=== PATIENT | male | born 1970 | race Caucasian/White ===

== ENCOUNTER 2018-02-01 05:43 | Inpatient (IN) | payer OTHER ==
[~2018-02-01] VITALS: Ht 172.7 cm; Wt 71.4 kg
[~2018-02-01 05:43] MED LIST: CHOL1CAP2 PO; GABA800T PO; PROT40TA PO; RANI150T PO
[2018-02-01] MEDS ORDERED: LACTATED RINGER'S 1000 ML IV PRN (06:15)
[2018-02-01] MEDS ORDERED: METOPROLOL TARTRATE 25 MG TAB PO PRN (06:15)
[2018-02-01] MEDS ORDERED: SODIUM CHLORID 0.9% 500 ML IV PRN (06:15)
[2018-02-01] MEDS ORDERED: ceFAZolin 2 GM/NS PREMIX 100 ML IV SCH (06:15)
[2018-02-01] MEDS ORDERED: POVIDONE IODINE 5% (ANTISEPSIS KIT) 4 APPLICATIONS EACH NARE PRN (06:15)
[2018-02-01] MEDS ORDERED: CHLORHEXIDINE GLUCONATE 2 % 1 PACK (2 CLOTHS) TOPICAL PRN (06:15)
[2018-02-01 06:49] LABS: AUTOMATED NEUTROPHIL # 2.6 TH/MM3 (1.8-7.7); EOSINOPHIL # 0.2 TH/MM3 (0-0.4); EOSINOPHIL % 4.3 % (0.0-4.0); HEMATOCRIT 42.3 % (39.0-51.0); HEMOGLOBIN 14.3 GM/DL (13.0-17.0); LYMPHOCYTE # 1.2 TH/MM3 (1.0-4.8); MEAN CELL VOLUME 83.8 FL (80.0-100.0); MEAN CORPUSCULAR HEMOGLOBIN 28.3 PG (27.0-34.0); MEAN CORPUSCULAR HGB CONC 33.7 % (32.0-36.0); MEAN PLATELET VOLUME 8.4 FL (7.0-11.0); MONO % 13.2 % (0.0-8.0); MONOCYTE # 0.6 TH/MM3 (0-0.9); NEUT % 55.5 % (16.0-70.0); PLATELET COUNT 277 TH/MM3 (150-450); RED BLOOD COUNT 5.04 MIL/MM3 (4.50-5.90); RED CELL DISTRIBUTION WIDTH 13.5 % (11.6-17.2); WHITE BLOOD COUNT 4.7 TH/MM3 (4.0-11.0)
[2018-02-01 07:15] LABS: BICARBONATE 27.4 MEQ/L (21.0-32.0); CALCIUM 8.9 MG/DL (8.5-10.1); CREATININE 1.26 MG/DL (0.60-1.30)
[2018-02-01] MEDS ORDERED: ACETAMINOPHEN 1000 MG/100 ML 100 ML IV ONE (07:20)
[2018-02-01] MEDS ORDERED: SUGAMMADEX SODIUM 200 MG/2 ML VIAL IV PUSH ONE (07:21)
[2018-02-01] MEDS ORDERED: fentaNYL CITRATE 250 MCG/5 ML AMP ONE (07:21)
[2018-02-01] MEDS ORDERED: ceFAZolin 2 GM PREMIX 50 ML ONE (07:26)
[2018-02-01] MEDS ORDERED: ETOMIDATE 20 MG/10 ML VIAL ONE (07:36)
[2018-02-01] MEDS ORDERED: ONABOTULINUMTOXINA INJ 100 UNITS/VIAL SCH (08:15)
[2018-02-01] MEDS ORDERED: PROPOFOL 200 MG/20 ML AMP IV ONE (12:00)
[2018-02-01] MEDS ORDERED: ePHEDrine/NS 25 MG/5 ML SYRINGE IV ONE (12:00)
[2018-02-01] MEDS ORDERED: ceFAZolin INJ 1,000 MG VIAL IV ONE (12:00)
[2018-02-01] MEDS ORDERED: METOPROLOL TARTRATE 5 MG/5 ML VIAL IV ONE (12:00)
[2018-02-01] MEDS ORDERED: ROCURONIUM INJ 50 MG/5 ML SYRINGE IV PUSH ONE (12:00)
[2018-02-01] MEDS ORDERED: DEXAMETHASONE SOD PHOS 4 MG/ML VIAL IV ONE (12:00)
[2018-02-01] MEDS ORDERED: NORMOSOL R INJ 1,000 ML IV ONE (12:00)
[2018-02-01] MEDS ORDERED: GLYCOPYRROLATE 1 MG/5 ML SYRINGE IV PUSH ONE (12:00)
[2018-02-01] MEDS ORDERED: LIDOCAINE HCL 1% PF 5 ML SYRINGE OTHER ONE (12:00)
[2018-02-01] MEDS ORDERED: PHENYLEPH/NS 1000 MCG/10 ML SYR IV ONE (12:00)
[2018-02-01] MEDS ORDERED: ONDANSETRON HCL 4 MG/2 ML VIAL IV PUSH ONE (12:00)
[2018-02-01] MEDS ORDERED: VECURONIUM BROMIDE 20 MG VIAL IV ONE (12:00)
[2018-02-01] MEDS ORDERED: ESMOLOL HCL 100 MG/10 ML VIAL IV ONE (12:00)
[2018-02-01] MEDS ORDERED: SODIUM CHLORIDE 0.9% 20 ML VIAL IV ONE (12:00)
--- NOTE | 2018-02-01 12:28 | EKG ---
Date Performed: 02/01/2018 Time Performed: 06:19:14 PTAGE: 47 years EKG: Sinus rhythm Normal ECG NO PREVIOUS TRACING DOCTOR: Isidro Mckay Interpretating Date/Time 02/01/2018 12:23:31
[2018-02-01] MEDS ORDERED: ceFAZolin INJ 1,000 MG VIAL ONE ×2 (12:44→15:34)
[2018-02-01] MEDS ORDERED: VECURONIUM BROMIDE 20 MG VIAL ONE (12:48)
[2018-02-01] MEDS ORDERED: BUPIVACAINE LIPOSOME PF 1.3% 20 ML VIAL ONE (15:06)
[2018-02-01] MEDS ORDERED: BENZOCAINE 20% ORAL SPR 60 ML CAN MT PRN (15:15)
[2018-02-01] MEDS ORDERED: NALOXONE HCL 0.4 MG/ML AMP IV PUSH PRN ×2 (15:15)
[2018-02-01] MEDS: PCA - TOTAL MG MORPHINE DELIVERED PER SHIFT SCH ×2 (15:15→22:00)
[2018-02-01] MEDS ORDERED: Post-op Orders (for Pharmacy) XX ONE (15:15)
[2018-02-01] MEDS ORDERED: SODIUM CHLORIDE 0.9% FLUSH 10 ML FLUSH IV FLUSH PRN (15:15)
[2018-02-01] MEDS ORDERED: MIDAZOLAM HCL 2 MG/2 ML VIAL ONE (15:38)
[2018-02-01] MEDS: D5-NS + KCL 20 MEQ INJ 1,000 ML IV SCH (16:00)
[2018-02-01] MEDS: ACETAMINOPHEN 1000 MG/100 ML 100 ML IV SCH ×2 (16:00→22:31)
[2018-02-01] MEDS ORDERED: MORPHINE SULFATE 4 MG/ML INJ ONE (16:02)
--- NOTE | 2018-02-01 16:38 | RADRPT ---
EXAM DATE/TIME: 02/01/2018 16:11 [facility] COMPARISON: No previous studies available for comparison. INDICATIONS : Evaluate for left sided central line placement. MEDICAL HISTORY : Unobtainable. SURGICAL HISTORY : Unobtainable. ENCOUNTER: Initial ACUITY: 1 day PAIN SCORE: Non-responsive. LOCATION: chest FINDINGS: There is a left subclavian central line with tip in the proximal SVC. There is a right apical chest t ube in place. There is an NGT which courses towards the right and extends inferiorly in a right rebecca nikky course terminating in the region of the diaphragm. Patchy bilateral lower lobe airspace disease . Cardiac silhouette is within normal limits. Bony thorax is grossly intact. CONCLUSION: 1. The nasogastric catheter has an unusual course as described above. Cannot exclude right bronchial position. Clinical correlation is recommended. 2. Left subclavian central line tip in the proximal SVC. No significant pneumothorax. 3. Right apical chest tube in place without significant pneumothorax. 4. Patchy bilateral lower lobe airspace disease. Corby Schrader MD on February 01, 2018 at 16:32 Board Certified Radiologist. This report was verified electronically.
[2018-02-01] MEDS ORDERED: DO NOT ADM ANY ANTICOAGULANT DRUGS PRN (17:00)
--- NOTE | 2018-02-01 17:05 | MP ---
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 PROCEDURES PERFORMED: 1. Exploratory laparotomy and open proximal gastrectomy with conversion to robotic-assisted Romulo-Israel esophagectomy. 2. Omentectomy. 3. Jejunostomy tube placement 4. Chemical pyloroplasty with Botox injection of the pylorus. ATTENDING SURGEON: Pérez Eaton MD MANUFACTURING WEAVER: Staff. ANESTHESIA: General and regional tap block. BLOOD LOSS: 300 mL COMPLICATIONS: None. FINDINGS: 1. Intraoperative consultation with pathology on frozen section revealed Whalen's or dysplasia at the proximal margin proximal gastrectomy specimen as well as very close gross margin of adenocarcinoma prompting conversion to Romulo-Israel esophagectomy. 2. No evidence of metastatic disease. INDICATIONS FOR PROCEDURE: The patient is a 47-year-old male who was recently diagnosed with early stage esophageal adenocarcinoma of the distal esophagus or possibly cardia of the stomach with a history of reflux and hiatal hernia. The patient was undergoing routine surveillance for Whalen's esophagus as well as concern for dysplasia when he was noted to have an invasive adenocarcinoma on biopsy. The patient was referred for surgical evaluation. Staging scans were negative for metastatic disease. The patient was felt to have resectable early stage distal esophageal adenocarcinoma. This was additionally biopsied in the cardia of the stomach and a proximal gastrectomy was planned. Possible Romulo-Israel esophagectomy was also discussed with the patient prior to the procedure and he agreed to undergo the procedure. PROCEDURE IN DETAIL: The patient was placed in the supine position, placed under general endotracheal anesthesia. Double lumen tube was placed due to the concern for possible conversion as well. The patient's abdomen was shaved, prepped and draped in a sterile fashion. Timeout was performed. The abdomen was entered through an upper midline incision from below the xiphoid to above the umbilicus with a 10-blade scalpel. Bovie electrocautery was used to dissect in the subcutaneous tissue to open the midline fascia. Awais extra large wound protector as well as Bookwalter retractor was placed. We were able to mobilize the left lobe of the liver, retract it laterally to expose the GE junction. Everything seemed grossly normal at this time. We went ahead and started our dissection. We resected the majority of the omentum as when we mobilized the greater curve of the stomach and took down the short gastrics, this appeared to be mildly ischemic in areas. This was obviously expected due to dividing some of the blood supply as we took the right gastroepiploic on our specimen as a blood supply to our gastric remnant or conduit as needed. We at this point in time again used the EnSeal device to take down all the short gastrics. We opened up the Vlad on the right and left side and took down the small amount of hernia sac from the patient's small hiatal hernia. From left to right fashion, we were also able to identify the left gastric vessels. We divided this at their origin at the celiac with a white load on the laparoscopic GI stapler. We still had a good pulse in the hepatic artery after this division. This completely mobilized the proximal stomach. We placed a Trudy around the GE junction and used this to retract downward. We again used the EnSeal device to go up and mobilized esophagus approximately 5 cm into the chest quite extensively. At this point in time, we were able to palpate a mass that was clearly in the esophagus above the GE junction, but it was again accessible through the stomach because of our mobilization. We did divide both vagus nerves as well. We placed 2 stay sutures proximal to the mass about as high as we could access through the stomach and used a green load on the [place] stapler to divide the esophagus above the palpable mass. We then used multiple green loads on the [place] laparoscopic stapler to divide the stomach taking to the fundus, a large portion of the body as well as the lesser curve and all the left gastric nodes with our specimen. This was passed off for intraoperative consultation. This returned positive for either Whalen's or dysplasia as well as was very close within just 1 mm of our staple line was the adenocarcinoma. I was concerned that this was not adequate resection margin and we could not take more margin through the stomach. I felt at this point in time, it was in the patient's best interest to convert to an [place] esophagectomy. At this point in time, we used Vicryl sutures to suture our gastric remnant to the distal esophagus in order to pull this through as a pull through. We bluntly dissected into the right chest cavity and accessed the right pleural space. We then kocherized the duodenum and mobilized the stomach as much as possible. The stomach remnant was a very wide, viable floppy and very appropriate conduit for a small pull through in order to get a higher margin to the chest. We did also now place Botox into the pylorus as a chemical pyloromyotomy. We then placed a jejunostomy tube. This was done in a standard Fadia fashion approximately 40 cm past the ligament of Treitz. It was a size 14-Italian jejunostomy tube with 2.5 mL of sterile water into the balloon because this can stand up with a 3-0 silk sutures against the abdominal wall. We then turned attention towards closure. We irrigated out the abdomen until all succinate was clear. We closed the abdominal midline with a single #1 looped PDS suture. We closed the skin with skin jatinder and a sterile dressing was applied. At this point in time, we did turn our attention towards the chest portion of the Romulo-Israel. We placed the patient in the left decubitus position with all positioning precautions taken. Axillary roll was used. We shaved, prepped and draped the right chest. Right chest was accessed approximately the fifth interspace at the mid axillary line with a 10-12 laparoscopic port. We placed a 30-degree camera into the chest. We did a small amount of insufflation about 5 mL of CO2 and able to collapse the lung on single lung ventilation quite easily. We placed then 3 robot ports at that time, We then docked the da Tj SI robotic system. We did use the hook monopolar in arm 1, the suction cable installer in arm 3 and the fenestrated bipolar in arm 2. We were able to grasp our conduit and the remainder of our stomach through the chest after carefully retracting the lung medially with the robotic suction device. We took down the visceral pleura over the esophagus and used the Talmage drain, which was left around the stomach conduit to facilitate retraction as well. We dissected this up to about the level of the azygos vein. We had several centimeters of totally normal appearing esophagus grossly and was again several centimeters above our previous resection. We did not want to divide the azygos vein and go higher due to the patient clearly not benefitting from more extensive resection at this point, having her already removed the primary. We used a green load on the robotic stapler to divide the esophagus again approximately 4 cm below the azygos vein. We were then able to use the scissors to make a small esophagotomy at the distal center the tip of our esophageal stump. We passed the Orval anvil transorally through this defect, securing the anvil into the distal esophagus. This was a size 25 mm. We then placed a few Hemoclips on some vessels, again, to ensure hemostasis. These were minor perforating vessels. We then dedocked robot arm 2 and made a small VATS incision approximately 6 cm in between the ribs and placed a small VATS retractor. We were able to grasp the specimen as well as the conduit and extracorporealate it through this VATS incision. We sent the specimen for evaluation and marked it appropriately. We opened up a small gastrotomy in our conduit, placed a 25 mm EEA stapler through this. Using the robot as guidance, we were able to supercharger repair supervisor the EEA stapler spike to the anvil without difficulty and fire the stapler without complication. We passed the NG tube through the anastomosis down to the distal conduit. We closed the gastrotomy conduit with 2 green loads on the laparoscopic [place] stapler. We placed 2 stay stitches at approximately 3 and 9 o'clock using the robotic brittney suture courtesy van driver. These were 2-0 silk sutures with SH needles and were stay sutures to reinforce our anastomosis. We then irrigated out the chest until all succinate was clear. We had no evidence of leak or ischemia or bleeding or any complication. We turned our attention towards completion. We removed all the ports and dedocked the robot system. We placed a 28-Italian tube in a lateral superior position through the robot arm 3 port posterolaterally. We insufflated the lung and the lung came up well without any evidence of entrapment or complication or air leak. We then closed the VATS incision with a #1 PDS followed by a 2-0 Vicryl suture. All the skin was closed with 3-0 Monocryl and Dermabond. The chest tube was placed to suction. We then put bridled in the patient's nasogastric tube into position. The patient was changed to supine position and was transferred to the PACU in stable condition. The patient tolerated the procedure well. No apparent complications. All counts were correct. I was present and scrubbed for the entire procedure. MD DIXIE Ruffin/ , 03:38 PM , 05:04 PM [facility]
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
[2018-02-01] MEDS: MORPHINE SULFATE 30 MG/30 ML PCA IV SCH ×2 (17:23→21:13)
[2018-02-01 18:03] VITALS: PULSE 100
[2018-02-01] MEDS: metroNIDAZOLE 500 MG INJ 100 ML IV SCH (18:56)
[2018-02-01 20:00] VITALS: BP 139/88; PULSE 102; RESP 17; TEMP 98.9; O2SAT 97
[2018-02-01] MEDS: SODIUM CHLORIDE 0.9% FLUSH 10 ML FLUSH IV FLUSH SCH (20:43)
[2018-02-01 22:00] VITALS: PULSE 98
[2018-02-01] MEDS ORDERED: KETOROLAC TROMETHAMINE 30 MG/ML (IVP) VIAL IV PUSH ONE (22:30)
[2018-02-02] VITALS (14 sets, daily range): BP systolic 132–156; BP diastolic 74–88; PULSE 92–104; RESP 10–20; TEMP 98.4–99; O2SAT 96–100
[2018-02-02] MEDS: metroNIDAZOLE 500 MG INJ 100 ML IV SCH ×2 (00:22→09:03)
[2018-02-02] MEDS: D5-NS + KCL 20 MEQ INJ 1,000 ML IV SCH ×3 (00:22→19:00)
[2018-02-02] MEDS: ACETAMINOPHEN 1000 MG/100 ML 100 ML IV SCH ×4 (03:48→22:07)
[2018-02-02 04:19] LABS: AUTOMATED NEUTROPHIL # 11.2 TH/MM3 (1.8-7.7); BASOPHIL % 0.3 % (0.0-2.0); HEMATOCRIT 37.3 % (39.0-51.0); HEMOGLOBIN 12.4 GM/DL (13.0-17.0); LYMPH % 4.6 % (9.0-44.0); LYMPHOCYTE # 0.6 TH/MM3 (1.0-4.8); MEAN CELL VOLUME 82.9 FL (80.0-100.0); MEAN CORPUSCULAR HEMOGLOBIN 27.7 PG (27.0-34.0); MEAN CORPUSCULAR HGB CONC 33.4 % (32.0-36.0); MEAN PLATELET VOLUME 8.6 FL (7.0-11.0); MONO % 8.4 % (0.0-8.0); MONOCYTE # 1.1 TH/MM3 (0-0.9); NEUT % 86.7 % (16.0-70.0); PLATELET COUNT 246 TH/MM3 (150-450); RED CELL DISTRIBUTION WIDTH 13.7 % (11.6-17.2)
[2018-02-02 04:41] LABS: BICARBONATE 27.4 MEQ/L (21.0-32.0); CALCIUM 7.4 MG/DL (8.5-10.1); CREATININE 1.04 MG/DL (0.60-1.30)
[2018-02-02 04:55] LABS: CALCIUM-PROTEIN CORRECTED 8.2 MG/DL (8.5-10.1); TOTAL PROTEIN 5.7 GM/DL (6.4-8.2)
[2018-02-02] MEDS: PCA - TOTAL MG MORPHINE DELIVERED PER SHIFT SCH ×3 (06:09→22:00)
[2018-02-02] MEDS: MORPHINE SULFATE 30 MG/30 ML PCA IV SCH ×4 (06:13→22:42)
[2018-02-02] MEDS: SODIUM CHLORIDE 0.9% FLUSH 10 ML FLUSH IV FLUSH SCH ×2 (09:03→21:00)
--- NOTE | 2018-02-02 12:15 | HHI.PR ---
Subjective Subjective Notes pain ok, no new c/o Objective Vitals/I&O Vital Signs Date Time Temp Pulse Resp B/P (MAP) Pulse Ox O2 Delivery O2 Flow Rate FiO2 02/02/18 12:07 98.6 101 20 146/85 (105) 96 02/02/18 07:30 Nasal Cannula 3.00 Labs Laboratory Tests Test 02/01/18 17:30 02/02/18 04:00 Nasal Screen MRSA (PCR) MRSA NOT DETECTED White Blood Count 13.0 Red Blood Count 4.50 Hemoglobin 12.4 Hematocrit 37.3 Mean Corpuscular Volume 82.9 Mean Corpuscular Hemoglobin 27.7 Mean Corpuscular Hemoglobin Concent 33.4 Red Cell Distribution Width 13.7 Platelet Count 246 Mean Platelet Volume 8.6 Neutrophils (%) (Auto) 86.7 Lymphocytes (%) (Auto) 4.6 Monocytes (%) (Auto) 8.4 Eosinophils (%) (Auto) 0.0 Basophils (%) (Auto) 0.3 Neutrophils # (Auto) 11.2 Lymphocytes # (Auto) 0.6 Monocytes # (Auto) 1.1 Eosinophils # (Auto) 0.0 Basophils # (Auto) 0.0 CBC Comment DIFF FINAL Differential Comment Blood Urea Nitrogen 15 Creatinine 1.04 Random Glucose 141 Total Protein 5.7 Calcium Level 7.4 Sodium Level 142 Potassium Level 4.1 Chloride Level 108 Carbon Dioxide Level 27.4 Anion Gap 7 Estimat Glomerular Filtration Rate 76 Protein Corrected Calcium 8.2 Cardiovascular: Regular Lungs: Clear Abdomen: Post-op tenderness Extremities: No edema, Perfused A/P Assessment and Plan 47yo male s/p robotic assisted Buckner-madeleine esophagectomy, stable POD#1. pain ok will ask PT to see, ok for OOB good UP, reduce IVF pulmonary toilet continue NG continue J-tube to gravity Pérez Eaton MD February 02, 2018 12:15
--- NOTE | 2018-02-02 15:18 | HHI.CCPN ---
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 Patient tolerated procedure well was subsequently extubated and transferred to recovery room. Critical care consult requested by Dr. Eaton . When I evaluated patient in PACU he was still drowsy following anesthesia on nasal cannula. History was obtained by reviewing records and discussion with PACU nursing staff. SUBJECTIVE: 02/02: Resting in bed on nasal cannula in no acute distress. Pain controlled with morphine [employer]. Objective Vital Signs Date Time Temp Pulse Resp B/P (MAP) Pulse Ox O2 Delivery O2 Flow Rate FiO2 02/02/18 14:30 11 02/02/18 12:07 98.6 101 146/85 (105) 96 02/02/18 07:30 Nasal Cannula 3.00 Intake and Output 02/02/18 02/02/18 02/03/18 08:00 16:00 00:00 Intake Total 1300 ml 300 ml Output Total 1770 ml Balance -470 ml 300 ml Result Diagram: 02/02/18 0400 02/02/18 0400 Imaging Last Impressions Chest X-Ray 02/01/18 0000 Signed Impressions: Service Date/Time: Thursday, February 01, 2018 16:11 - CONCLUSION: 1. The nasogastric catheter has an unusual course as described above. Cannot exclude right bronchial position. Clinical correlation is recommended. 2. Left subclavian central line tip in the proximal SVC. No significant pneumothorax. 3. Right apical chest tube in place without significant pneumothorax. 4. Patchy bilateral lower lobe airspace disease. Corby Schrader MD Objective Remarks GENERAL: 46-year-old male currently resting in bed in no acute distress SKIN: Warm and dry. HEAD: Atraumatic. Normocephalic. EYES: Pupils equal and round. No scleral icterus. No injection or drainage. ENT: No nasal bleeding or discharge. Mucous membranes pink and moist. NECK: Trachea midline. No JVD. CARDIOVASCULAR: Regular rate and rhythm. S1, S2 predose 4. RESPIRATORY: No accessory muscle use. Clear to auscultation. Breath sounds equal bilaterally. Left-sided chest tube in place GASTROINTESTINAL: Abdomen soft, non-tender, nondistended. Hepatic and splenic margins not palpable. G-tube in place MUSCULOSKELETAL: Extremities without clubbing, cyanosis, or edema. No obvious deformities. NEUROLOGICAL: Awake and alert. No obvious cranial nerve deficits. Motor grossly within normal limits. Five out of 5 muscle strength in the arms and legs. Normal speech. PSYCHIATRIC: Appropriate mood and affect; insight and judgment normal. A/P Assessment and Plan Neuro/Psych: Currently on morphine sulfate [employer] Currently on schedule Ofirmev 1 g IV every 6 hours 8 dosages for fever prevention Holding gabapentin 800 mg daily/home medication CV: Hyperlipidemia D5 normal saline with 20 mEq KCl 90 cc an hour Not requiring vasopressors and/or antihypertensives the present time On fenofibrate 135 mg p.o. daily at home Resp: Nasal cannula to maintain saturations greater than equal to 92% Incentive spirometry while awake Chest tube currently -10 cm H2O per surgery. 360 cc serosanguineous past 24 hours GI: Postop day #1 Exploratory laparotomy and open proximal gastrectomy with conversion to robotic-assisted Romulo-Israel esophagectomy. Omentectomy. Jejunostomy tube placement Chemical pyloroplasty with Botox injection of the pylorus. 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 Hiatal hernia Start tube feedings and okay with Dr. Eaton On pantoprazole and ranitidine at home. These are currently being held Bowel regimen per general surgery 210 cc NG tube drainage : Cantu catheter if indicated for accurate I's and O's in a critically ill patient Endo: Maintain euglycemia Renal: Creatinine currently within normal limits. Creatinine was 1.26 yesterday. 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 Follow trend ID: Postoperative antibiotics per surgery completed with cefazolin and metronidazole FEN: Hypo-calcium 1 g calcium gluconate is a now. Recheck in a.m. Access Prophylaxis -GI -DVT -SCD/enoxaparin Level 1 follow-up Rome Villanueva MD February 02, 2018 15:18
[2018-02-02] MEDS ORDERED: CALCIUM GLUCONATE INJ 1 GM in SODIUM CHLORIDE 0.9% INJ 100 ML IV ONE (15:30)
[2018-02-02] MEDS: ENOXAPARIN SODIUM 40 MG/0.4 ML SYRINGE SQ SCH (15:51)
[2018-02-02] MEDS: PROMETHAZINE INJ 25 MG/ML VIAL OTHER PRN (19:54)
[2018-02-03] VITALS (13 sets, daily range): BP systolic 148–157; BP diastolic 62–99; PULSE 96–116; RESP 13–21; TEMP 98.4–99.4; O2SAT 94–97
[2018-02-03] MEDS: MORPHINE SULFATE 30 MG/30 ML PCA IV SCH ×3 (03:43→19:48)
--- NOTE | 2018-02-03 04:12 | RADRPT ---
EXAM DATE/TIME: 02/03/2018 03:29 [facility] COMPARISON: CHEST SINGLE AP, February 01, 2018, 16:11. INDICATIONS : Status post chest tube placement. MEDICAL HISTORY : None. SURGICAL HISTORY : None. ENCOUNTER: Subsequent ACUITY: 3 days PAIN SCORE: 4/10 LOCATION: Right chest FINDINGS: NG tip in distal esophagus. A central line in superior vena cava. Right chest tube without pneumothor ax. Bilateral mostly basilar airspace disease. CONCLUSION: 1. Support apparatus in good position. Bilateral mostly basilar airspace disease. No pneumothorax. Prosper Miller MD on February 03, 2018 at 4:10 Board Certified Radiologist. This report was verified electronically.
[2018-02-03] MEDS: ACETAMINOPHEN 1000 MG/100 ML 100 ML IV SCH ×2 (04:17→09:27)
[2018-02-03 05:37] LABS: BICARBONATE 30.5 MEQ/L (21.0-32.0); CALCIUM 7.8 MG/DL (8.5-10.1); CREATININE 0.96 MG/DL (0.60-1.30); MAGNESIUM 1.9 MG/DL (1.5-2.5)
[2018-02-03] MEDS: PCA - TOTAL MG MORPHINE DELIVERED PER SHIFT SCH ×2 (06:00→22:00)
[2018-02-03] MEDS: D5-NS + KCL 20 MEQ INJ 1,000 ML IV SCH ×2 (06:12→16:46)
[2018-02-03 06:38] LABS: HEMATOCRIT 37.8 % (39.0-51.0); HEMOGLOBIN 12.5 GM/DL (13.0-17.0); MEAN CELL VOLUME 84.7 FL (80.0-100.0); MEAN PLATELET VOLUME 8.7 FL (7.0-11.0); PLATELET COUNT 198 TH/MM3 (150-450); RED BLOOD COUNT 4.46 MIL/MM3 (4.50-5.90); RED CELL DISTRIBUTION WIDTH 13.9 % (11.6-17.2); WHITE BLOOD COUNT 11.4 TH/MM3 (4.0-11.0)
--- NOTE | 2018-02-03 08:49 | HHI.PR ---
Subjective Subjective Notes no issues, pain controlled with meat stocker, going to get up with pt this am Objective Vitals/I&O Vital Signs Date Time Temp Pulse Resp B/P (MAP) Pulse Ox O2 Delivery O2 Flow Rate FiO2 02/03/18 06:00 110 02/03/18 06:00 13 02/03/18 04:00 99.4 154/62 (92) 96 02/02/18 20:00 Nasal Cannula 3.00 Labs Laboratory Tests Test 02/03/18 04:35 White Blood Count 11.4 Red Blood Count 4.46 Hemoglobin 12.5 Hematocrit 37.8 Mean Corpuscular Volume 84.7 Mean Corpuscular Hemoglobin 28.0 Mean Corpuscular Hemoglobin Concent 33.0 Red Cell Distribution Width 13.9 Platelet Count 198 Mean Platelet Volume 8.7 Blood Urea Nitrogen 10 Creatinine 0.96 Random Glucose 94 Calcium Level 7.8 Phosphorus Level 2.0 Magnesium Level 1.9 Sodium Level 141 Potassium Level 4.0 Chloride Level 104 Carbon Dioxide Level 30.5 Anion Gap 7 Estimat Glomerular Filtration Rate 83 Abdomen: Other (incision c/d/i, with jatinder j tube c/d/i) A/P Assessment and Plan 47yo male s/p robotic assisted [place]-madeleine esophagectomy, stable POD#2 pain ok- continue meat stocker PT For oob good UP, reduce IVF pulmonary toilet continue NG sxn continue J-tube to gravity - d/c Guillermo Botello MD February 03, 2018 08:49
[2018-02-03] MEDS: PROMETHAZINE INJ 25 MG/ML VIAL OTHER PRN (09:27)
[2018-02-03] MEDS: ONDANSETRON ODT 4 MG TAB PO PRN (14:39)
[2018-02-03] MEDS: ENOXAPARIN SODIUM 40 MG/0.4 ML SYRINGE SQ SCH (14:46)
--- NOTE | 2018-02-03 16:17 | HHI.CCPN ---
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 Patient tolerated procedure well was subsequently extubated and transferred to recovery room. Critical care consult requested by Dr. Eaton . When I evaluated patient in PACU he was still drowsy following anesthesia on nasal cannula. History was obtained by reviewing records and discussion with PACU nursing staff. 02/02: Resting in bed on nasal cannula in no acute distress. Pain controlled with morphine CAN CRIMPER. SUBJECTIVE: 02/03: Out of bed to chair today. T-max 99.4. Pain controlled with morphine CAN CRIMPER. No bowel movement. No complaints Objective Vital Signs Date Time Temp Pulse Resp B/P (MAP) Pulse Ox O2 Delivery O2 Flow Rate FiO2 02/03/18 13:17 96 Nasal Cannula 3.00 02/03/18 09:32 22 02/03/18 06:00 110 02/03/18 04:00 99.4 154/62 (92) Intake and Output 02/03/18 02/03/18 02/03/18 07:59 15:59 23:59 Intake Total 1100 ml Output Total 2350 ml Balance -1250 ml Result Diagram: 02/03/18 0435 02/03/18 0435 Imaging Last Impressions Chest X-Ray 02/03/18 0600 Signed Impressions: Service Date/Time: Saturday, February 03, 2018 03:29 - CONCLUSION: 1. Support apparatus in good position. Bilateral mostly basilar airspace disease. No pneumothorax. Prosper Miller MD Objective Remarks GENERAL: 46-year-old male currently resting in bed in no acute distress SKIN: Warm and dry. HEAD: Atraumatic. Normocephalic. EYES: Pupils equal and round. No scleral icterus. No injection or drainage. ENT: No nasal bleeding or discharge. Mucous membranes pink and moist. NECK: Trachea midline. No JVD. CARDIOVASCULAR: Regular rate and rhythm. S1, S2 predose 4. RESPIRATORY: No accessory muscle use. Clear to auscultation. Breath sounds equal bilaterally. Left-sided chest tube in place GASTROINTESTINAL: Abdomen soft, non-tender, nondistended. Hepatic and splenic margins not palpable. G-tube in place MUSCULOSKELETAL: Extremities without clubbing, cyanosis, or edema. No obvious deformities. NEUROLOGICAL: Awake and alert. No obvious cranial nerve deficits. Motor grossly within normal limits. Five out of 5 muscle strength in the arms and legs. Normal speech. PSYCHIATRIC: Appropriate mood and affect; insight and judgment normal. Urinary Catheter: No Assessment to: Continue Vascular Central Line Catheter: Yes Assessment to: Continue Date of Insertion: February 01, 2018 Line: Central Venous Catheter Side: Left Location: Subclavian A/P Assessment and Plan Neuro/Psych: Currently on morphine sulfate CAN CRIMPER Currently on schedule Ofirmev 1 g IV every 6 hours 8 dosages for fever prevention which has been completed Holding gabapentin 800 mg daily/home medication CV: Hyperlipidemia D5 normal saline with 20 mEq KCl 90 cc an hour Not requiring vasopressors and/or antihypertensives the present time On fenofibrate 135 mg p.o. daily at home Resp: Nasal cannula to maintain saturations greater than equal to 92% Incentive spirometry while awake Chest tube currently -10 cm H2O per surgery. 545 cc serosanguineous past 24 hours GI: Postop day #2 Exploratory laparotomy and open proximal gastrectomy with conversion to robotic-assisted [place] esophagectomy. Omentectomy. Jejunostomy tube placement Chemical pyloroplasty with Botox injection of the pylorus. 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 Hiatal hernia Start tube feedings and okay with Dr. Eaton On pantoprazole and ranitidine at home. These are currently being held Bowel regimen per general surgery : Cantu catheter if indicated for accurate I's and O's in a critically ill patient Endo: Maintain euglycemia Renal: Creatinine currently within normal limits. Creatinine was 1.26 yesterday. 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 Follow trend ID: Postoperative antibiotics per surgery completed with cefazolin and metronidazole FEN: Hypophosphatemia Replace electrolytes as clinically indicated 30 mmol sodium phosphate IV 1 now. Recheck in a.m. Access Prophylaxis -GI -not indicated -DVT -SCD/enoxaparin Level 1 follow-up Rome Villanueva MD February 03, 2018 16:17
[2018-02-03] MEDS ORDERED: MAGNESIUM SULFATE 1 GM PREMIX 100 ML IV ONE (17:00)
[2018-02-03] MEDS ORDERED: SODIUM PHOSPHATE INJ 30 MMOL in SODIUM CHLOR 0.9% 250 ML INJ 250 ML IV ONE (18:00)
[2018-02-03] MEDS: SODIUM CHLORIDE 0.9% FLUSH 10 ML FLUSH IV FLUSH SCH (22:02)
[2018-02-04] VITALS (13 sets, daily range): BP systolic 141–152; BP diastolic 88–99; PULSE 87–98; RESP 10–12; TEMP 98–98.6; O2SAT 97–99
[2018-02-04] MEDS: D5-NS + KCL 20 MEQ INJ 1,000 ML IV SCH ×2 (04:31→15:58)
[2018-02-04] MEDS: PCA - TOTAL MG MORPHINE DELIVERED PER SHIFT SCH ×2 (06:00→21:47)
[2018-02-04] MEDS: MORPHINE SULFATE 30 MG/30 ML PCA IV SCH ×3 (07:08→19:41)
[2018-02-04 08:11] LABS: HEMATOCRIT 36.9 % (39.0-51.0); HEMOGLOBIN 12.4 GM/DL (13.0-17.0); MEAN CELL VOLUME 83.2 FL (80.0-100.0); MEAN CORPUSCULAR HGB CONC 33.7 % (32.0-36.0); MEAN PLATELET VOLUME 8.9 FL (7.0-11.0); PLATELET COUNT 212 TH/MM3 (150-450); RED BLOOD COUNT 4.43 MIL/MM3 (4.50-5.90); RED CELL DISTRIBUTION WIDTH 13.5 % (11.6-17.2); WHITE BLOOD COUNT 9.4 TH/MM3 (4.0-11.0)
[2018-02-04 08:40] LABS: BICARBONATE 31.6 MEQ/L (21.0-32.0); CALCIUM 8.4 MG/DL (8.5-10.1); CREATININE 0.84 MG/DL (0.60-1.30); MAGNESIUM 2.2 MG/DL (1.5-2.5); PHOSPHORUS 2.3 MG/DL (2.5-4.9)
[2018-02-04] MEDS: SODIUM CHLORIDE 0.9% FLUSH 10 ML FLUSH IV FLUSH SCH ×2 (09:56→21:45)
[2018-02-04] MEDS: PROMETHAZINE INJ 25 MG/ML VIAL OTHER PRN (11:07)
--- NOTE | 2018-02-04 11:17 | HHI.CCPN ---
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 Patient tolerated procedure well was subsequently extubated and transferred to recovery room. Critical care consult requested by Dr. Eaton . When I evaluated patient in PACU he was still drowsy following anesthesia on nasal cannula. History was obtained by reviewing records and discussion with PACU nursing staff. 02/02: Resting in bed on nasal cannula in no acute distress. 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 SUBJECTIVE: 02/03: Out of bed to chair today. T-max 99.4. 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 No bowel movement. No complaints. 02/04; out of bed again today in a chair for 3 hours. Strong cough effort and good work with incentive spirometry. Remains well-hydrated. Nasogastric tube output moderate as expected. Phosphorus replacement now. Objective Vital Signs Date Time Temp Pulse Resp B/P (MAP) Pulse Ox O2 Delivery O2 Flow Rate FiO2 02/04/18 07:08 12 02/04/18 06:00 98 02/04/18 04:00 98.1 142/94 (110) 98 02/03/18 19:00 Nasal Cannula 3.00 Intake and Output 02/04/18 02/04/18 02/05/18 08:00 16:00 00:00 Intake Total 250 ml Output Total 1505 ml Balance -1255 ml Result Diagram: 02/04/18 0602/04/18 06 Imaging Last Impressions Chest X-Ray 02/03/18599 Signed Impressions: Service Date/Time: Saturday, February 03, 2018 03:29 - CONCLUSION: 1. Support apparatus in good position. Bilateral mostly basilar airspace disease. No pneumothorax. Prosper Miller MD Objective Remarks GENERAL: 46-year-old male currently resting in bed. SKIN: Warm and dry. HEAD: Atraumatic. Normocephalic. EYES: Pupils equal and round. No scleral icterus. No injection or drainage. ENT: No nasal bleeding or discharge. Plentiful saliva. NECK: Trachea midline. Airway widely patent. CARDIOVASCULAR: Regular rate and rhythm. S1, S2 normal. No JVD. RESPIRATORY: No accessory muscle use. Clear to auscultation. No adventitious sounds. Breath sounds equal bilaterally. Left-sided chest tube in place GASTROINTESTINAL: Abdomen soft, non-tender, nondistended. No involuntary guarding. Jejunostomy-tube in place MUSCULOSKELETAL: Extremities without clubbing, cyanosis, or edema. No obvious deformities. Warm, well perfused. NEUROLOGICAL: Awake and alert. No obvious cranial nerve deficits. Motor grossly within normal limits. Five out of 5 muscle strength in the arms and legs. Normal speech. 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 daily at home Resp: Nasal cannula to maintain saturations greater than equal to 92% Incentive spirometry while awake Chest tube currently -10 cm H2O per surgery. Minimal drainage. GI: Postop day #3 Exploratory laparotomy and open proximal gastrectomy with conversion to robotic-assisted [place] esophagectomy. Omentectomy. Jejunostomy tube placement Chemical pyloroplasty with Botox injection of the pylorus. 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 Hiatal hernia Start tube feedings and okay with Dr. Eaton On pantoprazole and ranitidine at home. These are currently being held Bowel regimen per general surgery : Cantu catheter if indicated for accurate I's and O's in a critically ill patient Endo: Maintain euglycemia Renal: Creatinine currently within normal limits. 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 Follow trend ID: Postoperative antibiotics per surgery completed with cefazolin and metronidazole FEN: Hypophosphatemia Replace electrolytes as clinically indicated 30 mmol sodium phosphate IV 1 again today. Recheck in a.m. Access Prophylaxis -GI -not indicated -DVT -SCD/enoxaparin Overall impression: Warm and well perfused following distal esophagectomy. Lungs remain clear. Electrolyte replacement expected due to nasogastric tube losses. Start nutrition through jejunostomy tube per surgery. Bob Loo MD February 04, 2018 11:17
[2018-02-04] MEDS ORDERED: POTASSIUM PHOSPHATE INJ 30 MMOL in SODIUM CHLOR 0.9% 250 ML INJ 250 ML IV ONE (12:00)
[2018-02-04] MEDS: ENOXAPARIN SODIUM 40 MG/0.4 ML SYRINGE SQ SCH (14:44)
[2018-02-04] MEDS: LABETALOL HCL 100 MG/20 ML VIAL IV PUSH PRN (14:44)
--- NOTE | 2018-02-04 14:50 | HHI.PR ---
Subjective Subjective Notes Doing well Irritated with NGT Objective Vitals/I&O Vital Signs Date Time Temp Pulse Resp B/P (MAP) Pulse Ox O2 Delivery O2 Flow Rate FiO2 02/04/18 14:00 87 02/04/18 13:32 18 02/04/18 12:00 98.0 152/99 (116) 99 02/04/18 08:00 Nasal Cannula 3.00 Labs Laboratory Tests Test 02/04/18 06:00 White Blood Count 9.4 Red Blood Count 4.43 Hemoglobin 12.4 Hematocrit 36.9 Mean Corpuscular Volume 83.2 Mean Corpuscular Hemoglobin 28.0 Mean Corpuscular Hemoglobin Concent 33.7 Red Cell Distribution Width 13.5 Platelet Count 212 Mean Platelet Volume 8.9 Blood Urea Nitrogen 11 Creatinine 0.84 Random Glucose 95 Calcium Level 8.4 Phosphorus Level 2.3 Magnesium Level 2.2 Sodium Level 141 Potassium Level 3.9 Chloride Level 103 Carbon Dioxide Level 31.6 Anion Gap 6 Estimat Glomerular Filtration Rate 97 Cardiovascular: Regular Lungs: Clear Abdomen: Other (incisions c/d/i; Abd soft minimally tender ) Extremities: No edema Narrative Exam RIGHT chest tube in place to wall suction ' A/P Assessment and Plan 47 year old male POD3 robotic assisted [place] esophagectomy -Start TF via J tube -Will plan for UGI tomorrow -DC Cantu -NGT to LIWS -OOB -PARALEGAL SECRETARY for pain control Attending Statement The exam, history, and the medical decision-making described in the above note were completed with the assistance of the mid-level provider. I reviewed and agree with the findings presented. I attest that I had a [id number] encounter with the patient on the same day, and personally performed and documented my assessment and findings in the medical record. stable postop, no signs of complications await bowel function increase tube feeds via j-tube slowly OOB with PT Kimberly Louis SHIP SCRAPER/Certified Pharmacist Assistant SHIP SCRAPER February 04, 2018 14:50 Pérez Eaton MD February 06, 2018 12:17
[2018-02-05] VITALS (13 sets, daily range): BP systolic 127–165; BP diastolic 63–105; PULSE 24–100; RESP 12–29; TEMP 97.5–98.6; O2SAT 92–99
[2018-02-05] MEDS: MORPHINE SULFATE 30 MG/30 ML PCA IV SCH (01:28)
[2018-02-05] MEDS: D5-NS + KCL 20 MEQ INJ 1,000 ML IV SCH ×3 (01:35→23:17)
[2018-02-05] MEDS: PCA - TOTAL MG MORPHINE DELIVERED PER SHIFT SCH ×3 (06:00→22:00)
[2018-02-05 08:12] LABS: BICARBONATE 29.3 MEQ/L (21.0-32.0); CALCIUM 8.7 MG/DL (8.5-10.1); CREATININE 0.76 MG/DL (0.60-1.30); PHOSPHORUS 3.1 MG/DL (2.5-4.9)
--- NOTE | 2018-02-05 08:57 | HHI.CCPN ---
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 Patient tolerated procedure well was subsequently extubated and transferred to recovery room. Critical care consult requested by Dr. Eaton . When I evaluated patient in PACU he was still drowsy following anesthesia on nasal cannula. History was obtained by reviewing records and discussion with PACU nursing staff. 02/02: Resting in bed on nasal cannula in no acute distress. 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 SUBJECTIVE: 02/03: Out of bed to chair today. T-max 99.4. 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 No bowel movement. No complaints. 02/04; out of bed again today in a chair for 3 hours. Strong cough effort and good work with incentive spirometry. Remains well-hydrated. Nasogastric tube output moderate as expected. Phosphorus replacement now. 02/05: Electrolytes repleted. Minimal bowel activity however he remains on narcotic ARTILLERY METEOROLOGICAL MAN. Breathing comfortably. Nasogastric output not excessive. No evidence of downstream obstruction. Diffuse light sweating which is probably related to his morphine. Objective Vital Signs Date Time Temp Pulse Resp B/P (MAP) Pulse Ox O2 Delivery O2 Flow Rate FiO2 02/05/18 08:00 98.0 62 20 127/63 (84) 92 02/05/18 07:00 Nasal Cannula 3.00 02/04/18 20:52 21 Intake and Output 02/05/18 02/05/18 02/06/18 08:00 16:00 00:00 Intake Total 140 ml Output Total 1035 ml Balance -895 ml Result Diagram: 02/04/1859902/05/18 0645 Imaging Last Impressions Chest X-Ray 02/03/18 06 Signed Impressions: Service Date/Time: Saturday, February 03, 2018 03:29 - CONCLUSION: 1. Support apparatus in good position. Bilateral mostly basilar airspace disease. No pneumothorax. Prosper Miller MD Objective Remarks GENERAL: 46-year-old male currently resting in bed. SKIN: Warm and dry. HEAD: Atraumatic. Normocephalic. EYES: Pupils equal and round. No scleral icterus. No injection or drainage. ENT: No nasal bleeding or discharge. Plentiful saliva. NG in place. NECK: Trachea midline. Airway widely patent. CARDIOVASCULAR: Regular rate and rhythm. S1, S2 normal. No JVD. RESPIRATORY: No accessory muscle use. Clear to auscultation. No adventitious sounds. Left-sided chest tube in place to water seal. GASTROINTESTINAL: Abdomen soft, non-tender, nondistended. No involuntary guarding. Jejunostomy-tube in place MUSCULOSKELETAL: Extremities without clubbing, cyanosis, or edema. No obvious deformities. Warm, well perfused. NEUROLOGICAL: Awake and alert. No obvious cranial nerve deficits. Motor grossly within normal limits. Normal speech. Date of Insertion: February 01, 2018 Line: Central Venous Catheter Side: Left Location: Subclavian A/P Assessment and Plan Neuro/Psych: Remains on morphine sulfate ARTILLERY METEOROLOGICAL MAN Currently on schedule Ofirmev 1 g IV every 6 hours 8 dosages for fever prevention which has been completed Holding gabapentin 800 mg daily/home medication CV: Hyperlipidemia D5 normal saline with 20 mEq KCl 90 cc an hour Not requiring vasopressors and/or antihypertensives the present time On fenofibrate 135 mg p.o. daily at home Resp: Nasal cannula to maintain saturations greater than equal to 92% Incentive spirometry while awake Chest tube currently 2 cm H2O per surgery. Minimal drainage. GI: Postop day #4 Exploratory laparotomy and open proximal gastrectomy with conversion to robotic-assisted [place] esophagectomy. Omentectomy. Jejunostomy tube placement Chemical pyloroplasty with Botox injection of the pylorus. 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 Hiatal hernia Start tube feedings and okay with Dr. Eaton On pantoprazole and ranitidine at home. These are currently being held Bowel regimen per general surgery : Cantu catheter if indicated for accurate I's and O's in a critically ill patient Endo: Maintain euglycemia Renal: Creatinine currently within normal limits. 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 Follow trend ID: Postoperative antibiotics per surgery completed with cefazolin and metronidazole FEN: Hypophosphatemia Replace electrolytes as clinically indicated 30 mmol sodium phosphate IV 1 again today. Recheck in a.m. Access Prophylaxis -GI -not indicated -DVT -SCD/enoxaparin Overall impression: Warm and well perfused following distal esophagectomy. Lungs remain clear. Electrolyte replacement completed. Started nutrition through jejunostomy tube per surgery, well tolerated. Bob Loo MD February 05, 2018 08:57
[2018-02-05] MEDS: SODIUM CHLORIDE 0.9% FLUSH 10 ML FLUSH IV FLUSH SCH ×2 (09:00→21:00)
--- NOTE | 2018-02-05 09:26 | HHI.PR ---
Subjective Subjective Notes "I'm feeling a little nauseous right now." Objective Vitals/I&O Vital Signs Date Time Temp Pulse Resp B/P (MAP) Pulse Ox O2 Delivery O2 Flow Rate FiO2 02/05/18 08:00 98.0 62 20 127/63 (84) 92 02/05/18 07:00 Nasal Cannula 3.00 02/04/18 20:52 21 Labs Laboratory Tests Test 02/05/18 06:45 Blood Urea Nitrogen 10 Creatinine 0.76 Random Glucose 107 Calcium Level 8.7 Phosphorus Level 3.1 Sodium Level 140 Potassium Level 3.8 Chloride Level 101 Carbon Dioxide Level 29.3 Anion Gap 10 Estimat Glomerular Filtration Rate 109 Cardiovascular: Regular Lungs: Clear Abdomen: Other (midline incision with jatinder; J tube in place ) Extremities: Other (faint mild peripherally edema ) Narrative Exam RIGHT chest tube in place to water seal A/P Assessment and Plan 47 year old male POD4 robotic assisted [place] esophagectomy -Continue TF via J tube -Will hold off on upper GI today since NGT output was 610 cc -NGT to LIWS -OOB -MILITARY PERSONNEL SPECIALIST for pain control -Phenergan for nausea -Lovenox Attending Statement The exam, history, and the medical decision-making described in the above note were completed with the assistance of the mid-level provider. I reviewed and agree with the findings presented. I attest that I had a [id number] encounter with the patient on the same day, and personally performed and documented my assessment and findings in the medical record. stable postop, no signs of complications await bowel function will get an upper GI once NG output is decreased increase tube feeds via j-tube slowly OOB with PT Kimberly Louis/Hydraulic Oil Tool Operator TAI February 05, 2018 09:26 Pérez Eaton MD February 06, 2018 12:18
[2018-02-05] MEDS: PROMETHAZINE INJ 25 MG/ML VIAL OTHER PRN (09:28)
[2018-02-05] MEDS: HYDROmorphone HCL PF 0.5 MG/0.5 ML SYRINGE IV PUSH PRN ×3 (11:55→21:59)
[2018-02-05] MEDS: ENOXAPARIN SODIUM 40 MG/0.4 ML SYRINGE SQ SCH (15:40)
[2018-02-05] MEDS: ACETAMINOPHEN 325MG/HYDROcodone 7.5MG/15ML UDC PO PRN (15:41)
[2018-02-06] VITALS (15 sets, daily range): BP systolic 157–180; BP diastolic 95–103; PULSE 82–112; RESP 12–22; TEMP 97.3–98.5; O2SAT 92–98
[2018-02-06] MEDS: PROMETHAZINE INJ 25 MG/ML VIAL OTHER PRN ×3 (00:11→18:56)
[2018-02-06] MEDS: ACETAMINOPHEN 325MG/HYDROcodone 7.5MG/15ML UDC PO PRN ×2 (00:11→09:58)
[2018-02-06] MEDS: ONDANSETRON ODT 4 MG TAB PO PRN ×3 (04:31→21:35)
[2018-02-06] MEDS: PCA - TOTAL MG MORPHINE DELIVERED PER SHIFT SCH ×3 (06:00→21:36)
[2018-02-06] MEDS: HYDROmorphone HCL PF 0.5 MG/0.5 ML SYRINGE IV PUSH PRN ×4 (06:56→19:50)
[2018-02-06] MEDS: SODIUM CHLORIDE 0.9% FLUSH 10 ML FLUSH IV FLUSH SCH ×2 (08:45→21:00)
--- NOTE | 2018-02-06 09:40 | HHI.CCPN ---
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 Patient tolerated procedure well was subsequently extubated and transferred to recovery room. Critical care consult requested by Dr. Eaton . When I evaluated patient in PACU he was still drowsy following anesthesia on nasal cannula. History was obtained by reviewing records and discussion with PACU nursing staff. 02/02: Resting in bed on nasal cannula in no acute distress. 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 SUBJECTIVE: 02/03: Out of bed to chair today. T-max 99.4. 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 No bowel movement. No complaints. 02/04; out of bed again today in a chair for 3 hours. Strong cough effort and good work with incentive spirometry. Remains well-hydrated. Nasogastric tube output moderate as expected. Phosphorus replacement now. 02/05: Electrolytes repleted. Minimal bowel activity however he remains on narcotic ARMAMENT REPAIRER. Breathing comfortably. Nasogastric output not excessive. No evidence of downstream obstruction. Diffuse light sweating which is probably related to his morphine. 02/06: Remains warm and well-perfused. Lower bowel activity remains minimal. Continue enteral feeds in the jejunum at trickle rate. Discussed with Dr. Goldberg at the bedside. Plan for contrast swallow tomorrow. Objective Vital Signs Date Time Temp Pulse Resp B/P (MAP) Pulse Ox O2 Delivery O2 Flow Rate FiO2 02/06/18 07:00 95 Room Air 02/06/18 06:00 98 02/06/18 04:00 97.7 15 158/98 (118) 02/05/18 20:03 4.00 02/04/18 20:52 21 Intake and Output 02/06/18 02/06/18 02/07/18 08:00 16:00 00:00 Intake Total 129 ml Output Total 1700 ml Balance -1571 ml Result Diagram: 02/04/18 0600 02/05/18 0645 Imaging Last Impressions Chest X-Ray 02/03/18 06 Signed Impressions: Service Date/Time: Saturday, February 03, 2018 03:29 - CONCLUSION: 1. Support apparatus in good position. Bilateral mostly basilar airspace disease. No pneumothorax. Prosper Miller MD Objective Remarks GENERAL: 46-year-old male currently resting in bed. SKIN: Warm and dry. HEAD: Atraumatic. Normocephalic. EYES: Pupils equal and round. No scleral icterus. No injection or drainage. ENT: No nasal bleeding or discharge. Plentiful saliva. NG in place. NECK: Trachea midline. Airway widely patent. CARDIOVASCULAR: Regular rate and rhythm. S1, S2 normal. No JVD. RESPIRATORY: No accessory muscle use. Clear to auscultation. No adventitious sounds. Chest tube in place to water seal. GASTROINTESTINAL: Abdomen soft, non-tender, nondistended. No involuntary guarding. Jejunostomy-tube in place MUSCULOSKELETAL: Extremities without clubbing, cyanosis, or edema. No obvious deformities. Warm, well perfused. NEUROLOGICAL: Awake and alert. No obvious cranial nerve deficits. Motor grossly within normal limits. Normal speech. Date of Insertion: February 01, 2018 Line: Central Venous Catheter Side: Left Location: Subclavian A/P Assessment and Plan Neuro/Psych: Remains on morphine sulfate ARMAMENT REPAIRER Currently on schedule Ofirmev 1 g IV every 6 hours 8 dosages for fever prevention which has been completed Holding gabapentin 800 mg daily/home medication CV: Hyperlipidemia D5 normal saline with 20 mEq KCl 90 cc an hour Not requiring vasopressors and/or antihypertensives the present time On fenofibrate 135 mg p.o. daily at home Resp: Nasal cannula to maintain saturations greater than equal to 92% Incentive spirometry while awake Chest tube currently 2 cm H2O per surgery. Minimal drainage. GI: Postop day #4 Exploratory laparotomy and open proximal gastrectomy with conversion to robotic-assisted [place] esophagectomy. Omentectomy. Jejunostomy tube placement Chemical pyloroplasty with Botox injection of the pylorus. Secondary to stage T2N1 invasive adenocarcinoma in the setting of Whlaen's esophagus distal esophagus and GE junction. Hiatal hernia Start tube feedings through jejunostomy tube at trickle rate. On pantoprazole and ranitidine at home. These are currently being held Bowel regimen per general surgery : Cantu catheter if indicated for accurate I's and O's in a critically ill patient Endo: Maintain euglycemia Renal: Creatinine currently within normal limits. 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 Follow trend ID: Postoperative antibiotics per surgery completed with cefazolin and metronidazole FEN: Hypophosphatemia Replace electrolytes as clinically indicated 30 mmol sodium phosphate IV 1 again today. Recheck in a.m. Access Prophylaxis -GI -not indicated -DVT -SCD/enoxaparin Overall impression: Warm and well perfused following distal esophagectomy. Lungs remain clear. Started nutrition through jejunostomy tube per surgery, well tolerated. We will keep that trickle rate as nasogastric tube output remains a little high. Bob Loo MD February 06, 2018 09:40
[2018-02-06] MEDS: D5-NS + KCL 20 MEQ INJ 1,000 ML IV SCH ×2 (13:04→21:31)
--- NOTE | 2018-02-06 14:34 | HHI.PR ---
Subjective Subjective Notes Complains of pain at chest tube site Objective Vitals/I&O Vital Signs Date Time Temp Pulse Resp B/P (MAP) Pulse Ox O2 Delivery O2 Flow Rate FiO2 02/06/18 12:00 97.5 90 12 162/102 (122) 93 02/06/18 07:00 Room Air 02/05/18 20:03 4.00 02/04/18 20:52 21 Cardiovascular: Regular Lungs: Clear Abdomen: Other (Midline incision c/d/i; J tube with TF; mildly distended ), Post-op tenderness Extremities: No edema Narrative Exam RIGHT chest tube in place to water seal A/P Assessment and Plan 47 year old male POD5 robotic assisted [place] esophagectomy -Reviewed pathology with patient--will need to be evaluated by Medical Oncology once recovered from surgery -Continue TF via J tube ---Increase to 15 cc -Will hold off on upper GI today since NGT output was 610 cc -Plan for UGI tomorrow -NGT to LIWS -OOB -SHIFT LAB TECHNICIAN for pain control; added Hycet for J tube administration -Phenergan for nausea -Lovenox Attending Statement The exam, history, and the medical decision-making described in the above note were completed with the assistance of the mid-level provider. I reviewed and agree with the findings presented. I attest that I had a [id number] encounter with the patient on the same day, and personally performed and documented my assessment and findings in the medical record. s/p Romulo -[place], stable postop will get upper GI tomorrow not tolerating tube feeds, will change formula and start with low rate Kimberly LouisP/Dressage Instructor TAI February 06, 2018 14:34 Pérez Eaton MD February 08, 2018 13:41
[2018-02-06] MEDS: ENOXAPARIN SODIUM 40 MG/0.4 ML SYRINGE SQ SCH (14:44)
[2018-02-07] VITALS (11 sets, daily range): BP systolic 140–176; BP diastolic 92–100; PULSE 82–96; RESP 13–25; TEMP 97.7–98.8; O2SAT 93–97
[2018-02-07] MEDS: PROMETHAZINE INJ 25 MG/ML VIAL OTHER PRN ×3 (00:10→18:28)
[2018-02-07] MEDS: ACETAMINOPHEN 325MG/HYDROcodone 7.5MG/15ML UDC PO PRN ×3 (00:11→18:28)
[2018-02-07] MEDS: HYDROmorphone HCL PF 0.5 MG/0.5 ML SYRINGE IV PUSH PRN ×5 (03:13→20:50)
[2018-02-07] MEDS: PCA - TOTAL MG MORPHINE DELIVERED PER SHIFT SCH ×3 (06:00→22:00)
[2018-02-07 06:01] LABS: BASOPHIL # 0.1 TH/MM3 (0-0.2); BASOPHIL % 0.8 % (0.0-2.0); EOSINOPHIL # 0.2 TH/MM3 (0-0.4); EOSINOPHIL % 2.5 % (0.0-4.0); HEMATOCRIT 37.9 % (39.0-51.0); HEMOGLOBIN 12.5 GM/DL (13.0-17.0); LYMPH % 12.7 % (9.0-44.0); LYMPHOCYTE # 0.9 TH/MM3 (1.0-4.8); MEAN CORPUSCULAR HEMOGLOBIN 27.7 PG (27.0-34.0); MEAN CORPUSCULAR HGB CONC 32.9 % (32.0-36.0); MEAN PLATELET VOLUME 8.1 FL (7.0-11.0); MONO % 15.3 % (0.0-8.0); MONOCYTE # 1.1 TH/MM3 (0-0.9); NEUT % 68.7 % (16.0-70.0); PLATELET COUNT 306 TH/MM3 (150-450); RED BLOOD COUNT 4.51 MIL/MM3 (4.50-5.90); RED CELL DISTRIBUTION WIDTH 13.1 % (11.6-17.2); WHITE BLOOD COUNT 7.2 TH/MM3 (4.0-11.0)
[2018-02-07 06:26] LABS: BICARBONATE 27.6 MEQ/L (21.0-32.0); CALCIUM 8.5 MG/DL (8.5-10.1); CREATININE 0.85 MG/DL (0.60-1.30)
[2018-02-07] MEDS: SODIUM CHLORIDE 0.9% FLUSH 10 ML FLUSH IV FLUSH SCH ×2 (08:00→21:00)
[2018-02-07] MEDS: D5-NS + KCL 20 MEQ INJ 1,000 ML IV SCH ×2 (08:00→18:37)
--- NOTE | 2018-02-07 09:36 | HHI.CCPN ---
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 Patient tolerated procedure well was subsequently extubated and transferred to recovery room. Critical care consult requested by Dr. Eaton . When I evaluated patient in PACU he was still drowsy following anesthesia on nasal cannula. History was obtained by reviewing records and discussion with PACU nursing staff. 02/02: Resting in bed on nasal cannula in no acute distress. 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 SUBJECTIVE: 02/03: Out of bed to chair today. T-max 99.4. 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 No bowel movement. No complaints. 02/04; out of bed again today in a chair for 3 hours. Strong cough effort and good work with incentive spirometry. Remains well-hydrated. Nasogastric tube output moderate as expected. Phosphorus replacement now. 02/05: Electrolytes repleted. Minimal bowel activity however he remains on narcotic ENVIRONMENTAL WEB CRAWLER. Breathing comfortably. Nasogastric output not excessive. No evidence of downstream obstruction. Diffuse light sweating which is probably related to his morphine. 02/06: Remains warm and well-perfused. Lower bowel activity remains minimal. Continue enteral feeds in the jejunum at trickle rate. Discussed with Dr. Goldberg at the bedside. Plan for contrast swallow tomorrow. 02/07: Starting to pass gas.No abdominal discomfort, good pain control. ENVIRONMENTAL WEB CRAWLER has been stopped. Objective Vital Signs Date Time Temp Pulse Resp B/P (MAP) Pulse Ox O2 Delivery O2 Flow Rate FiO2 02/07/18 08:00 86 02/07/18 08:00 97.9 22 142/92 (109) 93 02/07/18 07:00 Room Air 02/05/18 20:03 4.00 02/04/18 20:52 21 Intake and Output 02/07/18 02/07/18 02/08/18 08:00 16:00 00:00 Output Total 1520 ml Balance -1520 ml Result Diagram: 02/07/18 0520 02/07/18 0520 Imaging Last Impressions Chest X-Ray 02/03/18 0600 Signed Impressions: Service Date/Time: Filippo, February 03, 2018 03:29 - CONCLUSION: 1. Support apparatus in good position. Bilateral mostly basilar airspace disease. No pneumothorax. Prosper Miller MD Objective Remarks GENERAL: 46-year-old male. SKIN: Warm and dry. HEAD: Atraumatic. Normocephalic. ENT: No nasal bleeding or discharge. Normal saliva. NG in place. NECK: Trachea midline. Airway widely patent. No obstruction. CARDIOVASCULAR: Regular rate and rhythm. S1, S2 normal. No JVD. RESPIRATORY: No accessory muscle use. Clear to auscultation. No adventitious sounds. Chest tube in place. GASTROINTESTINAL: Abdomen soft, non-tender, nondistended. No involuntary guarding. Jejunostomy-tube in place, site clean, dry. MUSCULOSKELETAL: Extremities without clubbing, cyanosis, or edema. No obvious deformities. Warm, well perfused. NEUROLOGICAL: Awake and alert. No obvious cranial nerve deficits. Motor grossly normal. Normal speech. 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 CV: Hyperlipidemia D5 normal saline with 20 mEq KCl 90 cc an hour Not requiring vasopressors and/or antihypertensives the present time On fenofibrate 135 mg p.o. daily at home Resp: Nasal cannula to maintain saturations greater than equal to 92% Incentive spirometry while awake Chest tube currently 2 cm H2O per surgery. Minimal drainage. GI: Postop day #4 Exploratory laparotomy and open proximal gastrectomy with conversion to robotic-assisted [place] esophagectomy. Omentectomy. Jejunostomy tube placement Chemical pyloroplasty with Botox injection of the pylorus. 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 Hiatal hernia Start tube feedings through jejunostomy tube at trickle rate. On pantoprazole and ranitidine at home. These are currently being held Bowel regimen per general surgery : Cantu catheter if indicated for accurate I's and O's in a critically ill patient Endo: Maintain euglycemia Renal: Creatinine currently within normal limits. 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 Follow trend ID: Postoperative antibiotics per surgery completed with cefazolin and metronidazole FEN: Hypophosphatemia Replace electrolytes as clinically indicated Access Prophylaxis -GI -not indicated -DVT -SCD/enoxaparin Overall impression: Lungs remain clear. Started nutrition through jejunostomy tube per surgery, well tolerated. We will keep that trickle rate as nasogastric tube output remains a little high. Probable swallow today followed by CT removal. Bob Loo MD February 07, 2018 09:36
--- NOTE | 2018-02-07 11:24 | HHI.PR ---
Subjective Subjective Notes Tube off due to distention Plan for UGI today at 11:30 AM Eager to get NGT out Objective Vitals/I&O Vital Signs Date Time Temp Pulse Resp B/P (MAP) Pulse Ox O2 Delivery O2 Flow Rate FiO2 02/07/18 10:00 89 02/07/18 08:00 97.9 22 142/92 (109) 93 02/07/18 07:00 Room Air 02/05/18 20:03 4.00 02/04/18 20:52 21 Labs Laboratory Tests Test 02/07/18 05:20 White Blood Count 7.2 Red Blood Count 4.51 Hemoglobin 12.5 Hematocrit 37.9 Mean Corpuscular Volume 84.0 Mean Corpuscular Hemoglobin 27.7 Mean Corpuscular Hemoglobin Concent 32.9 Red Cell Distribution Width 13.1 Platelet Count 306 Mean Platelet Volume 8.1 Neutrophils (%) (Auto) 68.7 Lymphocytes (%) (Auto) 12.7 Monocytes (%) (Auto) 15.3 Eosinophils (%) (Auto) 2.5 Basophils (%) (Auto) 0.8 Neutrophils # (Auto) 5.0 Lymphocytes # (Auto) 0.9 Monocytes # (Auto) 1.1 Eosinophils # (Auto) 0.2 Basophils # (Auto) 0.1 CBC Comment DIFF FINAL Differential Comment Blood Urea Nitrogen 13 Creatinine 0.85 Random Glucose 100 Calcium Level 8.5 Sodium Level 142 Potassium Level 3.5 Chloride Level 105 Carbon Dioxide Level 27.6 Anion Gap 9 Estimat Glomerular Filtration Rate 96 Cardiovascular: Regular Lungs: Clear Abdomen: Other (midline incision; J tube clamped ) Extremities: No edema Narrative Exam RIGHT chest tube in place to water seal A/P Assessment and Plan 47 year old male POD6 robotic assisted [place] esophagectomy -Reviewed pathology with patient--will need to be evaluated by Medical Oncology once recovered from surgery -Continue TF via J tube ---Increase to 15 cc -UGI planned for today -NGT to LIWS until after UGI---pending results may be able to DC -OOB -Dilaudid IV and Hycet for pain -Phenergan for nausea -Lovenox Attending Statement The exam, history, and the medical decision-making described in the above note were completed with the assistance of the mid-level provider. I reviewed and agree with the findings presented. I attest that I had a [id number] encounter with the patient on the same day, and personally performed and documented my assessment and findings in the medical record. s/p Romulo-[place], stable postop upper GI no leak ok to DC chest tube and NG ok to floor Kimberly LouisP/Watch Commander ARNP February 07, 2018 11:24 Pérez Eaton MD February 08, 2018 13:46
[2018-02-07] MEDS ORDERED: DIATRIZOATE MEGLUM/DIATRIZOATE SOD 120 ML BTL (for RAD DIAG) PO ONE (11:58)
--- NOTE | 2018-02-07 14:44 | RADRPT ---
EXAM DATE: 02/07/2018 2:36 PM EDT AGE/SEX: 47 years / Male INDICATIONS: post Romulo/[place] esophagectomy CLINICAL DATA: This is the patient's initial encounter. Patient reports that signs and symptoms have been present for 1 day and indicates a pain score of 0/10. MEDICAL/SURGICAL HISTORY: None. None. COMPARISON: No prior [facility] exams available for comparison. FLUORO TIME: 1.5 minutes. IMAGE COUNT: 8 FINDINGS: Upper GI series performed with Gastrografin. NG tip is in the distal esophagus within the lower chest with patient status post distal esophagectomy and gastric pull-through procedure. No leak at the elizabeth stomosis. KUB 10 minutes after procedure reveals contrast still above the diaphragm in the distal sto mach. A right-sided chest tube is present. Left central line in superior vena cava. CONCLUSION; Postoperative distal esophagectomy with gastric pull-through procedure. No evidence for leakage at an astomosis. See above. Electronically signed by: Prosper Miller MD 02/07/2018 2:43 PM EDT
[2018-02-07] MEDS: ONDANSETRON ODT 4 MG TAB PO PRN (14:50)
[2018-02-07] MEDS: ENOXAPARIN SODIUM 40 MG/0.4 ML SYRINGE SQ SCH (15:00)
--- NOTE | 2018-02-07 18:29 | RADRPT ---
EXAM DATE: 02/07/2018 6:10 PM EDT AGE/SEX: 47 years / Male INDICATIONS: Evaluate post chest tube removal. CLINICAL DATA: This is the patient's subsequent encounter. Patient reports that signs and symptoms h ave been present for 4 - 6 days and indicates a pain score of 0/10. MEDICAL/SURGICAL HISTORY: None. . Chest tube. COMPARISON: 02/03/2018. FINDINGS: A single AP portable erect view of the chest was obtained and demonstrates interval removal of the pr evious noted right-sided chest tube. There is no pneumothorax. The nasogastric tube is been removed a s well. Consolidative opacity remains in the right infrahilar region and right lung base which is mil dly improved. There is been interval improvement in the opacity in the left lung base with moderate r esidual at the lung base. The heart size remains at the upper limits of normal. The left costophrenic angle may be mildly blunted. The left subclavian central venous line remains in place. CONCLUSION: 1. Interval removal right-sided chest tube with no pneumothorax. 2. Improvement in bilateral pulmonary opacities with moderate residual. 3. Interval removal of nasogastric tube. Electronically signed by: Robin Abebe MD 02/07/2018 6:28 PM EDT
[2018-02-08] VITALS (7 sets, daily range): BP systolic 134–143; BP diastolic 82–96; PULSE 81–101; RESP 15–20; TEMP 98.2–98.8; O2SAT 94–97
[2018-02-08] MEDS: ONDANSETRON ODT 4 MG TAB PO PRN ×4 (02:18→20:37)
[2018-02-08] MEDS: HYDROmorphone HCL PF 0.5 MG/0.5 ML SYRINGE IV PUSH PRN ×5 (02:18→20:37)
--- NOTE | 2018-02-08 04:53 | RADRPT ---
EXAM DATE: 02/08/2018 4:51 AM EDT AGE/SEX: 47 years / Male INDICATIONS: Status post [place] Esophagectomy. CLINICAL DATA: This is the patient's initial encounter. Patient reports that signs and symptoms have been present for 1 day and indicates a pain score of 3/10. MEDICAL/SURGICAL HISTORY: None. . Esophagectomy. Chest tube. COMPARISON: [facility] [place], CHEST SINGLE AP, 02/07/2018. . FINDINGS: There is a left subclavian line in good position. The heart size is normal. There is increased densit y at the right base and to a much lesser degree the lateral left lower lung. CONCLUSION: Right lower lung consolidation or atelectasis with a minimal area of atelectasis or consolidation at the left lateral base. The chest appears unchanged from the prior exam. Electronically signed by: Omid Bruce MD 02/08/2018 4:52 AM EDT
[2018-02-08] MEDS: PCA - TOTAL MG MORPHINE DELIVERED PER SHIFT SCH ×3 (06:00→21:41)
[2018-02-08] MEDS: D5-NS + KCL 20 MEQ INJ 1,000 ML IV SCH ×2 (06:33→17:59)
[2018-02-08] MEDS: SODIUM CHLORIDE 0.9% FLUSH 10 ML FLUSH IV FLUSH SCH ×2 (07:41→20:54)
--- NOTE | 2018-02-08 11:56 | HHI.CCPN ---
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 Patient tolerated procedure well was subsequently extubated and transferred to recovery room. Critical care consult requested by Dr. Eaton . When I evaluated patient in PACU he was still drowsy following anesthesia on nasal cannula. History was obtained by reviewing records and discussion with PACU nursing staff. 02/02: Resting in bed on nasal cannula in no acute distress. 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 SUBJECTIVE: 02/03: Out of bed to chair today. T-max 99.4. 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 No bowel movement. No complaints. 02/04; out of bed again today in a chair for 3 hours. Strong cough effort and good work with incentive spirometry. Remains well-hydrated. Nasogastric tube output moderate as expected. Phosphorus replacement now. 02/05: Electrolytes repleted. Minimal bowel activity however he remains on narcotic PHOTOGRAPHIC COLORIST. Breathing comfortably. Nasogastric output not excessive. No evidence of downstream obstruction. Diffuse light sweating which is probably related to his morphine. 02/06: Remains warm and well-perfused. Lower bowel activity remains minimal. Continue enteral feeds in the jejunum at trickle rate. Discussed with Dr. Goldberg at the bedside. Plan for contrast swallow tomorrow. 02/07: Starting to pass gas.No abdominal discomfort, good pain control. PHOTOGRAPHIC COLORIST has been stopped. 02/08: Contract swallow without leak. Minor atelectasis right lung, otherwise clear. Breathing comfortably. Objective Vital Signs Date Time Temp Pulse Resp B/P (MAP) Pulse Ox O2 Delivery O2 Flow Rate FiO2 02/08/18 08:00 81 02/08/18 08:00 98.5 18 139/82 (101) 96 02/08/18 07:00 Room Air 02/05/18 20:03 4.00 02/04/18 20:52 21 Intake and Output 02/08/18 02/08/18 02/09/18 08:00 16:00 00:00 Intake Total 1000 ml Output Total 900 ml Balance 100 ml Result Diagram: 02/07/18 0520 02/07/18 05 Imaging Last Impressions Chest X-Ray 02/03/18 0600 Signed Impressions: Service Date/Time: Saturday, February 03, 2018 03:29 - CONCLUSION: 1. Support apparatus in good position. Bilateral mostly basilar airspace disease. No pneumothorax. Prosper Miller MD Objective Remarks GENERAL: 46-year-old male. SKIN: Warm and dry. HEAD: Atraumatic. Normocephalic. ENT: No nasal bleeding or discharge. Normal saliva. NG in place. NECK: Trachea midline. Airway widely patent. No obstruction. CARDIOVASCULAR: Regular rate and rhythm. S1, S2 normal. No JVD. RESPIRATORY: No accessory muscle use. Clear to auscultation. No adventitious sounds. GASTROINTESTINAL: Abdomen soft, non-tender, nondistended. No involuntary guarding. Jejunostomy-tube in place, site clean, dry. MUSCULOSKELETAL: Extremities without clubbing, cyanosis, or edema. No obvious deformities. Warm, well perfused. NEUROLOGICAL: Awake and alert. No obvious cranial nerve deficits. Motor grossly normal. Normal speech. 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 CV: Hyperlipidemia D5 normal saline with 20 mEq KCl 90 cc an hour Not requiring vasopressors and/or antihypertensives the present time On fenofibrate 135 mg p.o. daily at home Resp: Nasal cannula to maintain saturations greater than equal to 92% Incentive spirometry while awake Chest tube currently 2 cm H2O per surgery. Minimal drainage. GI: Postop day #4 Exploratory laparotomy and open proximal gastrectomy with conversion to robotic-assisted [place] esophagectomy. Omentectomy. Jejunostomy tube placement Chemical pyloroplasty with Botox injection of the pylorus. 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 Hiatal hernia Start tube feedings through jejunostomy tube at trickle rate. On pantoprazole and ranitidine at home. These are currently being held Bowel regimen per general surgery : Cantu catheter if indicated for accurate I's and O's in a critically ill patient Endo: Maintain euglycemia Renal: Creatinine currently within normal limits. 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 Follow trend ID: Postoperative antibiotics per surgery completed with cefazolin and metronidazole FEN: Hypophosphatemia Replace electrolytes as clinically indicated Access Prophylaxis -GI -not indicated -DVT -SCD/enoxaparin Overall impression: Lungs remain clear. Stable respiratory status; progressing well. Bob Loo MD February 08, 2018 11:56
[2018-02-08] MEDS: PROMETHAZINE INJ 25 MG/ML VIAL OTHER PRN (12:13)
--- NOTE | 2018-02-08 14:58 | HHI.PR ---
Subjective Subjective Notes no new c/o Objective Vitals/I&O Vital Signs Date Time Temp Pulse Resp B/P (MAP) Pulse Ox O2 Delivery O2 Flow Rate FiO2 02/08/18 12:00 98 02/08/18 12:00 98.7 20 134/85 (101) 97 02/08/18 07:00 Room Air 02/05/18 20:03 4.00 02/04/18 20:52 21 Cardiovascular: Regular Lungs: Clear Abdomen: Non-distended, Post-op tenderness Extremities: No edema, Perfused Narrative Exam c/d/i incisions A/P Assessment and Plan 47yo male s/p robotic assisted [place]-made[place] esophagectomy, POD#7, upper GI ok NG out Chest tube out NPO until has good bowel function J-tube at 15, increase slowly by 5-10cc/day as tolerated Pérez Crockett MD February 08, 2018 14:58
[2018-02-08] MEDS: ENOXAPARIN SODIUM 40 MG/0.4 ML SYRINGE SQ SCH (15:00)
[2018-02-08] MEDS ORDERED: MAGNESIUM HYDROXIDE SUSP 30 ML CUP J-TUBE ONE (15:45)
[2018-02-09] VITALS (12 sets, daily range): BP systolic 132–173; BP diastolic 78–101; PULSE 86–125; RESP 17–22; TEMP 96.5–98.1; O2SAT 91–98
[2018-02-09] MEDS: HYDROmorphone HCL PF 0.5 MG/0.5 ML SYRINGE IV PUSH PRN ×10 (00:36→23:42)
[2018-02-09] MEDS: D5-NS + KCL 20 MEQ INJ 1,000 ML IV SCH ×3 (05:06→21:31)
[2018-02-09] MEDS: PCA - TOTAL MG MORPHINE DELIVERED PER SHIFT SCH ×3 (05:12→21:32)
[2018-02-09] MEDS: ONDANSETRON ODT 4 MG TAB PO PRN ×2 (05:41→11:34)
[2018-02-09] MEDS: SODIUM CHLORIDE 0.9% FLUSH 10 ML FLUSH IV FLUSH SCH ×2 (08:29→21:00)
--- NOTE | 2018-02-09 12:26 | RADRPT ---
EXAM DATE: 02/09/2018 12:22 PM EDT AGE/SEX: 47 years / Male INDICATIONS: SOB. CLINICAL DATA: This is the patient's subsequent encounter. Patient reports that signs and symptoms h ave been present for 2 weeks and indicates a pain score of 10/10. MEDICAL/SURGICAL HISTORY: None. None. COMPARISON: [facility] [place], CHEST SINGLE AP, 02/08/2018. . FINDINGS: Today's exam is compared to the prior study. There continues to be a patchy infiltrate in the right l ower lung. There now appears to be an increasing right-sided pleural effusion compared to the prior s tudy. There is an increasing infiltrate in the left lung base. There is no pneumothorax. The left-aristeo ed central line has been removed. The heart size is stable. CONCLUSION: 1. Stable patchy parenchymal infiltrate in the right lung base. 2. Increasing infiltrate in the left lung base 3. Right-sided pleural effusion. Electronically signed by: Dallin Cintron MD 02/09/2018 12:24 PM EDT
[2018-02-09] MEDS ORDERED: LIDOCAINE HCL 1% 50 ML VIAL ONE (13:23)
[2018-02-09] MEDS ORDERED: MIDAZOLAM HCL 5 MG/ML VIAL (1 ML) ONE (13:28)
[2018-02-09] MEDS ORDERED: MIDAZOLAM HCL 2 MG/2 ML VIAL IV PUSH ONE ×2 (13:30→15:30)
[2018-02-09] MEDS ORDERED: HYDROmorphone HCL PF 2 MG/ML VIAL IV PUSH ONE ×2 (13:30→15:30)
--- NOTE | 2018-02-09 14:10 | PD.PROCEDR ---
Procedure Note Procedure CHEST TUBE PLACEMENT NOTE The patient was placed in the sitting position . Thoracic ultrasound views showing pleural fluid with multiple septations. The patient was positioned, prepped and draped in usual sterile fashion. 2 cc 1% lidocaine was used to anesthetize the area. A pigtail catheter was placed using the Seldinger technique. The pigtail catheter was connected to a Pleur-evac to -20 cm of water suction. Initial pleural fluid obtained 425 cc. The patient tolerated the procedure well and there were no complications. Blood loss was minimal The tube was secured and taped. A chest x-ray was ordered to evaluate for placement of the chest tube. The patient tolerated the procedure well and there were no complications. Blood loss was minimal Complications-none A chest x-ray is pending I personally performed the procedure Denae Cheung MD February 09, 2018 14:10
--- NOTE | 2018-02-09 14:31 | HHI.PR ---
Subjective Subjective Notes Patient developed significant right sided chest pain and RUQ pain this AM; transferred to [facility] [place] emergently. Objective Vitals/I&O Vital Signs Date Time Temp Pulse Resp B/P (MAP) Pulse Ox O2 Delivery O2 Flow Rate FiO2 02/09/18 12:36 96.5 125 22 173/101 (125) 94 02/09/18 08:30 Room Air 02/05/18 20:03 4.00 Labs Laboratory Tests Test 02/09/18 12:30 Blood Gas Puncture Site RT BRACHIAL Blood Gas Patient Temperature 98.6 Blood Gas HCO3 22 Blood Gas Base Excess -2.9 Blood Gas Oxygen Saturation 92 Arterial Blood pH 7.33 Arterial Blood Partial Pressure CO2 44 Arterial Blood Partial Pressure O2 76 Arterial Blood Oxygen Content 18.6 Arterial Blood Carboxyhemoglobin 0.8 Arterial Blood Methemoglobin 1.0 Blood Gas Hemoglobin 14.4 Oxygen Delivery Device NRB MASK Blood Gas Liter Flow 10 Blood Gas Inspired Oxygen 100 Lungs: Clear (slightly decreased BS on RIGHT) Abdomen: Non-distended, Non-tender A/P Assessment and Plan CXR showed large RIGHT pleural effusion; cook catheter placed by unit coordinator with 425ml clear fluid Patient has had some relief with tube placement Discussed with patient and Dr. Cheung (unit coordinator); will obtain stat labs and repeat UGI, although I doubt he has developed a late leak after normal study 48hrs ago. Will also obtain CTA to make sure he did not develop PE (also unlikely). Discussed with Dr. Eaton. UGI shows small leak; will ask IR to drain and GI to perform EGD to evaluate leak and place NG under direct vision. These will be done tomorrow. Robin Mack MD February 09, 2018 14:31
--- NOTE | 2018-02-09 14:38 | HHI.CCPN ---
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 Patient tolerated procedure well was subsequently extubated and transferred to recovery room. Critical care consult requested by Dr. Eaton . When I evaluated patient in PACU he was still drowsy following anesthesia on nasal cannula. History was obtained by reviewing records and discussion with PACU nursing staff. 02/02: Resting in bed on nasal cannula in no acute distress. Pain controlled with morphine PREMIX OPERATOR CONCENTRATE. SUBJECTIVE: 02/03: Out of bed to chair today. T-max 99.4. Pain controlled with morphine PREMIX OPERATOR CONCENTRATE. No bowel movement. No complaints. 02/04; out of bed again today in a chair for 3 hours. Strong cough effort and good work with incentive spirometry. Remains well-hydrated. Nasogastric tube output moderate as expected. Phosphorus replacement now. 02/05: Electrolytes repleted. Minimal bowel activity however he remains on narcotic PREMIX OPERATOR CONCENTRATE. Breathing comfortably. Nasogastric output not excessive. No evidence of downstream obstruction. Diffuse light sweating which is probably related to his morphine. 02/06: Remains warm and well-perfused. Lower bowel activity remains minimal. Continue enteral feeds in the jejunum at trickle rate. Discussed with Dr. Goldberg at the bedside. Plan for contrast swallow tomorrow. 02/07: Starting to pass gas.No abdominal discomfort, good pain control. PREMIX OPERATOR CONCENTRATE has been stopped. 02/08: Contract swallow without leak. Minor atelectasis right lung, otherwise clear. Breathing comfortably. RECONSULT [facility] 02/09: [facility] reconsulted, patient transferred from emergently for dyspnea. Patient on nonrebreather mask O2 saturation 92%, tachypnea complaining of pain. Stat chest x-ray performed showing right pleural effusion. Discussed with Dr. Mack, updated on readmission , they wish to hold off. Dr. Mack notify placement of right pigtail catheter , initial pleural fluid removal [address] chest/ UGI and CTA thorax with contrast pending . Lung consolidation right base concerning for possible aspiration, sputum culture pending, empiric antibiotics initiated. Objective Vital Signs Date Time Temp Pulse Resp B/P (MAP) Pulse Ox O2 Delivery O2 Flow Rate FiO2 02/09/18 12:36 96.5 125 22 173/101 (125) 94 02/09/18 08:30 Room Air 02/05/18 20:03 4.00 Intake and Output 02/09/18 02/09/18 02/10/18 08:00 16:00 00:00 Intake Total 1000 ml Balance 1000 ml Result Diagram: 02/07/18 0520 02/07/18 0520 Other Results Laboratory Tests Test 02/09/18 12:30 Blood Gas Puncture Site RT BRACHIAL Blood Gas Patient Temperature 98.6 Blood Gas HCO3 22 mmol/L (22-26) Blood Gas Base Excess -2.9 mmol/L (-2-2) Blood Gas Oxygen Saturation 92 % (90-100) Arterial Blood pH 7.33 (7.380-7.420) Arterial Blood Partial Pressure CO2 44 mmHg (38-42) Arterial Blood Partial Pressure O2 76 mmHg (61-120) Arterial Blood Oxygen Content 18.6 Vol % (12.0-20.0) Arterial Blood Carboxyhemoglobin 0.8 % (0-4) Arterial Blood Methemoglobin 1.0 % (0-2) Blood Gas Hemoglobin 14.4 G/DL (12.0-16.0) Oxygen Delivery Device NRB MASK Blood Gas Liter Flow 10 L/M Blood Gas Inspired Oxygen 100 % Imaging Last Impressions Chest X-Ray 02/09/18 0000 Signed Impressions: CONCLUSION: 1. Stable patchy parenchymal infiltrate in the right lung base. 2. Increasing infiltrate in the left lung base 3. Right-sided pleural effusion. Last Impressions Chest X-Ray 02/03/18 0600 Signed Impressions: Service Date/Time: Saturday, February 03, 2018 03:29 - CONCLUSION: 1. Support apparatus in good position. Bilateral mostly basilar airspace disease. No pneumothorax. Prosper Miller MD Objective Remarks GENERAL: This is [id number] well-developed well-nourished male in respiratory distress on nonrebreather mask SKIN: Warm and dry. Well healing skin incisions right flank, no evidence of erythema or drainage. Former chest tube site right posterior area with clean dressing HEAD: Atraumatic. Normocephalic. ENT: No nasal bleeding or discharge. Normal saliva. NG in place. NECK: Trachea midline. Airway widely patent. No obstruction. CARDIOVASCULAR: Regular rate and rhythm. S1, S2 normal. No JVD. RESPIRATORY: No accessory muscle use. Clear to auscultation. No adventitious sounds. GASTROINTESTINAL: Abdomen soft, non-tender, nondistended. No involuntary guarding. Jejunostomy-tube in place, site clean, dry. MUSCULOSKELETAL: Extremities without clubbing, cyanosis, or edema. No obvious deformities. Warm, well perfused. NEUROLOGICAL: Awake and alert. No obvious cranial nerve deficits. Motor grossly normal. Normal speech. Date of Insertion: February 01, 2018 Line: Central Venous Catheter Side: Left Location: Subclavian A/P Assessment and Plan Neuro/Psych: Postop surgical pain Dilaudid 1 mg every 4 hours as needed for pain scale 8-10 Hydrocodone 7.5/325 every 4 hours as needed Holding gabapentin 800 mg daily/home medication, restart when taking PO. CV: Hyperlipidemia Sinus tachycardia Continue D5 normal saline with 20 mEq KCl 90 cc an hour Not requiring vasopressors and/or antihypertensives the present time On fenofibrate 135 mg p.o. daily at home HR 160-> now 130's post chest tube placement Resp: Acute respiratory insufficiency Nasal cannula to maintain saturations greater than equal to 92% Currently on nonrebreather continue to wean 02/08-right chest tube removed 02/09-right pleural effusion 02/09-right pigtail catheter chest tube placement , -20cm Thoracic ultrasound noted multiple septations pleural fluid prior to placement of pigtail catheter Incentive spirometry while awake Obtain CT angio Thorax- R/O PE GI: Postop day #5 Exploratory laparotomy and open proximal gastrectomy with conversion to robotic-assisted [place] esophagectomy. Omentectomy. Jejunostomy tube placement Chemical pyloroplasty with Botox injection of the pylorus. 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 Hiatal hernia Tube feedings through jejunostomy tube placed on hold 02/[address] chest with PO contrast/ UGI series - R/O anastomotic leak On pantoprazole and ranitidine at home. These are currently being held Bowel regimen per general surgery : Cantu catheter if indicated for accurate I's and O's in a critically ill patient Endo: Maintain euglycemia Sliding scale low dose regimen Renal: Creatinine currently within normal limits. 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 Follow trend 02/09 obtain sputum culture Begin Zyvox and Zosyn-possible aspiration ID: Postoperative antibiotics per surgery completed with cefazolin and metronidazole FEN: Hypophosphatemia Replace electrolytes as clinically indicated Access Prophylaxis -GI -not indicated -DVT prophylaxis-Lovenox dose scheduled for 1500 at this time and await results of testing my billing statement This patient remains critically ill with one or more organ systems which are or may become a threat to life. I have spent in excess of 37 minutes discontinuously in the care and management of this patient. This time is exclusive of procedures, and includes, but is not limited to, evaluation of the patient, review of the medical record, discussions with family, consultants, nursing staff, or respiratory therapy, and documentation in the medical record. Physician Denae Gonzalez MD February 09, 2018 14:38
[2018-02-09] MEDS ORDERED: DEXTROSE 50% IN WATER 50 ML VIAL(D50) IV PUSH PRN (14:45)
[2018-02-09] MEDS ORDERED: GLUCAGON 1 MG/ML VIAL OTHER PRN (14:45)
--- NOTE | 2018-02-09 15:02 | RADRPT ---
EXAM DATE: 02/09/2018 2:24 PM EDT AGE/SEX: 47 years / Male INDICATIONS: Chest tube placement. CLINICAL DATA: This is the patient's initial encounter. Patient reports that signs and symptoms have been present for 4 - 6 days and indicates a pain score of 0/10. MEDICAL/SURGICAL HISTORY: None. None. COMPARISON: Chest x-ray 02/09/2018. FINDINGS: A single portable frontal view of the chest shows interval placement of a thoracostomy tube on the ri ght. This overlies the right base. Consolidation remains throughout the right lung most pronounced wi thin the base. Consolidation seen within the left base. No effusion involving either side. No pneumot horax. The heart is normal in size. Bony structures are unremarkable.. CONCLUSION: 1. Interval right chest tube placement without pneumothorax. 2. Bibasilar pulmonary infiltrates more pronounced on the right. Electronically signed by: Wan Philip MD 02/09/2018 3:01 PM EDT
[2018-02-09 15:06] LABS: AUTOMATED NEUTROPHIL # 18.1 TH/MM3 (1.8-7.7); BASOPHIL # 0.1 TH/MM3 (0-0.2); BASOPHIL % 0.3 % (0.0-2.0); EOSINOPHIL % 0.1 % (0.0-4.0); HEMATOCRIT 42.9 % (39.0-51.0); HEMOGLOBIN 14.1 GM/DL (13.0-17.0); LYMPH % 1.9 % (9.0-44.0); LYMPHOCYTE # 0.4 TH/MM3 (1.0-4.8); MEAN CELL VOLUME 82.8 FL (80.0-100.0); MEAN CORPUSCULAR HEMOGLOBIN 27.3 PG (27.0-34.0); MEAN CORPUSCULAR HGB CONC 32.9 % (32.0-36.0); MEAN PLATELET VOLUME 8.1 FL (7.0-11.0); MONO % 6.4 % (0.0-8.0); MONOCYTE # 1.3 TH/MM3 (0-0.9); NEUT % 91.3 % (16.0-70.0); PLATELET COUNT 493 TH/MM3 (150-450); RED BLOOD COUNT 5.18 MIL/MM3 (4.50-5.90); RED CELL DISTRIBUTION WIDTH 13.2 % (11.6-17.2); WHITE BLOOD COUNT 19.8 TH/MM3 (4.0-11.0)
[2018-02-09 15:18] LABS: BICARBONATE 21.8 MEQ/L (21.0-32.0); CALCIUM 8.6 MG/DL (8.5-10.1); CREATININE 0.86 MG/DL (0.60-1.30)
[2018-02-09] MEDS ORDERED: IOHEXOL 350 MG/ML 10 ML VIAL (for RAD DIAG) IVCONTRAST ONE (16:30)
--- NOTE | 2018-02-09 16:45 | RADRPT ---
EXAM DATE: 02/09/2018 4:25 PM EDT AGE/SEX: 47 years / Male INDICATIONS: Respiratory distress. CLINICAL DATA: This is the patient's initial encounter. Patient reports that signs and symptoms have been present for 1 day and indicates a pain score of 7/10. MEDICAL/SURGICAL HISTORY: Carcinoma, gastric. Hiatal hernia. J-tube.Esophagectomy. RADIATION DOSE: 10.79 CTDI (mGy) COMPARISON: Chest x-ray 02/08/2018. PET/CT [facility] 12/24/2017 TECHNIQUE: Volumetric scanning was performed using a multi-row detector CT scanner during bolus infu osmany of 100 ml Omnipaque 350 (iohexol) nonionic water-soluble contrast as a single exam dose. The da ta was post processed with a variety of visualization algorithms including full volume maximum intens ity projection and sliding thin slab reformation. Using automated exposure control and adjustment of the mA and/or kV according to patient size, radiation dose was kept as low as reasonably achievable to obtain optimal diagnostic quality images. FINDINGS: Pulmonary Arteries: No filling defects are seen in the pulmonary arteries out to the subsegmental ve ssels. The left and right pulmonary arteries are normal in diameter. Lung: Dense consolidation with some cavitation seen involving the posterior aspects of the right upp er lobe. This consolidation is more pronounced from the prior examination. There is also atelectasis associated with the gastric pull-through. Consolidation is seen involving the retrocardiac aspect of the left lung base with associated air bronchograms. This is stable from the prior chest x-ray. Effusion: A tiny right pleural effusion. A small caliber chest tube is seen laterally within the rig ht hemithorax. The fluid is slightly more inferiorly within the tube. No effusion on the left.. Mediastinum: Prior gastric pull-through. There is fluid throughout the remaining esophagus and the s tomach. No discernible adenopathy. Heart is normal in size without pericardial effusion.. Other: There is a 2.7 cm low-density lesion involving the left lobe of the liver at the junctions of segments 2 and 3. This is not discernible on the prior PET/CT. Hepatic cysts are noted elsewhere. No axillary adenopathy. CONCLUSION: 1. No pulmonary emboli. 2. Worsening consolidation involving the right upper lobe with some cavitation and stable left lower lobe infiltrate without cavitation. Infectious etiology is suspected. 3. Tiny right effusion with right thoracostomy tube slightly more cephalad in the hemithorax. 4. Prior esophagectomy and gastric pull-through. 5. Partial visualization of a 2.7 cm low-density lesion involving the left lobe of the liver not virginie licha seen on the prior PET/CT. I cannot exclude a solitary metastasis. Electronically signed by: Wan Philip MD 02/09/2018 4:44 PM EDT
[2018-02-09] MEDS: INSULIN ASPART SUPPLEMENTAL SCALE SQ SCH ×2 (17:00→21:00)
[2018-02-09] MEDS ORDERED: DIATRIZOATE MEGLUM/DIATRIZOATE SOD 120 ML BTL (for RAD DIAG) PO ONE (17:33)
--- NOTE | 2018-02-09 18:12 | RADRPT ---
EXAM DATE: 02/09/2018 5:56 PM EDT AGE/SEX: 47 years / Male INDICATIONS: Evaluate for leaks post esophagectomy. CLINICAL DATA: This is the patient's initial encounter. Patient reports that signs and symptoms have been present for 3 days and indicates a pain score of 0/10. MEDICAL/SURGICAL HISTORY: None. . Esophagectomy. Chest tube. COMPARISON: No prior [place] exams available for comparison. FLUORO TIME: 2.2 minutes minutes. IMAGE COUNT: 8 FINDINGS: Patient ingested Gastrografin without difficulty. Comparison is made to a recent barium swallow. Nasogastric tube has been removed. Focal leakage of co ntrast into the adjacent soft tissues is now evident at the gastroesophageal anastomosis. Leak appear s to be contained within a small pocket. CONCLUSION; Focal leak identified at the gastroesophageal anastomosis. Ordering physician notified. Electronically signed by: Erick Landis MD 02/09/2018 6:11 PM EDT
[2018-02-09] MEDS: PIPERACIL-TAZO 4.5 GM PREMIX 100 ML IV SCH ×2 (19:08→23:40)
[2018-02-09] MEDS: LINEZOLID 600 MG PREMIX 300 ML IV SCH (19:09)
[2018-02-09] MEDS ORDERED: FLUCONAZOLE/NACL 400 MG/200 ML IV ONE (21:00)
[2018-02-09] MEDS ORDERED: CHLORHEXIDINE GLUCONATE 2 % 1 PACK (2 CLOTHS)(extra cloths) TOPICAL PRN (21:45)
[2018-02-10] VITALS (14 sets, daily range): BP systolic 132–163; BP diastolic 92–97; PULSE 109–117; RESP 17–19; TEMP 97.5–98.7; O2SAT 91–94
[2018-02-10] MEDS: HYDROmorphone HCL PF 0.5 MG/0.5 ML SYRINGE IV PUSH PRN ×19 (00:47→22:57)
[2018-02-10] MEDS: CHLORHEXIDINE GLUCONATE 2 % 1 PACK (2 CLOTHS)(taper/protocol) TOPICAL SCH (03:48)
[2018-02-10] MEDS: PIPERACIL-TAZO 4.5 GM PREMIX 100 ML IV SCH ×4 (04:50→22:06)
[2018-02-10] MEDS: LINEZOLID 600 MG PREMIX 300 ML IV SCH ×2 (04:51→17:43)
--- NOTE | 2018-02-10 05:28 | RADRPT ---
EXAM DATE: 02/10/2018 4:50 AM EDT AGE/SEX: 47 years / Male INDICATIONS: Shortness of breath, possible pulmonary disease. CLINICAL DATA: This is the patient's subsequent encounter. Patient reports that signs and symptoms h ave been present for 4 - 6 days and indicates a pain score of 6/10. MEDICAL/SURGICAL HISTORY: None. None. COMPARISON: [facility] [place]UL[place]IO[place], 02/09/2018. [facility] [place], [place]ST SINGLE AP, 02/09/2018. . FINDINGS: Worsening parenchymal consolidation of the right lung. Patchy pneumothorax in the pleural space anter ior and posterior to the right lung apex again noted and similar to the CT. Small caliber chest tube seen laterally right mid to lower lung. An at least small pleural effusion is likely. Esophagectomy a nd gastric pull up changes are again noted. Mild consolidation and small pleural effusion at the left base, not significantly changed. Heart size stable, within normal limits.. CONCLUSION: Worsening parenchymal consolidation of the right lung. Small, multiloculated right apical pneumothorax not significantly changed. Mild consolidation and very small pleural effusion left lung base not significantly changed. Electronically signed by: Omid Suazo MD 02/10/2018 5:27 AM EDT
[2018-02-10] MEDS: PCA - TOTAL MG MORPHINE DELIVERED PER SHIFT SCH ×3 (05:51→21:04)
[2018-02-10] MEDS: D5-NS + KCL 20 MEQ INJ 1,000 ML IV SCH ×2 (05:51→17:43)
[2018-02-10] MEDS: ONDANSETRON ODT 4 MG TAB PO PRN (05:57)
[2018-02-10 06:40] LABS: AUTOMATED NEUTROPHIL # 15.2 TH/MM3 (1.8-7.7); BASOPHIL % 0.3 % (0.0-2.0); HEMATOCRIT 39.5 % (39.0-51.0); LYMPHOCYTE # 0.5 TH/MM3 (1.0-4.8); MEAN CELL VOLUME 83.6 FL (80.0-100.0); MEAN CORPUSCULAR HEMOGLOBIN 27.5 PG (27.0-34.0); MEAN CORPUSCULAR HGB CONC 32.9 % (32.0-36.0); MEAN PLATELET VOLUME 8.5 FL (7.0-11.0); MONO % 9.7 % (0.0-8.0); MONOCYTE # 1.7 TH/MM3 (0-0.9); PLATELET COUNT 462 TH/MM3 (150-450); RED BLOOD COUNT 4.73 MIL/MM3 (4.50-5.90); RED CELL DISTRIBUTION WIDTH 13.9 % (11.6-17.2); WHITE BLOOD COUNT 17.4 TH/MM3 (4.0-11.0)
[2018-02-10 07:04] LABS: ALBUMIN 2.3 GM/DL (3.4-5.0); ALT (GPT) 99 U/L (12-78); AST (GOT) 40 U/L (15-37); BICARBONATE 23.9 MEQ/L (21.0-32.0); BLOOD UREA NITROGEN 23 MG/DL (7-18); CALCIUM 8.5 MG/DL (8.5-10.1); CHLORIDE 108 MEQ/L (98-107); CREATININE 0.98 MG/DL (0.60-1.30); GLOMERULAR FILTRATION RATE 81 ML/MIN (>89); GLUCOSE,RANDOM 146 MG/DL (74-106); SODIUM (NA) 142 MEQ/L (136-145)
[2018-02-10 07:05] LABS: ALKALINE PHOSPHATASE 135 U/L (45-117); TOTAL BILIRUBIN ADULT 0.8 MG/DL (0.2-1.0); TOTAL PROTEIN 6.5 GM/DL (6.4-8.2)
[2018-02-10] MEDS: INSULIN ASPART SUPPLEMENTAL SCALE SQ SCH ×4 (07:42→19:52)
[2018-02-10] MEDS: SODIUM CHLORIDE 0.9% FLUSH 10 ML FLUSH IV FLUSH SCH ×2 (07:43→22:07)
[2018-02-10 08:01] LABS: INTERNATIONAL NORMALIZED RATIO 1.1 RATIO; PROTHROMBIN TIME - PATIENT 11.3 SEC (9.8-11.6)
--- NOTE | 2018-02-10 09:17 | HHI.CCPN ---
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 Patient tolerated procedure well was subsequently extubated and transferred to recovery room. Critical care consult requested by Dr. Eaton . When I evaluated patient in PACU he was still drowsy following anesthesia on nasal cannula. History was obtained by reviewing records and discussion with PACU nursing staff. 02/02: Resting in bed on nasal cannula in no acute distress. 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 SUBJECTIVE: 02/03: Out of bed to chair today. T-max 99.4. 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 No bowel movement. No complaints. 02/04; out of bed again today in a chair for 3 hours. Strong cough effort and good work with incentive spirometry. Remains well-hydrated. Nasogastric tube output moderate as expected. Phosphorus replacement now. 02/05: Electrolytes repleted. Minimal bowel activity however he remains on narcotic HIDE MEASURING MACHINE OPERATOR. Breathing comfortably. Nasogastric output not excessive. No evidence of downstream obstruction. Diffuse light sweating which is probably related to his morphine. 02/06: Remains warm and well-perfused. Lower bowel activity remains minimal. Continue enteral feeds in the jejunum at trickle rate. Discussed with Dr. Goldberg at the bedside. Plan for contrast swallow tomorrow. 02/07: Starting to pass gas.No abdominal discomfort, good pain control. HIDE MEASURING MACHINE OPERATOR has been stopped. 02/08: Contract swallow without leak. Minor atelectasis right lung, otherwise clear. Breathing comfortably. RECONSULT [facility] 02/09: [facility] reconsulted, patient transferred from emergently for dyspnea. Patient on nonrebreather mask O2 saturation 92%, tachypnea complaining of pain. Stat chest x-ray performed showing right pleural effusion. Discussed with Dr. Mack, updated on readmission , they wish to hold off. Dr. Mack notify placement of right pigtail catheter , initial pleural fluid removal [address] chest/ UGI and CTA thorax with contrast pending . Lung consolidation right base concerning for possible aspiration, sputum culture pending, empiric antibiotics initiated. 02/10: No acute events overnight. Patient has been weaned to Ventimask. CT showed no pulmonary embolus however worsening right upper lobe consolidation patient was placed on empiric antibiotics and expanded during the night to add fluconazole to medication regimen. Leukocytosis decreasing. The patient continues to be n.p.o. J-tube placed to gravity last evening. Chest x-ray reveal small right apical pneumothorax that has been unchanged. Pain well controlled with Dilaudid. Lovenox , DVT prophylaxis currently on hold, possible invasive interventions today per general surgery, await recommendations. No leak noted in left chest tube, 50 cc output overnight. Objective Vital Signs Date Time Temp Pulse Resp B/P (MAP) Pulse Ox O2 Delivery O2 Flow Rate FiO2 02/10/18 08:43 92 Venturi Mask 6.00 50 02/10/18 08:00 110 02/10/18 08:00 97.5 150/96 (114) 02/10/18 06:20 15 Intake and Output 02/10/18 02/10/18 02/11/18 08:00 16:00 00:00 Intake Total 100 ml Output Total 700 ml Balance -600 ml Result Diagram: 02/10/18 0530 02/10/18 0530 Other Results Laboratory Tests Test 02/09/18 12:30 Blood Gas Puncture Site RT BRACHIAL Blood Gas Patient Temperature 98.6 Blood Gas HCO3 22 mmol/L (22-26) Blood Gas Base Excess -2.9 mmol/L (-2-2) Blood Gas Oxygen Saturation 92 % (90-100) Arterial Blood pH 7.33 (7.380-7.420) Arterial Blood Partial Pressure CO2 44 mmHg (38-42) Arterial Blood Partial Pressure O2 76 mmHg (61-120) Arterial Blood Oxygen Content 18.6 Vol % (12.0-20.0) Arterial Blood Carboxyhemoglobin 0.8 % (0-4) Arterial Blood Methemoglobin 1.0 % (0-2) Blood Gas Hemoglobin 14.4 G/DL (12.0-16.0) Oxygen Delivery Device NRB MASK Blood Gas Liter Flow 10 L/M Blood Gas Inspired Oxygen 100 % Imaging Last Impressions Chest X-Ray 02/10/18 0600 Signed Impressions: CONCLUSION: Worsening parenchymal consolidation of the right lung. Small, multiloculated right apical pneumothorax not significantly changed. Mild consolidation and very small pleural effusion left lung base not significa ntly changed. CT Angiography 02/09/18 0000 Signed Impressions: CONCLUSION: 1. No pulmonary emboli. 2. Worsening consolidation involving the right upper lobe with some cavitation and stable left lower lobe infiltrate without cavitation. Infectious etiology is suspected. 3. Tiny right effusion with right thoracostomy tube slightly more cephalad in the hemithorax. 4. Prior esophagectomy and gastric pull-through. 5. Partial visualization of a 2.7 cm low-density lesion involving the left lob e of the liver not clearly seen on the prior PET/CT. I cannot exclude a solitar y metastasis. Last Impressions Chest X-Ray 02/09/18 0000 Signed Impressions: CONCLUSION: 1. Stable patchy parenchymal infiltrate in the right lung base. 2. Increasing infiltrate in the left lung base 3. Right-sided pleural effusion. Last Impressions Chest X-Ray 02/03/18 0600 Signed Impressions: Service Date/Time: Saturday, February 03, 2018 03:29 - CONCLUSION: 1. Support apparatus in good position. Bilateral mostly basilar airspace disease. No pneumothorax. Prosper Miller MD Procedures 02/09-right pigtail chest tube Objective Remarks GENERAL: This is [id number] well-developed well-nourished male in respiratory distress on nonrebreather mask SKIN: Warm and dry. Well healing skin incisions right flank, no evidence of erythema or drainage. Former chest tube site right posterior area with clean dressing HEAD: Atraumatic. Normocephalic. ENT: No nasal bleeding or discharge. Normal saliva. NG in place. NECK: Trachea midline. Airway widely patent. No obstruction. CARDIOVASCULAR: Regular rate and rhythm. S1, S2 normal. No JVD. RESPIRATORY: No accessory muscle use. Clear to auscultation. No adventitious sounds. GASTROINTESTINAL: Abdomen soft, non-tender, nondistended. No involuntary guarding. Jejunostomy-tube in place, site clean, dry. MUSCULOSKELETAL: Extremities without clubbing, cyanosis, or edema. No obvious deformities. Warm, well perfused. NEUROLOGICAL: Awake and alert. No obvious cranial nerve deficits. Motor grossly normal. Normal speech. Date of Insertion: February 01, 2018 A/P Assessment and Plan Neuro/Psych: Postop surgical pain Dilaudid 1 mg every 4 hours as needed for pain scale 8-10 Hydrocodone 7.5/325 every 4 hours as needed Holding gabapentin 800 mg daily/home medication, restart when taking PO. CV: Hyperlipidemia Sinus tachycardia Continue D5 normal saline with 20 mEq KCl 90 cc an hour Not requiring vasopressors and/or antihypertensives the present time On fenofibrate 135 mg p.o. daily at home HR 110's post chest tube placement Resp: Acute respiratory insufficiency Weaned to nasal cannula to maintain saturations greater than equal to 92% Currently on Ventimask continue to wean 02/08-right chest tube removed 02/09-right pleural effusion 02/09-right pigtail catheter chest tube placement , -20cm Thoracic ultrasound noted multiple septations pleural fluid prior to placement of pigtail catheter Incentive spirometry while awake 02/09- CT angio-no PE, worsening consolidation right upper lobe, stable left lower lobe infiltrate 02/10 chest x-ray-small right apical pneumothorax unchanged Encourage incentive spirometry GI: Postop day #6 Exploratory laparotomy and open proximal gastrectomy with conversion to robotic-assisted [place] esophagectomy. Omentectomy. Jejunostomy tube placement Chemical pyloroplasty with Botox injection of the pylorus. 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 Hiatal hernia Protein calorie malnutrition Tube feedings through jejunostomy tube placed on hold 02/09, J-tube placed to gravity-defer to general surgery 02/09 CT chest with PO contrast/ UGI series - No anastomotic leak On pantoprazole and ranitidine at home. These are currently being held Bowel regimen per general surgery 02/10 for possible EGD today stent vs. clip for post op esophageal leak, await general surgery recommendations : Cantu catheter if indicated for accurate I's and O's in a critically ill patient Endo: Maintain euglycemia Sliding scale low dose regimen Renal: Creatinine currently within normal limits. 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 Follow trend 02/09 obtain sputum culture 02/09 Zyvox , Zosyn-possible aspiration PNA, fluconazole added 02/05 postoperative antibiotics per surgery completed with cefazolin and metronidazole FEN: Hypophosphatemia Replace electrolytes as clinically indicated Access Prophylaxis -GI -not indicated -DVT prophylaxis-Lovenox on hold for possible EGD, and/or invasive radiology interventions, defer to general surgery at this time my billing statement This patient remains critically ill with one or more organ systems which are or may become a threat to life. I have spent in excess of 37 minutes discontinuously in the care and management of this patient. This time is exclusive of procedures, and includes, but is not limited to, evaluation of the patient, review of the medical record, discussions with family, consultants, nursing staff, or respiratory therapy, and documentation in the medical record. Physician Denae Gonzalez MD February 10, 2018 09:17
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
[2018-02-10] MEDS: RESP: ALBUTEROL 2.5 MG/IPRATROPIUM 0.5 MG NEB (PRN) NEB ×2 (10:57→16:17)
[2018-02-10] MEDS ORDERED: LIDOCAINE HCL 1% PF 5 ML SYRINGE OTHER ONE (12:00)
[2018-02-10] MEDS ORDERED: SUCCINYLCHOLINE CHLORIDE 100 MG/5 ML SYRINGE IV PUSH ONE (12:00)
[2018-02-10] MEDS ORDERED: PROPOFOL 200 MG/20 ML AMP IV ONE (12:00)
[2018-02-10] MEDS ORDERED: ONDANSETRON HCL 4 MG/2 ML VIAL IV ONE (12:00)
--- NOTE | 2018-02-10 12:44 | HHI.PR ---
Subjective Subjective Notes feels much better with drain, watching TV, NPO, G tube to gravity Objective Vitals/I&O Vital Signs Date Time Temp Pulse Resp B/P (MAP) Pulse Ox O2 Delivery O2 Flow Rate FiO2 02/10/18 12:00 114 02/10/18 12:00 98.7 19 141/94 (110) 94 02/10/18 08:43 Venturi Mask 6.00 50 Labs Laboratory Tests Test 02/09/18 13:09 02/09/18 14:50 02/10/18 05:30 02/10/18 07:10 Nasal Screen MRSA (PCR) MRSA NOT DETECTED White Blood Count 19.8 17.4 Red Blood Count 5.18 4.73 Hemoglobin 14.1 13.0 Hematocrit 42.9 39.5 Mean Corpuscular Volume 82.8 83.6 Mean Corpuscular Hemoglobin 27.3 27.5 Mean Corpuscular Hemoglobin Concent 32.9 32.9 Red Cell Distribution Width 13.2 13.9 Platelet Count 493 462 Mean Platelet Volume 8.1 8.5 Neutrophils (%) (Auto) 91.3 87.0 Lymphocytes (%) (Auto) 1.9 3.0 Monocytes (%) (Auto) 6.4 9.7 Eosinophils (%) (Auto) 0.1 0.0 Basophils (%) (Auto) 0.3 0.3 Neutrophils # (Auto) 18.1 15.2 Lymphocytes # (Auto) 0.4 0.5 Monocytes # (Auto) 1.3 1.7 Eosinophils # (Auto) 0.0 0.0 Basophils # (Auto) 0.1 0.0 CBC Comment DIFF FINAL DIFF FINAL Differential Comment Blood Urea Nitrogen 22 23 Creatinine 0.86 0.98 Random Glucose 143 146 Calcium Level 8.6 8.5 Sodium Level 141 142 Potassium Level 4.3 4.5 Chloride Level 107 108 Carbon Dioxide Level 21.8 23.9 Anion Gap 12 10 Estimat Glomerular Filtration Rate 95 81 Total Protein 6.5 Albumin 2.3 Magnesium Level 2.0 Alkaline Phosphatase 135 Aspartate Amino Transf (AST/SGOT) 40 Alanine Aminotransferase (ALT/SGPT) 99 Total Bilirubin 0.8 Prothrombin Time 11.3 Prothromb Time International Ratio 1.1 Abdomen: Non-distended, BS normal Wound Wound : Wound Location: Abdomen Appearance: Clean & Dry A/P Assessment and Plan s/p esophagectomy post op leak - NPO, G tube to gravity GI to evaluate for stent Radiology feels remaining fluid collection is too small to drain at this time. continue ABX and drainage for now Dr. Eaton aware. Mejia Tom MD February 10, 2018 12:44
[2018-02-10] MEDS ORDERED: *RESP: ALBUTEROL 2.5 MG/3 ML NEB (PRN) PERIprocedural Use ONLY NEB ONE (15:09)
[2018-02-10] MEDS ORDERED: DO NOT ADM ANY ANTICOAGULANT DRUGS PRN (15:09)
[2018-02-10] MEDS ORDERED: MIDAZOLAM HCL 2 MG/2 ML VIAL ONE (15:10)
[2018-02-10] MEDS ORDERED: *MEPERIDINE 25 MG INJ VIAL PERIprocedural Use ONLY ONE (15:17)
[2018-02-10] MEDS ORDERED: *LABETALOL HCL 100 MG/20 ML VIAL PERIprocedural Use ONLY ONE (15:30)
[2018-02-10] MEDS ORDERED: FLUCONAZOLE/NACL 200 MG/100 ML IV SCH (21:00)
[2018-02-11] VITALS (24 sets, daily range): BP systolic 142–209; BP diastolic 89–114; PULSE 113–125; RESP 15; TEMP 98.4–99.5; O2SAT 89–96
[2018-02-11] MEDS: HYDROmorphone HCL PF 0.5 MG/0.5 ML SYRINGE IV PUSH PRN ×10 (00:54→09:35)
[2018-02-11] MEDS: D5-NS + KCL 20 MEQ INJ 1,000 ML IV SCH ×3 (00:56→18:28)
[2018-02-11] MEDS: CHLORHEXIDINE GLUCONATE 2 % 1 PACK (2 CLOTHS)(taper/protocol) TOPICAL SCH (04:00)
[2018-02-11] MEDS: PIPERACIL-TAZO 4.5 GM PREMIX 100 ML IV SCH ×4 (05:14→22:59)
[2018-02-11] MEDS: PCA - TOTAL MG MORPHINE DELIVERED PER SHIFT SCH ×3 (05:14→21:31)
[2018-02-11] MEDS: LINEZOLID 600 MG PREMIX 300 ML IV SCH ×2 (05:14→16:20)
[2018-02-11 05:41] LABS: AUTOMATED NEUTROPHIL # 25.6 TH/MM3 (1.8-7.7); BASOPHIL # 0.1 TH/MM3 (0-0.2); BASOPHIL % 0.2 % (0.0-2.0); EOSINOPHIL % 0.1 % (0.0-4.0); HEMATOCRIT 35.9 % (39.0-51.0); HEMOGLOBIN 11.7 GM/DL (13.0-17.0); LYMPH % 2.2 % (9.0-44.0); LYMPHOCYTE # 0.6 TH/MM3 (1.0-4.8); MEAN CORPUSCULAR HEMOGLOBIN 27.1 PG (27.0-34.0); MEAN CORPUSCULAR HGB CONC 32.6 % (32.0-36.0); MEAN PLATELET VOLUME 8.4 FL (7.0-11.0); MONO % 7.4 % (0.0-8.0); MONOCYTE # 2.1 TH/MM3 (0-0.9); NEUT % 90.1 % (16.0-70.0); PLATELET COUNT 515 TH/MM3 (150-450); RED BLOOD COUNT 4.32 MIL/MM3 (4.50-5.90); WHITE BLOOD COUNT 28.4 TH/MM3 (4.0-11.0)
[2018-02-11 06:07] LABS: CALCIUM 8.4 MG/DL (8.5-10.1); CREATININE 0.86 MG/DL (0.60-1.30); MAGNESIUM 2.1 MG/DL (1.5-2.5); PHOSPHORUS 2.8 MG/DL (2.5-4.9)
--- NOTE | 2018-02-11 06:29 | RADRPT ---
EXAM DATE: 02/11/2018 6:09 AM EDT AGE/SEX: 47 years / Male INDICATIONS: Shortness of breath, possible pulmonary disease. CLINICAL DATA: This is the patient's subsequent encounter. Patient reports that signs and symptoms h ave been present for 1 week and indicates a pain score of 6/10. MEDICAL/SURGICAL HISTORY: None. None. COMPARISON: [facility] – [place], CHEST SINGLE AP, 02/10/2018. . FINDINGS: There is parenchymal process left lung base not significantly changed with area of locula peter air cavity in the right lower hemithorax not significantly changed. Right pleural effusion is pre sent with right upper lung parenchymal opacity as well not significantly changed. CONCLUSION: No significant change. Electronically signed by: Ximena Vargas MD 02/11/2018 6:28 AM EDT
[2018-02-11] MEDS: ONDANSETRON ODT 4 MG TAB PO PRN (07:40)
[2018-02-11] MEDS: INSULIN ASPART SUPPLEMENTAL SCALE SQ SCH ×4 (08:00→19:56)
[2018-02-11] MEDS: SODIUM CHLORIDE 0.9% FLUSH 10 ML FLUSH IV FLUSH SCH ×2 (08:06→19:56)
--- NOTE | 2018-02-11 09:49 | HHI.CCPN ---
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 Patient tolerated procedure well was subsequently extubated and transferred to recovery room. Critical care consult requested by Dr. Eaton . When I evaluated patient in PACU he was still drowsy following anesthesia on nasal cannula. History was obtained by reviewing records and discussion with PACU nursing staff. 02/02: Resting in bed on nasal cannula in no acute distress. 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 SUBJECTIVE: 02/03: Out of bed to chair today. T-max 99.4. 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 No bowel movement. No complaints. 02/04; out of bed again today in a chair for 3 hours. Strong cough effort and good work with incentive spirometry. Remains well-hydrated. Nasogastric tube output moderate as expected. Phosphorus replacement now. 02/05: Electrolytes repleted. Minimal bowel activity however he remains on narcotic INFORMATION SYSTEMS SECURITY DEVELOPER. Breathing comfortably. Nasogastric output not excessive. No evidence of downstream obstruction. Diffuse light sweating which is probably related to his morphine. 02/06: Remains warm and well-perfused. Lower bowel activity remains minimal. Continue enteral feeds in the jejunum at trickle rate. Discussed with Dr. Goldberg at the bedside. Plan for contrast swallow tomorrow. 02/07: Starting to pass gas.No abdominal discomfort, good pain control. INFORMATION SYSTEMS SECURITY DEVELOPER has been stopped. 02/08: Contract swallow without leak. Minor atelectasis right lung, otherwise clear. Breathing comfortably. RECONSULT [facility] 02/09: [facility] reconsulted, patient transferred from emergently for dyspnea. Patient on nonrebreather mask O2 saturation 92%, tachypnea complaining of pain. Stat chest x-ray performed showing right pleural effusion. Discussed with Dr. Mack, updated on readmission , they wish to hold off. Dr. Mack notify placement of right pigtail catheter , initial pleural fluid removal [address] chest/ UGI and CTA thorax with contrast pending . Lung consolidation right base concerning for possible aspiration, sputum culture pending, empiric antibiotics initiated. 02/10: No acute events overnight. Patient has been weaned to Ventimask. CT showed no pulmonary embolus however worsening right upper lobe consolidation patient was placed on empiric antibiotics and expanded during the night to add fluconazole to medication regimen. Leukocytosis decreasing. The patient continues to be n.p.o. J-tube placed to gravity last evening. Chest x-ray reveal small right apical pneumothorax that has been unchanged. Pain well controlled with Dilaudid. Lovenox , DVT prophylaxis currently on hold, possible invasive interventions today per general surgery, await recommendations. No leak noted in left chest tube, 50 cc output overnight. 02/11: Upper GI series revealed esophageal ulceration/ focal leak. GI was consulted and seen yesterday, plan for stent on Monday 02/12. Patient continues on antibiotics, ID has been consulted, leukocytosis worsening, PICC line placement required for antibiotics and TPN, discussed with Dr. Eaton. J-tube to remain to gravity. No thoracentesis on 02/10 secondary to small fluid collection. Right pigtail chest tube continues on -20 suction. Aggressive pulmonary toileting continues. Objective Vital Signs Date Time Temp Pulse Resp B/P (MAP) Pulse Ox O2 Delivery O2 Flow Rate FiO2 02/11/18 07:36 93 Nasal Cannula 6.00 02/11/18 06:00 117 164/93 (116) 02/11/18 04:00 98.4 02/11/18 03:33 15 02/10/18 08:43 50 Intake and Output 02/11/18 02/11/18 02/12/18 08:00 16:00 00:00 Output Total 670 ml Balance -670 ml Result Diagram: 02/11/18 0450 02/11/18 0450 Imaging Last Impressions Chest X-Ray 02/10/18 0600 Signed Impressions: CONCLUSION: Worsening parenchymal consolidation of the right lung. Small, multiloculated right apical pneumothorax not significantly changed. Mild consolidation and very small pleural effusion left lung base not significa ntly changed. CT Angiography 02/09/18 0000 Signed Impressions: CONCLUSION: 1. No pulmonary emboli. 2. Worsening consolidation involving the right upper lobe with some cavitation and stable left lower lobe infiltrate without cavitation. Infectious etiology is suspected. 3. Tiny right effusion with right thoracostomy tube slightly more cephalad in the hemithorax. 4. Prior esophagectomy and gastric pull-through. 5. Partial visualization of a 2.7 cm low-density lesion involving the left lob e of the liver not clearly seen on the prior PET/CT. I cannot exclude a solitar y metastasis. Last Impressions Chest X-Ray 02/09/18 0000 Signed Impressions: CONCLUSION: 1. Stable patchy parenchymal infiltrate in the right lung base. 2. Increasing infiltrate in the left lung base 3. Right-sided pleural effusion. Last Impressions Chest X-Ray 02/03/18 0600 Signed Impressions: Service Date/Time: Saturday, February 03, 2018 03:29 - CONCLUSION: 1. Support apparatus in good position. Bilateral mostly basilar airspace disease. No pneumothorax. Prosper Miller MD Procedures 02/09-right pigtail chest tube Objective Remarks GENERAL: This is [id number] well-developed well-nourished male in respiratory distress on nonrebreather mask SKIN: Warm and dry. Well healing skin incisions right flank, no evidence of erythema or drainage. Former chest tube site right posterior area with clean dressing HEAD: Atraumatic. Normocephalic. ENT: No nasal bleeding or discharge. Normal saliva. NG in place. NECK: Trachea midline. Airway widely patent. No obstruction. CARDIOVASCULAR: Regular rate and rhythm. S1, S2 normal. No JVD. RESPIRATORY: No accessory muscle use. Clear to auscultation. No adventitious sounds. GASTROINTESTINAL: Abdomen soft, non-tender, nondistended. No involuntary guarding. Jejunostomy-tube in place, site clean, dry. MUSCULOSKELETAL: Extremities without clubbing, cyanosis, or edema. No obvious deformities. Warm, well perfused. NEUROLOGICAL: Awake and alert. No obvious cranial nerve deficits. Motor grossly normal. Normal speech. Date of Insertion: February 01, 2018 A/P Assessment and Plan Neuro/Psych: Postop surgical pain Dilaudid 1 mg every 4 hours as needed for pain scale 8-10 Hydrocodone 7.5/325 every 4 hours as needed Holding gabapentin 800 mg daily/home medication, restart when taking PO. CV: Hyperlipidemia Sinus tachycardia Increase D5 normal saline with 20 mEq KCl 125 cc an hour Not requiring vasopressors and/or antihypertensives the present time On fenofibrate 135 mg p.o. daily at home Resp: Acute respiratory insufficiency Weaned to nasal cannula to maintain saturations greater than equal to 92% Currently on Ventimask continue to wean 02/08-right chest tube removed 02/09-right pleural effusion 02/09-right pigtail catheter chest tube placement , -20cm Thoracic ultrasound noted multiple septations pleural fluid prior to placement of pigtail catheter Incentive spirometry while awake. 02/10- no thoracentesis performed per IR 10/19 minimal fluid. 02/09- CT angio-no PE, worsening consolidation right upper lobe, stable left lower lobe infiltrate 02/10 chest x-ray-small right apical pneumothorax unchanged Encourage incentive spirometry, aggressive pulmonary toileting GI: Postop day #6 Exploratory laparotomy and open proximal gastrectomy with conversion to robotic-assisted Romulo-Israel esophagectomy. Omentectomy. Jejunostomy tube placement Chemical pyloroplasty with Botox injection of the pylorus. 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 Hiatal hernia Protein calorie malnutrition Esophageal leak Tube feedings through jejunostomy tube placed on hold 02/09, J-tube placed to gravity-defer to general surgery 02/09 CT chest with PO contrast/ UGI series - No anastomotic leak On pantoprazole and ranitidine at home. These are currently being held Bowel regimen per general surgery UGI - focal esophageal leak Scheduled for esophageal stent placement per GI for Tues 02/12 Patient requires PICC line for initiation of TPN : Cantu catheter if indicated for accurate I's and O's in a critically ill patient Endo: Maintain euglycemia Sliding scale low dose regimen Renal: Creatinine currently within normal limits. 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 Follow trend 02/09 obtain sputum culture 02/09 Zyvox , Zosyn-possible aspiration PNA, fluconazole added 02/05 postoperative antibiotics per surgery completed with cefazolin and metronidazole 02/11 ID consulted- appreciate recommendations 02/11 Patient requires PICC line for long-term antibiotics FEN: Hypophosphatemia Replace electrolytes as clinically indicated Access Prophylaxis -GI -not indicated -DVT prophylaxis-Lovenox on hold for possible EGD, and/or invasive radiology interventions, defer to general surgery at this time Dispo; Plan for placement of PICC line, initiation of TPN, ID has been consulted for antibiotic administration in the setting of esophageal leak. Plan for esophageal stent placement in AM discussed with patient. my billing statement This patient remains critically ill with one or more organ systems which are or may become a threat to life. I have spent in excess of 40 minutes discontinuously in the care and management of this patient. This time is exclusive of procedures, and includes, but is not limited to, evaluation of the patient, review of the medical record, discussions with family, consultants, nursing staff, or respiratory therapy, and documentation in the medical record. Physician Denae Gonzalez MD February 11, 2018 09:49
--- NOTE | 2018-02-11 10:08 | HHI.GIFU ---
Subjective Remarks Pt resting in bed States not feeling well today Complaining of nausea, denies emesis Mild abdominal pain No BM but has not been eating (Elena Perez) Objective Vitals I&O Vital Signs Date Time Temp Pulse Resp B/P (MAP) Pulse Ox O2 Delivery O2 Flow Rate FiO2 02/11/18 07:36 93 Nasal Cannula 6.00 02/11/18 06:00 117 164/93 (116) 93 02/11/18 06:00 117 02/11/18 04:00 117 02/11/18 04:00 98.4 117 142/95 (111) 93 02/11/18 03:33 15 02/11/18 02:00 119 02/11/18 00:00 117 02/11/18 00:00 98.5 117 15 158/98 (118) 92 02/10/18 22:00 112 02/10/18 20:51 93 Nasal Cannula 6.00 02/10/18 20:00 115 02/10/18 20:00 98.3 115 17 163/96 (118) 92 02/10/18 19:00 93 Nasal Cannula 5.00 Humidified 02/10/18 18:00 117 02/10/18 16:00 98.5 111 19 132/93 (106) 92 02/10/18 16:00 111 02/10/18 15:39 97.4 118 17 130/96 (107) 94 Nasal Cannula 5 02/10/18 15:30 133 15 153/100 (117) 94 Nasal Cannula 5 02/10/18 15:15 126 22 158/99 (118) 92 Simple Mask 6 02/10/18 15:06 97.4 123 20 144/99 (114) 89 Nasal Cannula 4 02/10/18 14:00 112 02/10/18 12:00 114 02/10/18 12:00 98.7 114 19 141/94 (110) 94 02/10/18 10:00 112 I/O 02/10/18 02/10/18 02/10/18 02/11/18 02/11/18 02/11/18 07:00 15:00 23:00 07:00 15:00 23:00 Intake Total 100 ml 500 ml 1100 ml Output Total 700 ml 1050 ml 670 ml Balance -600 ml 500 ml 50 ml -670 ml IV Total 100 ml 1100 ml Other 500 ml Output Urine Total 400 ml 800 ml 500 ml Stool Total 0 ml 0 ml Gastric Drainage Total 250 ml 200 ml 150 ml Chest Tube Drainage Total 50 ml 50 ml 20 ml # Voids 0 # Bowel Movements 0 0 Laboratory Laboratory Tests Test 02/11/18 04:50 White Blood Count 28.4 Red Blood Count 4.32 Hemoglobin 11.7 Hematocrit 35.9 Mean Corpuscular Volume 83.0 Mean Corpuscular Hemoglobin 27.1 Mean Corpuscular Hemoglobin Concent 32.6 Red Cell Distribution Width 14.0 Platelet Count 515 Mean Platelet Volume 8.4 Neutrophils (%) (Auto) 90.1 Lymphocytes (%) (Auto) 2.2 Monocytes (%) (Auto) 7.4 Eosinophils (%) (Auto) 0.1 Basophils (%) (Auto) 0.2 Neutrophils # (Auto) 25.6 Lymphocytes # (Auto) 0.6 Monocytes # (Auto) 2.1 Eosinophils # (Auto) 0.0 Basophils # (Auto) 0.1 CBC Comment DIFF FINAL Differential Comment Blood Urea Nitrogen 20 Creatinine 0.86 Random Glucose 132 Calcium Level 8.4 Phosphorus Level 2.8 Magnesium Level 2.1 Sodium Level 140 Potassium Level 4.5 Chloride Level 105 Carbon Dioxide Level 28.0 Anion Gap 7 Estimat Glomerular Filtration Rate 95 Imaging Last Impressions Chest X-Ray 02/11/18 0600 Signed Impressions: CONCLUSION: No significant change. CT Angiography 02/09/18 0000 Signed Impressions: CONCLUSION: 1. No pulmonary emboli. 2. Worsening consolidation involving the right upper lobe with some cavitation and stable left lower lobe infiltrate without cavitation. Infectious etiology is suspected. 3. Tiny right effusion with right thoracostomy tube slightly more cephalad in the hemithorax. 4. Prior esophagectomy and gastric pull-through. 5. Partial visualization of a 2.7 cm low-density lesion involving the left lob e of the liver not clearly seen on the prior PET/CT. I cannot exclude a solitar y metastasis. Physical Exam HEENT: Normocephalic; atraumatic CHEST: Even/unlabored CARDIAC: RRR ABDOMEN: Soft, nondistended, bowel sounds active, clean and dry dressings EXTREMITIES: No clubbing, cyanosis, or edema. SKIN: Normal; no rash; no jaundice. 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, distal esophagus and GE junction- S/P exploratory laparotomy and open proximal gastrectomy with conversion to robotic-assisted [place] esophagectomy, omentectomy, J tube placement, chemical pyloroplasty with Botox injection of the pylorus on 02/01 - Consult for esophageal ulceration/focal leak noted on upper GI series- GS consulted GI for possible EGD with stent placement and NG tube to be left in after procedure Upper GI series W/O KUB (02/09) --> Focal leak identified at the GE anastomosis - Liver lesion with elevated LFTs: Labs on 02/10 AST-40 ALT-99 Alk phos-135 CT pulmonary angiogram --> Partial visualization of a 2.7 cm low-density lesions involving the left lobe of the liver not clearly seen on the prior PET/CT. I cannot exclude a solitary metastasis (02/11) Pt resting in bed, complaining of significant nausea, denies emesis. J tube to gravity with green colored drainage. Increase in WBCs noted, pt on Zosyn. Plan EGD tomorrow for stent placement Obtain consent NPO J tube to gravity per GS AFP MR abdomen W and W/O contrast to evaluate lesion Monitor LFTs Further recommendations based on results of above Patient has been seen and examined by myself and Dr. Kunz and this note is written on his behalf (Elena Perez) Physician Comments Seen and examined with TAI, MRI liver today. EGD/Stent placement tomorrow. Rep not available today. Discussed with at the bedside. (Ketty Kunz MD) Elena Perez February 11, 2018 10:08 Ketty Kunz MD February 11, 2018 14:27
--- NOTE | 2018-02-11 10:47 | HHI.PR ---
Subjective Subjective Notes stable overnight Objective Vitals/I&O Vital Signs Date Time Temp Pulse Resp B/P (MAP) Pulse Ox O2 Delivery O2 Flow Rate FiO2 02/11/18 07:36 93 Nasal Cannula 6.00 02/11/18 06:00 117 164/93 (116) 02/11/18 04:00 98.4 02/11/18 03:33 15 02/10/18 08:43 50 Labs Laboratory Tests Test 02/11/18 04:50 White Blood Count 28.4 Red Blood Count 4.32 Hemoglobin 11.7 Hematocrit 35.9 Mean Corpuscular Volume 83.0 Mean Corpuscular Hemoglobin 27.1 Mean Corpuscular Hemoglobin Concent 32.6 Red Cell Distribution Width 14.0 Platelet Count 515 Mean Platelet Volume 8.4 Neutrophils (%) (Auto) 90.1 Lymphocytes (%) (Auto) 2.2 Monocytes (%) (Auto) 7.4 Eosinophils (%) (Auto) 0.1 Basophils (%) (Auto) 0.2 Neutrophils # (Auto) 25.6 Lymphocytes # (Auto) 0.6 Monocytes # (Auto) 2.1 Eosinophils # (Auto) 0.0 Basophils # (Auto) 0.1 CBC Comment DIFF FINAL Differential Comment Blood Urea Nitrogen 20 Creatinine 0.86 Random Glucose 132 Calcium Level 8.4 Phosphorus Level 2.8 Magnesium Level 2.1 Sodium Level 140 Potassium Level 4.5 Chloride Level 105 Carbon Dioxide Level 28.0 Anion Gap 7 Estimat Glomerular Filtration Rate 95 Cardiovascular: Regular Lungs: Upper airway course sound Abdomen: Non-distended, Non-tender Extremities: No edema, Perfused Narrative Exam c/d/i incisions A/P Assessment and Plan 47yo male s/p robotic assisted [place] esophagectomy. Sepsis 2/2 ischemic ulcer and subsequent leak form esophageal-gastric anastomosis agree with management so far d/w GI, covered stent tomorrow will check CT scan Sunday to ensure adequate drainage of chest by IR agree with ABX appreciate specialist help d/w patient the complication and management of it Pérez Eaton MD February 11, 2018 10:46
[2018-02-11] MEDS ORDERED: HYDROmorphone HCL PF 2 MG/ML VIAL IV SCH (11:00)
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
[2018-02-11] MEDS: HYDROmorphone HCL PF 2 MG/ML VIAL IV PRN ×8 (11:53→22:59)
--- NOTE | 2018-02-11 12:34 | RADRPT ---
EXAM DATE: 02/11/2018 12:27 PM EDT AGE/SEX: 47 years / Male INDICATIONS: Evaluate distention. CLINICAL DATA: This is the patient's subsequent encounter. Patient reports that signs and symptoms h ave been present for 1 week and indicates a pain score of 7/10. MEDICAL/SURGICAL HISTORY: None. None. COMPARISON: No prior [place] exams available for comparison. FINDINGS: Mildly prominent small bowel loops. Residual contrast in colon. Postsurgical changes with jatinder in the midline. Catheter overlies left abdomen. No abnormal masses, calcifications, or organomegaly is seen. The osseous structures are unremarkable. CONCLUSION: Contrast within large bowel. Mildly dilated small bowel loops Electronically signed by: Clive Vasquez MD 02/11/2018 12:33 PM EDT
[2018-02-11] MEDS ORDERED: GADODIAMIDE PF 287 MG/ML 20 ML VIAL (for RAD MRI) IVCONTRAST ONE (13:55)
[2018-02-11] MEDS ORDERED: BISACODYL 10 MG SUPP RECTAL ONE (14:00)
[2018-02-11] MEDS: MICAFUNGIN INJ 150 MG in SODIUM CHLORIDE 0.9% INJ 100 ML IV SCH (14:31)
--- NOTE | 2018-02-11 15:02 | RADRPT ---
EXAM DATE: 02/11/2018 1:43 PM EDT AGE/SEX: 47 years / Male INDICATIONS: Abnormal CT scan. Abdominal pain and pressure. CLINICAL DATA: This is the patient's initial encounter. Patient reports that signs and symptoms have been present for 2 weeks and indicates a pain score of 4/10. MEDICAL/SURGICAL HISTORY: Arthritis. Barretts esophagus. . [place] in esophagus. Chest Tube. COMPARISON: [facility] [place], 02/09/2018. . TECHNIQUE: Multiplanar, multisequence images of the abdomen were obtained prior to and following adm inistration of 16cc ml Omniscan (gadodiamide) contrast as a single exam dose with dynamic multiphase technique. FINDINGS: Liver: The liver is homogeneous and normal in signal intensity. There are several cysts seen. There i s an area of T2 signal in the amount in the left lobe best seen on previous pulmonary angiogram. This does not enhance with contrast and appears benign. There is no biliary ductal dilatation. Gallbladder: No gallstones seen. Spleen: The spleen is unremarkable. Pancreas: The pancreas is unremarkable. Adrenals: The adrenal glands appear normal. Kidneys: Both kidneys appear normal with symmetric nephrograms and no focal parenchymal abnormalities . There is no hydronephrosis on either side. Retroperitoneum: The aorta is unremarkable. There is no pathologic abdominal lymphadenopathy. Other: Extensive pleural-parenchymal densities in the lung bases greater in the right lower lobe. Gas tric pull-through and esophagectomy partially noted. CONCLUSION: 1. No definite metastatic disease to the liver. The area in the left lobe seen on previous pulmonary angiogram appears benign. 2. Hepatic cysts. Electronically signed by: Clive Vasquez MD 02/11/2018 3:01 PM EDT
[2018-02-11] MEDS: RESP: ALBUTEROL 2.5 MG/IPRATROPIUM 0.5 MG NEB (PRN) NEB ×2 (18:41→20:49)
[2018-02-11] MEDS: LABETALOL HCL 100 MG/20 ML VIAL IV PUSH PRN (20:50)
[2018-02-12] VITALS (19 sets, daily range): BP systolic 133–169; BP diastolic 89–102; PULSE 100–131; RESP 20–24; TEMP 98.2–99; O2SAT 91–97
[2018-02-12] MEDS: HYDROmorphone HCL PF 2 MG/ML VIAL IV PRN ×14 (00:04→23:33)
[2018-02-12] MEDS: D5-NS + KCL 20 MEQ INJ 1,000 ML IV SCH ×3 (00:04→16:47)
[2018-02-12] MEDS: diphenhydrAMINE HCL 50 MG/ML VIAL IV PUSH PRN (01:27)
[2018-02-12] MEDS: CHLORHEXIDINE GLUCONATE 2 % 1 PACK (2 CLOTHS)(taper/protocol) TOPICAL SCH (04:00)
[2018-02-12] MEDS: PIPERACIL-TAZO 4.5 GM PREMIX 100 ML IV SCH ×4 (04:35→22:32)
[2018-02-12] MEDS: LINEZOLID 600 MG PREMIX 300 ML IV SCH ×2 (04:35→17:24)
--- NOTE | 2018-02-12 04:57 | RADRPT ---
EXAM DATE: 02/12/2018 4:39 AM EDT AGE/SEX: 47 years / Male INDICATIONS: Short of breath. CLINICAL DATA: This is the patient's subsequent encounter. Patient reports that signs and symptoms h ave been present for 4 - 6 days and indicates a pain score of 0/10. MEDICAL/SURGICAL HISTORY: None. . Right sided chest tube. COMPARISON: [facility] – [place], CHEST SINGLE AP, 02/11/2018. . FINDINGS: Slight left lung base atelectasis and/or infiltrate is seen. There is no appreciable change in locula peter right pleural effusion with air cavity projecting over the right medial and lower chest since the prior exam. Haziness to the right lung also stable not changed. CONCLUSION: No significant change. Electronically signed by: Ximena Vargas MD 02/12/2018 4:56 AM EDT
[2018-02-12 05:49] LABS: AUTOMATED NEUTROPHIL # 24.5 TH/MM3 (1.8-7.7); BASOPHIL % 0.1 % (0.0-2.0); EOSINOPHIL # 0.1 TH/MM3 (0-0.4); EOSINOPHIL % 0.4 % (0.0-4.0); HEMATOCRIT 31.6 % (39.0-51.0); HEMOGLOBIN 10.4 GM/DL (13.0-17.0); LYMPH % 2.7 % (9.0-44.0); LYMPHOCYTE # 0.7 TH/MM3 (1.0-4.8); MEAN CELL VOLUME 83.4 FL (80.0-100.0); MEAN CORPUSCULAR HEMOGLOBIN 27.3 PG (27.0-34.0); MEAN CORPUSCULAR HGB CONC 32.8 % (32.0-36.0); MEAN PLATELET VOLUME 8.6 FL (7.0-11.0); MONO % 6.1 % (0.0-8.0); MONOCYTE # 1.7 TH/MM3 (0-0.9); NEUT % 90.7 % (16.0-70.0); PLATELET COUNT 545 TH/MM3 (150-450); RED BLOOD COUNT 3.79 MIL/MM3 (4.50-5.90); RED CELL DISTRIBUTION WIDTH 13.9 % (11.6-17.2)
[2018-02-12] MEDS: PCA - TOTAL MG MORPHINE DELIVERED PER SHIFT SCH ×3 (06:00→22:00)
[2018-02-12 06:18] LABS: ALBUMIN 1.8 GM/DL (3.4-5.0); ALT (GPT) 40 U/L (12-78); AST (GOT) 16 U/L (15-37); BICARBONATE 28.5 MEQ/L (21.0-32.0); BLOOD UREA NITROGEN 18 MG/DL (7-18); CALCIUM 8.5 MG/DL (8.5-10.1); CHLORIDE 103 MEQ/L (98-107); CREATININE 0.79 MG/DL (0.60-1.30); GLOMERULAR FILTRATION RATE 104 ML/MIN (>89); GLUCOSE,RANDOM 106 MG/DL (74-106); PHOSPHORUS 3.2 MG/DL (2.5-4.9); SODIUM (NA) 140 MEQ/L (136-145)
[2018-02-12 06:21] LABS: ALKALINE PHOSPHATASE 107 U/L (45-117); TOTAL BILIRUBIN ADULT 0.6 MG/DL (0.2-1.0); TOTAL PROTEIN 6.2 GM/DL (6.4-8.2)
[2018-02-12] MEDS: LABETALOL HCL 100 MG/20 ML VIAL IV PUSH PRN ×4 (06:58→18:33)
[2018-02-12] MEDS: RESP: ALBUTEROL 2.5 MG/IPRATROPIUM 0.5 MG NEB (PRN) NEB ×2 (07:18→16:29)
[2018-02-12] MEDS: INSULIN ASPART SUPPLEMENTAL SCALE SQ SCH ×4 (08:00→21:00)
[2018-02-12] MEDS: SODIUM CHLORIDE 0.9% FLUSH 10 ML FLUSH IV FLUSH SCH ×2 (08:21→21:00)
[2018-02-12] MEDS ORDERED: KETAMINE HCL 500 MG/10 ML VIAL ONE (09:51)
--- NOTE | 2018-02-12 10:44 | GIPROC ---
[facility] [address] [facility]. [facility], [address] EGD PROCEDURE REPORT EXAM DATE: 02/12/2018 PATIENT NAME: Nick Ryan MR #: [id number] BIRTHDATE: 1970 ATTENDING: Ketty Kunz MD ORDER #: [id number] CLINICAL MOLECULAR GENETICIST: Ashely Tate and Bladimir Meraz STATUS: inpatient INDICATIONS: The patient is a 47 yr old male here for an EGD due to esophageal leak PROCEDURE PERFORMED: EGD w/ transendoscopic stent MEDICATIONS: None and Per Anesthesia. TOPICAL ANESTHETIC: CONSENT: The patient understands the risks and benefits of the procedure and understands that these risks include, but are not limited to: sedation, allergic reaction, infection, perforation and/or bleeding. Alternative means of evaluation and treatment include, among others: physical exam, x-rays, and/or surgical intervention. The patient elects to proceed with this endoscopic procedure. medical equipment was checked for proper function. Hand hygiene and appropriate measures for infection prevention was taken. After the risks, benefits and alternatives of the procedure were thoroughly explained, Informed consent was verified, confirmed and timeout was successfully executed by the treatment team. The patient was anesthetized with topical anesthesia and the [employer] Auto [employer] [id number] endoscope was introduced through the mouth and advanced to the second portion of the duodenum. Retroflexed views revealed no abnormalities The gastroscope was then slowly withdrawn and removed. ESOPHAGUS: A single non-bleeding and deep ulcer ranging between 5-9mm in size was found in the distal esophagus and at the esophageal anastomosis. STOMACH: There was erythematous moderate and erosive gastritis in the gastric antrum. DUODENUM: The duodenal mucosa appeared normal in the 2nd part of the duodenum. ADVERSE EVENTS: There were no complications. IMPRESSIONS: 1. Single ulcer ranging between 5-9mm in size was found in the distal esophagus and at the esophageal anastomosis 2. There was erythematous gastritis in the gastric antrum 3. Normal duodenal mucosa in the 2nd part of the duodenum 4. Retroflexed views revealed no abnormalities RECOMMENDATIONS: 1. Anti-reflux regimen 2. Continue PPI 3. Avoid NSAIDS PATIENT CONDITION: stable DISPOSITION: Inpatient REPEAT EXAM: Return 4 weeks EGD Ketty Kunz MD eSigned: Ketty Kunz MD 02/12/2018 10:44 AM cc: PATIENT NAME: Nick Ryan MR#: [id number]
[2018-02-12] MEDS ORDERED: DO NOT ADM ANY ANTICOAGULANT DRUGS PRN (10:55)
[2018-02-12] MEDS ORDERED: MIDAZOLAM HCL 2 MG/2 ML VIAL ONE ×2 (11:04→15:16)
[2018-02-12] MEDS ORDERED: *morphine SULFATE 4 MG/ML PERIprocedure ONLY ONE (11:07)
[2018-02-12] MEDS ORDERED: *RESP: ALBUTEROL 2.5 MG/3 ML NEB (PRN) PERIprocedural Use ONLY NEB ONE (11:33)
--- NOTE | 2018-02-12 11:33 | RADRPT ---
EXAM DATE: 02/12/2018 10:59 AM EDT AGE/SEX: 47 years / Male INDICATIONS: Wire dilatation. CLINICAL DATA: This is the patient's initial encounter. Patient reports that signs and symptoms have been present for 1 day and indicates a pain score of Nonresponsive. MEDICAL/SURGICAL HISTORY: Non-responsive. Non-responsive. COMPARISON: [facility] [place] UPPER GI SERIES W/O KUB CONTAINER MAKER, 02/09/2018. . FINDINGS: Single intraprocedural fluoroscopic image demonstrates an ETT in good position at the level of the cl avicles. There has been interval esophageal stent placement in this patient with history of gastric p ull-up procedure and apparent leak at the gastroesophageal anastomosis. CONCLUSION: 1. Fluoroscopic image demonstrates interval esophageal stent placement, as above. Electronically signed by: Corby Schrader MD 02/12/2018 11:32 AM EDT
[2018-02-12] MEDS ORDERED: DEXAMETHASONE SOD PHOS 4 MG/ML VIAL IV ONE (12:00)
[2018-02-12] MEDS ORDERED: LIDOCAINE HCL 1% PF 5 ML SYRINGE OTHER ONE (12:00)
[2018-02-12] MEDS ORDERED: LABETALOL HCL 100 MG/20 ML VIAL IV ONE (12:00)
[2018-02-12] MEDS ORDERED: ONDANSETRON HCL 4 MG/2 ML VIAL IV ONE (12:00)
[2018-02-12] MEDS ORDERED: ROCURONIUM INJ 50 MG/5 ML SYRINGE IV PUSH ONE (12:00)
[2018-02-12] MEDS: MICAFUNGIN INJ 150 MG in SODIUM CHLORIDE 0.9% INJ 100 ML IV SCH (13:16)
--- NOTE | 2018-02-12 13:16 | HHI.PR ---
Subjective Subjective Notes Resting in bed Just back from esophageal stent placement Feels short of breath Objective Vitals/I&O Vital Signs Date Time Temp Pulse Resp B/P (MAP) Pulse Ox O2 Delivery O2 Flow Rate FiO2 02/12/18 12:00 98.6 112 16 165/98 (120) 94 02/12/18 11:15 Simple Mask 8 02/11/18 07:00 50 Labs Laboratory Tests Test 02/11/18 16:47 02/12/18 04:28 Tumor Marker Alpha Fetoprotein 1.2 White Blood Count 27.0 Red Blood Count 3.79 Hemoglobin 10.4 Hematocrit 31.6 Mean Corpuscular Volume 83.4 Mean Corpuscular Hemoglobin 27.3 Mean Corpuscular Hemoglobin Concent 32.8 Red Cell Distribution Width 13.9 Platelet Count 545 Mean Platelet Volume 8.6 Neutrophils (%) (Auto) 90.7 Lymphocytes (%) (Auto) 2.7 Monocytes (%) (Auto) 6.1 Eosinophils (%) (Auto) 0.4 Basophils (%) (Auto) 0.1 Neutrophils # (Auto) 24.5 Lymphocytes # (Auto) 0.7 Monocytes # (Auto) 1.7 Eosinophils # (Auto) 0.1 Basophils # (Auto) 0.0 CBC Comment DIFF FINAL Differential Comment Blood Urea Nitrogen 18 Creatinine 0.79 Random Glucose 106 Total Protein 6.2 Albumin 1.8 Calcium Level 8.5 Phosphorus Level 3.2 Magnesium Level 2.0 Alkaline Phosphatase 107 Aspartate Amino Transf (AST/SGOT) 16 Alanine Aminotransferase (ALT/SGPT) 40 Total Bilirubin 0.6 Sodium Level 140 Potassium Level 4.0 Chloride Level 103 Carbon Dioxide Level 28.5 Anion Gap 9 Estimat Glomerular Filtration Rate 104 Date/Time Source Procedure Growth Status 02/11/18 16:54 Blood Peripheral Aerobic Blood Culture - Preliminary NO GROWTH IN 1 DAY Resulted 02/11/18 16:54 Blood Peripheral Anaerobic Blood Culture - Preliminary NO GROWTH IN 1 DAY Resulted Cardiovascular: Regular Lungs: Wheezes Abdomen: Other (midline incision with jatinder; J tube gravity ) Extremities: Other (mild peripheral edema ) Narrative Exam RIGHT chest tube in place to suction A/P Assessment and Plan 47 year old male POD11 robotic assisted [place] esophagectomy -Patient now with delayed leak--- esophageal stent placed today -NPO -Repeat CT chest today ---IR will reposition existing CT -Reviewed pathology with patient--will need to be evaluated by Medical Oncology once recovered from surgery -J tube to gravity -Dilaudid IV and Hycet for pain -Phenergan for nausea -Lovenox (on hold due to procedures) Attending Statement The exam, history, and the medical decision-making described in the above note were completed with the assistance of the mid-level provider. I reviewed and agree with the findings presented. I attest that I had a [id number] encounter with the patient on the same day, and personally performed and documented my assessment and findings in the medical record. ischemic distal esophagus with ulceration and leak, stable stent placement and drainage is appropriate ABX per ID will benefit from restarting TF PT eval and treat Kimberly Louis/Boiler House Inspector TAI February 12, 2018 13:16 Pérez Eaton MD Feb 15, 2018 13:33
--- NOTE | 2018-02-12 13:19 | HHI.CCPN ---
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 Patient tolerated procedure well was subsequently extubated and transferred to recovery room. Critical care consult requested by Dr. Eaton . When I evaluated patient in PACU he was still drowsy following anesthesia on nasal cannula. History was obtained by reviewing records and discussion with PACU nursing staff. 02/02: Resting in bed on nasal cannula in no acute distress. 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 SUBJECTIVE: 02/03: Out of bed to chair today. T-max 99.4. 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 No bowel movement. No complaints. 02/04; out of bed again today in a chair for 3 hours. Strong cough effort and good work with incentive spirometry. Remains well-hydrated. Nasogastric tube output moderate as expected. Phosphorus replacement now. 02/05: Electrolytes repleted. Minimal bowel activity however he remains on narcotic LAWN MOWER OPERATOR. Breathing comfortably. Nasogastric output not excessive. No evidence of downstream obstruction. Diffuse light sweating which is probably related to his morphine. 02/06: Remains warm and well-perfused. Lower bowel activity remains minimal. Continue enteral feeds in the jejunum at trickle rate. Discussed with Dr. Goldberg at the bedside. Plan for contrast swallow tomorrow. 02/07: Starting to pass gas.No abdominal discomfort, good pain control. LAWN MOWER OPERATOR has been stopped. 02/08: Contract swallow without leak. Minor atelectasis right lung, otherwise clear. Breathing comfortably. RECONSULT [facility] 02/09: [facility] reconsulted, patient transferred from emergently for dyspnea. Patient on nonrebreather mask O2 saturation 92%, tachypnea complaining of pain. Stat chest x-ray performed showing right pleural effusion. Discussed with Dr. Mack, updated on readmission , they wish to hold off. Dr. Mack notify placement of right pigtail catheter , initial pleural fluid removal [address] chest/ UGI and CTA thorax with contrast pending . Lung consolidation right base concerning for possible aspiration, sputum culture pending, empiric antibiotics initiated. 02/10: No acute events overnight. Patient has been weaned to Ventimask. CT showed no pulmonary embolus however worsening right upper lobe consolidation patient was placed on empiric antibiotics and expanded during the night to add fluconazole to medication regimen. Leukocytosis decreasing. The patient continues to be n.p.o. J-tube placed to gravity last evening. Chest x-ray reveal small right apical pneumothorax that has been unchanged. Pain well controlled with Dilaudid. Lovenox , DVT prophylaxis currently on hold, possible invasive interventions today per general surgery, await recommendations. No leak noted in left chest tube, 50 cc output overnight. 02/11: Upper GI series revealed esophageal ulceration/ focal leak. GI was consulted and seen yesterday, plan for stent on Monday 02/12. Patient continues on antibiotics, ID has been consulted, leukocytosis worsening, PICC line placement required for antibiotics and TPN, discussed with Dr. Eaton. J-tube to remain to gravity. No thoracentesis on 02/10 secondary to small fluid collection. Right pigtail chest tube continues on -20 suction. Aggressive pulmonary toileting continues. 02/12: Late entry note . Patient seen at 6:30 AM. No acute events overnight the patient continued on 4 L nasal cannula, O2 saturation approximately 94%. This a.m. patient underwent EGD with Hemoclip placement for anastomotic leak. Upon return patient was noted to be wheezing, DuoNeb provided. Chest x-ray revealing persistent loculated right pleural effusion patient scheduled to undergo CT-guided thoracentesis this afternoon, for possible drainage. Objective Vital Signs Date Time Temp Pulse Resp B/P (MAP) Pulse Ox O2 Delivery O2 Flow Rate FiO2 02/12/18 12:00 98.6 112 16 165/98 (120) 94 02/12/18 11:15 Simple Mask 8 02/11/18 07:00 50 Intake and Output 02/12/18 02/12/18 02/13/18 08:00 16:00 00:00 Intake Total 1400 ml 300 ml Output Total 400 ml Balance 1000 ml 300 ml Result Diagram: 02/12/18 0428 02/12/18 042 Imaging Last Impressions Chest X-Ray 02/10/18 0600 Signed Impressions: CONCLUSION: Worsening parenchymal consolidation of the right lung. Small, multiloculated right apical pneumothorax not significantly changed. Mild consolidation and very small pleural effusion left lung base not significa ntly changed. CT Angiography 02/09/18 0000 Signed Impressions: CONCLUSION: 1. No pulmonary emboli. 2. Worsening consolidation involving the right upper lobe with some cavitation and stable left lower lobe infiltrate without cavitation. Infectious etiology is suspected. 3. Tiny right effusion with right thoracostomy tube slightly more cephalad in the hemithorax. 4. Prior esophagectomy and gastric pull-through. 5. Partial visualization of a 2.7 cm low-density lesion involving the left lob e of the liver not clearly seen on the prior PET/CT. I cannot exclude a solitar y metastasis. Last Impressions Chest X-Ray 02/09/18 0000 Signed Impressions: CONCLUSION: 1. Stable patchy parenchymal infiltrate in the right lung base. 2. Increasing infiltrate in the left lung base 3. Right-sided pleural effusion. Last Impressions Chest X-Ray 02/03/18 0600 Signed Impressions: Service Date/Time: Saturday, February 03, 2018 03:29 - CONCLUSION: 1. Support apparatus in good position. Bilateral mostly basilar airspace disease. No pneumothorax. Prosper Miller MD Procedures 02/09-right pigtail chest tube 02/12-EGD/ Hemoclip placement for anastomotic leak Objective Remarks GENERAL: This is [id number] well-developed well-nourished male in respiratory distress on nasal cannula 6 L/min SKIN: Warm and dry. Well healing skin incisions right flank, no evidence of erythema or drainage. Former chest tube site right posterior area with clean dressing HEAD: Atraumatic. Normocephalic. ENT: No nasal bleeding or discharge. Normal saliva. NG in place. NECK: Trachea midline. Airway widely patent. No obstruction. CARDIOVASCULAR: Regular rate and rhythm. S1, S2 normal. No JVD. RESPIRATORY: No accessory muscle use. Clear to auscultation. No adventitious sounds. Right pigtail chest tube to suction GASTROINTESTINAL: Abdomen soft, non-tender, nondistended. No involuntary guarding. Jejunostomy-tube in place, site clean, dry. MUSCULOSKELETAL: Extremities without clubbing, cyanosis, or edema. No obvious deformities. Warm, well perfused. NEUROLOGICAL: Awake and alert. No obvious cranial nerve deficits. Motor grossly normal. Normal speech. Date of Insertion: February 01, 2018 A/P Assessment and Plan Neuro/Psych: Postop surgical pain Dilaudid 2 mg every 4 hours as needed for pain scale 8-10 Hydrocodone 7.5/325 every 4 hours as needed (on hold) Holding gabapentin 800 mg daily/home medication, restart when taking PO. CV: Hyperlipidemia Sinus tachycardia Hypertension Increase D5 normal saline with 20 mEq KCl 125 cc an hour Not requiring vasopressors and/or antihypertensives the present time On fenofibrate 135 mg p.o. daily at home Labetalol 20mg IV 2hr SBP > 160 Resp: Acute respiratory insufficiency Weaned to nasal cannula to maintain saturations greater than equal to 92% Currently on 8LPM N/C continue to wean 02/08-right chest tube removed 02/09-right pleural effusion 02/09-right pigtail catheter chest tube placement , -20cm Thoracic ultrasound noted multiple septations pleural fluid prior to placement of pigtail catheter Incentive spirometry while awake. 02/10- no thoracentesis performed per IR 10/19 minimal fluid. 02/09- CT angio-no PE, worsening consolidation right upper lobe, stable left lower lobe infiltrate 02/10 chest x-ray-small right apical pneumothorax unchanged Encourage incentive spirometry, aggressive pulmonary toileting 02/12: Planned CT-guided thoracentesis,CXR right loculated pleural effusion GI: Postop day #8 Exploratory laparotomy and open proximal gastrectomy with conversion to robotic-assisted [place] esophagectomy. Omentectomy. Jejunostomy tube placement Chemical pyloroplasty with Botox injection of the pylorus. 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 Hiatal hernia Protein calorie malnutrition Esophageal anastomotic leak Tube feedings through jejunostomy tube placed on hold 02/09, J-tube placed to gravity-defer to general surgery 02/09 CT chest with PO contrast/ UGI series - No anastomotic leak On pantoprazole and ranitidine at home. These are currently being held Bowel regimen per general surgery UGI - focal esophageal leak 02/12-EGD/Hemoclip placement for esophageal anastomotic leak Plan for full liquid diet per general surgery post Hemoclip placement : Cantu catheter if indicated for accurate I's and O's in a critically ill patient Endo: Maintain euglycemia Sliding scale low dose regimen Renal: Creatinine currently within normal limits. 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 Follow trend 02/09 obtain sputum culture 02/09 Zyvox , Zosyn-possible aspiration PNA, fluconazole added 02/05 postoperative antibiotics per surgery completed with cefazolin and metronidazole 02/11 ID following 02/11 Patient may require PICC line for long-term antibiotics FEN: Hypophosphatemia Replace electrolytes as clinically indicated Access Prophylaxis -GI -not indicated -DVT prophylaxis-Lovenox on hold for EGD, and/or invasive radiology interventions, defer to general surgery at this time Dispo; Hemoclip placement performed, plan for p.o. diet to begin with full liquids per general surgery recommendations. Discussed with patient and Mrs. Ryan, Ms. Marivel Louis- General Surgery, KENNEL HELPER at bedside Rachel my billing statement This patient remains critically ill with one or more organ systems which are or may become a threat to life. I have spent in excess of 30 minutes discontinuously in the care and management of this patient. This time is exclusive of procedures, and includes, but is not limited to, evaluation of the patient, review of the medical record, discussions with family, consultants, nursing staff, or respiratory therapy, and documentation in the medical record. Physician Denae Gonzalez MD February 12, 2018 13:19
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
--- NOTE | 2018-02-12 15:54 | PD.RAD ---
Post CT Procedure Prog Note Pre Procedure Diagnosis: (1) Pleural effusion Post Procedure Diagnosis: (1) Pleural effusion Procedure Date: February 12, 2018 Supervising Radiologist: Clive Vasquez Proceduralist/Assist: cassandra sheffield Estimated blood loss: none Anesthesia: Conscious Sedation Plan of Activity Patient to Unit: ROPU Patient Condition: Good See PACS Report for procedural detail/treatment Clive Vasquez MD February 12, 2018 15:54
[2018-02-12] MEDS ORDERED: LIDOCAINE HCL 1% 10 ML VIAL SQ ONE (16:21)
[2018-02-12 17:27] LABS: TOTAL PROTEIN,PLEURAL FLUID 4.8 GM/DL
[2018-02-12 17:29] LABS: GLUCOSE,PLEURAL FLUID LESS THAN 1 MG/DL
[2018-02-12] MEDS: ACETAMINOPHEN 325MG/HYDROcodone 7.5MG/15ML UDC PO PRN (18:34)
[2018-02-12 21:06] LABS: PLEURAL FLUID POLYS (SEGS) 100 %
[2018-02-12 21:08] LABS: PLEURAL FLUID RBC 2600 /MM3 (0-0); PLEURAL FLUID WBC 15900 /MM3 (0-10)
[2018-02-13] VITALS (20 sets, daily range): BP systolic 135–171; BP diastolic 77–101; PULSE 73–117; RESP 17–24; TEMP 98–98.7; O2SAT 88–99
[2018-02-13] MEDS: HYDROmorphone HCL PF 2 MG/ML VIAL IV PRN ×17 (00:33→22:45)
[2018-02-13] MEDS: D5-NS + KCL 20 MEQ INJ 1,000 ML IV SCH ×3 (01:55→20:49)
[2018-02-13] MEDS: CHLORHEXIDINE GLUCONATE 2 % 1 PACK (2 CLOTHS)(taper/protocol) TOPICAL SCH (04:00)
--- NOTE | 2018-02-13 04:01 | RADRPT ---
EXAM DATE: 02/13/2018 3:56 AM EDT AGE/SEX: 47 years / Male INDICATIONS: Short of breath. CLINICAL DATA: This is the patient's subsequent encounter. Patient reports that signs and symptoms h ave been present for 1 week and indicates a pain score of 0/10. MEDICAL/SURGICAL HISTORY: None. . Chest tube. COMPARISON: [facility] [place], CHEST SINGLE AP, 02/12/2018. . FINDINGS: Right pleural effusion is again seen with loculated air collection in the right lower medial chest no t changed. The left lung is grossly clear except for minimal linear atelectasis left lung base. There is mild improvement in aeration of the right upper lung since the prior exam with persistent consoli dation right lower lung. CONCLUSION: Right pleural effusion remains with minimal improvement in the aeration of the right upper lobe since the prior exam. Electronically signed by: Ximena Vargas MD 02/13/2018 3:59 AM EDT
[2018-02-13] MEDS: LINEZOLID 600 MG PREMIX 300 ML IV SCH ×2 (05:18→17:19)
[2018-02-13] MEDS: PIPERACIL-TAZO 4.5 GM PREMIX 100 ML IV SCH ×4 (05:18→22:45)
[2018-02-13 05:28] LABS: AUTOMATED NEUTROPHIL # 15.8 TH/MM3 (1.8-7.7); BASOPHIL % 0.1 % (0.0-2.0); HEMATOCRIT 27.8 % (39.0-51.0); HEMOGLOBIN 9.2 GM/DL (13.0-17.0); LYMPH % 2.1 % (9.0-44.0); LYMPHOCYTE # 0.4 TH/MM3 (1.0-4.8); MEAN CELL VOLUME 83.5 FL (80.0-100.0); MEAN CORPUSCULAR HEMOGLOBIN 27.6 PG (27.0-34.0); MEAN PLATELET VOLUME 8.5 FL (7.0-11.0); MONO % 6.5 % (0.0-8.0); MONOCYTE # 1.1 TH/MM3 (0-0.9); NEUT % 91.3 % (16.0-70.0); PLATELET COUNT 524 TH/MM3 (150-450); RED BLOOD COUNT 3.33 MIL/MM3 (4.50-5.90); WHITE BLOOD COUNT 17.4 TH/MM3 (4.0-11.0)
[2018-02-13 05:51] LABS: BICARBONATE 27.7 MEQ/L (21.0-32.0); CALCIUM 8.6 MG/DL (8.5-10.1); CREATININE 0.66 MG/DL (0.60-1.30)
[2018-02-13] MEDS: PCA - TOTAL MG MORPHINE DELIVERED PER SHIFT SCH ×3 (06:00→20:28)
[2018-02-13] MEDS: INSULIN ASPART SUPPLEMENTAL SCALE SQ SCH ×4 (08:00→20:35)
[2018-02-13] MEDS: SODIUM CHLORIDE 0.9% FLUSH 10 ML FLUSH IV FLUSH SCH ×2 (08:22→20:50)
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
--- NOTE | 2018-02-13 11:24 | HHI.GIFU ---
Subjective Remarks Pt resting in bed On high flow NC Reports some abdominal soreness J tube to gravity with approx 20 cc of dark bile colored fluid Denies nausea, vomiting (Elena Perez) Objective Vitals I&O Vital Signs Date Time Temp Pulse Resp B/P (MAP) Pulse Ox O2 Delivery O2 Flow Rate FiO2 02/13/18 10:00 96 02/13/18 09:00 87 19 143/93 (110) 95 02/13/18 08:00 117 02/13/18 08:00 98.0 117 22 135/77 (96) 96 02/13/18 07:41 99 High Flow Nasal Cannula 25.00 50 02/13/18 07:00 86 22 143/86 (105) 96 02/13/18 07:00 Nasal Cannula 25.00 50 02/13/18 06:00 89 02/13/18 04:00 94 02/13/18 04:00 98.3 94 24 149/89 (109) 97 02/13/18 03:39 97 High Flow Nasal Cannula 25.00 70 02/13/18 02:00 95 02/13/18 00:00 98.6 93 158/101 (120) 97 02/13/18 00:00 93 02/12/18 22:00 100 02/12/18 20:32 97 High Flow Nasal Cannula 15.00 80 02/12/18 20:00 104 02/12/18 20:00 98.5 104 22 156/89 (111) 97 02/12/18 19:00 Nasal Cannula 02/12/18 18:38 93 High Flow Nasal Cannula 15.00 80 02/12/18 18:00 115 02/12/18 18:00 115 164/95 (118) 95 02/12/18 17:30 113 95 02/12/18 17:00 120 154/93 (113) 93 02/12/18 17:00 120 02/12/18 16:33 119 169/100 (123) 97 02/12/18 16:33 99.0 119 24 169/100 (123) 97 02/12/18 16:33 119 02/12/18 16:29 High Flow Nasal Cannula 25.00 80 02/12/18 14:00 110 02/12/18 13:00 111 02/12/18 12:10 113 02/12/18 12:00 98.6 112 16 165/98 (120) 94 02/12/18 12:00 98.2 113 20 165/102 (123) I/O 02/12/18 02/12/18 02/12/18 02/13/18 02/13/18 02/13/18 07:00 15:00 23:00 07:00 15:00 23:00 Intake Total 1500 ml 1500 ml 1400 ml 1500 ml 1000 ml Output Total 400 ml 830 ml 648 ml Balance 1100 ml 1500 ml 570 ml 852 ml 1000 ml Intake Oral 0 ml IV Total 1500 ml 1200 ml 1400 ml 1500 ml 1000 ml Other 300 ml Output Urine Total 300 ml 625 ml 350 ml Gastric Drainage Total 100 ml 125 ml 250 ml Chest Tube Drainage Total 0 ml 80 ml 48 ml # Voids 1 2 1 # Bowel Movements 0 0 0 Laboratory Laboratory Tests Test 02/12/18 15:35 02/13/18 04:00 Pleural Fluid WBC 93018 Pleural Fluid RBC 2600 Pleural Fluid Neutrophils 100 Pleural Fluid Comment Pleural Fluid Total Protein 4.8 Pleural Fluid Glucose LESS THAN 1 White Blood Count 17.4 Red Blood Count 3.33 Hemoglobin 9.2 Hematocrit 27.8 Mean Corpuscular Volume 83.5 Mean Corpuscular Hemoglobin 27.6 Mean Corpuscular Hemoglobin Concent 33.0 Red Cell Distribution Width 14.0 Platelet Count 524 Mean Platelet Volume 8.5 Neutrophils (%) (Auto) 91.3 Lymphocytes (%) (Auto) 2.1 Monocytes (%) (Auto) 6.5 Eosinophils (%) (Auto) 0.0 Basophils (%) (Auto) 0.1 Neutrophils # (Auto) 15.8 Lymphocytes # (Auto) 0.4 Monocytes # (Auto) 1.1 Eosinophils # (Auto) 0.0 Basophils # (Auto) 0.0 CBC Comment DIFF FINAL Differential Comment Blood Urea Nitrogen 18 Creatinine 0.66 Random Glucose 114 Calcium Level 8.6 Sodium Level 141 Potassium Level 3.9 Chloride Level 104 Carbon Dioxide Level 27.7 Anion Gap 9 Estimat Glomerular Filtration Rate 128 Date/Time Source Procedure Growth Status 02/11/18 16:54 Blood Peripheral Aerobic Blood Culture - Preliminary NO GROWTH IN 2 DAYS Resulted 02/11/18 16:54 Blood Peripheral Anaerobic Blood Culture - Preliminary NO GROWTH IN 2 DAYS Resulted 02/12/18 15:35 Fluid Pleural Fluid Fungal Smear - Final NO FUNGAL ELEMENTS SEEN. Resulted 02/12/18 15:35 Fluid Pleural Fluid Fungal Culture Pending Resulted Imaging Last Impressions Chest X-Ray 02/13/18 0000 Signed Impressions: CONCLUSION: Right pleural effusion remains with minimal improvement in the aeration of the right upper lobe since the prior exam. GI Procedure 02/12/18 0000 Signed Impressions: CONCLUSION: 1. Fluoroscopic image demonstrates interval esophageal stent placement, as abo ve. Abdomen MRI 02/11/18 1114 Signed Impressions: CONCLUSION: 1. No definite metastatic disease to the liver. The area in the left lobe seen on previous pulmonary angiogram appears benign. 2. Hepatic cysts. Abdomen X-Ray 02/11/18 0000 Signed Impressions: CONCLUSION: Contrast within large bowel. Mildly dilated small bowel loops CT Angiography 02/09/18 0000 Signed Impressions: CONCLUSION: 1. No pulmonary emboli. 2. Worsening consolidation involving the right upper lobe with some cavitation and stable left lower lobe infiltrate without cavitation. Infectious etiology is suspected. 3. Tiny right effusion with right thoracostomy tube slightly more cephalad in the hemithorax. 4. Prior esophagectomy and gastric pull-through. 5. Partial visualization of a 2.7 cm low-density lesion involving the left lob e of the liver not clearly seen on the prior PET/CT. I cannot exclude a solitar y metastasis. Physical Exam HEENT: Normocephalic; atraumatic CHEST: Even/unlabored, High flow NC. Chest tube R side CARDIAC: RRR ABDOMEN: Soft, nondistended, bowel sounds active, clean and dry dressings, J tube to gravity with 20 cc of dark bile colored drainage EXTREMITIES: No clubbing, cyanosis, or edema. SKIN: Normal; no rash; no jaundice. PROFESSIONAL SKATEBOARDER: Alert and oriented times three. 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, distal esophagus and GE junction- S/P exploratory laparotomy and open proximal gastrectomy with conversion to robotic-assisted Romulo-Israel esophagectomy, omentectomy, J tube placement, chemical pyloroplasty with Botox injection of the pylorus on 02/01 - Consult for esophageal ulceration/focal leak noted on upper GI series- GS consulted GI for possible EGD with stent placement and NG tube to be left in after procedure Upper GI series W/O KUB (02/09) --> Focal leak identified at the GE anastomosis - Liver lesion with elevated LFTs: Labs on 02/10 AST-40 ALT-99 Alk phos-135 CT pulmonary angiogram --> Partial visualization of a 2.7 cm low-density lesions involving the left lobe of the liver not clearly seen on the prior PET/CT. I cannot exclude a solitary metastasis MR abdomen W & WO contrast (02/11) No definite metastatic disease to the liver. The area in the left lobe seen on previous pulmonary angiogram appears benign. Hepatic cysts. AFP-1.2 (02/11) Pt resting in bed, complaining of significant nausea, denies emesis. J tube to gravity with green colored drainage. Increase in WBCs noted, pt on Zosyn. (02/13) S/P EGD with transendoscopic stent for esophageal leak. --> Single ulcer ranging between 5-9 mm in size in the distal esophagus at the esophageal anastomosis. There was erythematous gastritis in the gastric antrum. Normal duodenal mucosa in the 2nd part of the duodenum. Per GS OK to start TF through J tube. Pt remains on high flow NC. MR abdomen and AFP as above- no further work up at this time Plan Protonix Further management regarding feeding per GS GI will sign off, please reconsult as needed Have pt follow up with GI after DC Patient has been seen and examined by myself and Dr. Kunz and this note is written on his behalf (Elena Perez) Physician Comments Seen and examined with DIGITAL MEASUREMENT ADVISOR, tolerating liquids. Repeat CT today. Can advance to soft diet next week. Repeat EGD with stent removal in 04 weeks. Discussed with the patient, and with Dr. Eaton. GI will sign off, reconsult as needed. Thank you (Ketty Kunz MD) Elena Perez February 13, 2018 11:24 Ketty Kunz MD February 13, 2018 16:29
[2018-02-13] MEDS: MICAFUNGIN INJ 150 MG in SODIUM CHLORIDE 0.9% INJ 100 ML IV SCH (12:59)
--- NOTE | 2018-02-13 13:13 | HHI.PR ---
Subjective Subjective Notes Resting in bed Feeling much better now Objective Vitals/I&O Vital Signs Date Time Temp Pulse Resp B/P (MAP) Pulse Ox O2 Delivery O2 Flow Rate FiO2 02/13/18 10:00 96 02/13/18 09:00 19 143/93 (110) 95 02/13/18 08:00 98.0 02/13/18 07:41 High Flow Nasal Cannula 25.00 50 Labs Laboratory Tests Test 02/12/18 15:35 02/13/18 04:00 Pleural Fluid WBC 99740 Pleural Fluid RBC 2600 Pleural Fluid Neutrophils 100 Pleural Fluid Comment Pleural Fluid Total Protein 4.8 Pleural Fluid Glucose LESS THAN 1 White Blood Count 17.4 Red Blood Count 3.33 Hemoglobin 9.2 Hematocrit 27.8 Mean Corpuscular Volume 83.5 Mean Corpuscular Hemoglobin 27.6 Mean Corpuscular Hemoglobin Concent 33.0 Red Cell Distribution Width 14.0 Platelet Count 524 Mean Platelet Volume 8.5 Neutrophils (%) (Auto) 91.3 Lymphocytes (%) (Auto) 2.1 Monocytes (%) (Auto) 6.5 Eosinophils (%) (Auto) 0.0 Basophils (%) (Auto) 0.1 Neutrophils # (Auto) 15.8 Lymphocytes # (Auto) 0.4 Monocytes # (Auto) 1.1 Eosinophils # (Auto) 0.0 Basophils # (Auto) 0.0 CBC Comment DIFF FINAL Differential Comment Blood Urea Nitrogen 18 Creatinine 0.66 Random Glucose 114 Calcium Level 8.6 Sodium Level 141 Potassium Level 3.9 Chloride Level 104 Carbon Dioxide Level 27.7 Anion Gap 9 Estimat Glomerular Filtration Rate 128 Date/Time Source Procedure Growth Status 02/11/18 16:54 Blood Peripheral Aerobic Blood Culture - Preliminary NO GROWTH IN 2 DAYS Resulted 02/11/18 16:54 Blood Peripheral Anaerobic Blood Culture - Preliminary NO GROWTH IN 2 DAYS Resulted 02/12/18 15:35 Fluid Pleural Fluid Fungal Smear - Final NO FUNGAL ELEMENTS SEEN. Resulted 02/12/18 15:35 Fluid Pleural Fluid Fungal Culture Pending Resulted Cardiovascular: Regular Lungs: Clear Abdomen: Other (Midline incision with jatinder; J tube to gravity bag ) Extremities: No edema Narrative Exam RIGHT chest tube in place to suction A/P Assessment and Plan 47 year old male POD12 robotic assisted Romulo-Israel esophagectomy -Patient now with delayed leak--- s/p esophageal stent placed -Okay for popsicles -Repeat CT chest ---s/p IR will reposition existing CT ---now draining -Reviewed pathology with patient--will need to be evaluated by Medical Oncology once recovered from surgery -Re-start TF via J tube -Dilaudid IV and Hycet for pain -Phenergan for nausea -Lovenox (on hold due to procedures) -Discussed with ISAC Choi and Dr. Cheung Attending Statement The exam, history, and the medical decision-making described in the above note were completed with the assistance of the mid-level provider. I reviewed and agree with the findings presented. I attest that I had a [id number] encounter with the patient on the same day, and personally performed and documented my assessment and findings in the medical record. stable, sepsis resolved continue drain and supportive care ABX will increase TF slowly as tolerated Kimberly Louis/Photocopier Technician FLEET ADMINISTRATIVE ASSISTANT February 13, 2018 13:13 Pérez Eaton MD Feb 15, 2018 13:34
--- NOTE | 2018-02-13 16:48 | HHI.CCPN ---
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 Patient tolerated procedure well was subsequently extubated and transferred to recovery room. Critical care consult requested by Dr. Eaton . When I evaluated patient in PACU he was still drowsy following anesthesia on nasal cannula. History was obtained by reviewing records and discussion with PACU nursing staff. 02/02: Resting in bed on nasal cannula in no acute distress. Pain controlled with morphine MANAGER REGISTRATION. SUBJECTIVE: 02/03: Out of bed to chair today. T-max 99.4. Pain controlled with morphine MANAGER REGISTRATION. No bowel movement. No complaints. 02/04; out of bed again today in a chair for 3 hours. Strong cough effort and good work with incentive spirometry. Remains well-hydrated. Nasogastric tube output moderate as expected. Phosphorus replacement now. 02/05: Electrolytes repleted. Minimal bowel activity however he remains on narcotic MANAGER REGISTRATION. Breathing comfortably. Nasogastric output not excessive. No evidence of downstream obstruction. Diffuse light sweating which is probably related to his morphine. 02/06: Remains warm and well-perfused. Lower bowel activity remains minimal. Continue enteral feeds in the jejunum at trickle rate. Discussed with Dr. Goldberg at the bedside. Plan for contrast swallow tomorrow. 02/07: Starting to pass gas.No abdominal discomfort, good pain control. MANAGER REGISTRATION has been stopped. 02/08: Contract swallow without leak. Minor atelectasis right lung, otherwise clear. Breathing comfortably. RECONSULT [facility] 02/09: [facility] reconsulted, patient transferred from emergently for dyspnea. Patient on nonrebreather mask O2 saturation 92%, tachypnea complaining of pain. Stat chest x-ray performed showing right pleural effusion. Discussed with Dr. Mack, updated on readmission , they wish to hold off. Dr. Mack notify placement of right pigtail catheter , initial pleural fluid removal [address] chest/ UGI and CTA thorax with contrast pending . Lung consolidation right base concerning for possible aspiration, sputum culture pending, empiric antibiotics initiated. 02/10: No acute events overnight. Patient has been weaned to Ventimask. CT showed no pulmonary embolus however worsening right upper lobe consolidation patient was placed on empiric antibiotics and expanded during the night to add fluconazole to medication regimen. Leukocytosis decreasing. The patient continues to be n.p.o. J-tube placed to gravity last evening. Chest x-ray reveal small right apical pneumothorax that has been unchanged. Pain well controlled with Dilaudid. Lovenox , DVT prophylaxis currently on hold, possible invasive interventions today per general surgery, await recommendations. No leak noted in left chest tube, 50 cc output overnight. 02/11: Upper GI series revealed esophageal ulceration/ focal leak. GI was consulted and seen yesterday, plan for stent on Monday 02/12. Patient continues on antibiotics, ID has been consulted, leukocytosis worsening, PICC line placement required for antibiotics and TPN, discussed with Dr. Eaton. J-tube to remain to gravity. No thoracentesis on 02/10 secondary to small fluid collection. Right pigtail chest tube continues on -20 suction. Aggressive pulmonary toileting continues. 02/12: Late entry note . Patient seen at 6:30 AM. No acute events overnight the patient continued on 4 L nasal cannula, O2 saturation approximately 94%. This a.m. patient underwent EGD with Hemoclip placement for anastomotic leak. Upon return patient was noted to be wheezing, DuoNeb provided. Chest x-ray revealing persistent loculated right pleural effusion patient scheduled to undergo CT-guided thoracentesis this afternoon, for possible drainage. 02/13: Late entry note. Patient underwent right thoracentesis yesterday CT- guided. Very distressed resolved. Patient continues on O2 via nasal cannula. Discussed case with Dr. Eaton plan for elemental tube feeds to begin at trickle today 10 cc/an hour. We will advance patient to ice chips and popsicles. Noted significant WBCs and pleural fluid, ID following. WBC count decreased today. Gabapentin added to medication regimen (home medication). Objective Vital Signs Date Time Temp Pulse Resp B/P (MAP) Pulse Ox O2 Delivery O2 Flow Rate FiO2 02/13/18 16:00 89 02/13/18 16:00 98.7 22 171/95 (120) 97 02/13/18 07:41 High Flow Nasal Cannula 25.00 50 Intake and Output 02/13/18 02/13/18 02/14/18 08:00 16:00 00:00 Intake Total 1400 ml 1200 ml Output Total 648 ml Balance 752 ml 1200 ml Result Diagram: 02/13/18 0400 02/13/18 0400 Imaging Last Impressions Chest X-Ray 02/13/18 Signed Impressions: CONCLUSION: Right pleural effusion remains with minimal improvement in the aeration of the right upper lobe since the prior exam. GI Procedure 02/12/18 0000 Signed Impressions: CONCLUSION: 1. Fluoroscopic image demonstrates interval esophageal stent placement, as abo ve. Abdomen MRI 02/11/18 1114 Signed Impressions: CONCLUSION: 1. No definite metastatic disease to the liver. The area in the left lobe seen on previous pulmonary angiogram appears benign. 2. Hepatic cysts. Abdomen X-Ray 02/11/18 Signed Impressions: CONCLUSION: Contrast within large bowel. Mildly dilated small bowel loops CT Angiography 02/09/18 0000 Signed Impressions: CONCLUSION: 1. No pulmonary emboli. 2. Worsening consolidation involving the right upper lobe with some cavitation and stable left lower lobe infiltrate without cavitation. Infectious etiology is suspected. 3. Tiny right effusion with right thoracostomy tube slightly more cephalad in the hemithorax. 4. Prior esophagectomy and gastric pull-through. 5. Partial visualization of a 2.7 cm low-density lesion involving the left lob e of the liver not clearly seen on the prior PET/CT. I cannot exclude a solitar y metastasis. Last Impressions Chest X-Ray 02/10/18 0600 Signed Impressions: CONCLUSION: Worsening parenchymal consolidation of the right lung. Small, multiloculated right apical pneumothorax not significantly changed. Mild consolidation and very small pleural effusion left lung base not significa ntly changed. CT Angiography 02/09/18 Signed Impressions: CONCLUSION: 1. No pulmonary emboli. 2. Worsening consolidation involving the right upper lobe with some cavitation and stable left lower lobe infiltrate without cavitation. Infectious etiology is suspected. 3. Tiny right effusion with right thoracostomy tube slightly more cephalad in the hemithorax. 4. Prior esophagectomy and gastric pull-through. 5. Partial visualization of a 2.7 cm low-density lesion involving the left lob e of the liver not clearly seen on the prior PET/CT. I cannot exclude a solitar y metastasis. Last Impressions Chest X-Ray 02/09/18 Signed Impressions: CONCLUSION: 1. Stable patchy parenchymal infiltrate in the right lung base. 2. Increasing infiltrate in the left lung base 3. Right-sided pleural effusion. Last Impressions Chest X-Ray 02/03/18 0600 Signed Impressions: Service Date/Time: Saturday, February 03, 2018 03:29 - CONCLUSION: 1. Support apparatus in good position. Bilateral mostly basilar airspace disease. No pneumothorax. Prosper Miller MD Procedures 02/09-right pigtail chest tube 02/12-EGD/ Hemoclip placement for anastomotic leak 02/12: Removal of right pigtail chest tube ,placement of CT-guided right pigtail chest to right pleural fluid loculation Objective Remarks GENERAL: This is a 46-year-old well-developed well-nourished male resting comfortably on high flow nasal cannula at 50% SKIN: Warm and dry. Well healing skin incisions right flank, no evidence of erythema or drainage. Former chest tube site right posterior area with clean dressing HEAD: Atraumatic. Normocephalic. ENT: No nasal bleeding or discharge. Normal saliva. NG in place. NECK: Trachea midline. Airway widely patent. No obstruction. CARDIOVASCULAR: Regular rate and rhythm. S1, S2 normal. No JVD. RESPIRATORY: No accessory muscle use. Clear to auscultation. No adventitious sounds. Right pigtail chest tube to suction GASTROINTESTINAL: Abdomen soft, non-tender, nondistended. No involuntary guarding. Jejunostomy-tube in place, site clean, dry. MUSCULOSKELETAL: Extremities without clubbing, cyanosis, or edema. No obvious deformities. Warm, well perfused. NEUROLOGICAL: Awake and alert. No obvious cranial nerve deficits. Motor grossly normal. Normal speech. Date of Insertion: February 01, 2018 A/P Assessment and Plan Neuro/Psych: Postop surgical pain Dilaudid 2 mg every 4 hours as needed for pain scale 8-10 Hydrocodone 7.5/325 every 4 hours as needed (on hold) 02/13 gabapentin 800 mg daily/home medication, restarted. CV: Hyperlipidemia Sinus tachycardia Hypertension Increase D5 normal saline with 20 mEq KCl 125 cc an hour Not requiring vasopressors and/or antihypertensives the present time On fenofibrate 135 mg p.o. daily at home Labetalol 20mg IV 2hr SBP > 160 Resp: Acute respiratory insufficiency Weaned to nasal cannula to maintain saturations greater than equal to 92% Currently on high flow N/C at 50% continue to wean 02/08-right chest tube removed 02/09-right pleural effusion 02/09-right pigtail catheter chest tube placement , -20cm Thoracic ultrasound noted multiple septations pleural fluid prior to placement of pigtail catheter Incentive spirometry while awake. 02/10- no thoracentesis performed per IR 10/19 minimal fluid. 02/09- CT angio-no PE, worsening consolidation right upper lobe, stable left lower lobe infiltrate 02/10 chest x-ray-small right apical pneumothorax unchanged Encourage incentive spirometry, aggressive pulmonary toileting 02/12: CT-guided thoracentesis. GI: Postop day #9 Exploratory laparotomy and open proximal gastrectomy with conversion to robotic-assisted Romulo-Israel esophagectomy. Omentectomy. Jejunostomy tube placement Chemical pyloroplasty with Botox injection of the pylorus. 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 Hiatal hernia Protein calorie malnutrition Esophageal anastomotic leak Tube feedings through jejunostomy tube placed on hold 02/09, J-tube placed to gravity-defer to general surgery 02/09 CT chest with PO contrast/ UGI series - No anastomotic leak On pantoprazole and ranitidine at home. These are currently being held Bowel regimen per general surgery UGI - focal esophageal leak 02/12-EGD/Hemoclip placement for esophageal anastomotic leak 02/13-The patient was placed on low elemental tube feeds at 10 cc/hour not to be advanced at this time. Patient may have ice chips and popsicles : Cantu catheter if indicated for accurate I's and O's in a critically ill patient Endo: Maintain euglycemia Sliding scale low dose regimen Renal: Creatinine currently within normal limits. 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 Follow trend 02/09 obtain sputum culture 02/09 Zyvox , Zosyn-possible aspiration PNA, fluconazole added 02/05 postoperative antibiotics per surgery completed with cefazolin and metronidazole 02/11 ID following 02/11 Patient may require PICC line for long-term antibiotics FEN: Hypophosphatemia Replace electrolytes as clinically indicated Access Prophylaxis -GI -not indicated -DVT prophylaxis-Lovenox on hold for EGD, and/or invasive radiology interventions, defer to general surgery at this time Dispo; Hemoclip placement performed, plan for p.o. diet to begin with full liquids per general surgery recommendations. Discussed with patient and Ms. Marivel Louis, Dr. Eaton, and Dr. Cortney Green my billing statement Level 3on in the medical record. Physician Denae Gonzalez MD February 13, 2018 16:48
[2018-02-13] MEDS: LABETALOL HCL 100 MG/20 ML VIAL IV PUSH PRN (17:19)
[2018-02-13] MEDS: PANTOPRAZOLE SOD 40 MG DELAYED RELEASE TAB PO SCH (20:36)
[2018-02-13] MEDS: diphenhydrAMINE HCL 50 MG/ML VIAL IV PUSH PRN (20:59)
[2018-02-14] VITALS (24 sets, daily range): BP systolic 129–189; BP diastolic 85–112; PULSE 76–99; RESP 20–22; TEMP 97.6–98.8; O2SAT 88–100
[2018-02-14] MEDS: HYDROmorphone HCL PF 2 MG/ML VIAL IV PRN ×17 (00:08→23:44)
[2018-02-14] MEDS: D5-NS + KCL 20 MEQ INJ 1,000 ML IV SCH ×4 (01:19→22:58)
[2018-02-14] MEDS: LABETALOL HCL 100 MG/20 ML VIAL IV PUSH PRN ×3 (02:12→23:44)
[2018-02-14] MEDS: CHLORHEXIDINE GLUCONATE 2 % 1 PACK (2 CLOTHS)(taper/protocol) TOPICAL SCH (04:00)
[2018-02-14] MEDS: PIPERACIL-TAZO 4.5 GM PREMIX 100 ML IV SCH ×2 (04:15→10:09)
[2018-02-14] MEDS: PCA - TOTAL MG MORPHINE DELIVERED PER SHIFT SCH ×4 (04:54→22:57)
--- NOTE | 2018-02-14 06:50 | RADRPT ---
EXAM DATE: 02/14/2018 6:04 AM EDT AGE/SEX: 47 years / Male INDICATIONS: Shortness of breath, possible pneumothorax. CLINICAL DATA: This is the patient's subsequent encounter. Patient reports that signs and symptoms h ave been present for 1 week and indicates a pain score of 9/10. MEDICAL/SURGICAL HISTORY: None. Chest tube, right. COMPARISON: [facility] – [place], CHEST EXPIRATION ONLY, 02/13/2018. . FINDINGS: There is no appreciable change in right pleural effusion and mild hazy opacity in the right lung alth ough the right upper lung may be slightly better aerated. The rest of the examination has not changed . The air collection in right middle lower lung has not changed. CONCLUSION: Possible mild improvement in aeration of the right lung. Electronically signed by: Ximena Vargas MD 02/14/2018 6:49 AM EDT
[2018-02-14 07:38] LABS: BICARBONATE 27.4 MEQ/L (21.0-32.0); CALCIUM 8.6 MG/DL (8.5-10.1); CREATININE 0.68 MG/DL (0.60-1.30); MAGNESIUM 1.9 MG/DL (1.5-2.5)
[2018-02-14 07:39] LABS: PHOSPHORUS 3.6 MG/DL (2.5-4.9)
--- NOTE | 2018-02-14 07:55 | RADRPT ---
EXAM DATE: 02/12/2018 4:14 PM EDT AGE/SEX: 47 years / Male INDICATIONS: Loculated fluid collection right lung. CLINICAL DATA: This is the patient's initial encounter. Patient reports that signs and symptoms have been present for 1 day and indicates a pain score of 4/10. MEDICAL/SURGICAL HISTORY: . stomach cancer. . gatrectomy,esphagectomy. MEDICATION(S): 1mg midazolam (Versed) IV 50mcg fentanyl (Sublimaze) IV DEVICE(S): 10 Fr [place] . . COMPARISON: [facility], CHEST EXPIRATION ONLY, 02/13/2018. [facility], CHEST SINGLE AP, 02/14/2018. [facility], CHEST SINGLE AP, 02/12/2018. . PROCEDURE : CT guided right chest tube placement. The risks, benefits and alternatives to the procedure were explained and verbal and written consent w as obtained. The site was prepped in sterile fashion. Full sterile technique was used, including ca p, mask, sterile gloves and gown and a large sterile sheet. Hand hygiene and 2% chlorhexidine and/or betadine/alcohol prep was utilized per protocol for cutaneous antisepsis. The skin and subcutaneous tissues were infiltrated with local anesthetic solution. Using automated exposure control and adjus tment of the mA and/or kV according to patient size, radiation dose was kept as low as reasonably ach ievable to obtain optimal diagnostic quality images. DICOM format image data is available electronic ally for review and comparison. With CT guidance the chest was punctured and the prescribed catheter was placed in the right base of the lung. Wall suction was applied. Post procedure images demonstrate satisfactory position of the t ube. The catheter was sutured in place and a Percu-Stay was applied. The patient tolerated the procedure well and there were no complications. The patient was sent to pos t anesthesia recovery in stable condition. FINDINGS: 10 [place] chest tube placed within the right lower pleural space. Previously placed chest tube was re moved CONCLUSION: 1. Uncomplicated chest tube placement as above. Electronically signed by: Clive Vasquez MD 02/14/2018 7:54 AM EDT
[2018-02-14] MEDS: INSULIN ASPART SUPPLEMENTAL SCALE SQ SCH ×4 (08:00→20:28)
[2018-02-14 08:18] LABS: AUTOMATED NEUTROPHIL # 7.1 TH/MM3 (1.8-7.7); BASOPHIL % 0.5 % (0.0-2.0); EOSINOPHIL # 0.3 TH/MM3 (0-0.4); EOSINOPHIL % 2.8 % (0.0-4.0); HEMATOCRIT 30.7 % (39.0-51.0); HEMOGLOBIN 10.1 GM/DL (13.0-17.0); LYMPHOCYTE # 1.1 TH/MM3 (1.0-4.8); MEAN CELL VOLUME 84.3 FL (80.0-100.0); MEAN CORPUSCULAR HEMOGLOBIN 27.8 PG (27.0-34.0); MEAN CORPUSCULAR HGB CONC 32.9 % (32.0-36.0); MEAN PLATELET VOLUME 8.9 FL (7.0-11.0); MONO % 11.5 % (0.0-8.0); MONOCYTE # 1.1 TH/MM3 (0-0.9); NEUT % 74.2 % (16.0-70.0); PLATELET COUNT 538 TH/MM3 (150-450); RED BLOOD COUNT 3.64 MIL/MM3 (4.50-5.90); WHITE BLOOD COUNT 9.6 TH/MM3 (4.0-11.0)
--- NOTE | 2018-02-14 08:28 | HHI.CCPN ---
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 Patient tolerated procedure well was subsequently extubated and transferred to recovery room. Critical care consult requested by Dr. Eaton . When I evaluated patient in PACU he was still drowsy following anesthesia on nasal cannula. History was obtained by reviewing records and discussion with PACU nursing staff. 02/02: Resting in bed on nasal cannula in no acute distress. 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 SUBJECTIVE: 02/03: Out of bed to chair today. T-max 99.4. 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 No bowel movement. No complaints. 02/04; out of bed again today in a chair for 3 hours. Strong cough effort and good work with incentive spirometry. Remains well-hydrated. Nasogastric tube output moderate as expected. Phosphorus replacement now. 02/05: Electrolytes repleted. Minimal bowel activity however he remains on narcotic DIELECTRIC MACHINE OPERATOR. Breathing comfortably. Nasogastric output not excessive. No evidence of downstream obstruction. Diffuse light sweating which is probably related to his morphine. 02/06: Remains warm and well-perfused. Lower bowel activity remains minimal. Continue enteral feeds in the jejunum at trickle rate. Discussed with Dr. Goldberg at the bedside. Plan for contrast swallow tomorrow. 02/07: Starting to pass gas.No abdominal discomfort, good pain control. DIELECTRIC MACHINE OPERATOR has been stopped. 02/08: Contract swallow without leak. Minor atelectasis right lung, otherwise clear. Breathing comfortably. RECONSULT [facility] 02/09: [facility] reconsulted, patient transferred from emergently for dyspnea. Patient on nonrebreather mask O2 saturation 92%, tachypnea complaining of pain. Stat chest x-ray performed showing right pleural effusion. Discussed with Dr. Mack, updated on readmission , they wish to hold off. Dr. Mack notify placement of right pigtail catheter , initial pleural fluid removal [address] chest/ UGI and CTA thorax with contrast pending . Lung consolidation right base concerning for possible aspiration, sputum culture pending, empiric antibiotics initiated. 02/10: No acute events overnight. Patient has been weaned to Ventimask. CT showed no pulmonary embolus however worsening right upper lobe consolidation patient was placed on empiric antibiotics and expanded during the night to add fluconazole to medication regimen. Leukocytosis decreasing. The patient continues to be n.p.o. J-tube placed to gravity last evening. Chest x-ray reveal small right apical pneumothorax that has been unchanged. Pain well controlled with Dilaudid. Lovenox , DVT prophylaxis currently on hold, possible invasive interventions today per general surgery, await recommendations. No leak noted in left chest tube, 50 cc output overnight. 02/11: Upper GI series revealed esophageal ulceration/ focal leak. GI was consulted and seen yesterday, plan for stent on Monday 02/12. Patient continues on antibiotics, ID has been consulted, leukocytosis worsening, PICC line placement required for antibiotics and TPN, discussed with Dr. Eaton. J-tube to remain to gravity. No thoracentesis on 02/10 secondary to small fluid collection. Right pigtail chest tube continues on -20 suction. Aggressive pulmonary toileting continues. 02/12: Late entry note . Patient seen at 6:30 AM. No acute events overnight the patient continued on 4 L nasal cannula, O2 saturation approximately 94%. This a.m. patient underwent EGD with Hemoclip placement for anastomotic leak. Upon return patient was noted to be wheezing, DuoNeb provided. Chest x-ray revealing persistent loculated right pleural effusion patient scheduled to undergo CT-guided thoracentesis this afternoon, for possible drainage. 02/13: Late entry note. Patient underwent right thoracentesis yesterday CT- guided. Very distressed resolved. Patient continues on O2 via nasal cannula. Discussed case with Dr. Eaton plan for elemental tube feeds to begin at trickle today 10 cc/an hour. We will advance patient to ice chips and popsicles. Noted significant WBCs and pleural fluid, ID following. WBC count decreased today. Gabapentin added to medication regimen (home medication). 02/14: No acute events overnight. Patient is tolerating low elemental formula vital high 1.5 at 10 cc an hour. IV fluids have been decreased to 100 cc an hour. CBC is pending. Patient tolerating ice chips. Plan for out of bed into chair with physical therapy today with physical therapy today. Right chest tube draining serous drainage minimal, continue is on -40 cm suction. Patient continues to have periods of tachycardia labetalol 100 mg twice daily initiated. Objective Vital Signs Date Time Temp Pulse Resp B/P (MAP) Pulse Ox O2 Delivery O2 Flow Rate FiO2 02/14/18 07:00 Nasal Cannula 25.00 40 02/14/18 06:00 90 02/14/18 04:00 98.4 152/104 (120) 96 02/13/18 16:00 22 Intake and Output 02/14/18 02/14/18 02/14/18 07:59 15:59 23:59 Intake Total 1241 ml Output Total 366 ml Balance 875 ml Result Diagram: 02/14/18 0612 02/14/18 0612 Imaging Last Impressions Chest X-Ray 02/13/18 0000 Signed Impressions: CONCLUSION: Right pleural effusion remains with minimal improvement in the aeration of the right upper lobe since the prior exam. GI Procedure 02/12/18 0000 Signed Impressions: CONCLUSION: 1. Fluoroscopic image demonstrates interval esophageal stent placement, as abo ve. Abdomen MRI 02/11/18 1114 Signed Impressions: CONCLUSION: 1. No definite metastatic disease to the liver. The area in the left lobe seen on previous pulmonary angiogram appears benign. 2. Hepatic cysts. Abdomen X-Ray 02/11/18 0000 Signed Impressions: CONCLUSION: Contrast within large bowel. Mildly dilated small bowel loops CT Angiography 02/09/18 0000 Signed Impressions: CONCLUSION: 1. No pulmonary emboli. 2. Worsening consolidation involving the right upper lobe with some cavitation and stable left lower lobe infiltrate without cavitation. Infectious etiology is suspected. 3. Tiny right effusion with right thoracostomy tube slightly more cephalad in the hemithorax. 4. Prior esophagectomy and gastric pull-through. 5. Partial visualization of a 2.7 cm low-density lesion involving the left lob e of the liver not clearly seen on the prior PET/CT. I cannot exclude a solitar y metastasis. Last Impressions Chest X-Ray 02/10/18 0600 Signed Impressions: CONCLUSION: Worsening parenchymal consolidation of the right lung. Small, multiloculated right apical pneumothorax not significantly changed. Mild consolidation and very small pleural effusion left lung base not significa ntly changed. CT Angiography 02/09/18 0000 Signed Impressions: CONCLUSION: 1. No pulmonary emboli. 2. Worsening consolidation involving the right upper lobe with some cavitation and stable left lower lobe infiltrate without cavitation. Infectious etiology is suspected. 3. Tiny right effusion with right thoracostomy tube slightly more cephalad in the hemithorax. 4. Prior esophagectomy and gastric pull-through. 5. Partial visualization of a 2.7 cm low-density lesion involving the left lob e of the liver not clearly seen on the prior PET/CT. I cannot exclude a solitar y metastasis. Last Impressions Chest X-Ray 02/09/18 0000 Signed Impressions: CONCLUSION: 1. Stable patchy parenchymal infiltrate in the right lung base. 2. Increasing infiltrate in the left lung base 3. Right-sided pleural effusion. Last Impressions Chest X-Ray 02/03/18 0600 Signed Impressions: Service Date/Time: Saturday, February 03, 2018 03:29 - CONCLUSION: 1. Support apparatus in good position. Bilateral mostly basilar airspace disease. No pneumothorax. Prosper Miller MD Procedures 02/09-right pigtail chest tube 02/12-EGD/ Hemoclip placement for anastomotic leak 02/12: Removal of right pigtail chest tube ,placement of CT-guided right pigtail chest to right pleural fluid loculation Objective Remarks GENERAL: This is a 46-year-old well-developed well-nourished male resting comfortably on high flow nasal cannula at 40% SKIN: Warm and dry. Well healing skin incisions right flank, no evidence of erythema or drainage. Former chest tube site right posterior area with clean dressing HEAD: Atraumatic. Normocephalic. ENT: No nasal bleeding or discharge. Normal saliva. NG in place. NECK: Trachea midline. Airway widely patent. No obstruction. CARDIOVASCULAR: Regular rate and rhythm. S1, S2 normal. No JVD. RESPIRATORY: No accessory muscle use. Clear to auscultation. No adventitious sounds. Right pigtail chest tube to suction GASTROINTESTINAL: Abdomen soft, non-tender, nondistended. No involuntary guarding. Jejunostomy-tube in place, site clean, dry. MUSCULOSKELETAL: Extremities without clubbing, cyanosis, or edema. No obvious deformities. Warm, well perfused. NEUROLOGICAL: Awake and alert. No obvious cranial nerve deficits. Motor grossly normal. Normal speech. Date of Insertion: February 01, 2018 A/P Assessment and Plan Neuro/Psych: Postop surgical pain Dilaudid 2 mg every 1 hour as needed for pain scale 8-10 Hydrocodone 7.5/325 every 4 hours as needed 02/13 gabapentin 800 mg daily/home medication, restarted. CV: Hyperlipidemia Sinus tachycardia Hypertension Increase D5 normal saline with 20 mEq KCl 100 cc an hour Not requiring vasopressors and/or antihypertensives the present time On fenofibrate 135 mg p.o. daily at home Scheduled labetalol 100 mg twice daily Labetalol 20mg IV 2hr SBP > 160 Resp: Acute respiratory insufficiency Weaned to nasal cannula to maintain saturations greater than equal to 92% Currently on high flow N/C at 40% continue to wean 02/08-right chest tube removed 02/09-right pleural effusion 02/09-right pigtail catheter chest tube placement , -20cm Thoracic ultrasound noted multiple septations pleural fluid prior to placement of pigtail catheter Incentive spirometry while awake. 02/10- no thoracentesis performed per IR 10/19 minimal fluid. 02/09- CT angio-no PE, worsening consolidation right upper lobe, stable left lower lobe infiltrate 02/10 chest x-ray-small right apical pneumothorax unchanged Encourage incentive spirometry, aggressive pulmonary toileting 02/12: CT-guided right thoracentesis right pigtail catheter placement GI: Postop day #9 Exploratory laparotomy and open proximal gastrectomy with conversion to robotic-assisted [place] esophagectomy. Omentectomy. Jejunostomy tube placement Chemical pyloroplasty with Botox injection of the pylorus. 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 Hiatal hernia Protein calorie malnutrition Esophageal anastomotic leak Tube feedings through jejunostomy tube placed on hold 02/09, J-tube placed to gravity-defer to general surgery 02/09 CT chest with PO contrast/ UGI series - No anastomotic leak On pantoprazole and ranitidine at home. These are currently being held Bowel regimen per general surgery UGI - focal esophageal leak 02/12-EGD/Hemoclip placement for esophageal anastomotic leak 02/13-The patient was placed on low elemental tube feeds at 10 cc/hour not to be advanced at this time. Tolerating ice chips and popsicles : Cantu catheter if indicated for accurate I's and O's in a critically ill patient Endo: Maintain euglycemia Sliding scale low dose regimen Renal: Creatinine currently within normal limits. 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 Follow trend 02/09 obtain sputum culture 02/09 Zyvox , Zosyn-possible aspiration PNA, fluconazole added 02/05 postoperative antibiotics per surgery completed with cefazolin and metronidazole 02/11 ID following 02/11 Patient may require PICC line for long-term antibiotics FEN: Hypophosphatemia Replace electrolytes as clinically indicated Access Prophylaxis -GI -not indicated -DVT prophylaxis-Lovenox on hold for EGD, and/or invasive radiology interventions, defer to general surgery at this time Dispo; Hemoclip placement performed, plan for p.o. diet to begin with full liquids per general surgery recommendations. Level 3 follow-up Physician Denae Gonzalez MD February 14, 2018 08:28
[2018-02-14] MEDS: GABAPENTIN 400 MG CAP PO SCH (09:05)
[2018-02-14] MEDS: PANTOPRAZOLE SOD 40 MG DELAYED RELEASE TAB PO SCH ×2 (09:06→20:28)
[2018-02-14] MEDS: SODIUM CHLORIDE 0.9% FLUSH 10 ML FLUSH IV FLUSH SCH ×2 (09:06→20:28)
[2018-02-14] MEDS: LABETALOL HCL 100 MG TAB PO SCH ×2 (09:19→20:28)
--- NOTE | 2018-02-14 09:52 | HHI.PR ---
Subjective Subjective Notes Resting in bed "I'm feeling so much better today!" ISAC Choi at bedside Objective Vitals/I&O Vital Signs Date Time Temp Pulse Resp B/P (MAP) Pulse Ox O2 Delivery O2 Flow Rate FiO2 02/14/18 07:00 Nasal Cannula 25.00 40 02/14/18 06:00 90 02/14/18 04:00 98.4 152/104 (120) 96 02/13/18 16:00 22 Labs Laboratory Tests Test 02/14/18 06:12 White Blood Count 9.6 Red Blood Count 3.64 Hemoglobin 10.1 Hematocrit 30.7 Mean Corpuscular Volume 84.3 Mean Corpuscular Hemoglobin 27.8 Mean Corpuscular Hemoglobin Concent 32.9 Red Cell Distribution Width 14.0 Platelet Count 538 Mean Platelet Volume 8.9 Neutrophils (%) (Auto) 74.2 Lymphocytes (%) (Auto) 11.0 Monocytes (%) (Auto) 11.5 Eosinophils (%) (Auto) 2.8 Basophils (%) (Auto) 0.5 Neutrophils # (Auto) 7.1 Lymphocytes # (Auto) 1.1 Monocytes # (Auto) 1.1 Eosinophils # (Auto) 0.3 Basophils # (Auto) 0.0 CBC Comment DIFF FINAL Differential Comment Blood Urea Nitrogen 16 Creatinine 0.68 Random Glucose 94 Calcium Level 8.6 Phosphorus Level 3.6 Magnesium Level 1.9 Sodium Level 138 Potassium Level 3.5 Chloride Level 101 Carbon Dioxide Level 27.4 Anion Gap 10 Estimat Glomerular Filtration Rate 124 Date/Time Source Procedure Growth Status 02/11/18 16:54 Blood Peripheral Aerobic Blood Culture - Preliminary NO GROWTH IN 2 DAYS Resulted 02/11/18 16:54 Blood Peripheral Anaerobic Blood Culture - Preliminary NO GROWTH IN 2 DAYS Resulted 02/12/18 15:35 Fluid Pleural Fluid Fungal Smear - Final NO FUNGAL ELEMENTS SEEN. Resulted 02/12/18 15:35 Fluid Pleural Fluid Fungal Culture Pending Resulted Cardiovascular: Regular Lungs: Clear Abdomen: Other (mildly distended; J tube with TF; midline incision with jatinder ) Extremities: No edema Narrative Exam RIGHT chest tube in place to suction A/P Assessment and Plan 47 year old male POD13 robotic assisted [place] esophagectomy -Patient now with delayed leak--- s/p esophageal stent placed -Okay for popsicles -Repeat CT chest ---s/p IR will reposition existing CT ---now draining -Reviewed pathology with patient--will need to be evaluated by Medical Oncology once recovered from surgery -Re-start TF via J tube -ID following-- on Zosyn/Micafungin---WBC 9.6; Afebrile -Dilaudid IV and Hycet for pain -Restart Lovenox -Discussed with ISAC Choi and Dr. Cheung Attending Statement The exam, history, and the medical decision-making described in the above note were completed with the assistance of the mid-level provider. I reviewed and agree with the findings presented. I attest that I had a [id number] encounter with the patient on the same day, and personally performed and documented my assessment and findings in the medical record. patient doing well, no new issues continue supportive care, ABX, TF d/w family and patient care plan Kimberly LouisP/Instrumentation Designer CITY MAINTENANCE MANAGER February 14, 2018 09:52 Pérez Eaton MD Feb 15, 2018 14:00
[2018-02-14] MEDS ORDERED: MAGNESIUM HYDROXIDE SUSP 30 ML CUP J-TUBE ONE (10:00)
[2018-02-14] MEDS ORDERED: BISACODYL 10 MG SUPP RECTAL ONE (10:00)
[2018-02-14] MEDS: AMPICILLIN-SULBACTAM INJ 1,500 MG in SODIUM CHLORIDE 0.9% INJ 100 ML IV SCH ×3 (12:29→23:44)
[2018-02-14] MEDS: FLUCONAZOLE 100 MG PREMIX BAG 50 ML IV SCH (12:29)
[2018-02-14 13:35] LABS: AMYLASE BODY FLUID 793 U/L; AMYLASE BODY FLUID TYPE PLEURAL
[2018-02-14] MEDS: ENOXAPARIN SODIUM 40 MG/0.4 ML SYRINGE SQ SCH (16:05)
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
[2018-02-15] VITALS (13 sets, daily range): BP systolic 146–176; BP diastolic 94–107; PULSE 75–99; RESP 16–20; TEMP 98.1–98.7; O2SAT 94–100
[2018-02-15] MEDS: HYDROmorphone HCL PF 2 MG/ML VIAL IV PRN ×12 (01:20→23:21)
[2018-02-15] MEDS: D5-NS + KCL 20 MEQ INJ 1,000 ML IV SCH ×2 (02:50→18:02)
[2018-02-15] MEDS: AMPICILLIN-SULBACTAM INJ 1,500 MG in SODIUM CHLORIDE 0.9% INJ 100 ML IV SCH ×4 (05:43→23:20)
[2018-02-15] MEDS: INSULIN ASPART SUPPLEMENTAL SCALE SQ SCH ×4 (08:00→19:55)
[2018-02-15 08:03] LABS: AUTOMATED NEUTROPHIL # 6.1 TH/MM3 (1.8-7.7); BASOPHIL # 0.1 TH/MM3 (0-0.2); BASOPHIL % 0.9 % (0.0-2.0); EOSINOPHIL # 0.3 TH/MM3 (0-0.4); EOSINOPHIL % 3.7 % (0.0-4.0); HEMOGLOBIN 10.5 GM/DL (13.0-17.0); LYMPHOCYTE # 0.9 TH/MM3 (1.0-4.8); MEAN CELL VOLUME 82.1 FL (80.0-100.0); MEAN CORPUSCULAR HEMOGLOBIN 27.7 PG (27.0-34.0); MEAN CORPUSCULAR HGB CONC 33.8 % (32.0-36.0); MEAN PLATELET VOLUME 7.9 FL (7.0-11.0); MONO % 14.3 % (0.0-8.0); MONOCYTE # 1.2 TH/MM3 (0-0.9); NEUT % 71.1 % (16.0-70.0); PLATELET COUNT 592 TH/MM3 (150-450); RED BLOOD COUNT 3.77 MIL/MM3 (4.50-5.90); RED CELL DISTRIBUTION WIDTH 13.8 % (11.6-17.2); WHITE BLOOD COUNT 8.6 TH/MM3 (4.0-11.0)
[2018-02-15 08:34] LABS: BICARBONATE 29.5 MEQ/L (21.0-32.0); BLOOD UREA NITROGEN 10 MG/DL (7-18); CALCIUM 8.5 MG/DL (8.5-10.1); CHLORIDE 99 MEQ/L (98-107); CREATININE 0.55 MG/DL (0.60-1.30); GLOMERULAR FILTRATION RATE 158 ML/MIN (>89); GLUCOSE,RANDOM 97 MG/DL (74-106); SODIUM (NA) 139 MEQ/L (136-145)
[2018-02-15 08:35] LABS: PHOSPHORUS 4.1 MG/DL (2.5-4.9)
[2018-02-15 08:38] LABS: TROPONIN I LESS THAN 0.02 NG/ML (0.02-0.05)
[2018-02-15] MEDS: SODIUM CHLORIDE 0.9% FLUSH 10 ML FLUSH IV FLUSH SCH ×2 (09:00→19:54)
[2018-02-15] MEDS: LABETALOL HCL 100 MG TAB PO SCH ×2 (09:38→19:55)
[2018-02-15] MEDS: PANTOPRAZOLE SOD 40 MG DELAYED RELEASE TAB PO SCH ×2 (09:38→19:55)
[2018-02-15] MEDS: GABAPENTIN 400 MG CAP PO SCH (09:38)
[2018-02-15 10:47] LABS: BANDS 9 % (0-6); BASOPHILS 1 % (0-2); LYMPHOCYTES 4 % (9-44); MONOCYTES 2 % (0-8); MYELOCYTES 1 % (0-0); NEUTROPHIL # MANUAL DIFF 7.7 TH/MM3 (1.8-7.7); OVALOCYTES 1+ (NORMAL); POLYS (SEG NEUTROPHILS) 80 % (16-70)
--- NOTE | 2018-02-15 11:10 | HHI.PR ---
Subjective Subjective Notes Resting in bed Feeling much better than at the beginning of the week Had BM last night Objective Vitals/I&O Vital Signs Date Time Temp Pulse Resp B/P (MAP) Pulse Ox O2 Delivery O2 Flow Rate FiO2 02/15/18 08:19 98 Nasal Cannula 6.00 02/15/18 08:00 99 02/15/18 04:00 98.1 18 166/104 (124) 02/14/18 09:22 40 Labs Laboratory Tests Test 02/15/18 07:15 White Blood Count 8.6 Red Blood Count 3.77 Hemoglobin 10.5 Hematocrit 31.0 Mean Corpuscular Volume 82.1 Mean Corpuscular Hemoglobin 27.7 Mean Corpuscular Hemoglobin Concent 33.8 Red Cell Distribution Width 13.8 Platelet Count 592 Mean Platelet Volume 7.9 Neutrophils (%) (Auto) 71.1 Lymphocytes (%) (Auto) 10.0 Monocytes (%) (Auto) 14.3 Eosinophils (%) (Auto) 3.7 Basophils (%) (Auto) 0.9 Neutrophils # (Auto) 6.1 Lymphocytes # (Auto) 0.9 Monocytes # (Auto) 1.2 Eosinophils # (Auto) 0.3 Basophils # (Auto) 0.1 CBC Comment AUTO DIFF Differential Total Cells Counted 100 Neutrophils % (Manual) 80 Band Neutrophils % 9 Lymphocytes % 4 Monocytes % 2 Eosinophils % 3 Basophils % 1 Neutrophils # (Manual) 7.7 Myelocytes 1 Differential Comment FINAL DIFF MANUAL Platelet Estimate HIGH Platelet Morphology Comment NORMAL Ovalocytes 1+ Blood Urea Nitrogen 10 Creatinine 0.55 Random Glucose 97 Calcium Level 8.5 Phosphorus Level 4.1 Sodium Level 139 Potassium Level 3.5 Chloride Level 99 Carbon Dioxide Level 29.5 Anion Gap 11 Estimat Glomerular Filtration Rate 158 Troponin I LESS THAN 0.02 Date/Time Source Procedure Growth Status 02/11/18 16:54 Blood Peripheral Aerobic Blood Culture - Preliminary NO GROWTH IN 4 DAYS Resulted 02/11/18 16:54 Blood Peripheral Anaerobic Blood Culture - Preliminary NO GROWTH IN 4 DAYS Resulted 02/12/18 15:35 Fluid Pleural Fluid Fungal Smear - Final NO FUNGAL ELEMENTS SEEN. Resulted 02/12/18 15:35 Fluid Pleural Fluid Fungal Culture Pending Resulted Cardiovascular: Regular Lungs: Clear Abdomen: Other (midline incision with jatinder; J tube wuth tube feeding) Extremities: No edema Narrative Exam RIGHT chest tube in place to suction A/P Assessment and Plan 47 year old male POD14 robotic assisted [place] esophagectomy -Patient now with delayed leak--- s/p esophageal stent placed -Okay for popsicles -Repeat CT chest ---s/p IR will reposition existing CT ---now draining --- continue to suction -Reviewed pathology with patient--will need to be evaluated by Medical Oncology once recovered from surgery -TF via J tube ---increased to 15 cc/hr -ID following-- now on Fluconazole/Ampicillin ---WBC 8.6; Afebrile -Dilaudid IV and Hycet for pain -Lovenox -Discussed with ISAC Ambrosio and Dr. Cheung Attending Statement The exam, history, and the medical decision-making described in the above note were completed with the assistance of the mid-level provider. I reviewed and agree with the findings presented. I attest that I had a [id number] encounter with the patient on the same day, and personally performed and documented my assessment and findings in the medical record. s/p [place], stable s/p ischemic esophagus and leak advance TF slowly as tolerated continue supportive care +Kimberly Garces/Electrical Instrument Maker ARNP Feb 15, 2018 11:10 Pérez Eaton MD Feb 15, 2018 14:01
--- NOTE | 2018-02-15 11:26 | HHI.CCPN ---
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 Patient tolerated procedure well was subsequently extubated and transferred to recovery room. Critical care consult requested by Dr. Eaton . When I evaluated patient in PACU he was still drowsy following anesthesia on nasal cannula. History was obtained by reviewing records and discussion with PACU nursing staff. 02/02: Resting in bed on nasal cannula in no acute distress. Pain controlled with morphine NURSING INFORMATICS CLINICAL ANALYST. SUBJECTIVE: 02/03: Out of bed to chair today. T-max 99.4. Pain controlled with morphine NURSING INFORMATICS CLINICAL ANALYST. No bowel movement. No complaints. 02/04; out of bed again today in a chair for 3 hours. Strong cough effort and good work with incentive spirometry. Remains well-hydrated. Nasogastric tube output moderate as expected. Phosphorus replacement now. 02/05: Electrolytes repleted. Minimal bowel activity however he remains on narcotic NURSING INFORMATICS CLINICAL ANALYST. Breathing comfortably. Nasogastric output not excessive. No evidence of downstream obstruction. Diffuse light sweating which is probably related to his morphine. 02/06: Remains warm and well-perfused. Lower bowel activity remains minimal. Continue enteral feeds in the jejunum at trickle rate. Discussed with Dr. Goldberg at the bedside. Plan for contrast swallow tomorrow. 02/07: Starting to pass gas.No abdominal discomfort, good pain control. NURSING INFORMATICS CLINICAL ANALYST has been stopped. 02/08: Contract swallow without leak. Minor atelectasis right lung, otherwise clear. Breathing comfortably. RECONSULT [facility] 02/09: [facility] reconsulted, patient transferred from emergently for dyspnea. Patient on nonrebreather mask O2 saturation 92%, tachypnea complaining of pain. Stat chest x-ray performed showing right pleural effusion. Discussed with Dr. Mack, updated on readmission , they wish to hold off. Dr. Mack notify placement of right pigtail catheter , initial pleural fluid removal [address] chest/ UGI and CTA thorax with contrast pending . Lung consolidation right base concerning for possible aspiration, sputum culture pending, empiric antibiotics initiated. 02/10: No acute events overnight. Patient has been weaned to Ventimask. CT showed no pulmonary embolus however worsening right upper lobe consolidation patient was placed on empiric antibiotics and expanded during the night to add fluconazole to medication regimen. Leukocytosis decreasing. The patient continues to be n.p.o. J-tube placed to gravity last evening. Chest x-ray reveal small right apical pneumothorax that has been unchanged. Pain well controlled with Dilaudid. Lovenox , DVT prophylaxis currently on hold, possible invasive interventions today per general surgery, await recommendations. No leak noted in left chest tube, 50 cc output overnight. 02/11: Upper GI series revealed esophageal ulceration/ focal leak. GI was consulted and seen yesterday, plan for stent on Monday 02/12. Patient continues on antibiotics, ID has been consulted, leukocytosis worsening, PICC line placement required for antibiotics and TPN, discussed with Dr. Eaton. J-tube to remain to gravity. No thoracentesis on 02/10 secondary to small fluid collection. Right pigtail chest tube continues on -20 suction. Aggressive pulmonary toileting continues. 02/12: Late entry note . Patient seen at 6:30 AM. No acute events overnight the patient continued on 4 L nasal cannula, O2 saturation approximately 94%. This a.m. patient underwent EGD with Hemoclip placement for anastomotic leak. Upon return patient was noted to be wheezing, DuoNeb provided. Chest x-ray revealing persistent loculated right pleural effusion patient scheduled to undergo CT-guided thoracentesis this afternoon, for possible drainage. 02/13: Late entry note. Patient underwent right thoracentesis yesterday CT- guided. Very distressed resolved. Patient continues on O2 via nasal cannula. Discussed case with Dr. Eaton plan for elemental tube feeds to begin at trickle today 10 cc/an hour. We will advance patient to ice chips and popsicles. Noted significant WBCs and pleural fluid, ID following. WBC count decreased today. Gabapentin added to medication regimen (home medication). 02/14: No acute events overnight. Patient is tolerating low elemental formula vital high 1.5 at 10 cc an hour. IV fluids have been decreased to 100 cc an hour. CBC is pending. Patient tolerating ice chips. Plan for out of bed into chair with physical therapy today with physical therapy today. Right chest tube draining serous drainage minimal, continue is on -40 cm suction. Patient continues to have periods of tachycardia labetalol 100 mg twice daily initiated. 02/15: Afebrile. The patient was weaned down to 4 L nasal cannula O2 saturation 98-99%. J-tube feeds have been increased to 15 cc an hour IV fluids have been decreased to 75 an hour doing well. DVT prophylaxis has been reinitiated. Objective Vital Signs Date Time Temp Pulse Resp B/P (MAP) Pulse Ox O2 Delivery O2 Flow Rate FiO2 02/15/18 08:19 98 Nasal Cannula 6.00 02/15/18 08:00 99 02/15/18 04:00 98.1 18 166/104 (124) 02/14/18 09:22 40 Intake and Output 02/15/18 02/15/18 02/16/18 08:00 16:00 00:00 Intake Total 120 ml Output Total 1670 ml Balance -1550 ml Result Diagram: 02/15/18 0715 02/15/18 0715 Other Results Microbiology Date/Time Source Procedure Growth Status 02/12/18 15:35 Fluid Pleural Fluid Gram Stain - Final Complete 02/12/18 15:35 Fluid Pleural Fluid Body Fluid Culture - Final NO GROWTH IN 72 HRS.--AEROBICALLY OR ... Complete Imaging Last Impressions Chest X-Ray 02/13/18 0000 Signed Impressions: CONCLUSION: Right pleural effusion remains with minimal improvement in the aeration of the right upper lobe since the prior exam. GI Procedure 02/12/18 0000 Signed Impressions: CONCLUSION: 1. Fluoroscopic image demonstrates interval esophageal stent placement, as abo ve. Abdomen MRI 02/11/18 1114 Signed Impressions: CONCLUSION: 1. No definite metastatic disease to the liver. The area in the left lobe seen on previous pulmonary angiogram appears benign. 2. Hepatic cysts. Abdomen X-Ray 02/11/18 0000 Signed Impressions: CONCLUSION: Contrast within large bowel. Mildly dilated small bowel loops CT Angiography 02/09/18 0000 Signed Impressions: CONCLUSION: 1. No pulmonary emboli. 2. Worsening consolidation involving the right upper lobe with some cavitation and stable left lower lobe infiltrate without cavitation. Infectious etiology is suspected. 3. Tiny right effusion with right thoracostomy tube slightly more cephalad in the hemithorax. 4. Prior esophagectomy and gastric pull-through. 5. Partial visualization of a 2.7 cm low-density lesion involving the left lob e of the liver not clearly seen on the prior PET/CT. I cannot exclude a solitar y metastasis. Last Impressions Chest X-Ray 02/10/18 0600 Signed Impressions: CONCLUSION: Worsening parenchymal consolidation of the right lung. Small, multiloculated right apical pneumothorax not significantly changed. Mild consolidation and very small pleural effusion left lung base not significa ntly changed. CT Angiography 02/09/18 0000 Signed Impressions: CONCLUSION: 1. No pulmonary emboli. 2. Worsening consolidation involving the right upper lobe with some cavitation and stable left lower lobe infiltrate without cavitation. Infectious etiology is suspected. 3. Tiny right effusion with right thoracostomy tube slightly more cephalad in the hemithorax. 4. Prior esophagectomy and gastric pull-through. 5. Partial visualization of a 2.7 cm low-density lesion involving the left lob e of the liver not clearly seen on the prior PET/CT. I cannot exclude a solitar y metastasis. Last Impressions Chest X-Ray 02/09/18 0000 Signed Impressions: CONCLUSION: 1. Stable patchy parenchymal infiltrate in the right lung base. 2. Increasing infiltrate in the left lung base 3. Right-sided pleural effusion. Last Impressions Chest X-Ray 02/03/18 06 Signed Impressions: Service Date/Time: Saturday, February 03, 2018 03:29 - CONCLUSION: 1. Support apparatus in good position. Bilateral mostly basilar airspace disease. No pneumothorax. Prosper Miller MD Procedures 02/09-right pigtail chest tube 02/12-EGD/ Hemoclip placement for anastomotic leak 02/12: Removal of right pigtail chest tube ,placement of CT-guided right pigtail chest to right pleural fluid loculation Objective Remarks GENERAL: This is a 46-year-old well-developed well-nourished male resting comfortably . Patient up out of bed without difficulty SKIN: Warm and dry. Well healing skin incisions right flank, no evidence of erythema or drainage. Former chest tube site right posterior area with clean dressing HEAD: Atraumatic. Normocephalic. ENT: No nasal bleeding or discharge. Normal saliva. NG in place. NECK: Trachea midline. Airway widely patent. No obstruction. CARDIOVASCULAR: Regular rate and rhythm. S1, S2 normal. No JVD. RESPIRATORY: No accessory muscle use. Clear to auscultation. No adventitious sounds. Right pigtail chest tube to suction GASTROINTESTINAL: Abdomen soft, non-tender, nondistended. No involuntary guarding. Jejunostomy-tube in place, site clean, dry. MUSCULOSKELETAL: Extremities without clubbing, cyanosis, or edema. No obvious deformities. Warm, well perfused. NEUROLOGICAL: Awake and alert. No obvious cranial nerve deficits. Motor grossly normal. Normal speech. Date of Insertion: February 01, 2018 A/P Assessment and Plan Neuro/Psych: Postop surgical pain Dilaudid 2 mg every 1 hour as needed for pain scale 8-10- Patient taking 1.5 mg approximately every 2 hour Hydrocodone 7.5/325 every 4 hours as needed 02/13 gabapentin 800 mg daily/home medication, restarted. CV: Hyperlipidemia Sinus tachycardia Hypertension Increase D5 normal saline with 20 mEq KCl 75cc an hour Not requiring vasopressors and/or antihypertensives the present time On fenofibrate 135 mg p.o. daily at home Increase scheduled labetalol to 200 mg twice daily Labetalol 20mg IV 2hr SBP > 160 Resp: Acute respiratory insufficiency Weaned to nasal cannula to maintain saturations greater than equal to 92% Currently on N/C at 4LPM continue to wean 02/08-right chest tube removed 02/09-right pleural effusion 02/09-right pigtail catheter chest tube placement , -20cm Thoracic ultrasound noted multiple septations pleural fluid prior to placement of pigtail catheter Incentive spirometry while awake. 02/10- no thoracentesis performed per IR 10/19 minimal fluid. 02/09- CT angio-no PE, worsening consolidation right upper lobe, stable left lower lobe infiltrate 02/10 chest x-ray-small right apical pneumothorax unchanged Encourage incentive spirometry, aggressive pulmonary toileting 02/12: CT-guided right thoracentesis right pigtail catheter placement GI: Postop day #9 Exploratory laparotomy and open proximal gastrectomy with conversion to robotic-assisted [place] esophagectomy. Omentectomy. Jejunostomy tube placement Chemical pyloroplasty with Botox injection of the pylorus. 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 Hiatal hernia Protein calorie malnutrition Esophageal anastomotic leak Tube feedings through jejunostomy tube placed on hold 02/09, J-tube placed to gravity-defer to general surgery 02/09 CT chest with PO contrast/ UGI series - No anastomotic leak On pantoprazole and ranitidine at home. These are currently being held Bowel regimen per general surgery UGI - focal esophageal leak 02/12-EGD/Hemoclip placement for esophageal anastomotic leak 02/13-The patient was placed on low elemental tube feeds advanced to at 15 cc/ hour. Tolerating ice chips and popsicles : Cantu catheter if indicated for accurate I's and O's in a critically ill patient Endo: Maintain euglycemia Sliding scale low dose regimen Renal: Creatinine currently within normal limits. 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 Follow trend 02/09 obtain sputum culture 02/09 Zyvox , Zosyn-possible aspiration PNA, fluconazole added 02/05 postoperative antibiotics per surgery completed with cefazolin and metronidazole 02/11 ID following 02/11 Patient may require PICC line for long-term antibiotics FEN: Hypophosphatemia Replace electrolytes as clinically indicated Access Prophylaxis -GI -not indicated -DVT prophylaxis-Lovenox SQ resumed 02/14 per General Surgery Dispo; Hemoclip placement performed, plan for p.o. diet to begin with full liquids per general surgery recommendations. Level 2 follow-up. Plan transferred to [facility] in a.m. Defer decision to transfer to [facility] floor to general surgery. Discussed with Emilia Louis-General Surgery Physician Denae Gonzalez MD Feb 15, 2018 11:26
[2018-02-15] MEDS: PCA - TOTAL MG MORPHINE DELIVERED PER SHIFT SCH ×2 (12:25→19:56)
[2018-02-15] MEDS ORDERED: hydrALAZINE HCL 20 MG/ML VIAL IV PUSH PRN (13:45)
[2018-02-15] MEDS: ENOXAPARIN SODIUM 40 MG/0.4 ML SYRINGE SQ SCH (14:38)
[2018-02-15] MEDS: FLUCONAZOLE 100 MG PREMIX BAG 50 ML IV SCH (14:38)
[2018-02-15] MEDS: oxyCODONE/ACETAMINOPHEN 7.5 MG/325 MG TAB PO PRN ×2 (18:01→21:51)
[2018-02-16] VITALS (17 sets, daily range): BP systolic 131–164; BP diastolic 85–98; PULSE 77–93; RESP 16; TEMP 97.9–98.7; O2SAT 96–98
[2018-02-16] MEDS: oxyCODONE/ACETAMINOPHEN 7.5 MG/325 MG TAB PO PRN (01:41)
[2018-02-16] MEDS: HYDROmorphone HCL PF 2 MG/ML VIAL IV PRN ×7 (02:34→23:30)
[2018-02-16 04:27] LABS: HEMATOCRIT 32.1 % (39.0-51.0); HEMOGLOBIN 10.8 GM/DL (13.0-17.0); MEAN CELL VOLUME 82.2 FL (80.0-100.0); MEAN CORPUSCULAR HEMOGLOBIN 27.5 PG (27.0-34.0); MEAN CORPUSCULAR HGB CONC 33.5 % (32.0-36.0); MEAN PLATELET VOLUME 7.7 FL (7.0-11.0); PLATELET COUNT 650 TH/MM3 (150-450); RED CELL DISTRIBUTION WIDTH 13.7 % (11.6-17.2); WHITE BLOOD COUNT 9.5 TH/MM3 (4.0-11.0)
[2018-02-16 04:48] LABS: BICARBONATE 29.2 MEQ/L (21.0-32.0); CALCIUM 8.5 MG/DL (8.5-10.1); CREATININE 0.68 MG/DL (0.60-1.30)
[2018-02-16 04:49] LABS: PHOSPHORUS 3.9 MG/DL (2.5-4.9)
[2018-02-16] MEDS: AMPICILLIN-SULBACTAM INJ 1,500 MG in SODIUM CHLORIDE 0.9% INJ 100 ML IV SCH ×4 (05:25→23:29)
[2018-02-16] MEDS: INSULIN ASPART SUPPLEMENTAL SCALE SQ SCH ×4 (08:00→20:35)
[2018-02-16] MEDS: GABAPENTIN 400 MG CAP J-TUBE SCH (08:36)
[2018-02-16] MEDS: PANTOPRAZOLE SOD 40 MG DELAYED RELEASE TAB PO SCH ×2 (08:37→20:33)
[2018-02-16] MEDS: SODIUM CHLORIDE 0.9% FLUSH 10 ML FLUSH IV FLUSH SCH ×2 (08:37→20:32)
[2018-02-16] MEDS: LABETALOL HCL 100 MG TAB PO SCH ×2 (08:37→20:33)
--- NOTE | 2018-02-16 09:50 | HHI.PR ---
Subjective Remarks Deferred entry, the patient was seen earlier at 9:45 AM. Patient complaining of abdominal pain and requesting IV Dilaudid on the clock every 3 hours. As per RN and patient Percocets makes the patient very nauseous. Patient is refusing to take Percocet. Patient currently on 4 L nasal cannula. Objective Vitals Vital Signs Date Time Temp Pulse Resp B/P (MAP) Pulse Ox O2 Delivery O2 Flow Rate FiO2 02/16/18 06:00 77 02/16/18 04:00 98.7 78 16 147/97 (114) 98 02/16/18 04:00 78 02/16/18 02:00 82 02/16/18 00:00 88 02/16/18 00:00 98.7 88 16 164/97 (119) 97 02/15/18 22:00 86 02/15/18 20:00 98.2 88 16 167/107 (127) 97 02/15/18 20:00 89 02/15/18 19:00 97 Nasal Cannula 5.00 02/15/18 18:00 91 02/15/18 16:00 86 02/15/18 16:00 98.5 84 16 164/94 (117) 94 02/15/18 14:00 86 02/15/18 12:00 98.7 81 20 146/100 (115) 95 02/15/18 12:00 85 02/15/18 10:00 92 I/O 02/15/18 02/15/18 02/15/18 02/16/18 02/16/18 02/16/18 07:00 15:00 23:00 07:00 15:00 23:00 Intake Total 120 ml 100 ml 1746 ml 183 ml Output Total 1670 ml 2303 ml 1530 ml Balance -1550 ml 100 ml -557 ml -1347 ml Intake Oral 420 ml IV Total 100 ml 1150 ml Tube Feeding 120 ml 176 ml 183 ml Output Urine Total 1600 ml 2300 ml 1500 ml Chest Tube Drainage Total 70 ml 3 ml 30 ml # Bowel Movements 1 0 0 Result Diagram: 02/16/18 0355 02/16/18 0355 Imaging Last 72 hours Impressions Chest X-Ray 02/14/18 0600 Signed Impressions: CONCLUSION: Possible mild improvement in aeration of the right lung. Objective Remarks GENERAL: This is a 46-year-old well-developed well-nourished male resting comfortably . Patient up out of bed without difficulty SKIN: Warm and dry. Well healing skin incisions right flank, no evidence of erythema or drainage. Former chest tube site right posterior area with clean dressing HEAD: Atraumatic. Normocephalic. ENT: No nasal bleeding or discharge. Normal saliva. NG in place. NECK: Trachea midline. Airway widely patent. No obstruction. CARDIOVASCULAR: Regular rate and rhythm. S1, S2 normal. No JVD. RESPIRATORY: No accessory muscle use. Clear to auscultation. No adventitious sounds. Right pigtail chest tube to suction GASTROINTESTINAL: Abdomen soft, non-tender, nondistended. No involuntary guarding. Jejunostomy-tube in place, site clean, dry. MUSCULOSKELETAL: Extremities without clubbing, cyanosis, or edema. No obvious deformities. Warm, well perfused. NEUROLOGICAL: Awake and alert. No obvious cranial nerve deficits. Motor grossly normal. Normal speech. Procedures 02/09-right pigtail chest tube 02/12-EGD/ Hemoclip placement for anastomotic leak 02/12: Removal of right pigtail chest tube ,placement of CT-guided right pigtail chest to right pleural fluid loculation Date of Insertion: February 01, 2018 A/P Problem List: (1) Adenocarcinoma of esophagus ICD Code: C15.9 - Malignant neoplasm of esophagus, unspecified Plan: The patient is status post expiratory laparotomy and open proximal gastrectomy with conversion to robotic assisted [place] esophagectomy. Patient also underwent omentectomy. Jejunostomy tube placement with chemical pyloroplasty with Botox injection of the pylorus. Tube feedings through jejunostomy tube placed on hold 02/09, J-tube placed to gravity-defer to general surgery. On 02/09 a focal leak was identified at the gastroesophageal anastomosis. The patient underwent an EGD with Hemoclip placement for esophageal anastomotic leak. The patient was placed on lower elemental tube feedings. Advance as per general surgery recommendations. (2) Abdominal pain ICD Code: R10.9 - Unspecified abdominal pain Plan: Patient with uncontrolled postsurgical pain. I will discontinue previous pain regimen and start the patient on morphine extended release 15 mg p.o. every 8 hours, morphine immediate release 50 mg p.o. every 4 hours as needed and continue IV Dilaudid for breakthrough pain. (3) Acute hypoxemic respiratory failure ICD Code: J96.01 - Acute respiratory failure with hypoxia Plan: Likely secondary to hospital acquired pneumonia versus aspiration pneumonia with associated right pleural effusion which is likely parapneumonic effusion. Weaned to nasal cannula to maintain saturations greater than equal to 92% 02/08-right chest tube removed 02/09-right pleural effusion 02/09-right pigtail catheter chest tube placement , -20cm Thoracic ultrasound noted multiple septations pleural fluid prior to placement of pigtail catheter Incentive spirometry while awake. 02/10- no thoracentesis performed per IR 10/19 minimal fluid. 02/09- CT angio-no PE, worsening consolidation right upper lobe, stable left lower lobe infiltrate 02/10 chest x-ray-small right apical pneumothorax unchanged Encourage incentive spirometry, aggressive pulmonary toileting 02/12: CT-guided right thoracentesis right pigtail catheter placement Continue IV Zosyn Continue IV fluconazole. Continue supplemental oxygen to keep oxygen saturation more than 92%. We will start the patient on IV Lasix 40 mg IV twice daily (4) Hypophosphatemia ICD Code: E83.39 - Other disorders of phosphorus metabolism Status: Resolved Plan: Continue monitor phosphorus levels. Now within normal range. (5) Esophageal anastomotic leak ICD Code: K91.89 - Other postprocedural complications and disorders of digestive system Status: Acute Plan: Management as per general surgery. As stated above the patient is status post EGD with clip/esophageal stent placement. Management as per general surgery. Assessment and Plan DVT prophylaxis: Lovenox subcu resumed on 02/14 as per general surgery. Discharge Planning Continue to monitor in intensive care unit. Management as per primary. Problem Qualifiers (1) Abdominal pain: Qualified Codes: R10.9 - Unspecified abdominal pain Logan Ellis MD Feb 16, 2018 09:50
[2018-02-16] MEDS ORDERED: MORPHINE SULFATE 15 MG TAB PO PRN (10:00)
[2018-02-16] MEDS: MORPHINE SULFATE 15 MG CONTROLLED RELEASE TAB PO SCH ×2 (11:14→18:42)
[2018-02-16 11:53] LABS: % SATURATION IRON PROFILE 8.3 % (20-50); IRON (FE) 17 MCG/DL (65-175); TOTAL IRON BINDING CAPACITY 204 MCG/DL (250-450)
[2018-02-16 11:55] LABS: FERRITIN 221 NG/ML (26-388)
[2018-02-16] MEDS: FLUCONAZOLE 100 MG PREMIX BAG 50 ML IV SCH (12:00)
[2018-02-16] MEDS: PCA - TOTAL MG MORPHINE DELIVERED PER SHIFT SCH ×2 (13:29→21:52)
[2018-02-16] MEDS: ENOXAPARIN SODIUM 40 MG/0.4 ML SYRINGE SQ SCH (15:04)
[2018-02-16] MEDS: FUROSEMIDE 40 MG/4 ML VIAL IV PUSH SCH (17:26)
[2018-02-16] MEDS: D5-NS + KCL 20 MEQ INJ 1,000 ML IV SCH (18:41)
--- NOTE | 2018-02-16 19:22 | HHI.PR ---
Subjective Subjective Notes Feeling well except for some discomfort right chest, although much improved over last few days No issues with enteral feeding; tolerating well with no bloating Objective Vitals/I&O Vital Signs Date Time Temp Pulse Resp B/P (MAP) Pulse Ox O2 Delivery O2 Flow Rate FiO2 02/16/18 18:00 86 02/16/18 16:00 98.6 144/91 (108) 96 02/16/18 11:01 Nasal Cannula 6.00 02/16/18 04:00 16 02/14/18 09:22 40 Labs Laboratory Tests Test 02/16/18 03:55 White Blood Count 9.5 Red Blood Count 3.90 Hemoglobin 10.8 Hematocrit 32.1 Mean Corpuscular Volume 82.2 Mean Corpuscular Hemoglobin 27.5 Mean Corpuscular Hemoglobin Concent 33.5 Red Cell Distribution Width 13.7 Platelet Count 650 Mean Platelet Volume 7.7 Blood Urea Nitrogen 8 Creatinine 0.68 Random Glucose 113 Calcium Level 8.5 Phosphorus Level 3.9 Magnesium Level 2.0 Sodium Level 139 Potassium Level 3.6 Chloride Level 102 Carbon Dioxide Level 29.2 Anion Gap 8 Estimat Glomerular Filtration Rate 124 Iron Level 17 Total Iron Binding Capacity 204 Percent Iron Saturation 8.3 Ferritin 221 Date/Time Source Procedure Growth Status 02/11/18 16:54 Blood Peripheral Aerobic Blood Culture - Final NO GROWTH IN 5 DAYS Complete 02/11/18 16:54 Blood Peripheral Anaerobic Blood Culture - Final NO GROWTH IN 5 DAYS Complete 02/12/18 15:35 Fluid Pleural Fluid Fungal Smear - Final NO FUNGAL ELEMENTS SEEN. Resulted 02/12/18 15:35 Fluid Pleural Fluid Fungal Culture Pending Resulted Abdomen: Non-distended, Non-tender A/P Problem List: (1) Pleural effusion ICD Codes: J90 - Pleural effusion, not elsewhere classified (2) Adenocarcinoma of esophagus ICD Codes: C15.9 - Malignant neoplasm of esophagus, unspecified (3) Hypophosphatemia ICD Codes: E83.39 - Other disorders of phosphorus metabolism Status: Resolved (4) Esophageal anastomotic leak ICD Codes: K91.89 - Other postprocedural complications and disorders of digestive system Status: Acute (5) Acute hypoxemic respiratory failure ICD Codes: J96.01 - Acute respiratory failure with hypoxia Assessment and Plan Assessment and Plan 47 year old male POD15 robotic assisted [place] esophagectomy -Patient now with delayed leak--- s/p esophageal stent placed -Okay for popsicles -Repeat CT chest ---s/p IR will reposition existing CT ---now draining --- continue to suction -TF via J tube; tolerating well---increase to 30 cc/hr -ID following-- now on Fluconazole/Ampicillin ---WBC 9.5; Afebrile -Dilaudid IV and Hycet for pain -Lovenox -Possible transfer to floor next 24-48 hrs Robin Mack MD Feb 16, 2018 19:22
[2018-02-17] VITALS (16 sets, daily range): BP systolic 132–160; BP diastolic 76–88; PULSE 74–97; RESP 20; TEMP 98.1–98.8; O2SAT 93–99
[2018-02-17] MEDS: MORPHINE SULFATE 15 MG CONTROLLED RELEASE TAB PO SCH ×3 (02:29→18:13)
[2018-02-17] MEDS: HYDROmorphone HCL PF 2 MG/ML VIAL IV PRN ×5 (02:30→20:55)
[2018-02-17] MEDS: AMPICILLIN-SULBACTAM INJ 1,500 MG in SODIUM CHLORIDE 0.9% INJ 100 ML IV SCH ×3 (05:43→18:12)
[2018-02-17] MEDS: PCA - TOTAL MG MORPHINE DELIVERED PER SHIFT SCH ×3 (05:43→22:00)
[2018-02-17] MEDS: LABETALOL HCL 100 MG TAB PO SCH ×2 (07:40→20:42)
[2018-02-17] MEDS: GABAPENTIN 400 MG CAP J-TUBE SCH (07:41)
[2018-02-17] MEDS: FUROSEMIDE 40 MG/4 ML VIAL IV PUSH SCH ×2 (07:41→18:12)
[2018-02-17] MEDS: PANTOPRAZOLE SOD 40 MG DELAYED RELEASE TAB PO SCH ×2 (07:41→20:54)
[2018-02-17] MEDS: D5-NS + KCL 20 MEQ INJ 1,000 ML IV SCH (07:42)
[2018-02-17] MEDS: SODIUM CHLORIDE 0.9% FLUSH 10 ML FLUSH IV FLUSH SCH ×2 (07:42→20:42)
[2018-02-17] MEDS: INSULIN ASPART SUPPLEMENTAL SCALE SQ SCH ×4 (07:43→20:42)
[2018-02-17] MEDS ORDERED: MORPHINE SULFATE 30 MG TAB PO PRN (09:15)
[2018-02-17] MEDS ORDERED: IRON DEXTRAN 100 MG/2 ML VIAL IV PUSH SCH (11:00)
[2018-02-17] MEDS ORDERED: LACTULOSE SYRUP 20 GM/30 ML CUP PO PRN (11:45)
[2018-02-17] MEDS ORDERED: MAGNESIUM HYDROXIDE SUSP 30 ML CUP PO PRN (11:45)
[2018-02-17] MEDS ORDERED: BISACODYL 10 MG SUPP RECTAL PRN (11:45)
[2018-02-17] MEDS ORDERED: SENNOSIDES 8.6 MG TAB PO PRN (11:45)
--- NOTE | 2018-02-17 12:01 | HHI.PR ---
Subjective Remarks Deferred entry, the patient was seen at 10 AM. The patient states that abdominal pain still present on the right side of his abdomen however is improving. Upon review of records the patient has been getting Dilaudid very frequently. Patient complains of constipation. Otherwise patient denies any nausea, vomiting, denies fevers or chills. Objective Vitals Vital Signs Date Time Temp Pulse Resp B/P (MAP) Pulse Ox O2 Delivery O2 Flow Rate FiO2 02/17/18 10:00 97 02/17/18 08:00 80 02/17/18 08:00 98.1 80 160/88 (112) 93 02/17/18 07:43 97 Nasal Cannula 4.00 02/17/18 07:00 95 Nasal Cannula 4.00 02/17/18 06:00 74 02/17/18 04:00 98.3 74 138/79 (98) 95 02/17/18 04:00 74 02/17/18 03:00 75 140/79 (99) 98 02/17/18 02:00 76 02/17/18 02:00 77 133/76 (95) 98 02/17/18 01:00 82 139/88 (105) 97 02/17/18 00:00 98.5 77 144/82 (102) 98 02/17/18 00:00 77 02/16/18 23:00 81 144/96 (112) 98 02/16/18 22:00 93 02/16/18 22:00 93 153/93 (113) 97 02/16/18 21:00 84 140/85 (103) 97 02/16/18 20:00 98.3 90 131/90 (104) 96 02/16/18 20:00 90 02/16/18 19:29 97 Nasal Cannula 4.00 02/16/18 19:00 87 145/93 (110) 96 02/16/18 19:00 96 Nasal Cannula 4.00 02/16/18 18:00 86 02/16/18 16:00 86 02/16/18 16:00 98.6 86 144/91 (108) 96 02/16/18 14:00 78 02/16/18 12:00 79 02/16/18 12:00 98.0 79 151/91 (111) 98 I/O 6/2/18 6/2/02/16/18 02/17/18 02/17/18 02/17/18 07:00 15:00 23:00 07:00 15:00 23:00 Intake Total 183 ml 1735 ml 1547 ml Output Total 1530 ml 4600 ml 1630 ml Balance -1347 ml -2865 ml -83 ml Intake Oral 275 ml 240 ml IV Total 1250 ml 1000 ml Tube Feeding 183 ml 210 ml 307 ml Output Urine Total 1500 ml 4600 ml 1600 ml Chest Tube Drainage Total 30 ml 0 ml 30 ml # Bowel Movements 0 0 0 Result Diagram: 02/16/18 0355 02/16/18 0355 Objective Remarks GENERAL: This is a 46-year-old well-developed well-nourished male resting comfortably . Patient up out of bed without difficulty SKIN: Warm and dry. Well healing skin incisions right flank, no evidence of erythema or drainage. Former chest tube site right posterior area with clean dressing HEAD: Atraumatic. Normocephalic. ENT: No nasal bleeding or discharge. Normal saliva. NG in place. NECK: Trachea midline. Airway widely patent. No obstruction. CARDIOVASCULAR: Regular rate and rhythm. S1, S2 normal. No JVD. RESPIRATORY: No accessory muscle use. Clear to auscultation. No adventitious sounds. Right pigtail chest tube to suction GASTROINTESTINAL: Abdomen soft, non-tender, nondistended. No involuntary guarding. Jejunostomy-tube in place, site clean, dry. MUSCULOSKELETAL: Extremities without clubbing, cyanosis, or edema. No obvious deformities. Warm, well perfused. NEUROLOGICAL: Awake and alert. No obvious cranial nerve deficits. Motor grossly normal. Normal speech. Procedures 02/09-right pigtail chest tube 02/12-EGD/ Hemoclip placement for anastomotic leak 02/12: Removal of right pigtail chest tube ,placement of CT-guided right pigtail chest to right pleural fluid loculation Date of Insertion: February 01, 2018 A/P Problem List: (1) Adenocarcinoma of esophagus ICD Code: C15.9 - Malignant neoplasm of esophagus, unspecified Plan: The patient is status post expiratory laparotomy and open proximal gastrectomy with conversion to robotic assisted Romulo-Israel esophagectomy. Patient also underwent omentectomy. Jejunostomy tube placement with chemical pyloroplasty with Botox injection of the pylorus. Tube feedings through jejunostomy tube placed on hold 02/09, J-tube placed to gravity-defer to general surgery. On 02/09 a focal leak was identified at the gastroesophageal anastomosis. The patient underwent an EGD with Hemoclip placement for esophageal anastomotic leak. The patient was placed on lower elemental tube feedings. Advance as per general surgery recommendations. (2) Abdominal pain ICD Code: R10.9 - Unspecified abdominal pain Plan: Patient with uncontrolled postsurgical pain. I will discontinue previous pain regimen and start the patient on morphine extended release 15 mg p.o. every 8 hours, morphine immediate release 15 mg p.o. every 4 hours as needed and continue IV Dilaudid for breakthrough pain. 02/17 the patient still complaining of abdominal pain. Upon review of ED documentation the patient's pain has been elevated and the patient is also requesting IV Dilaudid for breakthrough pain very frequently. I will increase the dose of morphine extended release to 30 mg p.o. every 8 hours and increase the morphine immediate release dose to 30 mg every 4 hours as needed for pain. Continue with Dilaudid IV for breakthrough pain. Start constipation prevention protocol medications to prevent constipation. (3) Acute hypoxemic respiratory failure ICD Code: J96.01 - Acute respiratory failure with hypoxia Plan: Likely secondary to hospital acquired pneumonia versus aspiration pneumonia with associated right pleural effusion which is likely parapneumonic effusion. Weaned to nasal cannula to maintain saturations greater than equal to 92% 02/08-right chest tube removed 02/09-right pleural effusion 02/09-right pigtail catheter chest tube placement , -20cm Thoracic ultrasound noted multiple septations pleural fluid prior to placement of pigtail catheter Incentive spirometry while awake. 02/10- no thoracentesis performed per IR 10/19 minimal fluid. 02/09- CT angio-no PE, worsening consolidation right upper lobe, stable left lower lobe infiltrate 02/10 chest x-ray-small right apical pneumothorax unchanged Encourage incentive spirometry, aggressive pulmonary toileting 02/12: CT-guided right thoracentesis right pigtail catheter placement Continue IV Zosyn Continue IV fluconazole. Continue supplemental oxygen to keep oxygen saturation more than 92%. We will start the patient on IV Lasix 40 mg IV twice daily 02/17 continue IV Lasix. Will repeat a chest x-ray in a.m. (4) Hypophosphatemia ICD Code: E83.39 - Other disorders of phosphorus metabolism Status: Resolved Plan: Continue monitor phosphorus levels. Now within normal range. (5) Esophageal anastomotic leak ICD Code: K91.89 - Other postprocedural complications and disorders of digestive system Status: Acute Plan: Management as per general surgery. As stated above the patient is status post EGD with clip/esophageal stent placement. Management as per general surgery. (6) Pleural effusion ICD Code: J90 - Pleural effusion, not elsewhere classified Plan: The patient status post chest tube which was removed on 02/08. Right pleural effusion for which a pigtail catheter was placed. I had consulted but no thoracentesis performed secondary to minimal fluid. Pleural effusion likely secondary to parapneumonic effusion. Continue IV antibiotics. Chest x-ray obtained on 02/10 showed small right apical pneumothorax . Patient underwent CT-guided thoracentesis pigtail catheter placement on 02/12. Repeat chest x-ray on does not mention pneumothorax and it shows possible mild improvement in aeration of the right lung. Repeat chest x-ray in a.m. (7) Pneumothorax ICD Code: J93.9 - Pneumothorax, unspecified Plan: Seems to have resolved. The patient is status post chest tube pigtail catheter insertion. I will consult pulmonology for further management. Assessment and Plan DVT prophylaxis: Lovenox subcu resumed on 02/14 as per general surgery. Discharge Planning Continue to monitor in intensive care unit. Management as per primary. Problem Qualifiers (1) Abdominal pain: Qualified Codes: R10.9 - Unspecified abdominal pain (2) Pneumothorax: Qualified Codes: J95.811 - Postprocedural pneumothorax Logan Ellis MD Feb 17, 2018 12:00
--- NOTE | 2018-02-17 12:02 | HHI.PR ---
Subjective Subjective Notes no acute issues, tolerating tf, c/o right sided pain, no bm Objective Vitals/I&O Vital Signs Date Time Temp Pulse Resp B/P (MAP) Pulse Ox O2 Delivery O2 Flow Rate FiO2 02/17/18 10:00 97 02/17/18 08:00 98.1 160/88 (112) 93 02/17/18 07:43 Nasal Cannula 4.00 02/16/18 04:00 16 02/14/18 09:22 40 Labs Date/Time Source Procedure Growth Status 02/11/18 16:54 Blood Peripheral Aerobic Blood Culture - Final NO GROWTH IN 5 DAYS Complete 02/11/18 16:54 Blood Peripheral Anaerobic Blood Culture - Final NO GROWTH IN 5 DAYS Complete 02/12/18 15:35 Fluid Pleural Fluid Fungal Smear - Final NO FUNGAL ELEMENTS SEEN. Resulted 02/12/18 15:35 Fluid Pleural Fluid Fungal Culture Pending Resulted Lungs: Clear, Other (right chest tube in place) Abdomen: Other (soft incision c/d/i, j tube c/d/i) A/P Problem List: (1) Pleural effusion ICD Codes: J90 - Pleural effusion, not elsewhere classified (2) Adenocarcinoma of esophagus ICD Codes: C15.9 - Malignant neoplasm of esophagus, unspecified (3) Hypophosphatemia ICD Codes: E83.39 - Other disorders of phosphorus metabolism Status: Resolved (4) Esophageal anastomotic leak ICD Codes: K91.89 - Other postprocedural complications and disorders of digestive system Status: Acute (5) Acute hypoxemic respiratory failure ICD Codes: J96.01 - Acute respiratory failure with hypoxia Assessment and Plan 47yo male s/p robotic assisted Romulo-madeleine esophagectomy, stable POD#16 -Patient now with delayed leak--- s/p esophageal stent placed -Okay for popsicles -Repeat CT chest ---s/p IR will reposition existing CT ---now draining --- continue to suction -TF via J tube; tolerating well---increase as tolerated -ID following-- now on Fluconazole/Ampicillin -Dilaudid IV and Hycet for pain, pain meds adjusted by primary -Lovenox -Possible transfer soon Guillermo Navarro MD Feb 17, 2018 12:02
[2018-02-17] MEDS: DOCUSATE SODIUM 50 MG/SENNA 8.6 MG TAB PO SCH ×2 (12:06→20:41)
[2018-02-17] MEDS: FLUCONAZOLE 100 MG PREMIX BAG 50 ML IV SCH (12:07)
[2018-02-17] MEDS: IRON SUCROSE INJ 100 MG in SODIUM CHLORIDE 0.9% INJ 100 ML IV SCH (13:32)
[2018-02-17] MEDS: ENOXAPARIN SODIUM 40 MG/0.4 ML SYRINGE SQ SCH (14:58)
[2018-02-17 15:50] LABS: HEMATOCRIT 34.1 % (39.0-51.0); HEMOGLOBIN 11.3 GM/DL (13.0-17.0); MEAN CELL VOLUME 82.4 FL (80.0-100.0); MEAN CORPUSCULAR HEMOGLOBIN 27.5 PG (27.0-34.0); MEAN CORPUSCULAR HGB CONC 33.3 % (32.0-36.0); MEAN PLATELET VOLUME 8.2 FL (7.0-11.0); PLATELET COUNT 668 TH/MM3 (150-450); RED BLOOD COUNT 4.13 MIL/MM3 (4.50-5.90); RED CELL DISTRIBUTION WIDTH 14.2 % (11.6-17.2); WHITE BLOOD COUNT 11.5 TH/MM3 (4.0-11.0)
[2018-02-17 16:10] LABS: BICARBONATE 26.5 MEQ/L (21.0-32.0); CALCIUM 8.5 MG/DL (8.5-10.1); CREATININE 0.69 MG/DL (0.60-1.30)
--- NOTE | 2018-02-17 21:25 | MB ---
cc: Mele Weaver MD DATE: 02/17/2018 REQUESTING PHYSICIAN: Dr. Wolff REASON FOR CONSULTATION: Pleural effusion. HISTORY OF PRESENT ILLNESS: Mr. Ryan is a pleasant 47-year-old male who was diagnosed with GE junction adenocarcinoma. The patient underwent gastrectomy, esophagectomy and J-tube placement. The patient was transferred to the floor, then became short of breath, was transferred back. He had pleural effusion. He had a right pigtail catheter placed. The drainage of the catheter has significantly decreased. Now, he is draining about 30 mL or so. He has chest pain at the site of the catheter. Denies any shortness of breath. He is on room air and he is able to ambulate. He is on tube feeding. PAST MEDICAL HISTORY: Significant for history of gastroesophageal reflux and now esophageal carcinoma. MEDICATIONS: He is currently taking iron sucrose, Milk of Magnesia, lactulose, morphine 30 mg q. 8 hours, labetalol 200 mg q. 12 hours, Dilaudid for pain, Diflucan IV, Unasyn IV, Protonix 40 mg, albuterol, Atrovent nebulizer treatment, Lovenox 40 mg a day, Phenergan p.r.n. ALLERGIES: HE IS ALLERGIC TO PROPOFOL. SOCIAL HISTORY: He is . No history of any smoking or alcohol abuse. 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 FAMILY HISTORY: Noncontributory. REVIEW OF SYSTEMS: He has lost weight. Now, he is on tube feeding. No seizures. No DVT or pulmonary embolism. PHYSICAL EXAMINATION: GENERAL: A pleasant elderly male, in no acute distress. VITAL SIGNS: Blood pressure 132/84, heart rate 80, respirations 18, temperature 98.8. HEENT: Pupils are equal and reactive to light. Oral mucosa and nasal mucosa normal. NECK: Supple, JVP not raised. CHEST: He has decreased breath sounds at the right chest. He has a right chest pigtail catheter. CARDIOVASCULAR: S1, S2 normal. ABDOMEN: He has abdominal surgical wound and has a PEG tube in place. EXTREMITIES: No edema. IMPRESSION: 1. Right pleural effusion, status post pigtail catheter placement. 2. Esophageal carcinoma, status post gastrectomy, esophagectomy. 3. Hypertension. PLAN: I discussed with the patient, we will check his chest x-ray. If he does not have any significant pleural effusion, we will remove the chest catheter. If he has a significant residual pleural effusion, then he will need interventional radiology consultation for repositioning of the chest tube. Continue his present medication. Resume tube feeding. Further treatment pending the course in the hospital. Thank you, Dr. Wolff, for this consult. MD FUNMILAYO Chaudhari/Maribel , 06:45 PM , 08:59 PM MTDDavy
[2018-02-18] VITALS (20 sets, daily range): BP systolic 109–139; BP diastolic 72–79; PULSE 74–89; RESP 16–24; TEMP 97.6–98.6; O2SAT 96–100
[2018-02-18] MEDS: AMPICILLIN-SULBACTAM INJ 1,500 MG in SODIUM CHLORIDE 0.9% INJ 100 ML IV SCH ×5 (00:33→23:31)
[2018-02-18] MEDS: MORPHINE SULFATE 15 MG CONTROLLED RELEASE TAB PO SCH ×4 (02:17→23:28)
[2018-02-18] MEDS: PCA - TOTAL MG MORPHINE DELIVERED PER SHIFT SCH ×4 (03:57→23:32)
--- NOTE | 2018-02-18 04:55 | RADRPT ---
EXAM DATE: 02/18/2018 4:52 AM EDT AGE/SEX: 47 years / Male INDICATIONS: Shortness of breath, possible pulmonary disease. CLINICAL DATA: This is the patient's subsequent encounter. Patient reports that signs and symptoms h ave been present for 2 weeks and indicates a pain score of 6/10. MEDICAL/SURGICAL HISTORY: None. Chest tube, right. COMPARISON: [facility] – [place], CHEST SINGLE AP, 02/14/2018. . FINDINGS: Today's exam is compared to the prior study. There is mild improved aeration of the right lung base c ompared to the prior study. Otherwise, no other new or significant changes are demonstrated. The left lung is clear and well aerated. There is a small right-sided chest tube along the lower right hemith orax. Continues to be blunting of the right costophrenic angle. There is an expandable stent overlyin g the right hemithorax. The bony structures are stable. CONCLUSION: Mild improved aeration of the right lung compared to the prior study. Otherwise, no other significant changes. Electronically signed by: Dallin Cintron MD 02/18/2018 4:53 AM EDT
[2018-02-18] MEDS: HYDROmorphone HCL PF 2 MG/ML VIAL IV PRN ×4 (05:07→23:15)
[2018-02-18 07:17] LABS: HEMATOCRIT 36.8 % (39.0-51.0); HEMOGLOBIN 12.2 GM/DL (13.0-17.0); MEAN CELL VOLUME 82.1 FL (80.0-100.0); MEAN CORPUSCULAR HEMOGLOBIN 27.2 PG (27.0-34.0); MEAN CORPUSCULAR HGB CONC 33.2 % (32.0-36.0); PLATELET COUNT 735 TH/MM3 (150-450); RED BLOOD COUNT 4.48 MIL/MM3 (4.50-5.90); RED CELL DISTRIBUTION WIDTH 14.1 % (11.6-17.2); WHITE BLOOD COUNT 11.3 TH/MM3 (4.0-11.0)
[2018-02-18 07:51] LABS: BICARBONATE 28.1 MEQ/L (21.0-32.0); CALCIUM 8.8 MG/DL (8.5-10.1); CREATININE 0.81 MG/DL (0.60-1.30)
[2018-02-18] MEDS: INSULIN ASPART SUPPLEMENTAL SCALE SQ SCH ×4 (08:00→21:00)
[2018-02-18] MEDS: PANTOPRAZOLE SOD 40 MG DELAYED RELEASE TAB PO SCH ×2 (10:06→21:36)
[2018-02-18] MEDS: SODIUM CHLORIDE 0.9% FLUSH 10 ML FLUSH IV FLUSH SCH ×2 (10:07→14:40)
[2018-02-18] MEDS: FUROSEMIDE 40 MG/4 ML VIAL IV PUSH SCH ×2 (10:07→17:35)
[2018-02-18] MEDS: GABAPENTIN 400 MG CAP J-TUBE SCH (10:08)
[2018-02-18] MEDS: LABETALOL HCL 100 MG TAB PO SCH ×2 (10:09→21:36)
[2018-02-18] MEDS: DOCUSATE SODIUM 50 MG/SENNA 8.6 MG TAB PO SCH ×2 (10:09→21:36)
[2018-02-18] MEDS ORDERED: ONDANSETRON ODT 4 MG TAB PO ONE (11:45)
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
[2018-02-18] MEDS: FLUCONAZOLE 100 MG PREMIX BAG 50 ML IV SCH (12:52)
--- NOTE | 2018-02-18 14:00 | HHI.PR ---
Subjective Subjective Notes Doing well No acute events over the weekend No BM over the weekend Objective Vitals/I&O Vital Signs Date Time Temp Pulse Resp B/P (MAP) Pulse Ox O2 Delivery O2 Flow Rate FiO2 02/18/18 13:00 78 02/18/18 08:00 97.8 22 121/79 (93) 100 02/18/18 07:51 Nasal Cannula 4.00 02/14/18 09:22 40 Labs Laboratory Tests Test 02/17/18 14:24 02/18/18 05:50 02/18/18 05:55 White Blood Count 11.5 11.3 Red Blood Count 4.13 4.48 Hemoglobin 11.3 12.2 Hematocrit 34.1 36.8 Mean Corpuscular Volume 82.4 82.1 Mean Corpuscular Hemoglobin 27.5 27.2 Mean Corpuscular Hemoglobin Concent 33.3 33.2 Red Cell Distribution Width 14.2 14.1 Platelet Count 668 735 Mean Platelet Volume 8.2 8.0 Blood Urea Nitrogen 8 13 Creatinine 0.69 0.81 Random Glucose 99 111 Calcium Level 8.5 8.8 Sodium Level 138 138 Potassium Level 3.6 3.5 Chloride Level 100 99 Carbon Dioxide Level 26.5 28.1 Anion Gap 12 11 Estimat Glomerular Filtration Rate 122 101 Date/Time Source Procedure Growth Status 02/11/18 16:54 Blood Peripheral Aerobic Blood Culture - Final NO GROWTH IN 5 DAYS Complete 02/11/18 16:54 Blood Peripheral Anaerobic Blood Culture - Final NO GROWTH IN 5 DAYS Complete 02/12/18 15:35 Fluid Pleural Fluid Fungal Smear - Final NO FUNGAL ELEMENTS SEEN. Resulted 02/12/18 15:35 Fluid Pleural Fluid Fungal Culture Pending Resulted Cardiovascular: Regular Lungs: Clear Abdomen: Other (midline incision with jatinder; J tube with TF ) Extremities: No edema Narrative Exam RIGHT chest tube in place to suction A/P Problem List: (1) Pleural effusion ICD Codes: J90 - Pleural effusion, not elsewhere classified (2) Adenocarcinoma of esophagus ICD Codes: C15.9 - Malignant neoplasm of esophagus, unspecified (3) Hypophosphatemia ICD Codes: E83.39 - Other disorders of phosphorus metabolism Status: Resolved (4) Esophageal anastomotic leak ICD Codes: K91.89 - Other postprocedural complications and disorders of digestive system Status: Acute (5) Acute hypoxemic respiratory failure ICD Codes: J96.01 - Acute respiratory failure with hypoxia Assessment and Plan 47 year old male POD17 robotic assisted [place] esophagectomy -Patient now with delayed leak--- s/p esophageal stent placed -Continue with popsicles -Repeat CT chest ---s/p IR will reposition existing CT ---now draining although decreasing---continue to suction -Reviewed pathology with patient--will need to be evaluated by Medical Oncology once recovered from surgery -TF via J tube ---added daily Milk of Mag--- do not advance without BM first -ID following-- now on Fluconazole/Ampicillin ---WBC 11.3; Afebrile -Lovenox Attending Statement The exam, history, and the medical decision-making described in the above note were completed with the assistance of the mid-level provider. I reviewed and agree with the findings presented. I attest that I had a [id number] encounter with the patient on the same day, and personally performed and documented my assessment and findings in the medical record. s/p [place] stable, s/p stent for esophageal ischemic ulcer and leak continue ABX per ID will check CT chest to follow up on drain increase tube feeds as tolerated Kimberly Louis/Compressor Mechanic Bus TAI Feb 18, 2018 14:00 Pérez Eaton MD Feb 19, 2018 15:08
[2018-02-18] MEDS: MAGNESIUM HYDROXIDE SUSP 30 ML CUP PO SCH (14:40)
[2018-02-18] MEDS: IRON SUCROSE INJ 100 MG in SODIUM CHLORIDE 0.9% INJ 100 ML IV SCH (14:40)
[2018-02-18] MEDS: ENOXAPARIN SODIUM 40 MG/0.4 ML SYRINGE SQ SCH (15:36)
--- NOTE | 2018-02-18 17:53 | HHI.PR ---
Subjective Remarks 47 YOWm with oesophageal ca, pl eff, s/p pig tale pl fluid exudate, culture neg Fluid drainage decreased CXR some improved aeration of rt lung Objective Vital Signs Vital Signs Date Time Temp Pulse Resp B/P (MAP) Pulse Ox O2 Delivery O2 Flow Rate FiO2 02/18/18 17:00 98.3 82 18 114/74 (87) 99 02/18/18 16:00 80 02/18/18 15:00 78 02/18/18 15:00 78 120/78 (92) 100 02/18/18 14:00 75 116/73 (87) 99 02/18/18 14:00 79 02/18/18 13:00 78 109/72 (84) 98 02/18/18 13:00 78 02/18/18 12:21 20 02/18/18 12:00 83 02/18/18 12:00 98.0 83 24 115/75 (88) 98 02/18/18 11:00 80 02/18/18 11:00 80 119/79 (92) 99 02/18/18 10:00 84 02/18/18 10:00 84 122/77 (92) 99 02/18/18 09:00 81 02/18/18 09:00 81 121/79 (93) 99 02/18/18 08:00 74 02/18/18 08:00 97.8 76 22 121/79 (93) 100 02/18/18 07:51 96 Nasal Cannula 4.00 02/18/18 07:00 100 Nasal Cannula 4.00 02/18/18 06:00 74 02/18/18 04:00 97.6 75 16 139/73 (95) 100 02/18/18 04:00 75 02/18/18 03:17 18 02/18/18 02:00 75 02/18/18 00:00 82 02/18/18 00:00 98.3 82 20 116/78 (91) 99 02/17/18 22:00 82 02/17/18 20:40 97 Nasal Cannula 4.00 02/17/18 20:00 97 Nasal Cannula 4.00 02/17/18 20:00 98.1 96 20 143/78 (99) 97 02/17/18 20:00 96 02/17/18 18:00 82 I/O 02/17/18 02/17/18 02/17/18 02/18/18 02/18/18 02/18/18 07:00 15:00 23:00 07:00 15:00 23:00 Intake Total 1547 ml 150 ml 715 ml 880 ml Output Total 1630 ml 2600 ml 1450 ml Balance -83 ml 150 ml -1885 ml -570 ml Intake Oral 240 ml 225 ml 240 ml IV Total 1000 ml 150 ml 100 ml 200 ml Tube Feeding 307 ml 390 ml 380 ml Other 60 ml Output Urine Total 1600 ml 2600 ml 1450 ml Chest Tube Drainage Total 30 ml 0 ml 0 ml # Voids 3 # Bowel Movements 0 0 Result Diagram: 02/18/18 0555 02/18/18 0550 Objective Remarks GENERAL: MBMNWM,NAD SKIN: Warm and dry. HEAD: Normocephalic. EYES: No scleral icterus. No injection or drainage. NECK: Supple, trachea midline. No JVD or lymphadenopathy. CARDIOVASCULAR: Regular rate and rhythm without murmurs, gallops, or rubs. RESPIRATORY: Breath sounds equal bilaterally. No accessory muscle use. Right chest tube draining GASTROINTESTINAL: Abdomen soft, non-tender, nondistended Abd wound dressed. MUSCULOSKELETAL: No cyanosis, or edema. BACK: Nontender without obvious deformity. No CVA tenderness. A/P Assessment and Plan 1. Right pleural effusion, status post pigtail catheter placement. 2. Esophageal carcinoma, status post gastrectomy, esophagectomy. 3. Hypertension. PLAN: Cont Abx per ID Stable on RA CT chest w/o contrast to see any loculation of fluid Mele Weaver MD Feb 18, 2018 17:53
--- NOTE | 2018-02-18 18:10 | HHI.PR ---
Subjective Remarks Patient states vomiting and very nauseous earlier. Much better after Zofran. Patient states very nauseous due to morphine, so not taking eat. Abdominal pain well ocntrolled 11/24 Afebrile. Denies cp/sob Objective Vitals Vital Signs Date Time Temp Pulse Resp B/P (MAP) Pulse Ox O2 Delivery O2 Flow Rate FiO2 02/18/18 17:00 98.3 82 18 114/74 (87) 99 02/18/18 16:00 80 02/18/18 15:00 78 02/18/18 15:00 78 120/78 (92) 100 02/18/18 14:00 75 116/73 (87) 99 02/18/18 14:00 79 02/18/18 13:00 78 109/72 (84) 98 02/18/18 13:00 78 02/18/18 12:21 20 02/18/18 12:00 83 02/18/18 12:00 98.0 83 24 115/75 (88) 98 02/18/18 11:00 80 02/18/18 11:00 80 119/79 (92) 99 02/18/18 10:00 84 02/18/18 10:00 84 122/77 (92) 99 02/18/18 09:00 81 02/18/18 09:00 81 121/79 (93) 99 02/18/18 08:00 74 02/18/18 08:00 97.8 76 22 121/79 (93) 100 02/18/18 07:51 96 Nasal Cannula 4.00 02/18/18 07:00 100 Nasal Cannula 4.00 02/18/18 06:00 74 02/18/18 04:00 97.6 75 16 139/73 (95) 100 02/18/18 04:00 75 02/18/18 03:17 18 02/18/18 02:00 75 02/18/18 00:00 82 02/18/18 00:00 98.3 82 20 116/78 (91) 99 02/17/18 22:00 82 02/17/18 20:40 97 Nasal Cannula 4.00 02/17/18 20:00 97 Nasal Cannula 4.00 02/17/18 20:00 98.1 96 20 143/78 (99) 97 02/17/18 20:00 96 I/O 02/17/18 02/17/18 02/17/18 02/18/18 02/18/18 02/18/18 06:59 14:59 22:59 06:59 14:59 22:59 Intake Total 1547 ml 150 ml 715 ml 880 ml 1054 ml Output Total 1630 ml 2600 ml 1450 ml 700 ml Balance -83 ml 150 ml -1885 ml -570 ml 354 ml Intake Oral 240 ml 225 ml 240 ml 50 ml IV Total 1000 ml 150 ml 100 ml 200 ml 450 ml Tube Feeding 307 ml 390 ml 380 ml 434 ml Other 60 ml 120 ml Output Urine Total 1600 ml 2600 ml 1450 ml 700 ml Stool Total 0 ml Chest Tube Drainage Total 30 ml 0 ml 0 ml 0 ml # Voids 3 # Bowel Movements 0 0 0 Result Diagram: 02/18/18 0555 02/18/18 0550 Imaging Last 72 hours Impressions Chest X-Ray 02/18/18 0600 Signed Impressions: CONCLUSION: Mild improved aeration of the right lung compared to the prior study. Otherwise , no other significant changes. Chest CT 02/18/18 0000 Signed Impressions: CONCLUSION: 1. Status post distal esophagectomy with gastric pull-through. A stent lies wi thin the gastric pull-through in the lower right chest. 2. Slight improvement in right pleural effusion since February 09. There is some lo culated air remaining within the right pleural effusion with a small caliber ri ght chest tube present. There is some compressive atelectasis and consolidation around the gastric pull-through which is improved from February 09. 3. No new adenopathy or new left effusion. Stable appearance of the upper abdo men. Objective Remarks GENERAL: This is a 46-year-old well-developed well-nourished male resting comfortably . Patient up out of bed without difficulty SKIN: Warm and dry. Well healing skin incisions right flank, no evidence of erythema or drainage. Former chest tube site right posterior area with clean dressing HEAD: Atraumatic. Normocephalic. ENT: No nasal bleeding or discharge. Normal saliva. NG in place. NECK: Trachea midline. Airway widely patent. No obstruction. CARDIOVASCULAR: Regular rate and rhythm. S1, S2 normal. No JVD. RESPIRATORY: No accessory muscle use. Clear to auscultation. No adventitious sounds. Right pigtail chest tube to suction GASTROINTESTINAL: Abdomen soft, non-tender, nondistended. No involuntary guarding. Jejunostomy-tube in place, site clean, dry. MUSCULOSKELETAL: Extremities without clubbing, cyanosis, or edema. No obvious deformities. Warm, well perfused. NEUROLOGICAL: Awake and alert. No obvious cranial nerve deficits. Motor grossly normal. Normal speech. Procedures 02/09-right pigtail chest tube 02/12-EGD/ Hemoclip placement for anastomotic leak 02/12: Removal of right pigtail chest tube ,placement of CT-guided right pigtail chest to right pleural fluid loculation Date of Insertion: February 01, 2018 A/P Problem List: (1) Adenocarcinoma of esophagus ICD Code: C15.9 - Malignant neoplasm of esophagus, unspecified Plan: The patient is status post expiratory laparotomy and open proximal gastrectomy with conversion to robotic assisted [place] esophagectomy. Patient also underwent omentectomy. Jejunostomy tube placement with chemical pyloroplasty with Botox injection of the pylorus. Tube feedings through jejunostomy tube placed on hold 02/09, J-tube placed to gravity-defer to general surgery. On 02/09 a focal leak was identified at the gastroesophageal anastomosis. The patient underwent an EGD with Hemoclip placement for esophageal anastomotic leak. The patient was placed on lower elemental tube feedings. Advance as per general surgery recommendations. (2) Abdominal pain ICD Code: R10.9 - Unspecified abdominal pain Plan: Patient with uncontrolled postsurgical pain. I will discontinue previous pain regimen and start the patient on morphine extended release 15 mg p.o. every 8 hours, morphine immediate release 15 mg p.o. every 4 hours as needed and continue IV Dilaudid for breakthrough pain. 02/17 the patient still complaining of abdominal pain. Upon review of ED documentation the patient's pain has been elevated and the patient is also requesting IV Dilaudid for breakthrough pain very frequently. I will increase the dose of morphine extended release to 30 mg p.o. every 8 hours and increase the morphine immediate release dose to 30 mg every 4 hours as needed for pain. Continue with Dilaudid IV for breakthrough pain. Start constipation prevention protocol medications to prevent constipation. / Dc Morphine tablets since patient very nauseous. Continue pain control w IV Dilaudid. (3) Acute hypoxemic respiratory failure ICD Code: J96.01 - Acute respiratory failure with hypoxia Plan: Likely secondary to hospital acquired pneumonia versus aspiration pneumonia with associated right pleural effusion which is likely parapneumonic effusion. Weaned to nasal cannula to maintain saturations greater than equal to 92% 02/08-right chest tube removed 02/09-right pleural effusion 02/09-right pigtail catheter chest tube placement , -20cm Thoracic ultrasound noted multiple septations pleural fluid prior to placement of pigtail catheter Incentive spirometry while awake. 02/10- no thoracentesis performed per IR 10/19 minimal fluid. 02/09- CT angio-no PE, worsening consolidation right upper lobe, stable left lower lobe infiltrate 02/10 chest x-ray-small right apical pneumothorax unchanged Encourage incentive spirometry, aggressive pulmonary toileting 02/12: CT-guided right thoracentesis right pigtail catheter placement Continue IV Zosyn Continue IV fluconazole. Continue supplemental oxygen to keep oxygen saturation more than 92%. We will start the patient on IV Lasix 40 mg IV twice daily 02/17 continue IV Lasix. Will repeat a chest x-ray in a.m. 02/18 repeat chest x-ray personally reviewed by me showed mild improved aeration of the right lung compared to the prior study. Appreciate pulmonary recommendations. CT of the chest without contrast as ordered by pulmonology and reviewed by me showed a slight improvement in right pleural effusion. Some loculated air remaining in the right pleural effusion with a small caliber right chest tube present. Some compressive atelectasis and consolidation around the gastric pull-through which is also improved from February 09. No new adenopathy or new left effusion. Follow-up pulmonology recommendations. (4) Hypophosphatemia ICD Code: E83.39 - Other disorders of phosphorus metabolism Status: Resolved Plan: Continue monitor phosphorus levels. Now within normal range. (5) Esophageal anastomotic leak ICD Code: K91.89 - Other postprocedural complications and disorders of digestive system Status: Acute Plan: Management as per general surgery. As stated above the patient is status post EGD with clip/esophageal stent placement. Management as per general surgery. (6) Pleural effusion ICD Code: J90 - Pleural effusion, not elsewhere classified Plan: The patient status post chest tube which was removed on 02/08. Right pleural effusion for which a pigtail catheter was placed. I had consulted but no thoracentesis performed secondary to minimal fluid. Pleural effusion likely secondary to parapneumonic effusion. Continue IV antibiotics. Chest x-ray obtained on 02/10 showed small right apical pneumothorax . Patient underwent CT-guided thoracentesis pigtail catheter placement on 02/12. Repeat chest x-ray on does not mention pneumothorax and it shows possible mild improvement in aeration of the right lung. Repeat chest x-ray as above. Follow-up pulmonary recommendations. (7) Pneumothorax ICD Code: J93.9 - Pneumothorax, unspecified Plan: Seems to have resolved. The patient is status post chest tube pigtail catheter insertion. Pulmonology consulted. Continue chest tube. Patient status post chest CT of the chest as described above. Follow pulmonary recommendations. Assessment and Plan DVT prophylaxis: Lovenox subcu resumed on 02/14 as per general surgery. Discharge Planning Continue to monitor in intensive care unit. Management as per primary. Problem Qualifiers (1) Abdominal pain: Qualified Codes: R10.9 - Unspecified abdominal pain (2) Pneumothorax: Qualified Codes: J95.811 - Postprocedural pneumothorax Logan Ellis MD Feb 18, 2018 18:10
[2018-02-18] MEDS: ONDANSETRON ODT 4 MG TAB PO PRN (21:42)
--- NOTE | 2018-02-18 22:37 | RADRPT ---
EXAM DATE: 02/18/2018 10:03 PM EDT AGE/SEX: 47 years / Male INDICATIONS: Short of breath. CLINICAL DATA: This is the patient's initial encounter. Patient reports that signs and symptoms have been present for 1 day and indicates a pain score of 4/10. MEDICAL/SURGICAL HISTORY: Carcinoma, esophageal. Hiatal hernia. Thoracic abscess. . Esophagectomy . RADIATION DOSE: 9.21 CTDI (mGy) COMPARISON: [facility] – [place], [place], CT PULMONARY ANGIOGRAM, 02/09/2018. . TECHNIQUE: Multiple contiguous axial images were obtained through the chest during bolus infusion of 75 ml Omnipaque 350 (iohexol) nonionic water-soluble contrast as a single exam dose. Images were obtained in suspended respiration using multiple row detector helical technique. Using automated exp osure control and adjustment of the mA and/or kV according to patient size, radiation dose was kept a s low as reasonably achievable to obtain optimal diagnostic quality images. FINDINGS: Comparison is CT pulmonary angiogram from February 09. Patient is status post distal esophagectomy and gas tric procedure. There is a stent lying within the lumen of the gastric pull-through. Previous right p leural effusion has decreased in size with a small caliber right chest tube present. There is a small amount of loculated air within the right pleural effusion. There is some surrounding compressive ate lectasis and consolidation in the right lung and there is linear atelectasis or scarring in the left lung. Proximal esophagus is dilated. Low-attenuation lesions in the liver are stable and most compatible with cysts. No hilar, mediastinal or axillary adenopathy. CONCLUSION: 1. Status post distal esophagectomy with gastric pull-through. A stent lies within the gastric pull- through in the lower right chest. 2. Slight improvement in right pleural effusion since February 09. There is some loculated air remaining within the right pleural effusion with a small caliber right chest tube present. There is some compre ssive atelectasis and consolidation around the gastric pull-through which is improved from February 09. 3. No new adenopathy or new left effusion. Stable appearance of the upper abdomen. Electronically signed by: Prosper Miller MD 02/18/2018 10:36 PM EDT
[2018-02-18] MEDS ORDERED: IOHEXOL 350 MG/ML 10 ML VIAL (for RAD DIAG) IVCONTRAST ONE (23:34)
[2018-02-19] VITALS (19 sets, daily range): BP systolic 111–121; BP diastolic 70–81; PULSE 69–91; RESP 14–18; TEMP 97.8–99; O2SAT 96–100
[2018-02-19] MEDS: HYDROmorphone HCL PF 2 MG/ML VIAL IV PRN ×5 (05:10→21:52)
[2018-02-19] MEDS: AMPICILLIN-SULBACTAM INJ 1,500 MG in SODIUM CHLORIDE 0.9% INJ 100 ML IV SCH ×4 (05:16→23:41)
[2018-02-19] MEDS: INSULIN ASPART SUPPLEMENTAL SCALE SQ SCH ×4 (08:00→20:30)
[2018-02-19] MEDS: FUROSEMIDE 40 MG/4 ML VIAL IV PUSH SCH ×2 (08:23→18:00)
[2018-02-19] MEDS: PANTOPRAZOLE SOD 40 MG DELAYED RELEASE TAB PO SCH ×2 (08:24→20:40)
[2018-02-19] MEDS: LABETALOL HCL 100 MG TAB PO SCH ×2 (08:24→20:40)
[2018-02-19] MEDS: GABAPENTIN 400 MG CAP J-TUBE SCH (08:24)
[2018-02-19] MEDS: DOCUSATE SODIUM 50 MG/SENNA 8.6 MG TAB PO SCH ×2 (08:24→20:40)
[2018-02-19] MEDS: SODIUM CHLORIDE 0.9% FLUSH 10 ML FLUSH IV FLUSH SCH ×2 (08:25→20:40)
[2018-02-19] MEDS: MAGNESIUM HYDROXIDE SUSP 30 ML CUP PO SCH (09:00)
[2018-02-19] MEDS: MORPHINE SULFATE 15 MG CONTROLLED RELEASE TAB PO SCH ×2 (11:00→19:00)
--- NOTE | 2018-02-19 11:06 | HHI.PR ---
Subjective Subjective Notes Resting in bed No complains Objective Vitals/I&O Vital Signs Date Time Temp Pulse Resp B/P (MAP) Pulse Ox O2 Delivery O2 Flow Rate FiO2 02/19/18 10:00 82 02/19/18 08:00 97.8 18 115/78 (90) 99 02/19/18 07:00 Nasal Cannula 4.00 Labs Date/Time Source Procedure Growth Status 02/11/18 16:54 Blood Peripheral Aerobic Blood Culture - Final NO GROWTH IN 5 DAYS Complete 02/11/18 16:54 Blood Peripheral Anaerobic Blood Culture - Final NO GROWTH IN 5 DAYS Complete 02/12/18 15:35 Fluid Pleural Fluid Fungal Smear - Final NO FUNGAL ELEMENTS SEEN. Resulted 02/12/18 15:35 Fluid Pleural Fluid Fungal Culture Pending Resulted Cardiovascular: Regular Lungs: Clear Abdomen: Other (Midline incision with jatinder; J tube with TF ) Extremities: No edema Narrative Exam RIGHT chest tube in place to suction A/P Problem List: (1) Pleural effusion ICD Codes: J90 - Pleural effusion, not elsewhere classified (2) Adenocarcinoma of esophagus ICD Codes: C15.9 - Malignant neoplasm of esophagus, unspecified (3) Hypophosphatemia ICD Codes: E83.39 - Other disorders of phosphorus metabolism Status: Resolved (4) Esophageal anastomotic leak ICD Codes: K91.89 - Other postprocedural complications and disorders of digestive system Status: Acute (5) Acute hypoxemic respiratory failure ICD Codes: J96.01 - Acute respiratory failure with hypoxia Assessment and Plan 47 year old male POD18 robotic assisted [place] esophagectomy -Patient now with delayed leak--- s/p esophageal stent placed -Continue with popsicles -Repeat CT chest ---slight improvement; stable -Reviewed pathology with patient--will need to be evaluated by Medical Oncology once recovered from surgery -TF via J tube ---added daily Milk of Mag--- advance TF to 40 cc this morning and 45 cc this afternoon -ID following-- now on Fluconazole/Ampicillin ---WBC 11.3; Afebrile -Lovenox Attending Statement The exam, history, and the medical decision-making described in the above note were completed with the assistance of the mid-level provider. I reviewed and agree with the findings presented. I attest that I had a [id number] encounter with the patient on the same day, and personally performed and documented my assessment and findings in the medical record. s/p [place], stable CT chest reviewed, no major areas of abscess, will work toward removing drains and transitioning home with ABX and tube feeds Kimberly Louis/Communications Designer TAI Feb 19, 2018 11:06 Pérez Eaton MD Feb 19, 2018 15:11
[2018-02-19] MEDS: IRON SUCROSE INJ 100 MG in SODIUM CHLORIDE 0.9% INJ 100 ML IV SCH (13:00)
[2018-02-19] MEDS: FLUCONAZOLE 100 MG PREMIX BAG 50 ML IV SCH (13:08)
[2018-02-19] MEDS: PCA - TOTAL MG MORPHINE DELIVERED PER SHIFT SCH ×2 (14:00→20:58)
[2018-02-19] MEDS ORDERED: ALTEPLASE RECOMBINANT 2 MG VIAL I-PLEURAL ONE (14:15)
--- NOTE | 2018-02-19 14:33 | HHI.PR ---
Subjective Remarks No major overnight events. Case discussed with RN. The patient denies nausea vomiting, abdominal pain is very well controlled. Denies fevers or chills Passing flatus but no bowel movement yet. Objective Vitals Vital Signs Date Time Temp Pulse Resp B/P (MAP) Pulse Ox O2 Delivery O2 Flow Rate FiO2 02/19/18 14:00 79 02/19/18 13:00 81 02/19/18 12:45 16 02/19/18 12:00 82 02/19/18 12:00 98.7 75 18 111/71 (84) 99 02/19/18 10:00 82 02/19/18 09:00 73 02/19/18 09:00 73 02/19/18 08:00 97.8 75 18 115/78 (90) 99 02/19/18 08:00 75 02/19/18 08:00 75 02/19/18 07:00 100 Nasal Cannula 4.00 02/19/18 07:00 69 02/19/18 07:00 69 02/19/18 06:00 72 02/19/18 06:00 71 02/19/18 05:00 91 02/19/18 04:00 74 02/19/18 04:00 78 02/19/18 04:00 98.7 74 14 117/74 (88) 99 02/19/18 03:00 80 02/19/18 02:00 73 02/19/18 02:00 71 02/19/18 01:00 74 02/19/18 00:00 75 02/19/18 00:00 76 02/19/18 00:00 98.7 75 16 119/70 (86) 100 02/18/18 22:00 86 02/18/18 20:00 98.6 87 18 122/76 (91) 99 02/18/18 20:00 87 02/18/18 19:08 98 Nasal Cannula 4.00 02/18/18 19:00 89 02/18/18 19:00 100 Nasal Cannula 4.00 02/18/18 18:00 83 02/18/18 17:00 83 02/18/18 17:00 98.3 82 18 114/74 (87) 99 02/18/18 16:00 80 02/18/18 15:00 78 02/18/18 15:00 78 120/78 (92) 100 I/O 02/18/18 02/18/18 02/18/18 02/19/18 02/19/18 02/19/18 07:00 15:00 23:00 07:00 15:00 23:00 Intake Total 880 ml 1309 ml 630 ml Output Total 1450 ml 1125 ml 1390 ml Balance -570 ml 184 ml -760 ml Intake Oral 240 ml 50 ml IV Total 200 ml 705 ml 200 ml Tube Feeding 380 ml 434 ml 430 ml Other 60 ml 120 ml Output Urine Total 1450 ml 1125 ml 1350 ml Stool Total 0 ml Chest Tube Drainage Total 0 ml 0 ml 40 ml # Voids 3 # Bowel Movements 0 1 Result Diagram: 02/18/18 0555 02/18/18 0550 Objective Remarks GENERAL: This is a 46-year-old well-developed well-nourished male resting comfortably . Patient up out of bed without difficulty SKIN: Warm and dry. Well healing skin incisions right flank, no evidence of erythema or drainage. Former chest tube site right posterior area with clean dressing HEAD: Atraumatic. Normocephalic. ENT: No nasal bleeding or discharge. Normal saliva. NG in place. NECK: Trachea midline. Airway widely patent. No obstruction. CARDIOVASCULAR: Regular rate and rhythm. S1, S2 normal. No JVD. RESPIRATORY: No accessory muscle use. Clear to auscultation. No adventitious sounds. Right pigtail chest tube to suction GASTROINTESTINAL: Abdomen soft, non-tender, nondistended. No involuntary guarding. Jejunostomy-tube in place, site clean, dry. MUSCULOSKELETAL: Extremities without clubbing, cyanosis, or edema. No obvious deformities. Warm, well perfused. NEUROLOGICAL: Awake and alert. No obvious cranial nerve deficits. Motor grossly normal. Normal speech. Procedures 02/09-right pigtail chest tube 02/12-EGD/ Hemoclip placement for anastomotic leak 02/12: Removal of right pigtail chest tube ,placement of CT-guided right pigtail chest to right pleural fluid loculation Date of Insertion: February 01, 2018 A/P Problem List: (1) Adenocarcinoma of esophagus ICD Code: C15.9 - Malignant neoplasm of esophagus, unspecified Plan: The patient is status post expiratory laparotomy and open proximal gastrectomy with conversion to robotic assisted Romulo-Israel esophagectomy. Patient also underwent omentectomy. Jejunostomy tube placement with chemical pyloroplasty with Botox injection of the pylorus. Tube feedings through jejunostomy tube placed on hold 02/09, J-tube placed to gravity-defer to general surgery. On 02/09 a focal leak was identified at the gastroesophageal anastomosis. The patient underwent an EGD with Hemoclip placement for esophageal anastomotic leak. The patient was placed on lower elemental tube feedings. Advance as per general surgery recommendations. (2) Abdominal pain ICD Code: R10.9 - Unspecified abdominal pain Plan: Patient with uncontrolled postsurgical pain. I will discontinue previous pain regimen and start the patient on morphine extended release 15 mg p.o. every 8 hours, morphine immediate release 15 mg p.o. every 4 hours as needed and continue IV Dilaudid for breakthrough pain. 02/17 the patient still complaining of abdominal pain. Upon review of ED documentation the patient's pain has been elevated and the patient is also requesting IV Dilaudid for breakthrough pain very frequently. I will increase the dose of morphine extended release to 30 mg p.o. every 8 hours and increase the morphine immediate release dose to 30 mg every 4 hours as needed for pain. Continue with Dilaudid IV for breakthrough pain. Start constipation prevention protocol medications to prevent constipation. 02/18 Dc Morphine tablets since patient very nauseous. Continue pain control w IV Dilaudid. (3) Acute hypoxemic respiratory failure ICD Code: J96.01 - Acute respiratory failure with hypoxia Plan: Likely secondary to hospital acquired pneumonia versus aspiration pneumonia with associated right pleural effusion which is likely parapneumonic effusion. Weaned to nasal cannula to maintain saturations greater than equal to 92% 02/08-right chest tube removed 02/09-right pleural effusion 02/09-right pigtail catheter chest tube placement , -20cm Thoracic ultrasound noted multiple septations pleural fluid prior to placement of pigtail catheter Incentive spirometry while awake. 02/10- no thoracentesis performed per IR 10/19 minimal fluid. 02/09- CT angio-no PE, worsening consolidation right upper lobe, stable left lower lobe infiltrate 02/10 chest x-ray-small right apical pneumothorax unchanged Encourage incentive spirometry, aggressive pulmonary toileting 02/12: CT-guided right thoracentesis right pigtail catheter placement Continue IV Zosyn Continue IV fluconazole. Continue supplemental oxygen to keep oxygen saturation more than 92%. We will start the patient on IV Lasix 40 mg IV twice daily 02/17 continue IV Lasix. Will repeat a chest x-ray in a.m. Repeat chest x-ray personally reviewed by me showed mild improved aeration of the right lung compared to the prior study. Appreciate pulmonary recommendations. CT of the chest without contrast as ordered by pulmonology and reviewed by me showed a slight improvement in right pleural effusion. Some loculated air remaining in the right pleural effusion with a small caliber right chest tube present. Some compressive atelectasis and consolidation around the gastric pull-through which is also improved from February 09. No new adenopathy or new left effusion. Follow-up pulmonology recommendations. (4) Hypophosphatemia ICD Code: E83.39 - Other disorders of phosphorus metabolism Status: Resolved Plan: Continue monitor phosphorus levels. Now within normal range. (5) Esophageal anastomotic leak ICD Code: K91.89 - Other postprocedural complications and disorders of digestive system Status: Acute Plan: Management as per general surgery. As stated above the patient is status post EGD with clip/esophageal stent placement. Management as per general surgery. (6) Pleural effusion ICD Code: J90 - Pleural effusion, not elsewhere classified Plan: The patient status post chest tube which was removed on 02/08. Right pleural effusion for which a pigtail catheter was placed. I had consulted but no thoracentesis performed secondary to minimal fluid. Pleural effusion likely secondary to parapneumonic effusion. Continue IV antibiotics. Chest x-ray obtained on 02/10 showed small right apical pneumothorax . Patient underwent CT-guided thoracentesis pigtail catheter placement on 02/12. Repeat chest x-ray on 02/14 does not mention pneumothorax and it shows possible mild improvement in aeration of the right lung. Repeat chest x-ray as above. Follow-up pulmonary recommendations. (7) Pneumothorax ICD Code: J93.9 - Pneumothorax, unspecified Plan: Seems to have resolved. The patient is status post chest tube pigtail catheter insertion. Pulmonology consulted. Continue chest tube. Patient status post chest CT of the chest as described above. Follow pulmonary recommendations. Assessment and Plan DVT prophylaxis: Lovenox subcu resumed on 02/14 as per general surgery. Discharge Planning Continue to monitor in intensive care unit. Management as per primary. Problem Qualifiers (1) Abdominal pain: Qualified Codes: R10.9 - Unspecified abdominal pain (2) Pneumothorax: Qualified Codes: J95.811 - Postprocedural pneumothorax Logan Ellis MD Feb 19, 2018 14:33
[2018-02-19] MEDS: ENOXAPARIN SODIUM 40 MG/0.4 ML SYRINGE SQ SCH (15:29)
[2018-02-19] MEDS: ONDANSETRON ODT 4 MG TAB PO PRN ×2 (17:29)
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
--- NOTE | 2018-02-19 18:52 | HHI.PR ---
Subjective Remarks 47 YOWm with oesophageal ca, pl eff, s/p pig tale pl fluid exudate, culture neg Fluid drainage decreased had CT chest TPA injected in chest tube Objective Vital Signs Vital Signs Date Time Temp Pulse Resp B/P (MAP) Pulse Ox O2 Delivery O2 Flow Rate FiO2 02/19/18 18:00 99.0 90 18 121/81 (94) 100 02/19/18 18:00 90 02/19/18 15:50 16 02/19/18 14:00 79 02/19/18 13:00 81 02/19/18 12:20 96 Nasal Cannula 4.00 02/19/18 12:00 82 02/19/18 12:00 98.7 75 18 111/71 (84) 99 02/19/18 10:00 82 02/19/18 09:00 73 02/19/18 09:00 73 02/19/18 08:00 97.8 75 18 115/78 (90) 99 02/19/18 08:00 75 02/19/18 08:00 75 02/19/18 07:00 100 Nasal Cannula 4.00 02/19/18 07:00 69 02/19/18 07:00 69 02/19/18 06:00 72 02/19/18 06:00 71 02/19/18 05:00 91 02/19/18 04:00 74 02/19/18 04:00 78 02/19/18 04:00 98.7 74 14 117/74 (88) 99 02/19/18 03:00 80 02/19/18 02:00 73 02/19/18 02:00 71 02/19/18 01:00 74 02/19/18 00:00 75 02/19/18 00:00 76 02/19/18 00:00 98.7 75 16 119/70 (86) 100 02/18/18 22:00 86 02/18/18 20:00 98.6 87 18 122/76 (91) 99 02/18/18 20:00 87 02/18/18 19:08 98 Nasal Cannula 4.00 02/18/18 19:00 89 02/18/18 19:00 100 Nasal Cannula 4.00 I/O 02/18/18 02/18/18 02/18/18 02/19/18 02/19/18 02/19/18 07:00 15:00 23:00 07:00 15:00 23:00 Intake Total 880 ml 1309 ml 630 ml 1027 ml Output Total 1450 ml 1125 ml 1390 ml 1200 ml Balance -570 ml 184 ml -760 ml -173 ml Intake Oral 240 ml 50 ml 200 ml IV Total 200 ml 705 ml 200 ml Tube Feeding 380 ml 434 ml 430 ml 577 ml Tube Irrigant 250 ml Other 60 ml 120 ml Output Urine Total 1450 ml 1125 ml 1350 ml 1200 ml Stool Total 0 ml Chest Tube Drainage Total 0 ml 0 ml 40 ml # Voids 3 5 # Bowel Movements 0 1 1 Result Diagram: 02/18/18 0555 02/18/18 0550 Objective Remarks GENERAL: MBMNWM,NAD SKIN: Warm and dry. HEAD: Normocephalic. EYES: No scleral icterus. No injection or drainage. NECK: Supple, trachea midline. No JVD or lymphadenopathy. CARDIOVASCULAR: Regular rate and rhythm without murmurs, gallops, or rubs. RESPIRATORY: Breath sounds equal bilaterally. No accessory muscle use. Right chest tube draining GASTROINTESTINAL: Abdomen soft, non-tender, nondistended Abd wound dressed. MUSCULOSKELETAL: No cyanosis, or edema. BACK: Nontender without obvious deformity. No CVA tenderness. A/P Assessment and Plan 1. Right pleural effusion, status post pigtail catheter placement. 2. Esophageal carcinoma, status post gastrectomy, esophagectomy. 3. Hypertension. PLAN: Cont Abx per ID Supplement 02 Chest tube to suction Tube feeding Mele Weaver MD Feb 19, 2018 18:52
[2018-02-20] VITALS (13 sets, daily range): BP systolic 115–129; BP diastolic 67–85; PULSE 70–92; RESP 16–24; TEMP 97.8–98.7; O2SAT 92–100
[2018-02-20] MEDS: HYDROmorphone HCL PF 2 MG/ML VIAL IV PRN ×6 (01:04→22:00)
[2018-02-20] MEDS: MORPHINE SULFATE 15 MG CONTROLLED RELEASE TAB PO SCH ×3 (01:44→17:15)
[2018-02-20] MEDS: PCA - TOTAL MG MORPHINE DELIVERED PER SHIFT SCH ×3 (01:44→21:01)
[2018-02-20] MEDS: AMPICILLIN-SULBACTAM INJ 1,500 MG in SODIUM CHLORIDE 0.9% INJ 100 ML IV SCH ×3 (05:40→17:15)
[2018-02-20] MEDS: INSULIN ASPART SUPPLEMENTAL SCALE SQ SCH ×4 (08:00→20:48)
[2018-02-20] MEDS: MAGNESIUM HYDROXIDE SUSP 30 ML CUP PO SCH ×2 (09:00→11:40)
[2018-02-20] MEDS: IRON SUCROSE INJ 100 MG in SODIUM CHLORIDE 0.9% INJ 100 ML IV SCH (09:47)
[2018-02-20] MEDS: GABAPENTIN 400 MG CAP J-TUBE SCH (09:47)
[2018-02-20] MEDS: DOCUSATE SODIUM 50 MG/SENNA 8.6 MG TAB PO SCH ×2 (09:48→20:48)
[2018-02-20] MEDS: PANTOPRAZOLE SOD 40 MG DELAYED RELEASE TAB PO SCH ×2 (09:48→20:48)
[2018-02-20] MEDS: FUROSEMIDE 40 MG/4 ML VIAL IV PUSH SCH ×2 (09:48→17:15)
[2018-02-20] MEDS: SODIUM CHLORIDE 0.9% FLUSH 10 ML FLUSH IV FLUSH SCH ×2 (09:48→20:48)
--- NOTE | 2018-02-20 10:35 | HHI.PR ---
Subjective Remarks COMPLAINS OF SOME PAIN NOW DW RN AND PT TRYING TO TAKE IV PAIN MEDS FOR PAIN STILL AM LABS Objective Vitals Vital Signs Date Time Temp Pulse Resp B/P (MAP) Pulse Ox O2 Delivery O2 Flow Rate FiO2 02/20/18 06:07 16 02/20/18 06:00 71 02/20/18 04:00 98.7 75 17 122/78 (93) 100 02/20/18 04:00 72 02/20/18 02:00 72 02/20/18 00:00 82 02/20/18 00:00 97.8 78 16 116/75 (89) 98 02/19/18 22:00 81 02/19/18 21:40 98 Nasal Cannula 3.00 02/19/18 20:00 98.8 87 18 118/78 (91) 97 02/19/18 20:00 87 02/19/18 19:00 97 Nasal Cannula 3.00 02/19/18 18:45 96 Nasal Cannula 3.00 02/19/18 18:00 99.0 90 18 121/81 (94) 100 02/19/18 18:00 90 02/19/18 14:00 79 02/19/18 13:00 81 02/19/18 12:20 96 Nasal Cannula 4.00 02/19/18 12:00 82 02/19/18 12:00 98.7 75 18 111/71 (84) 99 I/O 02/19/18 02/19/18 02/19/18 02/20/18 02/20/18 02/20/18 07:00 15:00 23:00 07:00 15:00 23:00 Intake Total 630 ml 1027 ml 600 ml Output Total 1390 ml 1200 ml 1020 ml Balance -760 ml -173 ml -420 ml Intake Oral 200 ml IV Total 200 ml 100 ml Tube Feeding 430 ml 577 ml 500 ml Tube Irrigant 250 ml Output Urine Total 1350 ml 1200 ml 1000 ml Chest Tube Drainage Total 40 ml 20 ml # Voids 5 4 # Bowel Movements 1 1 0 Result Diagram: 02/18/18 0555 02/18/18 0550 Other Results Laboratory Tests Test 02/17/18 14:24 02/18/18 05:50 02/18/18 05:55 White Blood Count 11.5 TH/MM3 11.3 TH/MM3 Red Blood Count 4.13 MIL/MM3 4.48 MIL/MM3 Hemoglobin 11.3 GM/DL 12.2 GM/DL Hematocrit 34.1 % 36.8 % Mean Corpuscular Volume 82.4 FL 82.1 FL Mean Corpuscular Hemoglobin 27.5 PG 27.2 PG Mean Corpuscular Hemoglobin Concent 33.3 % 33.2 % Red Cell Distribution Width 14.2 % 14.1 % Platelet Count 668 TH/MM3 735 TH/MM3 Mean Platelet Volume 8.2 FL 8.0 FL Blood Urea Nitrogen 8 MG/DL 13 MG/DL Creatinine 0.69 MG/DL 0.81 MG/DL Random Glucose 99 MG/DL 111 MG/DL Calcium Level 8.5 MG/DL 8.8 MG/DL Sodium Level 138 MEQ/L 138 MEQ/L Potassium Level 3.6 MEQ/L 3.5 MEQ/L Chloride Level 100 MEQ/L 99 MEQ/L Carbon Dioxide Level 26.5 MEQ/L 28.1 MEQ/L Anion Gap 12 MEQ/L 11 MEQ/L Estimat Glomerular Filtration Rate 122 ML/MIN 101 ML/MIN Imaging Last Impressions Chest X-Ray 02/18/18 06 Signed Impressions: CONCLUSION: Mild improved aeration of the right lung compared to the prior study. Otherwise , no other significant changes. Chest CT 02/18/18 Signed Impressions: CONCLUSION: 1. Status post distal esophagectomy with gastric pull-through. A stent lies wi thin the gastric pull-through in the lower right chest. 2. Slight improvement in right pleural effusion since February 09. There is some lo culated air remaining within the right pleural effusion with a small caliber ri ght chest tube present. There is some compressive atelectasis and consolidation around the gastric pull-through which is improved from February 09. 3. No new adenopathy or new left effusion. Stable appearance of the upper abdo men. GI Procedure 02/12/18 Signed Impressions: CONCLUSION: 1. Fluoroscopic image demonstrates interval esophageal stent placement, as abo ve. Chest Tube Insertion 02/12/18 Signed Impressions: CONCLUSION: 1. Uncomplicated chest tube placement as above. Abdomen MRI 02/11/18 1114 Signed Impressions: CONCLUSION: 1. No definite metastatic disease to the liver. The area in the left lobe seen on previous pulmonary angiogram appears benign. 2. Hepatic cysts. Abdomen X-Ray 5/28/18 0000 Signed Impressions: CONCLUSION: Contrast within large bowel. Mildly dilated small bowel loops CT Angiography 02/09/18 0000 Signed Impressions: CONCLUSION: 1. No pulmonary emboli. 2. Worsening consolidation involving the right upper lobe with some cavitation and stable left lower lobe infiltrate without cavitation. Infectious etiology is suspected. 3. Tiny right effusion with right thoracostomy tube slightly more cephalad in the hemithorax. 4. Prior esophagectomy and gastric pull-through. 5. Partial visualization of a 2.7 cm low-density lesion involving the left lob e of the liver not clearly seen on the prior PET/CT. I cannot exclude a solitar y metastasis. Objective Remarks GENERAL: AWAKE ALERT AND ORIENTED X3 TALKATIVE AND COOPERATIVE SKIN: Warm and dry. HEAD: Atraumatic. Normocephalic. EYES: Pupils equal and round. No scleral icterus. No injection or drainage. EOMI ENT: No nasal bleeding or discharge. Mucous membranes pink and moist. TONGUE IS MIDLINE NECK: Trachea midline. No JVD. CARDIOVASCULAR: Regular rate and rhythm. S1, S2, NO S3 OR S4 RESPIRATORY: No accessory muscle use. Clear to auscultation. Breath sounds equal bilaterally. CHEST TUBE ON RIGHT- GASTROINTESTINAL: Abdomen soft, non-tender, nondistended. Hepatic and splenic margins not palpable. HYPOACTIVE- MIDLINE INCISION MUSCULOSKELETAL: Extremities without clubbing, cyanosis, or edema. No obvious deformities. NEUROLOGICAL: Awake and alert. No obvious cranial nerve deficits. Motor grossly within normal limits. Five out of 5 muscle strength in the arms and legs. Normal speech. PSYCHIATRIC: Appropriate mood and affect; insight and judgment normal. Procedures 02/09-right pigtail chest tube 02/12-EGD/ Hemoclip placement for anastomotic leak 02/12: Removal of right pigtail chest tube ,placement of CT-guided right pigtail chest to right pleural fluid loculation Medications and IVs Current Medications Lactated Ringer's 1,000 ml @ 30 mls/hr Q24H PRN IV SEE LABEL COMMENTS Last administered on 02/01/18at 06:35; Start 02/01/18 at 06:15; Stop 02/04/18 at 06:14 ; Status DC Sodium Chloride 500 ml @ 30 mls/hr [id number] PRN IV SEE LABEL COMMENTS; Start at 06:15; Stop 02/04/18 at 06:14; Status DC Metoprolol Tartrate (Lopressor) 25 mg FORESTER SILVICULTURE PRN PO SEE LABEL COMMENTS; Start 02/01/18 at 06:15; Stop 02/04/18 at 06:14; Status DC Povidone Iodine (Betadine 5% Antisepsis Kit) 1 applic FORESTER SILVICULTURE PRN EACH NARE SEE LABEL COMMENTS Last administered on 02/01/18at 06:38; Start 02/01/18 at 06:15 ; Stop 02/04/18 at 06:14; Status DC Chlorhexidine Gluconate (Chlorhexidine 2% Cloth) 3 pack FORESTER SILVICULTURE PRN TOPICAL SEE LABEL COMMENTS Last administered on 02/01/18at 06:05; Start 02/01/18 at 06:15 ; Stop 02/04/18 at 06:14; Status DC Cefazolin/Sodium Chloride 100 ml @ 200 mls/hr FORESTER SILVICULTURE IV Last administered on 02/01/18at 08:30; Start 02/01/18 at 06:15; Stop 02/02/18 at 06:14; Status DC Acetaminophen 100 ml @ As Directed STK-MED ONCE IV ; Start 02/01/18 at 07:20; Stop 02/01/18 at 07:21; Status DC Sugammadex Sodium (Bridion Inj) 400 mg STK-MED ONCE IV PUSH ; Start 02/01/18 at 07:21; Stop 02/01/18 at 07:22; Status DC Fentanyl Citrate (fentaNYL INJ) 250 mcg STK-MED ONCE .ROUTE ; Start 02/01/18 at 07:21; Stop 02/01/18 at 07:22; Status DC Cefazolin Sodium/ Dextrose 50 ml @ As Directed STK-MED ONCE .ROUTE ; Start 02/01 at 07:26; Stop 02/01/18 at 07:27; Status DC Etomidate (Amidate Inj) 20 mg STK-MED ONCE .ROUTE ; Start 02/01/18 at 07:36; Stop 02/01/18 at 07:37; Status DC Onabotulinumtoxina (Botox Inj) 100 units UNSCH .XX Last administered on at 09:23; Start 02/01/18 at 08:15 Cefazolin Sodium (Ancef Inj) 2,000 mg STK-MED ONCE .ROUTE ; Start 02/01/18 at 12 :44; Stop 02/01/18 at 12:45; Status DC Vecuronium [place] (Norcuron 20 Mg Inj) 20 mg STK-MED ONCE .ROUTE ; Start at 12:48; Stop 02/01/18 at 12:49; Status DC Bupivacaine Liposome (Exparel Pf 1.3% Inj) 20 ml STK-MED ONCE .ROUTE ; Start at 15:06; Stop 02/01/18 at 15:07; Status DC Potassium Chloride/Dextrose/ Sod Cl 1,000 ml @ 75 mls/hr [id number] IV Last administered on 02/17/18at 07:42; Start 02/01/18 at 16:00; Stop 02/17/18 at 09:06; Status DC Sodium Chloride (NS Flush) 2 ml UNSCH PRN IV FLUSH FLUSH AFTER USING IV ACCESS Last administered on 02/02/18at 19:54; Start 02/01/18 at 15:15 Sodium Chloride (NS Flush) 2 ml BID IV FLUSH Last administered on 02/20/18at 09: 48; Start 02/01/18 at 21:00 Ondansetron HCl (Zofran Odt) 4 mg Q6H PRN PO NAUSEA OR VOMITING Last administered on 02/19/18 17:29; Start 02/01/18 at 15:45; Status Future Hold Diphenhydramine HCl (Benadryl Inj) 25 mg Q6H PRN IV PUSH ITCHING Last administered on 02/13/18at 20:59; Start 02/01/18 at 15:15 Benzocaine (Hurricaine 20% Oral Spr) 1 spray UNSCH X1 PRN MT SEE LABEL COMMENTS ; Start 02/01/18 at 15:15; Stop 02/02/18 at 15:14; Status DC Cefazolin Sodium 1000 mg/Sodium Chloride 100 ml @ 200 mls/hr Q8H IV ; Start at 16:30; Stop 02/02/18 at 08:59; Status Cancel Metronidazole 100 ml @ 200 mls/hr Q8H IV Last administered on 02/02/18at 09:03 ; Start 02/01/18 at 17:00; Stop 02/02/18 at 09:29; Status DC Miscellaneous Information (Misc Post-op Orders (for Pharmacy)) STAT ONCE XX ; Start 02/01/18 at 15:15; Stop 02/01/18 at 15:42; Status DC Acetaminophen 100 ml @ 400 mls/hr Q6H IV Last administered on 02/03/18at 09:27 ; Start 02/01/18 at 16:00; Stop 02/03/18 at 10:14; Status DC Naloxone HCl (Narcan Inj) 0.4 mg UNSCH PRN IV PUSH SEE LABEL COMMENTS; Start at 15:15; Stop 02/08/18 at 15:34; Status DC Enoxaparin Sodium (Lovenox Inj) 40 mg Q24H SQ Last administered on 02/19/18at 15: 29; Start 02/02/18 at 15:00; Status Future hold Naloxone HCl (Narcan Inj) 0.4 mg UNSCH PRN IV PUSH RESPIRATORY RATE LESS THAN 10; Start 02/01/18 at 15:15 Morphine Sulfate (Morphine 1 Mg/ ml DISK OPERATOR) 30 mg UNSCH IV Last administered on at 01:28; Start 02/01/18 at 15:15; Stop 02/05/18 at 11:36; Status DC DISK OPERATOR Dosage Infused (Pha) 1 Q8HR .XX Last administered on 02/05/18at 06:00; Start 02/01/18 at 15:15 Cefazolin Sodium (Ancef Inj) 2,000 mg STK-MED ONCE .ROUTE ; Start 02/01/18 at 15 :34; Stop 02/01/18 at 15:35; Status DC Fentanyl Citrate (fentaNYL INJ) 200 mcg STK-MED ONCE .ROUTE ; Start 02/01/18 at 15:37; Stop 02/01/18 at 15:38; Status DC Fentanyl Citrate (fentaNYL INJ) 200 mcg STK-MED ONCE .ROUTE ; Start 02/01/18 at 15:38; Stop 02/01/18 at 15:39; Status DC Midazolam HCl (Versed Inj) 2 mg STK-MED ONCE .ROUTE ; Start 02/01/18 at 15:38; Stop 02/01/18 at 15:39; Status DC Morphine Sulfate (Morphine Inj) 4 mg STK-MED ONCE .ROUTE Last administered on at 16:02; Start 02/01/18 at 16:02; Stop 02/01/18 at 16:03; Status DC Cefazolin Sodium 1000 mg/Sodium Chloride 100 ml @ 200 mls/hr Q8H IV Last administered on 02/02/18at 11:06; Start 02/01/18 at 20:00; Stop 02/02/18 at 12:29 ; Status DC Miscellaneous Information ([facility] ALL NURSING DEPARTME... UNSCH PRN .XX SEE LABEL COMMENTS; Start 02/01/18 at 17:00; Stop 02/02/18 at 16: 59; Status DC Promethazine HCl (Phenergan Inj) 12.5 mg Q6H PRN OTHER NAUSEA Last administered on 02/08/18at 12:13; Start 02/01/18 at 22:30 Ketorolac Tromethamine (Toradol Inj) 30 mg ONCE ONCE IV PUSH ; Start 02/01/18 at 22:30; Stop 02/01/18 at 22:31; Status DC Calcium Gluconate 1 gm/Sodium Chloride 110 ml @ 110 mls/hr ONCE ONCE IV Last administered on 02/02/18at 16:21; Start 02/02/18 at 15:30; Stop 02/02/18 at 16:29 ; Status DC Sodium Phosphate 30 mmol/Sodium Chloride 260 ml @ 43.333 mls/ hr ONCE ONCE IV Last administered on 02/03/18at 18:27; Start 02/03/18 at 18:00; Stop 02/03/18 at 23:59; Status DC Magnesium Sulfate/ Dextrose 100 ml @ 100 mls/hr ONCE ONCE IV Last administered on 02/03/18at 16:45; Start 02/03/18 at 17:00; Stop 02/03/18 at 17:59 ; Status DC Potassium Phosphate 30 mmol/ Sodium Chloride 260 ml @ 43.333 mls/ hr ONCE ONCE IV Last administered on 02/04/18at 11:05; Start 02/04/18 at 12:00; Stop at 17:59; Status DC Labetalol HCl (Trandate Inj) 20 mg Q2H PRN IV PUSH SBP > 160 Last administered on 02/14/18at 23:44; Start 02/04/18 at 11:30; Stop 02/15/18 at 13:41; Status DC Parenteral Electrolytes 1,000 ml @ As Directed STK-MED ONCE IV ; Start at 12:00; Stop 02/04/18 at 13:04; Status DC Cefazolin Sodium (Ancef Inj) 2,000 mg STK-MED ONCE IV ; Start 02/01/18 at 12:00 ; Stop 02/04/18 at 13:04; Status DC Propofol (Diprivan 200 Mg/20 ml Inj) 200 mg STK-MED ONCE IV ; Start 02/01/18 at 12:00; Stop 02/04/18 at 13:04; Status DC Sodium Chloride (Sodium Chloride 0.9% Inj) 20 ml STK-MED ONCE IV ; Start at 12:00; Stop 02/04/18 at 13:04; Status DC Lidocaine HCl (Xylocaine-Mpf 1% Inj) 5 ml STK-MED ONCE OTHER ; Start 02/01/18 at 12:00; Stop 02/04/18 at 13:04; Status DC Rocuronium [place] (Zemuron Inj) 50 mg STK-MED ONCE IV PUSH ; Start 02/01/18 at 12:00; Stop 02/04/18 at 13:04; Status DC Glycopyrrolate (Robinul Inj) 1 mg STK-MED ONCE IV PUSH ; Start 02/01/18 at 12:00 ; Stop 02/04/18 at 13:04; Status DC Phenylephrine HCl (Neosynephrine/ NS 1000 Mcg/10ml Syr) 2,000 mcg STK-MED ONCE IV ; Start 02/01/18 at 12:00; Stop 02/04/18 at 13:04; Status DC Ephedrine Sulfate (ePHEDrine/NS 25 MG/5 ML SYR) 50 mg STK-MED ONCE IV ; Start at 12:00; Stop 02/04/18 at 13:04; Status DC Metoprolol Tartrate (Lopressor Inj) 5 mg STK-MED ONCE IV ; Start 02/01/18 at 12: 00; Stop 02/04/18 at 13:04; Status DC Esmolol HCl (Brevibloc Bolus Inj) 100 mg STK-MED ONCE IV ; Start 02/01/18 at 12: 00; Stop 02/04/18 at 13:04; Status DC Vecuronium [place] (Norcuron 20 Mg Inj) 20 mg STK-MED ONCE IV ; Start 02/01/18 at 12:00; Stop 02/04/18 at 13:04; Status DC Dexamethasone Sodium Phosphate (Decadron Inj) 8 mg STK-MED ONCE IV ; Start 02/01 at 12:00; Stop 02/04/18 at 13:04; Status DC Ondansetron HCl (Zofran Inj) 4 mg STK-MED ONCE IV PUSH ; Start 02/01/18 at 12:00 ; Stop 02/04/18 at 13:04; Status DC Hydromorphone HCl (Dilaudid Pf Inj) 1 mg Q4H PRN IV PUSH pain 6-10 Last administered on 02/09/18at 09:58; Start 02/05/18 at 11:45; Stop 02/09/18 at 11:15 ; Status DC Acetaminophen/ Hydrocodone Bitart (Hycet 325-7.5 Mg Liq) 15 ml Q4H PRN PO pain 1-5 Last administered on 02/12/18at 18:34; Start 02/05/18 at 11:45; Stop 02/15/18 at 15:30; Status DC Diatrizoate Meglum/ Diatrizoate Sod ( Gastroview Liq) 60 ml STK-MED ONCE PO Last administered on 02/07/18at 11:59; Start 02/07/18 at 11:58; Stop 02/07/18 at 12:31; Status DC Magnesium Hydroxide (Milk Of Magnesia Liq) 30 ml ONCE ONCE J-TUBE Last administered on 02/08/18at 15:45; Start 02/08/18 at 15:45; Stop 02/08/18 at 15:46 ; Status DC Hydromorphone HCl (Dilaudid Pf Inj) 1 mg Q1H PRN IV PUSH pain 6-10 Last administered on 02/11/18at 09:35; Start 02/09/18 at 11:30; Stop 02/11/18 at 10:36 ; Status DC Lidocaine HCl (Xylocaine 1% Inj (50 ml)) 50 ml STK-MED ONCE .ROUTE Last administered on 02/09/18at 13:23; Start 02/09/18 at 13:23; Stop 02/09/18 at 13:24 ; Status DC Midazolam HCl (Versed Inj) 2 mg ONCE ONCE IV PUSH ; Start 02/09/18 at 13:30; Stop 02/09/18 at 13:31; Status DC Hydromorphone HCl (Dilaudid Pf Inj) 2 mg ONCE ONCE IV PUSH Last administered on 02/09/18at 13:30; Start 02/09/18 at 13:30; Stop 02/09/18 at 13:31; Status DC Midazolam HCl (Versed Inj) 5 mg STK-MED ONCE .ROUTE Last administered on at 13:28; Start 02/09/18 at 13:28; Stop 02/09/18 at 13:29; Status DC Insulin Aspart (NovoLOG SUPPLEMENTAL SCALE) 1 ACHS SLIDING SCALE SQ Last administered on 02/19/18at 12:00; Start 02/09/18 at 17:00 Dextrose (D50w (Vial) Inj) 50 ml UNSCH PRN IV PUSH HYPOGLYCEMIA-SEE COMMENTS; Start 02/09/18 at 14:45 Glucagon (Glucagon Inj) 1 mg UNSCH PRN OTHER HYPOGLYCEMIA-SEE COMMENTS; Start 02/09/18 at 14:45 Piperacillin Sod/ Tazobactam Sod 100 ml @ 200 mls/hr Q6H IV Last administered on 02/14/18at 10:09; Start 02/09/18 at 17:00; Stop 02/14/18 at 11:23; Status DC Linezolid 300 ml @ 300 mls/hr Q12H IV Last administered on 02/13/18at 17:19; Start 02/09/18 at 17:00; Stop 02/13/18 at 18:49; Status DC Iohexol (Omnipaque 350 Inj) 75 ml STK-MED ONCE IVCONTRAST Last administered on 02/09/18at 16:30; Start 02/09/18 at 16:30; Stop 02/09/18 at 16:31; Status DC Diatrizoate Meglum/ Diatrizoate Sod ( Gastroview Liq) 120 ml STK-MED ONCE PO Last administered on 02/09/18at 17:33; Start 02/09/18 at 17:33; Stop 02/09/18 at 17:34; Status DC Fluconazole/ Sodium Chloride 200 ml @ 100 mls/hr NOW ONCE IV Last administered on 02/09/18at 21:31; Start 02/09/18 at 21:00; Stop 02/09/18 at 22:59 ; Status DC Fluconazole/ Sodium Chloride 100 ml @ 100 mls/hr DAILY@2100 IV Last administered on 02/10/18at 20:53; Start 02/10/18 at 21:00; Stop 02/11/18 at 11:09 ; Status DC Midazolam HCl (Versed Inj) 2 mg ONCE ONCE IV PUSH ; Start 02/09/18 at 15:30; Stop 02/09/18 at 21:07; Status DC Hydromorphone HCl (Dilaudid Pf Inj) 1.5 mg ONCE ONCE IV PUSH ; Start 02/09/18 at 15:30; Stop 02/09/18 at 21:07; Status DC Miscellaneous Information ([facility] Patient in critical care unit? Ass... [id number] .XX ; Start 02/09/18 at 21:45 Chlorhexidine Gluconate (Chlorhexidine 2% Cloth) 3 pack DAILY@04 TOPICAL Last administered on 02/14/18at 04:00; Start 02/10/18 at 04:00; Stop 02/14/18 at 04:01 ; Status DC Chlorhexidine Gluconate (Chlorhexidine 2% Cloth) 3 pack UNSCH PRN TOPICAL HYGIENIC CARE; Start 02/09/18 at 21:45; Stop 02/14/18 at 21:40; Status DC Albuterol/ Ipratropium (Duoneb Neb) 1 ampule Q4HR NEB PRN NEB WHEEZING Last administered on 02/12/18at 16:29; Start 02/10/18 at 11:00 Albuterol Sulfate (*ALBUTEROL NEB PERIprocedure ONLY) 2.5 mg STK-MED ONCE NEB Last administered on 02/10/18at 15:09; Start 02/10/18 at 15:09; Stop 02/10/18 at 15:10; Status DC Midazolam HCl (Versed Inj) 4 mg STK-MED ONCE .ROUTE ; Start 02/10/18 at 15:10; Stop 02/10/18 at 15:11; Status DC Meperidine HCl (*DEMEROL INJ PERIprocedural ONLY) 25 mg STK-MED ONCE .ROUTE Last administered on 02/10/18at 15:17; Start 02/10/18 at 15:17; Stop 02/10/18 at 15:18; Status DC Miscellaneous Information ([facility] ALL NURSING DEPARTME... UNSCH PRN .XX SEE LABEL COMMENTS; Start 02/10/18 at 15:09; Stop 02/11/18 at 15: 08; Status DC Labetalol HCl (*TRANDATE INJ PERIprocedural Use ONLY) 100 mg STK-MED ONCE .ROUTE Last administered on 02/10/18at 15:30; Start 02/10/18 at 15:30; Stop at 15:31; Status DC Hydromorphone HCl (Dilaudid Pf Inj) 2 mg Q1H IV ; Start 02/11/18 at 11:00; Status Cancel Hydromorphone HCl (Dilaudid Pf Inj) 2 mg Q1H PRN IV PAIN SCALE 8 TO 10 Last administered on 02/15/18at 14:26; Start 02/11/18 at 10:45; Stop 02/15/18 at 15:29; Status DC Micafungin Sodium 150 mg/Sodium Chloride 100 ml @ 100 mls/hr Q24H IV Last administered on 02/13/18at 12:59; Start 02/11/18 at 13:00; Stop 02/14/18 at 11:23 ; Status DC Bisacodyl (Dulcolax Supp) 10 mg NOW ONCE RECTAL Last administered on at 14:31; Start 02/11/18 at 14:00; Stop 02/11/18 at 14:01; Status DC Gadodiamide (Omniscan Pf Inj) 16 ml STK-MED ONCE IVCONTRAST Last administered on 02/11/18at 13:55; Start 02/11/18 at 13:55; Stop 02/11/18 at 13:56; Status DC Ketamine HCl (Ketalar Inj) 500 mg STK-MED ONCE .ROUTE ; Start 02/12/18 at 09:51 ; Stop 02/12/18 at 09:52; Status DC Midazolam HCl (Versed Inj) 2 mg STK-MED ONCE .ROUTE Last administered on at 11:04; Start 02/12/18 at 11:04; Stop 02/12/18 at 11:05; Status DC Morphine Sulfate (*morphine INJ PERIprocedure ONLY) 4 mg STK-MED ONCE .ROUTE ; Start 02/12/18 at 11:07; Stop 02/12/18 at 11:08; Status DC Lidocaine HCl (Xylocaine-Mpf 1% Inj) 5 ml STK-MED ONCE OTHER ; Start 02/10/18 at 12:00; Stop 02/12/18 at 11:11; Status DC Succinylcholine Chloride (Quelicin Inj) 100 mg STK-MED ONCE IV PUSH ; Start at 12:00; Stop 02/12/18 at 11:11; Status DC Ondansetron HCl (Zofran Inj) 4 mg STK-MED ONCE IV ; Start 02/10/18 at 12:00; Stop 02/12/18 at 11:11; Status DC Propofol (Diprivan 200 Mg/20 ml Inj) 400 mg STK-MED ONCE IV ; Start 02/10/18 at 12:00; Stop 02/12/18 at 11:11; Status DC Albuterol Sulfate (*ALBUTEROL NEB PERIprocedure ONLY) 2.5 mg STK-MED ONCE NEB ; Start 02/12/18 at 11:33; Stop 02/12/18 at 11:34; Status DC Miscellaneous Information ([facility] [place] ALL NURSING DEPARTME... UNSCH PRN .XX SEE LABEL COMMENTS; Start 02/12/18 at 10:55; Stop 02/13/18 at 10: 54; Status DC Fentanyl Citrate (fentaNYL INJ) 100 mcg STK-MED ONCE .ROUTE Last administered on 02/12/18at 15:16; Start 02/12/18 at 15:16; Stop 02/12/18 at 15:17; Status DC Midazolam HCl (Versed Inj) 2 mg STK-MED ONCE .ROUTE Last administered on at 15:16; Start 02/12/18 at 15:16; Stop 02/12/18 at 15:17; Status DC Lidocaine HCl (Xylocaine 1% Inj) 10 ml STK-MED ONCE SQ Last administered on at 16:24; Start 02/12/18 at 16:21; Stop 02/12/18 at 16:23; Status DC Pantoprazole Sodium (Protonix) 40 mg Q12HR PO Last administered on 02/20/18at 09: 48; Start 02/13/18 at 21:00 Gabapentin (Neurontin) 800 mg DAILY PO Last administered on 02/15/18at 09:38; Start 02/14/18 at 09:00; Stop 02/15/18 at 10:18; Status DC Labetalol HCl (Trandate) 100 mg Q12HR PO Last administered on 02/15/18at 09:38; Start 02/14/18 at 09:00; Stop 02/15/18 at 13:41; Status DC Lidocaine HCl (Xylocaine-Mpf 1% Inj) 5 ml STK-MED ONCE OTHER ; Start 02/12/18 at 12:00; Stop 02/14/18 at 09:10; Status DC Rocuronium [place] (Zemuron Inj) 50 mg STK-MED ONCE IV PUSH ; Start 02/12/18 at 12:00; Stop 02/14/18 at 09:10; Status DC Dexamethasone Sodium Phosphate (Decadron Inj) 4 mg STK-MED ONCE IV ; Start 02/12 at 12:00; Stop 02/14/18 at 09:10; Status DC Ondansetron HCl (Zofran Inj) 4 mg STK-MED ONCE IV ; Start 02/12/18 at 12:00; Stop 02/14/18 at 09:10; Status DC Labetalol HCl (Trandate Inj) 100 mg STK-MED ONCE IV ; Start 02/12/18 at 12:00; Stop 02/14/18 at 09:10; Status DC Bisacodyl (Dulcolax Supp) 10 mg ONCE ONCE RECTAL Last administered on at 10:16; Start 02/14/18 at 10:00; Stop 02/14/18 at 10:05; Status DC Magnesium Hydroxide (Milk Of Magnesia Liq) 30 ml ONCE ONCE J-TUBE Last administered on 02/14/18at 10:08; Start 02/14/18 at 10:00; Stop 02/14/18 at 10:05 ; Status DC Fluconazole/ Sodium Chloride 50 ml @ 50 mls/hr Q24H IV Last administered on 02/19at 13:08; Start 02/14/18 at 13:00 Ampicillin Sodium/ Sulbactam Sodium 1500 mg/Sodium Chloride 100 ml @ 200 mls/ hr Q6H IV Last administered on 02/20/18at 05:40; Start 02/14/18 at 12:00 Gabapentin (Neurontin) 800 mg DAILY J-TUBE Last administered on 02/20/18at 09:47 ; Start 02/16/18 at 09:00 Labetalol HCl (Trandate) 200 mg Q12HR PO Last administered on 02/19/18at 20:40; Start 02/15/18 at 21:00 Hydralazine HCl (Apresoline Inj) 20 mg Q4H PRN IV PUSH SBP>160, DBP>90; Start 02/15/18 at 13:45 Hydromorphone HCl (Dilaudid Pf Inj) 1 mg Q3HR PRN IV PAIN SCALE 8 TO 10 Last administered on 02/20/18at 10:12; Start 02/15/18 at 15:30 Oxycodone/ Acetaminophen (Percocet 7.5-325 Mg) 1 tab Q4H PRN PO PAIN GREATER THAN 5 Last administered on 02/16/18at 01:41; Start 02/15/18 at 15:30; Stop at 09:57; Status DC Morphine Sulfate (Oramorph Sr) 15 mg Q8H PO Last administered on 02/17/18at 02:29 ; Start 02/16/18 at 11:00; Stop 02/17/18 at 09:06; Status DC Morphine Sulfate (Msir) 15 mg Q4H PRN PO PAIN SCALE 1 TO 7 Last administered on 02/16/18at 15:08; Start 02/16/18 at 10:00; Stop 02/17/18 at 09:07; Status DC Furosemide (Lasix Inj) 40 mg BID@,18 IV PUSH Last administered on 02/20/18at 09 :48; Start 02/16/18 at 18:00 Iron Dextran (Infed Inj) 100 mg DAILY IV PUSH ; Start 02/17/18 at 11:00; Status Cancel Morphine Sulfate (Oramorph Sr) 30 mg Q8H PO Last administered on 02/18/18at 02:17 ; Start 02/17/18 at 11:00 Morphine Sulfate (Msir) 30 mg Q4H PRN PO PAIN SCALE 1 TO 7; Start 02/17/18 at 09 :15 Iron Sucrose 100 mg/Sodium Chloride 105 ml @ 210 mls/hr Q24H IV Last administered on 02/20/18 09:47; Start 02/17/18 at 13:00 Senna/Docusate Sodium (Erna-Colace) 1 tab BID PO Last administered on 02/20/18 09:48; Start 02/17/18 at 12:00 Magnesium Hydroxide (Milk Of Magnesia Liq) 30 ml Q12H PRN PO Mild constipation ; Start 02/17/18 at 11:45 Sennosides (Senokot) 17.2 mg Q12H PRN PO Moderate constipation; Start 02/17/18 at 11:45 Bisacodyl (Dulcolax Supp) 10 mg DAILY PRN RECTAL SEVERE CONSITIPATION; Start at 11:45 Lactulose (Lactulose Liq) 30 ml DAILY PRN PO SEVERE CONSITIPATION; Start at 11:45 Ondansetron HCl (Zofran Odt) 4 mg ONCE ONCE PO Last administered on 02/18/18 11:57; Start 02/18/18 at 11:45; Stop 02/18/18 at 11:49; Status DC Ondansetron HCl (Zofran Odt) 4 mg Q4H PRN PO NAUSEA OR VOMITING Last administered on 02/19/18 17:29; Start 02/18/18 at 11:45 Magnesium Hydroxide (Milk Of Magnesia Liq) 30 ml DAILY PO Last administered on 02/18/18at 14:40; Start 02/18/18 at 14:00 Iohexol (Omnipaque 350 Inj) 75 ml STK-MED ONCE IVCONTRAST Last administered on 02/18/18at 23:34; Start 02/18/18 at 23:34; Stop 02/18/18 at 23:35; Status DC Alteplase, Recombinant (Cathflo Activase Inj) 6 mg STK-MED ONCE I-PLEURAL Last administered on 02/19/18at 14:00; Start 02/19/18 at 14:15; Stop 02/19/18 at 14:16; Status DC Date of Insertion: February 01, 2018 A/P Problem List: (1) Adenocarcinoma of esophagus ICD Code: C15.9 - Malignant neoplasm of esophagus, unspecified Plan: The patient is status post expiratory laparotomy and open proximal gastrectomy with conversion to robotic assisted [place] esophagectomy. Patient also underwent omentectomy. Jejunostomy tube placement with chemical pyloroplasty with Botox injection of the pylorus. Tube feedings through jejunostomy tube placed on hold 02/09, J-tube placed to gravity-defer to general surgery. On 02/09 a focal leak was identified at the gastroesophageal anastomosis. The patient underwent an EGD with Hemoclip placement for esophageal anastomotic leak. The patient was placed on lower elemental tube feedings. Advance as per general surgery recommendations. (2) Abdominal pain ICD Code: R10.9 - Unspecified abdominal pain Plan: Patient with uncontrolled postsurgical pain. I will discontinue previous pain regimen and start the patient on morphine extended release 15 mg p.o. every 8 hours, morphine immediate release 15 mg p.o. every 4 hours as needed and continue IV Dilaudid for breakthrough pain. 02/17 the patient still complaining of abdominal pain. Upon review of ED documentation the patient's pain has been elevated and the patient is also requesting IV Dilaudid for breakthrough pain very frequently. I will increase the dose of morphine extended release to 30 mg p.o. every 8 hours and increase the morphine immediate release dose to 30 mg every 4 hours as needed for pain. Continue with Dilaudid IV for breakthrough pain. Start constipation prevention protocol medications to prevent constipation. 02/18 TRY Morphine tablets - MYRIAM RN Continue pain control w IV Dilaudid. (3) Acute hypoxemic respiratory failure ICD Code: J96.01 - Acute respiratory failure with hypoxia Plan: Likely secondary to hospital acquired pneumonia versus aspiration pneumonia with associated right pleural effusion which is likely parapneumonic effusion. Weaned to nasal cannula to maintain saturations greater than equal to 92% 02/08-right chest tube removed 02/09-right pleural effusion 02/09-right pigtail catheter chest tube placement , -20cm Thoracic ultrasound noted multiple septations pleural fluid prior to placement of pigtail catheter Incentive spirometry while awake. 02/10- no thoracentesis performed per IR 10/19 minimal fluid. 02/09- CT angio-no PE, worsening consolidation right upper lobe, stable left lower lobe infiltrate 02/10 chest x-ray-small right apical pneumothorax unchanged Encourage incentive spirometry, aggressive pulmonary toileting 02/12: CT-guided right thoracentesis right pigtail catheter placement Continue IV Zosyn Continue IV fluconazole. Continue supplemental oxygen to keep oxygen saturation more than 92%. We will start the patient on IV Lasix 40 mg IV twice daily 02/17 continue IV Lasix. Will repeat a chest x-ray in a.m. Repeat chest x-ray personally reviewed by me showed mild improved aeration of the right lung compared to the prior study. Appreciate pulmonary recommendations. CT of the chest without contrast as ordered by pulmonology and reviewed by me showed a slight improvement in right pleural effusion. Some loculated air remaining in the right pleural effusion with a small caliber right chest tube present. Some compressive atelectasis and consolidation around the gastric pull-through which is also improved from February 09. No new adenopathy or new left effusion. Follow-up pulmonology recommendations. (4) Hypophosphatemia ICD Code: E83.39 - Other disorders of phosphorus metabolism Status: Resolved Plan: Continue monitor phosphorus levels. Now within normal range. (5) Esophageal anastomotic leak ICD Code: K91.89 - Other postprocedural complications and disorders of digestive system Status: Acute Plan: Management as per general surgery. As stated above the patient is status post EGD with clip/esophageal stent placement. Management as per general surgery. (6) Pleural effusion ICD Code: J90 - Pleural effusion, not elsewhere classified Plan: The patient status post chest tube which was removed on 02/08. Right pleural effusion for which a pigtail catheter was placed. I had consulted but no thoracentesis performed secondary to minimal fluid. Pleural effusion likely secondary to parapneumonic effusion. Continue IV antibiotics. Chest x-ray obtained on 02/10 showed small right apical pneumothorax . Patient underwent CT-guided thoracentesis pigtail catheter placement on 02/12. Repeat chest x-ray on 02/14 does not mention pneumothorax and it shows possible mild improvement in aeration of the right lung. Repeat chest x-ray as above. Follow-up pulmonary recommendations. INCENTIVE SPIROMETRY (7) Pneumothorax ICD Code: J93.9 - Pneumothorax, unspecified Plan: Seems to have resolved. The patient is status post chest tube pigtail catheter insertion. Pulmonology consulted. Continue chest tube. Patient status post chest CT of the chest as described above. Follow pulmonary recommendations. Assessment and Plan (1) Adenocarcinoma of esophagus ICD Code: C15.9 - Malignant neoplasm of esophagus, unspecified Plan: The patient is status post expiratory laparotomy and open proximal gastrectomy with conversion to robotic assisted [place] esophagectomy. Patient also underwent omentectomy. Jejunostomy tube placement with chemical pyloroplasty with Botox injection of the pylorus. Tube feedings through jejunostomy tube placed on hold 02/09, J-tube placed to gravity-defer to general surgery. On 02/09 a focal leak was identified at the gastroesophageal anastomosis. The patient underwent an EGD with Hemoclip placement for esophageal anastomotic leak. The patient was placed on lower elemental tube feedings. Advance as per general surgery recommendations. (2) Abdominal pain ICD Code: R10.9 - Unspecified abdominal pain Plan: Patient with uncontrolled postsurgical pain. I will discontinue previous pain regimen and start the patient on morphine extended release 15 mg p.o. every 8 hours, morphine immediate release 15 mg p.o. every 4 hours as needed and continue IV Dilaudid for breakthrough pain. 02/17 the patient still complaining of abdominal pain. Upon review of ED documentation the patient's pain has been elevated and the patient is also requesting IV Dilaudid for breakthrough pain very frequently. I will increase the dose of morphine extended release to 30 mg p.o. every 8 hours and increase the morphine immediate release dose to 30 mg every 4 hours as needed for pain. Continue with Dilaudid IV for breakthrough pain. Start constipation prevention protocol medications to prevent constipation. 02/18 Dc Morphine tablets since patient very nauseous. Continue pain control w IV Dilaudid. (3) Acute hypoxemic respiratory failure ICD Code: J96.01 - Acute respiratory failure with hypoxia Plan: Likely secondary to hospital acquired pneumonia versus aspiration pneumonia with associated right pleural effusion which is likely parapneumonic effusion. Weaned to nasal cannula to maintain saturations greater than equal to 92% 02/08-right chest tube removed 02/09-right pleural effusion 02/09-right pigtail catheter chest tube placement , -20cm Thoracic ultrasound noted multiple septations pleural fluid prior to placement of pigtail catheter Incentive spirometry while awake. 02/10- no thoracentesis performed per IR 10/19 minimal fluid. 02/09- CT angio-no PE, worsening consolidation right upper lobe, stable left lower lobe infiltrate 02/10 chest x-ray-small right apical pneumothorax unchanged Encourage incentive spirometry, aggressive pulmonary toileting 02/12: CT-guided right thoracentesis right pigtail catheter placement Continue IV Zosyn Continue IV fluconazole. Continue supplemental oxygen to keep oxygen saturation more than 92%. We will start the patient on IV Lasix 40 mg IV twice daily 02/17 continue IV Lasix. Will repeat a chest x-ray in a.m. Repeat chest x-ray personally reviewed by me showed mild improved aeration of the right lung compared to the prior study. Appreciate pulmonary recommendations. CT of the chest without contrast as ordered by pulmonology and reviewed by me showed a slight improvement in right pleural effusion. Some loculated air remaining in the right pleural effusion with a small caliber right chest tube present. Some compressive atelectasis and consolidation around the gastric pull-through which is also improved from February 09. No new adenopathy or new left effusion. Follow-up pulmonology recommendations. (4) Hypophosphatemia ICD Code: E83.39 - Other disorders of phosphorus metabolism Status: Resolved Plan: Continue monitor phosphorus levels. Now within normal range. (5) Esophageal anastomotic leak ICD Code: K91.89 - Other postprocedural complications and disorders of digestive system Status: Acute Plan: Management as per general surgery. As stated above the patient is status post EGD with clip/esophageal stent placement. Management as per general surgery. (6) Pleural effusion ICD Code: J90 - Pleural effusion, not elsewhere classified Plan: The patient status post chest tube which was removed on 02/08. Right pleural effusion for which a pigtail catheter was placed. I had consulted but no thoracentesis performed secondary to minimal fluid. Pleural effusion likely secondary to parapneumonic effusion. Continue IV antibiotics. Chest x-ray obtained on 02/10 showed small right apical pneumothorax . Patient underwent CT-guided thoracentesis pigtail catheter placement on 02/12. Repeat chest x-ray on 02/14 does not mention pneumothorax and it shows possible mild improvement in aeration of the right lung. Repeat chest x-ray as above. Follow-up pulmonary recommendations. (7) Pneumothorax ICD Code: J93.9 - Pneumothorax, unspecified Plan: Seems to have resolved. The patient is status post chest tube pigtail catheter insertion. Pulmonology consulted. Continue chest tube. Patient status post chest CT of the chest as described above. Follow pulmonary recommendations. Assessment and Plan DVT prophylaxis: Lovenox subcu resumed on 02/14 as per general surgery. Discharge Planning PENDING TOLERATING A DIET Problem Qualifiers (1) Abdominal pain: Qualified Codes: R10.9 - Unspecified abdominal pain (2) Pneumothorax: Qualified Codes: J95.811 - Postprocedural pneumothorax Tay Bates DO Feb 20, 2018 10:35
[2018-02-20] MEDS ORDERED: guaiFENesin/CODEINE SYRUP 200 MG/20 MG/10 ML CUP PO PRN (10:45)
[2018-02-20] MEDS ORDERED: RESP: ALBUTEROL 2.5 MG/IPRATROPIUM 0.5 MG NEB (PRN) NEB (10:45)
[2018-02-20] MEDS: LABETALOL HCL 100 MG TAB PO SCH ×2 (11:40→20:48)
[2018-02-20] MEDS: ONDANSETRON ODT 4 MG TAB PO PRN ×2 (12:07→19:31)
[2018-02-20] MEDS: PROMETHAZINE INJ 25 MG/ML VIAL OTHER PRN (12:49)
[2018-02-20] MEDS: FLUCONAZOLE 100 MG PREMIX BAG 50 ML IV SCH (12:54)
[2018-02-20] MEDS: ENOXAPARIN SODIUM 40 MG/0.4 ML SYRINGE SQ SCH (14:12)
--- NOTE | 2018-02-20 15:02 | HHI.PR ---
Subjective Subjective Notes Resting in bed No issues Objective Vitals/I&O Vital Signs Date Time Temp Pulse Resp B/P (MAP) Pulse Ox O2 Delivery O2 Flow Rate FiO2 02/20/18 14:00 92 02/20/18 12:00 97.9 22 124/80 (95) 94 02/20/18 08:00 Nasal Cannula 3.00 Labs Date/Time Source Procedure Growth Status 02/11/18 16:54 Blood Peripheral Aerobic Blood Culture - Final NO GROWTH IN 5 DAYS Complete 02/11/18 16:54 Blood Peripheral Anaerobic Blood Culture - Final NO GROWTH IN 5 DAYS Complete 02/12/18 15:35 Fluid Pleural Fluid Fungal Smear - Final NO FUNGAL ELEMENTS SEEN. Resulted 02/12/18 15:35 Fluid Pleural Fluid Fungal Culture - Preliminary NO GROWTH IN 1 WEEK Resulted Cardiovascular: Regular Lungs: Clear Abdomen: Other (midline incision with jatinder; J tube with tube feeding ) Extremities: No edema Narrative Exam RIGHT chest tube in place to suction A/P Problem List: (1) Pleural effusion ICD Codes: J90 - Pleural effusion, not elsewhere classified (2) Adenocarcinoma of esophagus ICD Codes: C15.9 - Malignant neoplasm of esophagus, unspecified (3) Hypophosphatemia ICD Codes: E83.39 - Other disorders of phosphorus metabolism Status: Resolved (4) Esophageal anastomotic leak ICD Codes: K91.89 - Other postprocedural complications and disorders of digestive system Status: Acute (5) Acute hypoxemic respiratory failure ICD Codes: J96.01 - Acute respiratory failure with hypoxia Assessment and Plan 47 year old male POD19 robotic assisted [place] esophagectomy -Patient now with delayed leak--- s/p esophageal stent placed -Continue with popsicles ---try sugar free popsicles -Remove jatinder today -Repeat CT chest ---slight improvement; stable -Reviewed pathology with patient--will need to be evaluated by Medical Oncology once recovered from surgery -TF via J tube ---added daily Milk of Mag--- advance TF to 45 cc/hr -ID following-- now on Fluconazole/Ampicillin ---WBC 11.3; Afebrile -Kimberly Horn. DYNAMICIST/Electrical Installation Inspector DYNAMICIST Feb 20, 2018 15:02
--- NOTE | 2018-02-20 18:15 | HHI.PR ---
Subjective Remarks 47 YOWm with oesophageal ca, pl eff, s/p pig tale pl fluid exudate, culture neg Fluid drainage decreased Weaned to RA Denies sob family at BS Objective Vital Signs Vital Signs Date Time Temp Pulse Resp B/P (MAP) Pulse Ox O2 Delivery O2 Flow Rate FiO2 02/20/18 16:00 79 02/20/18 14:00 92 02/20/18 12:00 81 02/20/18 12:00 97.9 81 22 124/80 (95) 94 02/20/18 10:00 89 02/20/18 08:00 70 02/20/18 08:00 100 Nasal Cannula 3.00 02/20/18 08:00 97.8 70 20 115/67 (83) 100 02/20/18 06:07 16 02/20/18 06:00 71 02/20/18 04:00 98.7 75 17 122/78 (93) 100 02/20/18 04:00 72 02/20/18 02:00 72 02/20/18 00:00 82 02/20/18 00:00 97.8 78 16 116/75 (89) 98 02/19/18 22:00 81 02/19/18 21:40 98 Nasal Cannula 3.00 02/19/18 20:00 98.8 87 18 118/78 (91) 97 02/19/18 20:00 87 02/19/18 19:00 97 Nasal Cannula 3.00 02/19/18 18:45 96 Nasal Cannula 3.00 I/O 02/19/18 02/19/18 02/19/18 02/20/18 02/20/18 02/20/18 07:00 15:00 23:00 07:00 15:00 23:00 Intake Total 630 ml 1027 ml 600 ml 255 ml Output Total 1390 ml 1200 ml 1020 ml Balance -760 ml -173 ml -420 ml 255 ml Intake Oral 200 ml IV Total 200 ml 100 ml 255 ml Tube Feeding 430 ml 577 ml 500 ml Tube Irrigant 250 ml Output Urine Total 1350 ml 1200 ml 1000 ml Chest Tube Drainage Total 40 ml 20 ml # Voids 5 4 # Bowel Movements 1 1 0 Result Diagram: 02/18/18 0555 02/18/18 0550 Objective Remarks GENERAL: MBMNWM,NAD SKIN: Warm and dry. HEAD: Normocephalic. EYES: No scleral icterus. No injection or drainage. NECK: Supple, trachea midline. No JVD or lymphadenopathy. CARDIOVASCULAR: Regular rate and rhythm without murmurs, gallops, or rubs. RESPIRATORY: Breath sounds equal bilaterally. No accessory muscle use. Right chest tube draining GASTROINTESTINAL: Abdomen soft, non-tender, nondistended Abd wound dressed. MUSCULOSKELETAL: No cyanosis, or edema. BACK: Nontender without obvious deformity. No CVA tenderness. A/P Assessment and Plan 1. Right pleural effusion, status post pigtail catheter placement. 2. Esophageal carcinoma, status post gastrectomy, esophagectomy. 3. Hypertension. PLAN: Cont Abx per ID Supplement 02 Chest tube to suction Tube feeding Dw Family Mele Weaver MD Feb 20, 2018 18:15
[2018-02-20] MEDS: RESP: ALBUTEROL 2.5 MG/IPRATROPIUM 0.5 MG NEB (SCH) NEB (19:46)
[2018-02-21] VITALS (14 sets, daily range): BP systolic 124–133; BP diastolic 72–87; PULSE 77–87; RESP 17–20; TEMP 97.6–98.9; O2SAT 93–96
[2018-02-21] MEDS: ONDANSETRON ODT 4 MG TAB PO PRN ×6 (00:13→23:28)
[2018-02-21] MEDS: AMPICILLIN-SULBACTAM INJ 1,500 MG in SODIUM CHLORIDE 0.9% INJ 100 ML IV SCH ×4 (00:14→17:31)
[2018-02-21] MEDS: PROMETHAZINE INJ 25 MG/ML VIAL OTHER PRN ×3 (00:14→10:40)
[2018-02-21] MEDS: HYDROmorphone HCL PF 2 MG/ML VIAL IV PRN ×7 (01:52→23:29)
[2018-02-21] MEDS: MORPHINE SULFATE 15 MG CONTROLLED RELEASE TAB PO SCH (03:00)
[2018-02-21 04:57] LABS: AUTOMATED NEUTROPHIL # 10.5 TH/MM3 (1.8-7.7); BASOPHIL % 0.3 % (0.0-2.0); EOSINOPHIL # 0.2 TH/MM3 (0-0.4); EOSINOPHIL % 1.4 % (0.0-4.0); HEMATOCRIT 34.8 % (39.0-51.0); HEMOGLOBIN 11.4 GM/DL (13.0-17.0); LYMPH % 9.1 % (9.0-44.0); LYMPHOCYTE # 1.2 TH/MM3 (1.0-4.8); MEAN CELL VOLUME 82.5 FL (80.0-100.0); MEAN CORPUSCULAR HGB CONC 32.8 % (32.0-36.0); MEAN PLATELET VOLUME 8.3 FL (7.0-11.0); MONO % 8.3 % (0.0-8.0); MONOCYTE # 1.1 TH/MM3 (0-0.9); NEUT % 80.9 % (16.0-70.0); PLATELET COUNT 521 TH/MM3 (150-450); RED BLOOD COUNT 4.22 MIL/MM3 (4.50-5.90)
[2018-02-21 05:33] LABS: ALBUMIN 2.5 GM/DL (3.4-5.0); ALKALINE PHOSPHATASE 148 U/L (45-117); ALT (GPT) 43 U/L (12-78); AST (GOT) 25 U/L (15-37); BICARBONATE 29.5 MEQ/L (21.0-32.0); BLOOD UREA NITROGEN 26 MG/DL (7-18); CALCIUM 8.9 MG/DL (8.5-10.1); CHLORIDE 96 MEQ/L (98-107); CREATININE 0.86 MG/DL (0.60-1.30); FREE T4 1.03 NG/DL (0.76-1.46); GLOMERULAR FILTRATION RATE 95 ML/MIN (>89); GLUCOSE,RANDOM 101 MG/DL (74-106); MAGNESIUM 2.3 MG/DL (1.5-2.5); PHOSPHORUS 3.8 MG/DL (2.5-4.9); SODIUM (NA) 136 MEQ/L (136-145); TOTAL BILIRUBIN ADULT 0.3 MG/DL (0.2-1.0); TOTAL PROTEIN 7.5 GM/DL (6.4-8.2)
[2018-02-21] MEDS: PCA - TOTAL MG MORPHINE DELIVERED PER SHIFT SCH (06:00)
[2018-02-21 07:01] LABS: BANDS 3 % (0-6); LYMPHOCYTES 5 % (9-44); MONOCYTES 3 % (0-8); MYELOCYTES 3 % (0-0); NEUTROPHIL # MANUAL DIFF 11.8 TH/MM3 (1.8-7.7); POLYS (SEG NEUTROPHILS) 85 % (16-70)
[2018-02-21] MEDS: RESP: ALBUTEROL 2.5 MG/IPRATROPIUM 0.5 MG NEB (SCH) NEB ×3 (07:21→20:14)
[2018-02-21] MEDS: INSULIN ASPART SUPPLEMENTAL SCALE SQ SCH ×4 (08:00→21:00)
[2018-02-21] MEDS: SODIUM CHLORIDE 0.9% FLUSH 10 ML FLUSH IV FLUSH SCH ×2 (08:26→21:09)
[2018-02-21] MEDS: MAGNESIUM HYDROXIDE SUSP 30 ML CUP PO SCH (08:30)
[2018-02-21] MEDS: FUROSEMIDE 40 MG/4 ML VIAL IV PUSH SCH ×2 (08:30→18:45)
[2018-02-21] MEDS: GABAPENTIN 400 MG CAP J-TUBE SCH (08:30)
[2018-02-21] MEDS: DOCUSATE SODIUM 50 MG/SENNA 8.6 MG TAB PO SCH ×2 (08:31→21:00)
[2018-02-21] MEDS: PANTOPRAZOLE SOD 40 MG DELAYED RELEASE TAB PO SCH ×2 (08:31→21:08)
[2018-02-21] MEDS: LABETALOL HCL 100 MG TAB PO SCH ×2 (08:32→21:09)
[2018-02-21] MEDS ORDERED: POTASSIUM CHLORIDE 25 MEQ EFFERVESCENT TAB PEG ONE (08:45)
[2018-02-21] MEDS ORDERED: HYDROmorphone HCL 4 MG TAB PO PRN (09:30)
[2018-02-21] MEDS ORDERED: HYDROmorphone HCL 2 MG TAB PO PRN (09:30)
--- NOTE | 2018-02-21 09:54 | HHI.PR ---
Subjective Remarks 6-6 COMPLAINS OF SOME PAIN NOW DW RN AND PT TRYING TO TAKE IV PAIN MEDS FOR PAIN STILL AM LABS 6-7 patient does not like the morphine. We will switch to Dilaudid via the PEG 2 mg for 1-5 and 4 mg for 6-10 I discussed with the RN and patient increase activity May need breakthrough with [place] or Percocet Objective Vitals Vital Signs Date Time Temp Pulse Resp B/P (MAP) Pulse Ox O2 Delivery O2 Flow Rate FiO2 02/21/18 07:21 94 02/21/18 07:00 94 Room Air 02/21/18 06:00 79 02/21/18 06:00 22 02/21/18 04:00 98.9 80 129/80 (96) 93 02/21/18 04:00 80 02/21/18 02:00 79 02/21/18 00:00 80 02/21/18 00:00 98.6 80 20 130/80 (97) 94 02/20/18 22:00 77 02/20/18 20:00 98.7 81 24 129/85 (100) 92 02/20/18 20:00 81 02/20/18 19:50 96 21 02/20/18 19:00 100 Room Air 02/20/18 18:00 79 02/20/18 17:45 95 Room Air 02/20/18 16:00 79 02/20/18 16:00 98.2 79 22 118/78 (91) 92 02/20/18 14:00 92 02/20/18 12:00 81 02/20/18 12:00 97.9 81 22 124/80 (95) 94 02/20/18 10:00 89 I/O 02/20/18 02/20/18 02/20/18 02/21/18 02/21/18 02/21/18 07:00 15:00 23:00 07:00 15:00 23:00 Intake Total 600 ml 255 ml 932 ml 480 ml Output Total 1020 ml 1050 ml 675 ml Balance -420 ml 255 ml -118 ml -195 ml Intake Oral 300 ml 480 ml IV Total 100 ml 255 ml 100 ml Tube Feeding 500 ml 472 ml Other 60 ml Output Urine Total 1000 ml 1050 ml 675 ml Chest Tube Drainage Total 20 ml 0 ml # Voids 4 # Bowel Movements 0 4 0 Result Diagram: 02/21/18 0400 02/21/18 0400 Other Results Laboratory Tests Test 02/20/18 13:10 02/21/18 04:00 Stool C. difficile Toxin (PCR) NEGATIVE Stl C. difficile Toxin Epiderm 027 PRESUMPTIVE NEGATIVE White Blood Count 13.0 TH/MM3 Red Blood Count 4.22 MIL/MM3 Hemoglobin 11.4 GM/DL Hematocrit 34.8 % Mean Corpuscular Volume 82.5 FL Mean Corpuscular Hemoglobin 27.0 PG Mean Corpuscular Hemoglobin Concent 32.8 % Red Cell Distribution Width 14.0 % Platelet Count 521 TH/MM3 Mean Platelet Volume 8.3 FL Neutrophils (%) (Auto) 80.9 % Lymphocytes (%) (Auto) 9.1 % Monocytes (%) (Auto) 8.3 % Eosinophils (%) (Auto) 1.4 % Basophils (%) (Auto) 0.3 % Neutrophils # (Auto) 10.5 TH/MM3 Lymphocytes # (Auto) 1.2 TH/MM3 Monocytes # (Auto) 1.1 TH/MM3 Eosinophils # (Auto) 0.2 TH/MM3 Basophils # (Auto) 0.0 TH/MM3 CBC Comment AUTO DIFF Differential Total Cells Counted 100 Neutrophils % (Manual) 85 % Band Neutrophils % 3 % Lymphocytes % 5 % Monocytes % 3 % Eosinophils % 1 % Neutrophils # (Manual) 11.8 TH/MM3 Myelocytes 3 % Differential Comment FINAL DIFF MANUAL Platelet Estimate HIGH Platelet Morphology Comment NORMAL Red Cell Morphology Comment NORMAL Blood Urea Nitrogen 26 MG/DL Creatinine 0.86 MG/DL Random Glucose 101 MG/DL Total Protein 7.5 GM/DL Albumin 2.5 GM/DL Calcium Level 8.9 MG/DL Phosphorus Level 3.8 MG/DL Magnesium Level 2.3 MG/DL Alkaline Phosphatase 148 U/L Aspartate Amino Transf (AST/SGOT) 25 U/L Alanine Aminotransferase (ALT/SGPT) 43 U/L Total Bilirubin 0.3 MG/DL Sodium Level 136 MEQ/L Potassium Level 3.3 MEQ/L Chloride Level 96 MEQ/L Carbon Dioxide Level 29.5 MEQ/L Anion Gap 11 MEQ/L Estimat Glomerular Filtration Rate 95 ML/MIN Free Thyroxine 1.03 NG/DL Thyroid Stimulating Hormone 3rd Gen 4.240 uIU/ML Imaging Last Impressions Chest X-Ray 02/18/18 0600 Signed Impressions: CONCLUSION: Mild improved aeration of the right lung compared to the prior study. Otherwise , no other significant changes. Chest CT 02/18/18 Signed Impressions: CONCLUSION: 1. Status post distal esophagectomy with gastric pull-through. A stent lies wi thin the gastric pull-through in the lower right chest. 2. Slight improvement in right pleural effusion since February 09. There is some lo culated air remaining within the right pleural effusion with a small caliber ri ght chest tube present. There is some compressive atelectasis and consolidation around the gastric pull-through which is improved from February 09. 3. No new adenopathy or new left effusion. Stable appearance of the upper abdo men. GI Procedure 02/12/18 Signed Impressions: CONCLUSION: 1. Fluoroscopic image demonstrates interval esophageal stent placement, as abo ve. Chest Tube Insertion 02/12/18 Signed Impressions: CONCLUSION: 1. Uncomplicated chest tube placement as above. Abdomen MRI 02/11/18 1114 Signed Impressions: CONCLUSION: 1. No definite metastatic disease to the liver. The area in the left lobe seen on previous pulmonary angiogram appears benign. 2. Hepatic cysts. Abdomen X-Ray 02/11/18 Signed Impressions: CONCLUSION: Contrast within large bowel. Mildly dilated small bowel loops CT Angiography 02/09/18 Signed Impressions: CONCLUSION: 1. No pulmonary emboli. 2. Worsening consolidation involving the right upper lobe with some cavitation and stable left lower lobe infiltrate without cavitation. Infectious etiology is suspected. 3. Tiny right effusion with right thoracostomy tube slightly more cephalad in the hemithorax. 4. Prior esophagectomy and gastric pull-through. 5. Partial visualization of a 2.7 cm low-density lesion involving the left lob e of the liver not clearly seen on the prior PET/CT. I cannot exclude a solitar y metastasis. Objective Remarks GENERAL: AWAKE ALERT AND ORIENTED X3 TALKATIVE AND COOPERATIVE SKIN: Warm and dry. HEAD: Atraumatic. Normocephalic. EYES: Pupils equal and round. No scleral icterus. No injection or drainage. EOMI ENT: No nasal bleeding or discharge. Mucous membranes pink and moist. TONGUE IS MIDLINE NECK: Trachea midline. No JVD. CARDIOVASCULAR: Regular rate and rhythm. S1, S2, NO S3 OR S4 RESPIRATORY: No accessory muscle use. Clear to auscultation. Breath sounds equal bilaterally. CHEST TUBE ON RIGHT- GASTROINTESTINAL: Abdomen soft, non-tender, nondistended. Hepatic and splenic margins not palpable. HYPOACTIVE- MIDLINE INCISION MUSCULOSKELETAL: Extremities without clubbing, cyanosis, or edema. No obvious deformities. NEUROLOGICAL: Awake and alert. No obvious cranial nerve deficits. Motor grossly within normal limits. Five out of 5 muscle strength in the arms and legs. Normal speech. PSYCHIATRIC: Appropriate mood and affect; insight and judgment normal. Procedures 02/09-right pigtail chest tube 02/12-EGD/ Hemoclip placement for anastomotic leak 02/12: Removal of right pigtail chest tube ,placement of CT-guided right pigtail chest to right pleural fluid loculation Medications and IVs Current Medications Lactated Ringer's 1,000 ml @ 30 mls/hr Q24H PRN IV SEE LABEL COMMENTS Last administered on 02/01/18at 06:35; Start 02/01/18 at 06:15; Stop 02/04/18 at 06:14 ; Status DC Sodium Chloride 500 ml @ 30 mls/hr [id number] PRN IV SEE LABEL COMMENTS; Start at 06:15; Stop 02/04/18 at 06:14; Status DC Metoprolol Tartrate (Lopressor) 25 mg PROTECTIVE SERVICES OFFICER PRN PO SEE LABEL COMMENTS; Start 02/01/18 at 06:15; Stop 02/04/18 at 06:14; Status DC Povidone Iodine (Betadine 5% Antisepsis Kit) 1 applic [employer]OTECTIVE SERVICES OFFICER PRN EACH NARE SEE LABEL COMMENTS Last administered on 02/01/18at 06:38; Start 02/01/18 at 06:15 ; Stop 02/04/18 at 06:14; Status DC Chlorhexidine Gluconate (Chlorhexidine 2% Cloth) 3 pack PROTECTIVE SERVICES OFFICER PRN TOPICAL SEE LABEL COMMENTS Last administered on 02/01/18at 06:05; Start 02/01/18 at 06:15 ; Stop 02/04/18 at 06:14; Status DC Cefazolin/Sodium Chloride 100 ml @ 200 mls/hr PR[employer]ECTIVE SERVICES OFFICER IV Last administered on 02/01/18at 08:30; Start 02/01/18 at 06:15; Stop 02/02/18 at 06:14; Status DC Acetaminophen 100 ml @ As Directed STK-MED ONCE IV ; Start 02/01/18 at 07:20; Stop 02/01/18 at 07:21; Status DC Sugammadex Sodium (Bridion Inj) 400 mg STK-MED ONCE IV PUSH ; Start 02/01/18 at 07:21; Stop 02/01/18 at 07:22; Status DC Fentanyl Citrate (fentaNYL INJ) 250 mcg STK-MED ONCE .ROUTE ; Start 02/01/18 at 07:21; Stop 02/01/18 at 07:22; Status DC Cefazolin Sodium/ Dextrose 50 ml @ As Directed STK-MED ONCE .ROUTE ; Start 02/01 at 07:26; Stop 02/01/18 at 07:27; Status DC Etomidate (Amidate Inj) 20 mg STK-MED ONCE .ROUTE ; Start 02/01/18 at 07:36; Stop 02/01/18 at 07:37; Status DC Onabotulinumtoxina (Botox Inj) 100 units UNSCH .XX Last administered on at 09:23; Start 02/01/18 at 08:15 Cefazolin Sodium (Ancef Inj) 2,000 mg STK-MED ONCE .ROUTE ; Start 02/01/18 at 12 :44; Stop 02/01/18 at 12:45; Status DC Vecuronium Silex (Norcuron 20 Mg Inj) 20 mg STK-MED ONCE .ROUTE ; Start at 12:48; Stop 02/01/18 at 12:49; Status DC Bupivacaine Liposome (Exparel Pf 1.3% Inj) 20 ml STK-MED ONCE .ROUTE ; Start at 15:06; Stop 02/01/18 at 15:07; Status DC Potassium Chloride/Dextrose/ Sod Cl 1,000 ml @ 75 mls/hr [id number] IV Last administered on 02/17/18at 07:42; Start 02/01/18 at 16:00; Stop 02/17/18 at 09:06; Status DC Sodium Chloride (NS Flush) 2 ml UNSCH PRN IV FLUSH FLUSH AFTER USING IV ACCESS Last administered on 02/02/18at 19:54; Start 02/01/18 at 15:15 Sodium Chloride (NS Flush) 2 ml BID IV FLUSH Last administered on 02/21/18at 08: 26; Start 02/01/18 at 21:00 Ondansetron HCl (Zofran Odt) 4 mg Q6H PRN PO NAUSEA OR VOMITING Last administered on 02/19/18at 17:29; Start 02/01/18 at 15:45; Status Future Hold Diphenhydramine HCl (Benadryl Inj) 25 mg Q6H PRN IV PUSH ITCHING Last administered on 02/13/18at 20:59; Start 02/01/18 at 15:15 Benzocaine (Hurricaine 20% Oral Spr) 1 spray UNSCH X1 PRN MT SEE LABEL COMMENTS ; Start 02/01/18 at 15:15; Stop 02/02/18 at 15:14; Status DC Cefazolin Sodium 1000 mg/Sodium Chloride 100 ml @ 200 mls/hr Q8H IV ; Start at 16:30; Stop 02/02/18 at 08:59; Status Cancel Metronidazole 100 ml @ 200 mls/hr Q8H IV Last administered on 02/02/18at 09:03 ; Start 02/01/18 at 17:00; Stop 02/02/18 at 09:29; Status DC Miscellaneous Information (Misc Post-op Orders (for Pharmacy)) STAT ONCE XX ; Start 02/01/18 at 15:15; Stop 02/01/18 at 15:42; Status DC Acetaminophen 100 ml @ 400 mls/hr Q6H IV Last administered on 02/03/18at 09:27 ; Start 02/01/18 at 16:00; Stop 02/03/18 at 10:14; Status DC Naloxone HCl (Narcan Inj) 0.4 mg UNSCH PRN IV PUSH SEE LABEL COMMENTS; Start at 15:15; Stop 02/08/18 at 15:34; Status DC Enoxaparin Sodium (Lovenox Inj) 40 mg Q24H SQ Last administered on 02/20/18at 14: 12; Start 02/02/18 at 15:00; Status Future hold Naloxone HCl (Narcan Inj) 0.4 mg UNSCH PRN IV PUSH RESPIRATORY RATE LESS THAN 10; Start 02/01/18 at 15:15 Morphine Sulfate (Morphine 1 Mg/ ml REPAIR DEPARTMENT SUPERVISOR) 30 mg UNSCH IV Last administered on at 01:28; Start 02/01/18 at 15:15; Stop 02/05/18 at 11:36; Status DC REPAIR DEPARTMENT SUPERVISOR Dosage Infused (Pha) 1 Q8HR .XX Last administered on 02/05/18at 06:00; Start 02/01/18 at 15:15 Cefazolin Sodium (Ancef Inj) 2,000 mg STK-MED ONCE .ROUTE ; Start 02/01/18 at 15 :34; Stop 02/01/18 at 15:35; Status DC Fentanyl Citrate (fentaNYL INJ) 200 mcg STK-MED ONCE .ROUTE ; Start 02/01/18 at 15:37; Stop 02/01/18 at 15:38; Status DC Fentanyl Citrate (fentaNYL INJ) 200 mcg STK-MED ONCE .ROUTE ; Start 02/01/18 at 15:38; Stop 02/01/18 at 15:39; Status DC Midazolam HCl (Versed Inj) 2 mg STK-MED ONCE .ROUTE ; Start 02/01/18 at 15:38; Stop 02/01/18 at 15:39; Status DC Morphine Sulfate (Morphine Inj) 4 mg STK-MED ONCE .ROUTE Last administered on at 16:02; Start 02/01/18 at 16:02; Stop 02/01/18 at 16:03; Status DC Cefazolin Sodium 1000 mg/Sodium Chloride 100 ml @ 200 mls/hr Q8H IV Last administered on 02/02/18at 11:06; Start 02/01/18 at 20:00; Stop 02/02/18 at 12:29 ; Status DC Miscellaneous Information ([facility] ALL NURSING DEPARTME... UNSCH PRN .XX SEE LABEL COMMENTS; Start 02/01/18 at 17:00; Stop 02/02/18 at 16: 59; Status DC Promethazine HCl (Phenergan Inj) 12.5 mg Q6H PRN OTHER NAUSEA Last administered on 02/21/18at 05:30; Start 02/01/18 at 22:30 Ketorolac Tromethamine (Toradol Inj) 30 mg ONCE ONCE IV PUSH ; Start 02/01/18 at 22:30; Stop 02/01/18 at 22:31; Status DC Calcium Gluconate 1 gm/Sodium Chloride 110 ml @ 110 mls/hr ONCE ONCE IV Last administered on 02/02/18at 16:21; Start 02/02/18 at 15:30; Stop 02/02/18 at 16:29 ; Status DC Sodium Phosphate 30 mmol/Sodium Chloride 260 ml @ 43.333 mls/ hr ONCE ONCE IV Last administered on 02/03/18at 18:27; Start 02/03/18 at 18:00; Stop 02/03/18 at 23:59; Status DC Magnesium Sulfate/ Dextrose 100 ml @ 100 mls/hr ONCE ONCE IV Last administered on 02/03/18at 16:45; Start 02/03/18 at 17:00; Stop 02/03/18 at 17:59 ; Status DC Potassium Phosphate 30 mmol/ Sodium Chloride 260 ml @ 43.333 mls/ hr ONCE ONCE IV Last administered on 02/04/18at 11:05; Start 02/04/18 at 12:00; Stop at 17:59; Status DC Labetalol HCl (Trandate Inj) 20 mg Q2H PRN IV PUSH SBP > 160 Last administered on 02/14/18at 23:44; Start 02/04/18 at 11:30; Stop 02/15/18 at 13:41; Status DC Parenteral Electrolytes 1,000 ml @ As Directed STK-MED ONCE IV ; Start at 12:00; Stop 02/04/18 at 13:04; Status DC Cefazolin Sodium (Ancef Inj) 2,000 mg STK-MED ONCE IV ; Start 02/01/18 at 12:00 ; Stop 02/04/18 at 13:04; Status DC Propofol (Diprivan 200 Mg/20 ml Inj) 200 mg STK-MED ONCE IV ; Start 02/01/18 at 12:00; Stop 02/04/18 at 13:04; Status DC Sodium Chloride (Sodium Chloride 0.9% Inj) 20 ml STK-MED ONCE IV ; Start at 12:00; Stop 02/04/18 at 13:04; Status DC Lidocaine HCl (Xylocaine-Mpf 1% Inj) 5 ml STK-MED ONCE OTHER ; Start 02/01/18 at 12:00; Stop 02/04/18 at 13:04; Status DC Rocuronium Silex (Zemuron Inj) 50 mg STK-MED ONCE IV PUSH ; Start 02/01/18 at 12:00; Stop 02/04/18 at 13:04; Status DC Glycopyrrolate (Robinul Inj) 1 mg STK-MED ONCE IV PUSH ; Start 02/01/18 at 12:00 ; Stop 02/04/18 at 13:04; Status DC Phenylephrine HCl (Neosynephrine/ NS 1000 Mcg/10ml Syr) 2,000 mcg STK-MED ONCE IV ; Start 02/01/18 at 12:00; Stop 02/04/18 at 13:04; Status DC Ephedrine Sulfate (ePHEDrine/NS 25 MG/5 ML SYR) 50 mg STK-MED ONCE IV ; Start at 12:00; Stop 02/04/18 at 13:04; Status DC Metoprolol Tartrate (Lopressor Inj) 5 mg STK-MED ONCE IV ; Start 02/01/18 at 12: 00; Stop 02/04/18 at 13:04; Status DC Esmolol HCl (Brevibloc Bolus Inj) 100 mg STK-MED ONCE IV ; Start 02/01/18 at 12: 00; Stop 02/04/18 at 13:04; Status DC Vecuronium Silex (Norcuron 20 Mg Inj) 20 mg STK-MED ONCE IV ; Start 02/01/18 at 12:00; Stop 02/04/18 at 13:04; Status DC Dexamethasone Sodium Phosphate (Decadron Inj) 8 mg STK-MED ONCE IV ; Start 02/01 at 12:00; Stop 02/04/18 at 13:04; Status DC Ondansetron HCl (Zofran Inj) 4 mg STK-MED ONCE IV PUSH ; Start 02/01/18 at 12:00 ; Stop 02/04/18 at 13:04; Status DC Hydromorphone HCl (Dilaudid Pf Inj) 1 mg Q4H PRN IV PUSH pain 6-10 Last administered on 02/09/18at 09:58; Start 02/05/18 at 11:45; Stop 02/09/18 at 11:15 ; Status DC Acetaminophen/ Hydrocodone Bitart (Hycet 325-7.5 Mg Liq) 15 ml Q4H PRN PO pain 1-5 Last administered on 02/12/18at 18:34; Start 02/05/18 at 11:45; Stop 02/15/18 at 15:30; Status DC Diatrizoate Meglum/ Diatrizoate Sod ( Gastroview Liq) 60 ml STK-MED ONCE PO Last administered on 02/07/18at 11:59; Start 02/07/18 at 11:58; Stop 02/07/18 at 12:31; Status DC Magnesium Hydroxide (Milk Of Magnesia Liq) 30 ml ONCE ONCE J-TUBE Last administered on 02/08/18at 15:45; Start 02/08/18 at 15:45; Stop 02/08/18 at 15:46 ; Status DC Hydromorphone HCl (Dilaudid Pf Inj) 1 mg Q1H PRN IV PUSH pain 6-10 Last administered on 02/11/18at 09:35; Start 02/09/18 at 11:30; Stop 02/11/18 at 10:36 ; Status DC Lidocaine HCl (Xylocaine 1% Inj (50 ml)) 50 ml STK-MED ONCE .ROUTE Last administered on 02/09/18at 13:23; Start 02/09/18 at 13:23; Stop 02/09/18 at 13:24 ; Status DC Midazolam HCl (Versed Inj) 2 mg ONCE ONCE IV PUSH ; Start 02/09/18 at 13:30; Stop 02/09/18 at 13:31; Status DC Hydromorphone HCl (Dilaudid Pf Inj) 2 mg ONCE ONCE IV PUSH Last administered on 02/09/18at 13:30; Start 02/09/18 at 13:30; Stop 02/09/18 at 13:31; Status DC Midazolam HCl (Versed Inj) 5 mg STK-MED ONCE .ROUTE Last administered on at 13:28; Start 02/09/18 at 13:28; Stop 02/09/18 at 13:29; Status DC Insulin Aspart (NovoLOG SUPPLEMENTAL SCALE) 1 ACHS SLIDING SCALE SQ Last administered on 02/19/18at 12:00; Start 02/09/18 at 17:00 Dextrose (D50w (Vial) Inj) 50 ml UNSCH PRN IV PUSH HYPOGLYCEMIA-SEE COMMENTS; Start 02/09/18 at 14:45 Glucagon (Glucagon Inj) 1 mg UNSCH PRN OTHER HYPOGLYCEMIA-SEE COMMENTS; Start 02/09/18 at 14:45 Piperacillin Sod/ Tazobactam Sod 100 ml @ 200 mls/hr Q6H IV Last administered on 02/14/18at 10:09; Start 02/09/18 at 17:00; Stop 02/14/18 at 11:23; Status DC Linezolid 300 ml @ 300 mls/hr Q12H IV Last administered on 02/13/18at 17:19; Start 02/09/18 at 17:00; Stop 02/13/18 at 18:49; Status DC Iohexol (Omnipaque 350 Inj) 75 ml STK-MED ONCE IVCONTRAST Last administered on 02/09/18at 16:30; Start 02/09/18 at 16:30; Stop 02/09/18 at 16:31; Status DC Diatrizoate Meglum/ Diatrizoate Sod ( Gastroview Liq) 120 ml STK-MED ONCE PO Last administered on 02/09/18at 17:33; Start 02/09/18 at 17:33; Stop 02/09/18 at 17:34; Status DC Fluconazole/ Sodium Chloride 200 ml @ 100 mls/hr NOW ONCE IV Last administered on 02/09/18at 21:31; Start 02/09/18 at 21:00; Stop 02/09/18 at 22:59 ; Status DC Fluconazole/ Sodium Chloride 100 ml @ 100 mls/hr DAILY@2100 IV Last administered on 02/10/18at 20:53; Start 02/10/18 at 21:00; Stop 02/11/18 at 11:09 ; Status DC Midazolam HCl (Versed Inj) 2 mg ONCE ONCE IV PUSH ; Start 02/09/18 at 15:30; Stop 02/09/18 at 21:07; Status DC Hydromorphone HCl (Dilaudid Pf Inj) 1.5 mg ONCE ONCE IV PUSH ; Start 02/09/18 at 15:30; Stop 02/09/18 at 21:07; Status DC Miscellaneous Information ([facility] Patient in critical care unit? Ass... [id number] .XX ; Start 02/09/18 at 21:45 Chlorhexidine Gluconate (Chlorhexidine 2% Cloth) 3 pack DAILY@04 TOPICAL Last administered on 02/14/18at 04:00; Start 02/10/18 at 04:00; Stop 02/14/18 at 04:01 ; Status DC Chlorhexidine Gluconate (Chlorhexidine 2% Cloth) 3 pack UNSCH PRN TOPICAL HYGIENIC CARE; Start 02/09/18 at 21:45; Stop 02/14/18 at 21:40; Status DC Albuterol/ Ipratropium (Duoneb Neb) 1 ampule Q4HR NEB PRN NEB WHEEZING Last administered on 02/12/18at 16:29; Start 02/10/18 at 11:00 Albuterol Sulfate (*ALBUTEROL NEB PERIprocedure ONLY) 2.5 mg STK-MED ONCE NEB Last administered on 02/10/18at 15:09; Start 02/10/18 at 15:09; Stop 02/10/18 at 15:10; Status DC Midazolam HCl (Versed Inj) 4 mg STK-MED ONCE .ROUTE ; Start 02/10/18 at 15:10; Stop 02/10/18 at 15:11; Status DC Meperidine HCl (*DEMEROL INJ PERIprocedural ONLY) 25 mg STK-MED ONCE .ROUTE Last administered on 02/10/18at 15:17; Start 02/10/18 at 15:17; Stop 02/10/18 at 15:18; Status DC Miscellaneous Information ([facility] ALL NURSING DEPARTME... UNSCH PRN .XX SEE LABEL COMMENTS; Start 02/10/18 at 15:09; Stop 02/11/18 at 15: 08; Status DC Labetalol HCl (*TRANDATE INJ PERIprocedural Use ONLY) 100 mg STK-MED ONCE .ROUTE Last administered on 02/10/18at 15:30; Start 02/10/18 at 15:30; Stop at 15:31; Status DC Hydromorphone HCl (Dilaudid Pf Inj) 2 mg Q1H IV ; Start 02/11/18 at 11:00; Status Cancel Hydromorphone HCl (Dilaudid Pf Inj) 2 mg Q1H PRN IV PAIN SCALE 8 TO 10 Last administered on 02/15/18at 14:26; Start 02/11/18 at 10:45; Stop 02/15/18 at 15:29; Status DC Micafungin Sodium 150 mg/Sodium Chloride 100 ml @ 100 mls/hr Q24H IV Last administered on 02/13/18at 12:59; Start 02/11/18 at 13:00; Stop 02/14/18 at 11:23 ; Status DC Bisacodyl (Dulcolax Supp) 10 mg NOW ONCE RECTAL Last administered on at 14:31; Start 02/11/18 at 14:00; Stop 02/11/18 at 14:01; Status DC Gadodiamide (Omniscan Pf Inj) 16 ml STK-MED ONCE IVCONTRAST Last administered on 02/11/18at 13:55; Start 02/11/18 at 13:55; Stop 02/11/18 at 13:56; Status DC Ketamine HCl (Ketalar Inj) 500 mg STK-MED ONCE .ROUTE ; Start 02/12/18 at 09:51 ; Stop 02/12/18 at 09:52; Status DC Midazolam HCl (Versed Inj) 2 mg STK-MED ONCE .ROUTE Last administered on at 11:04; Start 02/12/18 at 11:04; Stop 02/12/18 at 11:05; Status DC Morphine Sulfate (*morphine INJ PERIprocedure ONLY) 4 mg STK-MED ONCE .ROUTE ; Start 02/12/18 at 11:07; Stop 02/12/18 at 11:08; Status DC Lidocaine HCl (Xylocaine-Mpf 1% Inj) 5 ml STK-MED ONCE OTHER ; Start 02/10/18 at 12:00; Stop 02/12/18 at 11:11; Status DC Succinylcholine Chloride (Quelicin Inj) 100 mg STK-MED ONCE IV PUSH ; Start at 12:00; Stop 02/12/18 at 11:11; Status DC Ondansetron HCl (Zofran Inj) 4 mg STK-MED ONCE IV ; Start 02/10/18 at 12:00; Stop 02/12/18 at 11:11; Status DC Propofol (Diprivan 200 Mg/20 ml Inj) 400 mg STK-MED ONCE IV ; Start 02/10/18 at 12:00; Stop 02/12/18 at 11:11; Status DC Albuterol Sulfate (*ALBUTEROL NEB PERIprocedure ONLY) 2.5 mg STK-MED ONCE NEB ; Start 02/12/18 at 11:33; Stop 02/12/18 at 11:34; Status DC Miscellaneous Information ([facility] ALL NURSING DEPARTME... UNSCH PRN .XX SEE LABEL COMMENTS; Start 02/12/18 at 10:55; Stop 02/13/18 at 10: 54; Status DC Fentanyl Citrate (fentaNYL INJ) 100 mcg STK-MED ONCE .ROUTE Last administered on 02/12/18at 15:16; Start 02/12/18 at 15:16; Stop 02/12/18 at 15:17; Status DC Midazolam HCl (Versed Inj) 2 mg STK-MED ONCE .ROUTE Last administered on at 15:16; Start 02/12/18 at 15:16; Stop 02/12/18 at 15:17; Status DC Lidocaine HCl (Xylocaine 1% Inj) 10 ml STK-MED ONCE SQ Last administered on at 16:24; Start 02/12/18 at 16:21; Stop 02/12/18 at 16:23; Status DC Pantoprazole Sodium (Protonix) 40 mg Q12HR PO Last administered on 02/21/18at 08: 31; Start 02/13/18 at 21:00 Gabapentin (Neurontin) 800 mg DAILY PO Last administered on 02/15/18at 09:38; Start 02/14/18 at 09:00; Stop 02/15/18 at 10:18; Status DC Labetalol HCl (Trandate) 100 mg Q12HR PO Last administered on 02/15/18at 09:38; Start 02/14/18 at 09:00; Stop 02/15/18 at 13:41; Status DC Lidocaine HCl (Xylocaine-Mpf 1% Inj) 5 ml STK-MED ONCE OTHER ; Start 02/12/18 at 12:00; Stop 02/14/18 at 09:10; Status DC Rocuronium Silex (Zemuron Inj) 50 mg STK-MED ONCE IV PUSH ; Start 02/12/18 at 12:00; Stop 02/14/18 at 09:10; Status DC Dexamethasone Sodium Phosphate (Decadron Inj) 4 mg STK-MED ONCE IV ; Start 02/12 at 12:00; Stop 02/14/18 at 09:10; Status DC Ondansetron HCl (Zofran Inj) 4 mg STK-MED ONCE IV ; Start 02/12/18 at 12:00; Stop 02/14/18 at 09:10; Status DC Labetalol HCl (Trandate Inj) 100 mg STK-MED ONCE IV ; Start 02/12/18 at 12:00; Stop 02/14/18 at 09:10; Status DC Bisacodyl (Dulcolax Supp) 10 mg ONCE ONCE RECTAL Last administered on at 10:16; Start 02/14/18 at 10:00; Stop 02/14/18 at 10:05; Status DC Magnesium Hydroxide (Milk Of Magnesia Liq) 30 ml ONCE ONCE J-TUBE Last administered on 02/14/18at 10:08; Start 02/14/18 at 10:00; Stop 02/14/18 at 10:05 ; Status DC Fluconazole/ Sodium Chloride 50 ml @ 50 mls/hr Q24H IV Last administered on 02/20at 12:54; Start 02/14/18 at 13:00 Ampicillin Sodium/ Sulbactam Sodium 1500 mg/Sodium Chloride 100 ml @ 200 mls/ hr Q6H IV Last administered on 02/21/18at 06:45; Start 02/14/18 at 12:00 Gabapentin (Neurontin) 800 mg DAILY J-TUBE Last administered on 02/21/18at 08:30 ; Start 02/16/18 at 09:00 Labetalol HCl (Trandate) 200 mg Q12HR PO Last administered on 02/21/18at 08:32; Start 02/15/18 at 21:00 Hydralazine HCl (Apresoline Inj) 20 mg Q4H PRN IV PUSH SBP>160, DBP>90; Start 02/15/18 at 13:45 Hydromorphone HCl (Dilaudid Pf Inj) 1 mg Q3HR PRN IV PAIN SCALE 8 TO 10 Last administered on 02/21/18at 08:26; Start 02/15/18 at 15:30 Oxycodone/ Acetaminophen (Percocet 7.5-325 Mg) 1 tab Q4H PRN PO PAIN GREATER THAN 5 Last administered on 02/16/18at 01:41; Start 02/15/18 at 15:30; Stop at 09:57; Status DC Morphine Sulfate (Oramorph Sr) 15 mg Q8H PO Last administered on 02/17/18 02:29 ; Start 02/16/18 at 11:00; Stop 02/17/18 at 09:06; Status DC Morphine Sulfate (Msir) 15 mg Q4H PRN PO PAIN SCALE 1 TO 7 Last administered on 02/16/18at 15:08; Start 02/16/18 at 10:00; Stop 02/17/18 at 09:07; Status DC Furosemide (Lasix Inj) 40 mg BID@09,18 IV PUSH Last administered on 02/21/18at 08 :30; Start 02/16/18 at 18:00 Iron Dextran (Infed Inj) 100 mg DAILY IV PUSH ; Start 02/17/18 at 11:00; Status Cancel Morphine Sulfate (Oramorph Sr) 30 mg Q8H PO Last administered on 02/18/18at 02:17 ; Start 02/17/18 at 11:00; Stop 02/21/18 at 09:31; Status DC Morphine Sulfate (Msir) 30 mg Q4H PRN PO PAIN SCALE 1 TO 7; Start 02/17/18 at 09 :15; Stop 02/21/18 at 09:31; Status DC Iron Sucrose 100 mg/Sodium Chloride 105 ml @ 210 mls/hr Q24H IV Last administered on 02/20/18at 09:47; Start 02/17/18 at 13:00 Senna/Docusate Sodium (Erna-Colace) 1 tab BID PO Last administered on 02/21/18at 08:31; Start 02/17/18 at 12:00 Magnesium Hydroxide (Milk Of Magnesia Liq) 30 ml Q12H PRN PO Mild constipation ; Start 02/17/18 at 11:45 Sennosides (Senokot) 17.2 mg Q12H PRN PO Moderate constipation; Start 02/17/18 at 11:45 Bisacodyl (Dulcolax Supp) 10 mg DAILY PRN RECTAL SEVERE CONSITIPATION; Start at 11:45 Lactulose (Lactulose Liq) 30 ml DAILY PRN PO SEVERE CONSITIPATION; Start at 11:45 Ondansetron HCl (Zofran Odt) 4 mg ONCE ONCE PO Last administered on 02/18/18at 11:57; Start 02/18/18 at 11:45; Stop 02/18/18 at 11:49; Status DC Ondansetron HCl (Zofran Odt) 4 mg Q4H PRN PO NAUSEA OR VOMITING Last administered on 02/21/18at 08:31; Start 02/18/18 at 11:45 Magnesium Hydroxide (Milk Of Magnesia Liq) 30 ml DAILY PO Last administered on 02/20/18at 11:40; Start 02/18/18 at 14:00 Iohexol (Omnipaque 350 Inj) 75 ml STK-MED ONCE IVCONTRAST Last administered on 02/18/18at 23:34; Start 02/18/18 at 23:34; Stop 02/18/18 at 23:35; Status DC Alteplase, Recombinant (Cathflo Activase Inj) 6 mg STK-MED ONCE I-PLEURAL Last administered on 02/19/18at 14:00; Start 02/19/18 at 14:15; Stop 02/19/18 at 14:16; Status DC Guaifenesin/ Codeine Phosphate (Robitussin Ac 200-20 Mg/10 ml Liq) 10 ml Q4H PRN PO COUGH/CONGESTION; Start 02/20/18 at 10:45 Albuterol/ Ipratropium (Duoneb Neb) 1 ampule Q6HR WHILE AWAKE NEB NEB Last administered on 02/21/18at 07:21; Start 02/20/18 at 14:00 Albuterol/ Ipratropium (Duoneb Neb) 1 ampule Q2HR NEB PRN NEB SOB/COUGH; Start 02/20/18 at 10:45; Stop 02/20/18 at 11:51; Status DC Potassium Bicarb/ Potassium Chloride (K-Lyte Cl Eff) 75 meq ONCE ONCE PEG Last administered on 02/21/18at 09:43; Start 02/21/18 at 08:45; Stop 02/21/18 at 08: 46; Status DC Hydromorphone HCl (Dilaudid) 2 mg Q4H PRN PO PAIN 1 TO 5; Start 02/21/18 at 09: 30; Status UNV Hydromorphone HCl (Dilaudid) 4 mg Q4H PRN PO PAIN 6-10; Start 02/21/18 at 09:30 ; Status UNV Date of Insertion: February 01, 2018 A/P Problem List: (1) Adenocarcinoma of esophagus ICD Code: C15.9 - Malignant neoplasm of esophagus, unspecified Plan: The patient is status post expiratory laparotomy and open proximal gastrectomy with conversion to robotic assisted [place] esophagectomy. Patient also underwent omentectomy. Jejunostomy tube placement with chemical pyloroplasty with Botox injection of the pylorus. Tube feedings through jejunostomy tube placed on hold 02/09, J-tube placed to gravity-defer to general surgery. On 02/09 a focal leak was identified at the gastroesophageal anastomosis. The patient underwent an EGD with Hemoclip placement for esophageal anastomotic leak. The patient was placed on lower elemental tube feedings. Advance as per general surgery recommendations. (2) Abdominal pain ICD Code: R10.9 - Unspecified abdominal pain Plan: Patient with uncontrolled postsurgical pain. I will discontinue previous pain regimen and start the patient on morphine extended release 15 mg p.o. every 8 hours, morphine immediate release 15 mg p.o. every 4 hours as needed and continue IV Dilaudid for breakthrough pain. 02/17 the patient still complaining of abdominal pain. Upon review of ED documentation the patient's pain has been elevated and the patient is also requesting IV Dilaudid for breakthrough pain very frequently. I will increase the dose of morphine extended release to 30 mg p.o. every 8 hours and increase the morphine immediate release dose to 30 mg every 4 hours as needed for pain. Continue with Dilaudid IV for breakthrough pain. Start constipation prevention protocol medications to prevent constipation. 02/18 TRY Morphine tablets - MYRIAM RN Continue pain control w IV Dilaudid. Patient does not like the morphine will switch to Dilaudid 2 mg via PEG for pain of 1-5 and 4 mg via PEG for pain of 6 to 10 Will have Percocet 10/325 for breakthrough pain (3) Acute hypoxemic respiratory failure ICD Code: J96.01 - Acute respiratory failure with hypoxia Plan: Likely secondary to hospital acquired pneumonia versus aspiration pneumonia with associated right pleural effusion which is likely parapneumonic effusion. Weaned to nasal cannula to maintain saturations greater than equal to 92% 02/08-right chest tube removed 02/09-right pleural effusion 02/09-right pigtail catheter chest tube placement , -20cm Thoracic ultrasound noted multiple septations pleural fluid prior to placement of pigtail catheter Incentive spirometry while awake. 02/10- no thoracentesis performed per IR 10/19 minimal fluid. 02/09- CT angio-no PE, worsening consolidation right upper lobe, stable left lower lobe infiltrate 02/10 chest x-ray-small right apical pneumothorax unchanged Encourage incentive spirometry, aggressive pulmonary toileting 02/12: CT-guided right thoracentesis right pigtail catheter placement Continue IV Zosyn Continue IV fluconazole. Continue supplemental oxygen to keep oxygen saturation more than 92%. We will start the patient on IV Lasix 40 mg IV twice daily 02/17 continue IV Lasix. Will repeat a chest x-ray in a.m. Repeat chest x-ray personally reviewed by me showed mild improved aeration of the right lung compared to the prior study. Appreciate pulmonary recommendations. CT of the chest without contrast as ordered by pulmonology and reviewed by me showed a slight improvement in right pleural effusion. Some loculated air remaining in the right pleural effusion with a small caliber right chest tube present. Some compressive atelectasis and consolidation around the gastric pull-through which is also improved from February 09. No new adenopathy or new left effusion. Follow-up pulmonology recommendations. (4) Hypophosphatemia ICD Code: E83.39 - Other disorders of phosphorus metabolism Status: Resolved Plan: Continue monitor phosphorus levels. Now within normal range. (5) Esophageal anastomotic leak ICD Code: K91.89 - Other postprocedural complications and disorders of digestive system Status: Acute Plan: Management as per general surgery. As stated above the patient is status post EGD with clip/esophageal stent placement. Management as per general surgery. (6) Pleural effusion ICD Code: J90 - Pleural effusion, not elsewhere classified Plan: The patient status post chest tube which was removed on 02/08. Right pleural effusion for which a pigtail catheter was placed. I had consulted but no thoracentesis performed secondary to minimal fluid. Pleural effusion likely secondary to parapneumonic effusion. Continue IV antibiotics. Chest x-ray obtained on 02/10 showed small right apical pneumothorax . Patient underwent CT-guided thoracentesis pigtail catheter placement on 02/12. Repeat chest x-ray on 02/14 does not mention pneumothorax and it shows possible mild improvement in aeration of the right lung. Repeat chest x-ray as above. Follow-up pulmonary recommendations. INCENTIVE SPIROMETRY (7) Pneumothorax ICD Code: J93.9 - Pneumothorax, unspecified Plan: Seems to have resolved. The patient is status post chest tube pigtail catheter insertion. Pulmonology consulted. Continue chest tube. Patient status post chest CT of the chest as described above. Follow pulmonary recommendations. Assessment and Plan (1) Adenocarcinoma of esophagus (2) Abdominal pain Switch pain medications around (3) Acute hypoxemic respiratory failure (4) Hypophosphatemia (5) Esophageal anastomotic leak (6) Pleural effusion (7) Pneumothorax Assessment and Plan DVT prophylaxis: Lovenox subcu resumed on 02/14 as per general surgery. Discharge Planning PENDING TOLERATING A DIET Problem Qualifiers (1) Abdominal pain: Qualified Codes: R10.9 - Unspecified abdominal pain (2) Pneumothorax: Qualified Codes: J95.811 - Postprocedural pneumothorax Tay Bates DO Feb 21, 2018 09:54
[2018-02-21] MEDS ORDERED: oxyCODONE/ACETAMINOPHEN 10 MG/325 MG TAB PO PRN (10:00)
[2018-02-21] MEDS: ACETAMINOPHEN 325MG/HYDROcodone 7.5MG/15ML UDC PO PRN ×3 (12:04→21:12)
--- NOTE | 2018-02-21 12:21 | HHI.PR ---
Subjective Subjective Notes Resting in bed Feels "full" Objective Vitals/I&O Vital Signs Date Time Temp Pulse Resp B/P (MAP) Pulse Ox O2 Delivery O2 Flow Rate FiO2 02/21/18 10:00 83 02/21/18 08:56 20 02/21/18 08:00 98.3 133/84 (100) 95 02/21/18 07:00 Room Air 02/20/18 19:50 21 02/20/18 08:00 3.00 Labs Laboratory Tests Test 02/20/18 13:10 02/21/18 04:00 Stool C. difficile Toxin (PCR) NEGATIVE Stl C. difficile Toxin Epiderm 027 PRESUMPTIVE NEGATIVE White Blood Count 13.0 Red Blood Count 4.22 Hemoglobin 11.4 Hematocrit 34.8 Mean Corpuscular Volume 82.5 Mean Corpuscular Hemoglobin 27.0 Mean Corpuscular Hemoglobin Concent 32.8 Red Cell Distribution Width 14.0 Platelet Count 521 Mean Platelet Volume 8.3 Neutrophils (%) (Auto) 80.9 Lymphocytes (%) (Auto) 9.1 Monocytes (%) (Auto) 8.3 Eosinophils (%) (Auto) 1.4 Basophils (%) (Auto) 0.3 Neutrophils # (Auto) 10.5 Lymphocytes # (Auto) 1.2 Monocytes # (Auto) 1.1 Eosinophils # (Auto) 0.2 Basophils # (Auto) 0.0 CBC Comment AUTO DIFF Differential Total Cells Counted 100 Neutrophils % (Manual) 85 Band Neutrophils % 3 Lymphocytes % 5 Monocytes % 3 Eosinophils % 1 Neutrophils # (Manual) 11.8 Myelocytes 3 Differential Comment FINAL DIFF MANUAL Platelet Estimate HIGH Platelet Morphology Comment NORMAL Red Cell Morphology Comment NORMAL Blood Urea Nitrogen 26 Creatinine 0.86 Random Glucose 101 Total Protein 7.5 Albumin 2.5 Calcium Level 8.9 Phosphorus Level 3.8 Magnesium Level 2.3 Alkaline Phosphatase 148 Aspartate Amino Transf (AST/SGOT) 25 Alanine Aminotransferase (ALT/SGPT) 43 Total Bilirubin 0.3 Sodium Level 136 Potassium Level 3.3 Chloride Level 96 Carbon Dioxide Level 29.5 Anion Gap 11 Estimat Glomerular Filtration Rate 95 Free Thyroxine 1.03 Thyroid Stimulating Hormone 3rd Gen 4.240 Date/Time Source Procedure Growth Status 02/11/18 16:54 Blood Peripheral Aerobic Blood Culture - Final NO GROWTH IN 5 DAYS Complete 02/11/18 16:54 Blood Peripheral Anaerobic Blood Culture - Final NO GROWTH IN 5 DAYS Complete 02/12/18 15:35 Fluid Pleural Fluid Fungal Smear - Final NO FUNGAL ELEMENTS SEEN. Resulted 02/12/18 15:35 Fluid Pleural Fluid Fungal Culture - Preliminary NO GROWTH IN 1 WEEK Resulted Cardiovascular: Regular Lungs: Clear Abdomen: Other (midline incision---healing well; J tube with TF ) Extremities: No edema Narrative Exam RIGHT chest tube in place to suction A/P Problem List: (1) Pleural effusion ICD Codes: J90 - Pleural effusion, not elsewhere classified (2) Adenocarcinoma of esophagus ICD Codes: C15.9 - Malignant neoplasm of esophagus, unspecified (3) Hypophosphatemia ICD Codes: E83.39 - Other disorders of phosphorus metabolism Status: Resolved (4) Esophageal anastomotic leak ICD Codes: K91.89 - Other postprocedural complications and disorders of digestive system Status: Acute (5) Acute hypoxemic respiratory failure ICD Codes: J96.01 - Acute respiratory failure with hypoxia Assessment and Plan 47 year old male POD20 robotic assisted [place] esophagectomy -Patient now with delayed leak--- s/p esophageal stent placed -Continue with popsicles ---try sugar free popsicles -Adjusted pain medications -Repeat CT chest ---slight improvement; stable -Reviewed pathology with patient--will need to be evaluated by Medical Oncology once recovered from surgery -TF via J tube -- advance TF to 45 cc/hr as tolerated -ID following-- now on Fluconazole/Ampicillin -Lovenox Kimberly LouisP/Transportation Operations Manager [employer] Feb 21, 2018 12:21
[2018-02-21] MEDS: IRON SUCROSE INJ 100 MG in SODIUM CHLORIDE 0.9% INJ 100 ML IV SCH (13:36)
[2018-02-21] MEDS: FLUCONAZOLE 100 MG PREMIX BAG 50 ML IV SCH (13:36)
[2018-02-21] MEDS: ENOXAPARIN SODIUM 40 MG/0.4 ML SYRINGE SQ SCH (14:25)
[2018-02-21 17:01] LABS: HEMOGLOBIN A1C 5.7 % (4.3-6.0)
--- NOTE | 2018-02-21 18:20 | HHI.PR ---
Subjective Remarks 47 YOWm with oesophageal ca, pl eff, s/p pig tale pl fluid exudate, culture neg Fluid drainage decreased Weaned to RA Denies sob family at Feels better nausea better with Phenargan Objective Vital Signs Vital Signs Date Time Temp Pulse Resp B/P (MAP) Pulse Ox O2 Delivery O2 Flow Rate FiO2 02/21/18 16:00 87 02/21/18 16:00 98.3 87 133/82 (99) 95 02/21/18 14:55 19 02/21/18 14:00 79 02/21/18 13:27 15 02/21/18 12:00 97.6 81 127/72 (90) 94 02/21/18 12:00 81 02/21/18 10:00 83 02/21/18 08:00 98.3 86 133/84 (100) 95 02/21/18 08:00 86 02/21/18 07:21 94 02/21/18 07:00 94 Room Air 02/21/18 06:00 79 02/21/18 04:00 98.9 80 129/80 (96) 93 02/21/18 04:00 80 02/21/18 02:00 79 02/21/18 00:00 80 02/21/18 00:00 98.6 80 20 130/80 (97) 94 02/20/18 22:00 77 02/20/18 20:00 98.7 81 24 129/85 (100) 92 02/20/18 20:00 81 02/20/18 19:50 96 21 02/20/18 19:00 100 Room Air I/O 02/20/18 02/20/18 02/20/18 02/21/18 02/21/18 02/21/18 07:00 15:00 23:00 07:00 15:00 23:00 Intake Total 600 ml 255 ml 932 ml 480 ml 250 ml Output Total 1020 ml 1050 ml 675 ml Balance -420 ml 255 ml -118 ml -195 ml 250 ml Intake Oral 300 ml 480 ml IV Total 100 ml 255 ml 100 ml 250 ml Tube Feeding 500 ml 472 ml Other 60 ml Output Urine Total 1000 ml 1050 ml 675 ml Chest Tube Drainage Total 20 ml 0 ml # Voids 4 # Bowel Movements 0 4 0 Result Diagram: 02/21/18 0400 02/21/18 0400 Objective Remarks GENERAL: MBMNWM,NAD SKIN: Warm and dry. HEAD: Normocephalic. EYES: No scleral icterus. No injection or drainage. NECK: Supple, trachea midline. No JVD or lymphadenopathy. CARDIOVASCULAR: Regular rate and rhythm without murmurs, gallops, or rubs. RESPIRATORY: Breath sounds equal bilaterally. No accessory muscle use. Right chest tube draining GASTROINTESTINAL: Abdomen soft, non-tender, nondistended Abd wound dressed. MUSCULOSKELETAL: No cyanosis, or edema. BACK: Nontender without obvious deformity. No CVA tenderness. A/P Assessment and Plan 1. Right pleural effusion, status post pigtail catheter placement. 2. Esophageal carcinoma, status post gastrectomy, esophagectomy. 3. Hypertension. PLAN: Cont Abx per ID Supplement 02 Chest tube to suction Chest tube management per IR Tube feeding Dw Family Mele Weaver MD Feb 21, 2018 18:20
[2018-02-22] VITALS (8 sets, daily range): BP systolic 120–133; BP diastolic 77–80; PULSE 77–86; RESP 15–16; TEMP 98.3–98.8; O2SAT 93–97
[2018-02-22] MEDS: AMPICILLIN-SULBACTAM INJ 1,500 MG in SODIUM CHLORIDE 0.9% INJ 100 ML IV SCH ×4 (00:29→18:03)
[2018-02-22] MEDS: ACETAMINOPHEN 325MG/HYDROcodone 7.5MG/15ML UDC PO PRN ×3 (03:00→17:19)
[2018-02-22] MEDS: HYDROmorphone HCL PF 2 MG/ML VIAL IV PRN ×3 (05:31→17:19)
[2018-02-22] MEDS: ONDANSETRON ODT 4 MG TAB PO PRN ×2 (05:42→10:57)
[2018-02-22] MEDS: RESP: ALBUTEROL 2.5 MG/IPRATROPIUM 0.5 MG NEB (SCH) NEB ×3 (07:16→20:00)
[2018-02-22] MEDS: INSULIN ASPART SUPPLEMENTAL SCALE SQ SCH ×3 (08:00→17:00)
[2018-02-22] MEDS: MAGNESIUM HYDROXIDE SUSP 30 ML CUP PO SCH (08:28)
[2018-02-22] MEDS: GABAPENTIN 400 MG CAP J-TUBE SCH (08:28)
[2018-02-22] MEDS: LABETALOL HCL 100 MG TAB PO SCH (08:28)
[2018-02-22] MEDS: DOCUSATE SODIUM 50 MG/SENNA 8.6 MG TAB PO SCH (08:28)
[2018-02-22] MEDS: PANTOPRAZOLE SOD 40 MG DELAYED RELEASE TAB PO SCH (08:28)
[2018-02-22] MEDS: SODIUM CHLORIDE 0.9% FLUSH 10 ML FLUSH IV FLUSH SCH (08:29)
[2018-02-22] MEDS: FUROSEMIDE 40 MG/4 ML VIAL IV PUSH SCH ×2 (08:29→18:00)
[2018-02-22] MEDS: PCA - TOTAL MG MORPHINE DELIVERED PER SHIFT SCH (08:30)
--- NOTE | 2018-02-22 09:47 | RADRPT ---
EXAM DATE: 02/22/2018 9:41 AM EDT AGE/SEX: 47 years / Male INDICATIONS: Evaluate chest tube. CLINICAL DATA: This is the patient's initial encounter. Patient reports that signs and symptoms have been present for 1 day and indicates a pain score of 0/10. MEDICAL/SURGICAL HISTORY: None. None. COMPARISON: [facility] – [place], CHEST SINGLE AP, 02/18/2018. . FINDINGS: A single AP view of the chest demonstrates no significant change from the prior study. Again seen is a small right effusion with right basilar consolidation. Left lung is clear. An esophageal stent over lies the right medial lower hemithorax. There is air surrounding the stent. Small caliber chest tube within the right base. Heart is normal in size. CONCLUSION: No significant change with tiny residual right effusion and right lower lobe consolidation. Electronically signed by: Wan Philip MD 02/22/2018 9:46 AM EDT
--- NOTE | 2018-02-22 10:07 | HHI.PR ---
Subjective Remarks 6-6 COMPLAINS OF SOME PAIN NOW DW RN AND PT TRYING TO TAKE IV PAIN MEDS FOR PAIN STILL AM LABS 6-7 patient does not like the morphine. We will switch to Dilaudid via the PEG 2 mg for 1-5 and 4 mg for 6-10 I discussed with the RN and patient increase activity May need breakthrough with NORCO 6-8 DW RN AND PT AND SURGERY SURGERY WANTS TO DC TO HOME TODAY ON [facility] FOR PAIN Objective Vitals Vital Signs Date Time Temp Pulse Resp B/P (MAP) Pulse Ox O2 Delivery O2 Flow Rate FiO2 02/22/18 07:15 93 02/22/18 06:01 16 02/22/18 06:00 77 02/22/18 04:00 98.3 79 15 133/79 (97) 96 02/22/18 04:00 79 02/22/18 04:00 16 02/22/18 02:00 79 02/22/18 00:00 98.8 80 16 120/80 (93) 97 02/22/18 00:00 80 02/21/18 22:00 85 02/21/18 20:14 96 21 02/21/18 20:00 83 02/21/18 20:00 98.7 83 17 124/87 (99) 96 02/21/18 19:00 96 Room Air 02/21/18 18:00 77 02/21/18 16:00 87 02/21/18 16:00 98.3 87 133/82 (99) 95 02/21/18 14:00 79 02/21/18 12:00 97.6 81 127/72 (90) 94 02/21/18 12:00 81 02/21/18 10:00 83 I/O 02/21/18 02/21/18 02/21/18 02/22/18 02/22/18 02/22/18 07:00 15:00 23:00 07:00 15:00 23:00 Intake Total 480 ml 250 ml 1203 ml 1079 ml Output Total 675 ml 0 ml 1200 ml Balance -195 ml 250 ml 1203 ml -121 ml Intake Oral 480 ml 720 ml 240 ml IV Total 250 ml 100 ml 200 ml Tube Feeding 383 ml 439 ml Tube Irrigant 200 ml Output Urine Total 675 ml 1200 ml Chest Tube Drainage Total 0 ml 0 ml 0 ml # Voids 4 # Bowel Movements 0 2 0 Result Diagram: 02/21/18 0400 02/21/18 0400 Other Results Laboratory Tests Test 02/20/18 13:10 02/21/18 04:00 Stool C. difficile Toxin (PCR) NEGATIVE Stl C. difficile Toxin Epiderm 027 PRESUMPTIVE NEGATIVE White Blood Count 13.0 TH/MM3 Red Blood Count 4.22 MIL/MM3 Hemoglobin 11.4 GM/DL Hematocrit 34.8 % Mean Corpuscular Volume 82.5 FL Mean Corpuscular Hemoglobin 27.0 PG Mean Corpuscular Hemoglobin Concent 32.8 % Red Cell Distribution Width 14.0 % Platelet Count 521 TH/MM3 Mean Platelet Volume 8.3 FL Neutrophils (%) (Auto) 80.9 % Lymphocytes (%) (Auto) 9.1 % Monocytes (%) (Auto) 8.3 % Eosinophils (%) (Auto) 1.4 % Basophils (%) (Auto) 0.3 % Neutrophils # (Auto) 10.5 TH/MM3 Lymphocytes # (Auto) 1.2 TH/MM3 Monocytes # (Auto) 1.1 TH/MM3 Eosinophils # (Auto) 0.2 TH/MM3 Basophils # (Auto) 0.0 TH/MM3 CBC Comment AUTO DIFF Differential Total Cells Counted 100 Neutrophils % (Manual) 85 % Band Neutrophils % 3 % Lymphocytes % 5 % Monocytes % 3 % Eosinophils % 1 % Neutrophils # (Manual) 11.8 TH/MM3 Myelocytes 3 % Differential Comment FINAL DIFF MANUAL Platelet Estimate HIGH Platelet Morphology Comment NORMAL Red Cell Morphology Comment NORMAL Blood Urea Nitrogen 26 MG/DL Creatinine 0.86 MG/DL Random Glucose 101 MG/DL Total Protein 7.5 GM/DL Albumin 2.5 GM/DL Calcium Level 8.9 MG/DL Phosphorus Level 3.8 MG/DL Magnesium Level 2.3 MG/DL Alkaline Phosphatase 148 U/L Aspartate Amino Transf (AST/SGOT) 25 U/L Alanine Aminotransferase (ALT/SGPT) 43 U/L Total Bilirubin 0.3 MG/DL Sodium Level 136 MEQ/L Potassium Level 3.3 MEQ/L Chloride Level 96 MEQ/L Carbon Dioxide Level 29.5 MEQ/L Anion Gap 11 MEQ/L Estimat Glomerular Filtration Rate 95 ML/MIN Hemoglobin A1c 5.7 % Free Thyroxine 1.03 NG/DL Thyroid Stimulating Hormone 3rd Gen 4.240 uIU/ML Imaging Last Impressions Chest X-Ray 6/8/18 0000 Signed Impressions: CONCLUSION: No significant change with tiny residual right effusion and right lower lobe co nsolidation. Chest CT 02/18/18 Signed Impressions: CONCLUSION: 1. Status post distal esophagectomy with gastric pull-through. A stent lies wi thin the gastric pull-through in the lower right chest. 2. Slight improvement in right pleural effusion since February 09. There is some lo culated air remaining within the right pleural effusion with a small caliber ri ght chest tube present. There is some compressive atelectasis and consolidation around the gastric pull-through which is improved from February 09. 3. No new adenopathy or new left effusion. Stable appearance of the upper abdo men. GI Procedure 02/12/18 Signed Impressions: CONCLUSION: 1. Fluoroscopic image demonstrates interval esophageal stent placement, as abo ve. Chest Tube Insertion 02/12/18 Signed Impressions: CONCLUSION: 1. Uncomplicated chest tube placement as above. Abdomen MRI 02/11/18 1114 Signed Impressions: CONCLUSION: 1. No definite metastatic disease to the liver. The area in the left lobe seen on previous pulmonary angiogram appears benign. 2. Hepatic cysts. Abdomen X-Ray 02/11/18 Signed Impressions: CONCLUSION: Contrast within large bowel. Mildly dilated small bowel loops CT Angiography 02/09/18 Signed Impressions: CONCLUSION: 1. No pulmonary emboli. 2. Worsening consolidation involving the right upper lobe with some cavitation and stable left lower lobe infiltrate without cavitation. Infectious etiology is suspected. 3. Tiny right effusion with right thoracostomy tube slightly more cephalad in the hemithorax. 4. Prior esophagectomy and gastric pull-through. 5. Partial visualization of a 2.7 cm low-density lesion involving the left lob e of the liver not clearly seen on the prior PET/CT. I cannot exclude a solitar y metastasis. Objective Remarks GENERAL: AWAKE ALERT AND ORIENTED X3 TALKATIVE AND COOPERATIVE SKIN: Warm and dry. HEAD: Atraumatic. Normocephalic. EYES: Pupils equal and round. No scleral icterus. No injection or drainage. EOMI ENT: No nasal bleeding or discharge. Mucous membranes pink and moist. TONGUE IS MIDLINE NECK: Trachea midline. No JVD. CARDIOVASCULAR: Regular rate and rhythm. S1, S2, NO S3 OR S4 RESPIRATORY: No accessory muscle use. Clear to auscultation. Breath sounds equal bilaterally. CHEST TUBE ON RIGHT- GASTROINTESTINAL: Abdomen soft, non-tender, nondistended. Hepatic and splenic margins not palpable. HYPOACTIVE- MIDLINE INCISION MUSCULOSKELETAL: Extremities without clubbing, cyanosis, or edema. No obvious deformities. NEUROLOGICAL: Awake and alert. No obvious cranial nerve deficits. Motor grossly within normal limits. Five out of 5 muscle strength in the arms and legs. Normal speech. PSYCHIATRIC: Appropriate mood and affect; insight and judgment normal. Procedures 02/09-right pigtail chest tube 02/12-EGD/ Hemoclip placement for anastomotic leak 02/12: Removal of right pigtail chest tube ,placement of CT-guided right pigtail chest to right pleural fluid loculation Medications and IVs Current Medications Lactated Ringer's 1,000 ml @ 30 mls/hr Q24H PRN IV SEE LABEL COMMENTS Last administered on 02/01/18at 06:35; Start 02/01/18 at 06:15; Stop 02/04/18 at 06:14 ; Status DC Sodium Chloride 500 ml @ 30 mls/hr [id number] PRN IV SEE LABEL COMMENTS; Start at 06:15; Stop 02/04/18 at 06:14; Status DC Metoprolol Tartrate (Lopressor) 25 mg BOOT TURNER PRN PO SEE LABEL COMMENTS; Start 02/01/18 at 06:15; Stop 02/04/18 at 06:14; Status DC Povidone Iodine (Betadine 5% Antisepsis Kit) 1 applic BOOT TURNER PRN EACH NARE SEE LABEL COMMENTS Last administered on 02/01/18at 06:38; Start 02/01/18 at 06:15 ; Stop 02/04/18 at 06:14; Status DC Chlorhexidine Gluconate (Chlorhexidine 2% Cloth) 3 pack BOOT TURNER PRN TOPICAL SEE LABEL COMMENTS Last administered on 02/01/18at 06:05; Start 02/01/18 at 06:15 ; Stop 02/04/18 at 06:14; Status DC Cefazolin/Sodium Chloride 100 ml @ 200 mls/hr BOOT TURNER IV Last administered on 02/01/18at 08:30; Start 02/01/18 at 06:15; Stop 02/02/18 at 06:14; Status DC Acetaminophen 100 ml @ As Directed STK-MED ONCE IV ; Start 02/01/18 at 07:20; Stop 02/01/18 at 07:21; Status DC Sugammadex Sodium (Bridion Inj) 400 mg STK-MED ONCE IV PUSH ; Start 02/01/18 at 07:21; Stop 02/01/18 at 07:22; Status DC Fentanyl Citrate (fentaNYL INJ) 250 mcg STK-MED ONCE .ROUTE ; Start 02/01/18 at 07:21; Stop 02/01/18 at 07:22; Status DC Cefazolin Sodium/ Dextrose 50 ml @ As Directed STK-MED ONCE .ROUTE ; Start 02/01 at 07:26; Stop 02/01/18 at 07:27; Status DC Etomidate (Amidate Inj) 20 mg STK-MED ONCE .ROUTE ; Start 02/01/18 at 07:36; Stop 02/01/18 at 07:37; Status DC Onabotulinumtoxina (Botox Inj) 100 units UNSCH .XX Last administered on at 09:23; Start 02/01/18 at 08:15 Cefazolin Sodium (Ancef Inj) 2,000 mg STK-MED ONCE .ROUTE ; Start 02/01/18 at 12 :44; Stop 02/01/18 at 12:45; Status DC Vecuronium [place] (Norcuron 20 Mg Inj) 20 mg STK-MED ONCE .ROUTE ; Start at 12:48; Stop 02/01/18 at 12:49; Status DC Bupivacaine Liposome (Exparel Pf 1.3% Inj) 20 ml STK-MED ONCE .ROUTE ; Start at 15:06; Stop 02/01/18 at 15:07; Status DC Potassium Chloride/Dextrose/ Sod Cl 1,000 ml @ 75 mls/hr [id number] IV Last administered on 02/17/18at 07:42; Start 02/01/18 at 16:00; Stop 02/17/18 at 09:06; Status DC Sodium Chloride (NS Flush) 2 ml UNSCH PRN IV FLUSH FLUSH AFTER USING IV ACCESS Last administered on 02/02/18at 19:54; Start 02/01/18 at 15:15 Sodium Chloride (NS Flush) 2 ml BID IV FLUSH Last administered on 02/22/18at 08: 29; Start 02/01/18 at 21:00 Ondansetron HCl (Zofran Odt) 4 mg Q6H PRN PO NAUSEA OR VOMITING Last administered on 02/19/18at 17:29; Start 02/01/18 at 15:45; Status Future Hold Diphenhydramine HCl (Benadryl Inj) 25 mg Q6H PRN IV PUSH ITCHING Last administered on 02/13/18at 20:59; Start 02/01/18 at 15:15 Benzocaine (Hurricaine 20% Oral Spr) 1 spray UNSCH X1 PRN MT SEE LABEL COMMENTS ; Start 02/01/18 at 15:15; Stop 02/02/18 at 15:14; Status DC Cefazolin Sodium 1000 mg/Sodium Chloride 100 ml @ 200 mls/hr Q8H IV ; Start at 16:30; Stop 02/02/18 at 08:59; Status Cancel Metronidazole 100 ml @ 200 mls/hr Q8H IV Last administered on 02/02/18at 09:03 ; Start 02/01/18 at 17:00; Stop 02/02/18 at 09:29; Status DC Miscellaneous Information (Misc Post-op Orders (for Pharmacy)) STAT ONCE XX ; Start 02/01/18 at 15:15; Stop 02/01/18 at 15:42; Status DC Acetaminophen 100 ml @ 400 mls/hr Q6H IV Last administered on 02/03/18at 09:27 ; Start 02/01/18 at 16:00; Stop 02/03/18 at 10:14; Status DC Naloxone HCl (Narcan Inj) 0.4 mg UNSCH PRN IV PUSH SEE LABEL COMMENTS; Start at 15:15; Stop 02/08/18 at 15:34; Status DC Enoxaparin Sodium (Lovenox Inj) 40 mg Q24H SQ Last administered on 02/21/18at 14: 25; Start 02/02/18 at 15:00; Status Future hold Naloxone HCl (Narcan Inj) 0.4 mg UNSCH PRN IV PUSH RESPIRATORY RATE LESS THAN 10; Start 02/01/18 at 15:15 Morphine Sulfate (Morphine 1 Mg/ ml HYDRO ELECTRIC STATION OPERATOR) 30 mg UNSCH IV Last administered on at 01:28; Start 02/01/18 at 15:15; Stop 02/05/18 at 11:36; Status DC HYDRO ELECTRIC STATION OPERATOR Dosage Infused (Pha) 1 Q8HR .XX Last administered on 02/05/18at 06:00; Start 02/01/18 at 15:15 Cefazolin Sodium (Ancef Inj) 2,000 mg STK-MED ONCE .ROUTE ; Start 02/01/18 at 15 :34; Stop 02/01/18 at 15:35; Status DC Fentanyl Citrate (fentaNYL INJ) 200 mcg STK-MED ONCE .ROUTE ; Start 02/01/18 at 15:37; Stop 02/01/18 at 15:38; Status DC Fentanyl Citrate (fentaNYL INJ) 200 mcg STK-MED ONCE .ROUTE ; Start 02/01/18 at 15:38; Stop 02/01/18 at 15:39; Status DC Midazolam HCl (Versed Inj) 2 mg STK-MED ONCE .ROUTE ; Start 02/01/18 at 15:38; Stop 02/01/18 at 15:39; Status DC Morphine Sulfate (Morphine Inj) 4 mg STK-MED ONCE .ROUTE Last administered on at 16:02; Start 02/01/18 at 16:02; Stop 02/01/18 at 16:03; Status DC Cefazolin Sodium 1000 mg/Sodium Chloride 100 ml @ 200 mls/hr Q8H IV Last administered on 02/02/18at 11:06; Start 02/01/18 at 20:00; Stop 02/02/18 at 12:29 ; Status DC Miscellaneous Information ([facility] Nursing Information) ALL NURSING DEPARTME... UNSCH PRN .XX SEE LABEL COMMENTS; Start 02/01/18 at 17:00; Stop 02/02/18 at 16: 59; Status DC Promethazine HCl (Phenergan Inj) 12.5 mg Q6H PRN OTHER NAUSEA Last administered on 02/21/18at 10:40; Start 02/01/18 at 22:30 Ketorolac Tromethamine (Toradol Inj) 30 mg ONCE ONCE IV PUSH ; Start 02/01/18 at 22:30; Stop 02/01/18 at 22:31; Status DC Calcium Gluconate 1 gm/Sodium Chloride 110 ml @ 110 mls/hr ONCE ONCE IV Last administered on 02/02/18at 16:21; Start 02/02/18 at 15:30; Stop 02/02/18 at 16:29 ; Status DC Sodium Phosphate 30 mmol/Sodium Chloride 260 ml @ 43.333 mls/ hr ONCE ONCE IV Last administered on 02/03/18at 18:27; Start 02/03/18 at 18:00; Stop 02/03/18 at 23:59; Status DC Magnesium Sulfate/ Dextrose 100 ml @ 100 mls/hr ONCE ONCE IV Last administered on 02/03/18at 16:45; Start 02/03/18 at 17:00; Stop 02/03/18 at 17:59 ; Status DC Potassium Phosphate 30 mmol/ Sodium Chloride 260 ml @ 43.333 mls/ hr ONCE ONCE IV Last administered on 02/04/18at 11:05; Start 02/04/18 at 12:00; Stop at 17:59; Status DC Labetalol HCl (Trandate Inj) 20 mg Q2H PRN IV PUSH SBP > 160 Last administered on 02/14/18at 23:44; Start 02/04/18 at 11:30; Stop 02/15/18 at 13:41; Status DC Parenteral Electrolytes 1,000 ml @ As Directed STK-MED ONCE IV ; Start at 12:00; Stop 02/04/18 at 13:04; Status DC Cefazolin Sodium (Ancef Inj) 2,000 mg STK-MED ONCE IV ; Start 02/01/18 at 12:00 ; Stop 02/04/18 at 13:04; Status DC Propofol (Diprivan 200 Mg/20 ml Inj) 200 mg STK-MED ONCE IV ; Start 02/01/18 at 12:00; Stop 02/04/18 at 13:04; Status DC Sodium Chloride (Sodium Chloride 0.9% Inj) 20 ml STK-MED ONCE IV ; Start at 12:00; Stop 02/04/18 at 13:04; Status DC Lidocaine HCl (Xylocaine-Mpf 1% Inj) 5 ml STK-MED ONCE OTHER ; Start 02/01/18 at 12:00; Stop 02/04/18 at 13:04; Status DC Rocuronium [place] (Zemuron Inj) 50 mg STK-MED ONCE IV PUSH ; Start 02/01/18 at 12:00; Stop 02/04/18 at 13:04; Status DC Glycopyrrolate (Robinul Inj) 1 mg STK-MED ONCE IV PUSH ; Start 02/01/18 at 12:00 ; Stop 02/04/18 at 13:04; Status DC Phenylephrine HCl (Neosynephrine/ NS 1000 Mcg/10ml Syr) 2,000 mcg STK-MED ONCE IV ; Start 02/01/18 at 12:00; Stop 02/04/18 at 13:04; Status DC Ephedrine Sulfate (ePHEDrine/NS 25 MG/5 ML SYR) 50 mg STK-MED ONCE IV ; Start at 12:00; Stop 02/04/18 at 13:04; Status DC Metoprolol Tartrate (Lopressor Inj) 5 mg STK-MED ONCE IV ; Start 02/01/18 at 12: 00; Stop 02/04/18 at 13:04; Status DC Esmolol HCl (Brevibloc Bolus Inj) 100 mg STK-MED ONCE IV ; Start 02/01/18 at 12: 00; Stop 02/04/18 at 13:04; Status DC Vecuronium [place] (Norcuron 20 Mg Inj) 20 mg STK-MED ONCE IV ; Start 02/01/18 at 12:00; Stop 02/04/18 at 13:04; Status DC Dexamethasone Sodium Phosphate (Decadron Inj) 8 mg STK-MED ONCE IV ; Start 02/01 at 12:00; Stop 02/04/18 at 13:04; Status DC Ondansetron HCl (Zofran Inj) 4 mg STK-MED ONCE IV PUSH ; Start 02/01/18 at 12:00 ; Stop 02/04/18 at 13:04; Status DC Hydromorphone HCl (Dilaudid Pf Inj) 1 mg Q4H PRN IV PUSH pain 6-10 Last administered on 02/09/18at 09:58; Start 02/05/18 at 11:45; Stop 02/09/18 at 11:15 ; Status DC Acetaminophen/ Hydrocodone Bitart (Hycet 325-7.5 Mg Liq) 15 ml Q4H PRN PO pain 1-5 Last administered on 02/12/18at 18:34; Start 02/05/18 at 11:45; Stop 02/15/18 at 15:30; Status DC Diatrizoate Meglum/ Diatrizoate Sod ( Gastroview Liq) 60 ml STK-MED ONCE PO Last administered on 02/07/18at 11:59; Start 02/07/18 at 11:58; Stop 02/07/18 at 12:31; Status DC Magnesium Hydroxide (Milk Of Magnesia Liq) 30 ml ONCE ONCE J-TUBE Last administered on 02/08/18at 15:45; Start 02/08/18 at 15:45; Stop 02/08/18 at 15:46 ; Status DC Hydromorphone HCl (Dilaudid Pf Inj) 1 mg Q1H PRN IV PUSH pain 6-10 Last administered on 02/11/18at 09:35; Start 02/09/18 at 11:30; Stop 02/11/18 at 10:36 ; Status DC Lidocaine HCl (Xylocaine 1% Inj (50 ml)) 50 ml STK-MED ONCE .ROUTE Last administered on 02/09/18at 13:23; Start 02/09/18 at 13:23; Stop 02/09/18 at 13:24 ; Status DC Midazolam HCl (Versed Inj) 2 mg ONCE ONCE IV PUSH ; Start 02/09/18 at 13:30; Stop 02/09/18 at 13:31; Status DC Hydromorphone HCl (Dilaudid Pf Inj) 2 mg ONCE ONCE IV PUSH Last administered on 02/09/18at 13:30; Start 02/09/18 at 13:30; Stop 02/09/18 at 13:31; Status DC Midazolam HCl (Versed Inj) 5 mg STK-MED ONCE .ROUTE Last administered on at 13:28; Start 02/09/18 at 13:28; Stop 02/09/18 at 13:29; Status DC Insulin Aspart (NovoLOG SUPPLEMENTAL SCALE) 1 ACHS SLIDING SCALE SQ Last administered on 02/19/18at 12:00; Start 02/09/18 at 17:00 Dextrose (D50w (Vial) Inj) 50 ml UNSCH PRN IV PUSH HYPOGLYCEMIA-SEE COMMENTS; Start 02/09/18 at 14:45 Glucagon (Glucagon Inj) 1 mg UNSCH PRN OTHER HYPOGLYCEMIA-SEE COMMENTS; Start 02/09/18 at 14:45 Piperacillin Sod/ Tazobactam Sod 100 ml @ 200 mls/hr Q6H IV Last administered on 02/14/18at 10:09; Start 02/09/18 at 17:00; Stop 02/14/18 at 11:23; Status DC Linezolid 300 ml @ 300 mls/hr Q12H IV Last administered on 02/13/18at 17:19; Start 02/09/18 at 17:00; Stop 02/13/18 at 18:49; Status DC Iohexol (Omnipaque 350 Inj) 75 ml STK-MED ONCE IVCONTRAST Last administered on 02/09/18at 16:30; Start 02/09/18 at 16:30; Stop 02/09/18 at 16:31; Status DC Diatrizoate Meglum/ Diatrizoate Sod ( Gastroview Liq) 120 ml STK-MED ONCE PO Last administered on 02/09/18at 17:33; Start 02/09/18 at 17:33; Stop 02/09/18 at 17:34; Status DC Fluconazole/ Sodium Chloride 200 ml @ 100 mls/hr NOW ONCE IV Last administered on 02/09/18at 21:31; Start 02/09/18 at 21:00; Stop 02/09/18 at 22:59 ; Status DC Fluconazole/ Sodium Chloride 100 ml @ 100 mls/hr DAILY@2100 IV Last administered on 02/10/18at 20:53; Start 02/10/18 at 21:00; Stop 02/11/18 at 11:09 ; Status DC Midazolam HCl (Versed Inj) 2 mg ONCE ONCE IV PUSH ; Start 02/09/18 at 15:30; Stop 02/09/18 at 21:07; Status DC Hydromorphone HCl (Dilaudid Pf Inj) 1.5 mg ONCE ONCE IV PUSH ; Start 02/09/18 at 15:30; Stop 02/09/18 at 21:07; Status DC Miscellaneous Information ([facility] Nursing Information) Patient in critical care unit? Ass... [id number] .XX ; Start 02/09/18 at 21:45 Chlorhexidine Gluconate (Chlorhexidine 2% Cloth) 3 pack DAILY@04 TOPICAL Last administered on 02/14/18at 04:00; Start 02/10/18 at 04:00; Stop 02/14/18 at 04:01 ; Status DC Chlorhexidine Gluconate (Chlorhexidine 2% Cloth) 3 pack UNSCH PRN TOPICAL HYGIENIC CARE; Start 02/09/18 at 21:45; Stop 02/14/18 at 21:40; Status DC Albuterol/ Ipratropium (Duoneb Neb) 1 ampule Q4HR NEB PRN NEB WHEEZING Last administered on 02/12/18at 16:29; Start 02/10/18 at 11:00 Albuterol Sulfate (*ALBUTEROL NEB PERIprocedure ONLY) 2.5 mg STK-MED ONCE NEB Last administered on 02/10/18at 15:09; Start 02/10/18 at 15:09; Stop 02/10/18 at 15:10; Status DC Midazolam HCl (Versed Inj) 4 mg STK-MED ONCE .ROUTE ; Start 02/10/18 at 15:10; Stop 02/10/18 at 15:11; Status DC Meperidine HCl (*DEMEROL INJ PERIprocedural ONLY) 25 mg STK-MED ONCE .ROUTE Last administered on 02/10/18at 15:17; Start 02/10/18 at 15:17; Stop 02/10/18 at 15:18; Status DC Miscellaneous Information ([facility] Nursing Information) ALL NURSING DEPARTME... UNSCH PRN .XX SEE LABEL COMMENTS; Start 02/10/18 at 15:09; Stop 02/11/18 at 15: 08; Status DC Labetalol HCl (*TRANDATE INJ PERIprocedural Use ONLY) 100 mg STK-MED ONCE .ROUTE Last administered on 02/10/18at 15:30; Start 02/10/18 at 15:30; Stop at 15:31; Status DC Hydromorphone HCl (Dilaudid Pf Inj) 2 mg Q1H IV ; Start 02/11/18 at 11:00; Status Cancel Hydromorphone HCl (Dilaudid Pf Inj) 2 mg Q1H PRN IV PAIN SCALE 8 TO 10 Last administered on 02/15/18at 14:26; Start 02/11/18 at 10:45; Stop 02/15/18 at 15:29; Status DC Micafungin Sodium 150 mg/Sodium Chloride 100 ml @ 100 mls/hr Q24H IV Last administered on 02/13/18at 12:59; Start 02/11/18 at 13:00; Stop 02/14/18 at 11:23 ; Status DC Bisacodyl (Dulcolax Supp) 10 mg NOW ONCE RECTAL Last administered on at 14:31; Start 02/11/18 at 14:00; Stop 02/11/18 at 14:01; Status DC Gadodiamide (Omniscan Pf Inj) 16 ml STK-MED ONCE IVCONTRAST Last administered on 02/11/18at 13:55; Start 02/11/18 at 13:55; Stop 02/11/18 at 13:56; Status DC Ketamine HCl (Ketalar Inj) 500 mg STK-MED ONCE .ROUTE ; Start 02/12/18 at 09:51 ; Stop 02/12/18 at 09:52; Status DC Midazolam HCl (Versed Inj) 2 mg STK-MED ONCE .ROUTE Last administered on at 11:04; Start 02/12/18 at 11:04; Stop 02/12/18 at 11:05; Status DC Morphine Sulfate (*morphine INJ PERIprocedure ONLY) 4 mg STK-MED ONCE .ROUTE ; Start 02/12/18 at 11:07; Stop 02/12/18 at 11:08; Status DC Lidocaine HCl (Xylocaine-Mpf 1% Inj) 5 ml STK-MED ONCE OTHER ; Start 02/10/18 at 12:00; Stop 02/12/18 at 11:11; Status DC Succinylcholine Chloride (Quelicin Inj) 100 mg STK-MED ONCE IV PUSH ; Start at 12:00; Stop 02/12/18 at 11:11; Status DC Ondansetron HCl (Zofran Inj) 4 mg STK-MED ONCE IV ; Start 02/10/18 at 12:00; Stop 02/12/18 at 11:11; Status DC Propofol (Diprivan 200 Mg/20 ml Inj) 400 mg STK-MED ONCE IV ; Start 02/10/18 at 12:00; Stop 02/12/18 at 11:11; Status DC Albuterol Sulfate (*ALBUTEROL NEB PERIprocedure ONLY) 2.5 mg STK-MED ONCE NEB ; Start 02/12/18 at 11:33; Stop 02/12/18 at 11:34; Status DC Miscellaneous Information ([facility] Nursing Information) ALL NURSING DEPARTME... UNSCH PRN .XX SEE LABEL COMMENTS; Start 02/12/18 at 10:55; Stop 02/13/18 at 10: 54; Status DC Fentanyl Citrate (fentaNYL INJ) 100 mcg STK-MED ONCE .ROUTE Last administered on 02/12/18at 15:16; Start 02/12/18 at 15:16; Stop 02/12/18 at 15:17; Status DC Midazolam HCl (Versed Inj) 2 mg STK-MED ONCE .ROUTE Last administered on at 15:16; Start 02/12/18 at 15:16; Stop 02/12/18 at 15:17; Status DC Lidocaine HCl (Xylocaine 1% Inj) 10 ml STK-MED ONCE SQ Last administered on at 16:24; Start 02/12/18 at 16:21; Stop 02/12/18 at 16:23; Status DC Pantoprazole Sodium (Protonix) 40 mg Q12HR PO Last administered on 02/22/18at 08: 28; Start 02/13/18 at 21:00 Gabapentin (Neurontin) 800 mg DAILY PO Last administered on 02/15/18at 09:38; Start 02/14/18 at 09:00; Stop 02/15/18 at 10:18; Status DC Labetalol HCl (Trandate) 100 mg Q12HR PO Last administered on 02/15/18at 09:38; Start 02/14/18 at 09:00; Stop 02/15/18 at 13:41; Status DC Lidocaine HCl (Xylocaine-Mpf 1% Inj) 5 ml STK-MED ONCE OTHER ; Start 02/12/18 at 12:00; Stop 02/14/18 at 09:10; Status DC Rocuronium [place] (Zemuron Inj) 50 mg STK-MED ONCE IV PUSH ; Start 02/12/18 at 12:00; Stop 02/14/18 at 09:10; Status DC Dexamethasone Sodium Phosphate (Decadron Inj) 4 mg STK-MED ONCE IV ; Start 02/12 at 12:00; Stop 02/14/18 at 09:10; Status DC Ondansetron HCl (Zofran Inj) 4 mg STK-MED ONCE IV ; Start 02/12/18 at 12:00; Stop 02/14/18 at 09:10; Status DC Labetalol HCl (Trandate Inj) 100 mg STK-MED ONCE IV ; Start 02/12/18 at 12:00; Stop 02/14/18 at 09:10; Status DC Bisacodyl (Dulcolax Supp) 10 mg ONCE ONCE RECTAL Last administered on at 10:16; Start 02/14/18 at 10:00; Stop 02/14/18 at 10:05; Status DC Magnesium Hydroxide (Milk Of Magnesia Liq) 30 ml ONCE ONCE J-TUBE Last administered on 02/14/18at 10:08; Start 02/14/18 at 10:00; Stop 02/14/18 at 10:05 ; Status DC Fluconazole/ Sodium Chloride 50 ml @ 50 mls/hr Q24H IV Last administered on 02/21at 13:36; Start 02/14/18 at 13:00 Ampicillin Sodium/ Sulbactam Sodium 1500 mg/Sodium Chloride 100 ml @ 200 mls/ hr Q6H IV Last administered on 02/22/18at 06:26; Start 02/14/18 at 12:00 Gabapentin (Neurontin) 800 mg DAILY J-TUBE Last administered on 02/22/18at 08:28 ; Start 02/16/18 at 09:00 Labetalol HCl (Trandate) 200 mg Q12HR PO Last administered on 02/22/18at 08:28; Start 02/15/18 at 21:00 Hydralazine HCl (Apresoline Inj) 20 mg Q4H PRN IV PUSH SBP>160, DBP>90; Start 02/15/18 at 13:45 Hydromorphone HCl (Dilaudid Pf Inj) 1 mg Q3HR PRN IV PAIN 8-10 IFNO RELIEF FROM PO Last administered on 02/22/18at 05:31; Start 02/15/18 at 15:30 Oxycodone/ Acetaminophen (Percocet 7.5-325 Mg) 1 tab Q4H PRN PO PAIN GREATER THAN 5 Last administered on 02/16/18at 01:41; Start 02/15/18 at 15:30; Stop at 09:57; Status DC Morphine Sulfate (Oramorph Sr) 15 mg Q8H PO Last administered on 02/17/18at 02:29 ; Start 02/16/18 at 11:00; Stop 02/17/18 at 09:06; Status DC Morphine Sulfate (Msir) 15 mg Q4H PRN PO PAIN SCALE 1 TO 7 Last administered on 02/16/18at 15:08; Start 02/16/18 at 10:00; Stop 02/17/18 at 09:07; Status DC Furosemide (Lasix Inj) 40 mg BID@09,18 IV PUSH Last administered on 02/22/18at 08 :29; Start 02/16/18 at 18:00 Iron Dextran (Infed Inj) 100 mg DAILY IV PUSH ; Start 02/17/18 at 11:00; Status Cancel Morphine Sulfate (Oramorph Sr) 30 mg Q8H PO Last administered on 02/18/18at 02:17 ; Start 02/17/18 at 11:00; Stop 02/21/18 at 09:31; Status DC Morphine Sulfate (Msir) 30 mg Q4H PRN PO PAIN SCALE 1 TO 7; Start 02/17/18 at 09 :15; Stop 02/21/18 at 09:31; Status DC Iron Sucrose 100 mg/Sodium Chloride 105 ml @ 210 mls/hr Q24H IV Last administered on 02/21/18at 13:36; Start 02/17/18 at 13:00 Senna/Docusate Sodium (Erna-Colace) 1 tab BID PO Last administered on 02/22/18at 08:28; Start 02/17/18 at 12:00 Magnesium Hydroxide (Milk Of Magnesia Liq) 30 ml Q12H PRN PO Mild constipation ; Start 02/17/18 at 11:45 Sennosides (Senokot) 17.2 mg Q12H PRN PO Moderate constipation; Start 02/17/18 at 11:45 Bisacodyl (Dulcolax Supp) 10 mg DAILY PRN RECTAL SEVERE CONSITIPATION; Start at 11:45 Lactulose (Lactulose Liq) 30 ml DAILY PRN PO SEVERE CONSITIPATION; Start at 11:45 Ondansetron HCl (Zofran Odt) 4 mg ONCE ONCE PO Last administered on 02/18/18at 11:57; Start 02/18/18 at 11:45; Stop 02/18/18 at 11:49; Status DC Ondansetron HCl (Zofran Odt) 4 mg Q4H PRN PO NAUSEA OR VOMITING Last administered on 02/22/18at 05:42; Start 02/18/18 at 11:45 Magnesium Hydroxide (Milk Of Magnesia Liq) 30 ml DAILY PO Last administered on 02/22/18at 08:28; Start 02/18/18 at 14:00 Iohexol (Omnipaque 350 Inj) 75 ml STK-MED ONCE IVCONTRAST Last administered on 02/18/18at 23:34; Start 02/18/18 at 23:34; Stop 02/18/18 at 23:35; Status DC Alteplase, Recombinant (Cathflo Activase Inj) 6 mg STK-MED ONCE I-PLEURAL Last administered on 02/19/18at 14:00; Start 02/19/18 at 14:15; Stop 02/19/18 at 14:16; Status DC Guaifenesin/ Codeine Phosphate (Robitussin Ac 200-20 Mg/10 ml Liq) 10 ml Q4H PRN PO COUGH/CONGESTION; Start 02/20/18 at 10:45 Albuterol/ Ipratropium (Duoneb Neb) 1 ampule Q6HR WHILE AWAKE NEB NEB Last administered on 02/22/18at 07:16; Start 02/20/18 at 14:00 Albuterol/ Ipratropium (Duoneb Neb) 1 ampule Q2HR NEB PRN NEB SOB/COUGH; Start 02/20/18 at 10:45; Stop 02/20/18 at 11:51; Status DC Potassium Bicarb/ Potassium Chloride (K-Lyte Cl Eff) 75 meq ONCE ONCE PEG Last administered on 02/21/18at 09:43; Start 02/21/18 at 08:45; Stop 02/21/18 at 08: 46; Status DC Hydromorphone HCl (Dilaudid) 2 mg Q4H PRN PO PAIN 1 TO 5; Start 02/21/18 at 09: 30; Stop 02/21/18 at 11:04; Status DC Hydromorphone HCl (Dilaudid) 4 mg Q4H PRN PO PAIN 6-10; Start 02/21/18 at 09:30 ; Stop 02/21/18 at 11:04; Status DC Oxycodone/ Acetaminophen (Percocet 10-325 Mg) 1 tab Q6H PRN PO breakthrough pain; Start 02/21/18 at 10:00; Stop 02/21/18 at 11:04; Status DC Acetaminophen/ Hydrocodone Bitart (Hycet 325-7.5 Mg Liq) 15 ml Q4H PRN PO Pain 1-10 Last administered on 02/22/18at 08:20; Start 02/21/18 at 11:00 Date of Insertion: February 01, 2018 A/P Problem List: (1) Adenocarcinoma of esophagus ICD Code: C15.9 - Malignant neoplasm of esophagus, unspecified Plan: The patient is status post expiratory laparotomy and open proximal gastrectomy with conversion to robotic assisted Romulo-[place] esophagectomy. Patient also underwent omentectomy. Jejunostomy tube placement with chemical pyloroplasty with Botox injection of the pylorus. Tube feedings through jejunostomy tube placed on hold 02/09, J-tube placed to gravity-defer to general surgery. On 02/09 a focal leak was identified at the gastroesophageal anastomosis. The patient underwent an EGD with Hemoclip placement for esophageal anastomotic leak. The patient was placed on lower elemental tube feedings. Advance as per general surgery recommendations. TUBE FEEDS AT 40ML PER HOUR AT HOME (2) Abdominal pain ICD Code: R10.9 - Unspecified abdominal pain Plan: Patient with uncontrolled postsurgical pain. I will discontinue previous pain regimen and start the patient on morphine extended release 15 mg p.o. every 8 hours, morphine immediate release 15 mg p.o. every 4 hours as needed and continue IV Dilaudid for breakthrough pain. 02/17 the patient still complaining of abdominal pain. Upon review of ED documentation the patient's pain has been elevated and the patient is also requesting IV Dilaudid for breakthrough pain very frequently. I will increase the dose of morphine extended release to 30 mg p.o. every 8 hours and increase the morphine immediate release dose to 30 mg every 4 hours as needed for pain. Continue with Dilaudid IV for breakthrough pain. Start constipation prevention protocol medications to prevent constipation. 02/18 TRY Morphine tablets - MYRIAM RN Continue pain control w IV Dilaudid. NORCO FOR PAIN (3) Acute hypoxemic respiratory failure ICD Code: J96.01 - Acute respiratory failure with hypoxia Plan: Likely secondary to hospital acquired pneumonia versus aspiration pneumonia with associated right pleural effusion which is likely parapneumonic effusion. Weaned to nasal cannula to maintain saturations greater than equal to 92% 02/08-right chest tube removed 02/09-right pleural effusion 02/09-right pigtail catheter chest tube placement , -20cm Thoracic ultrasound noted multiple septations pleural fluid prior to placement of pigtail catheter Incentive spirometry while awake. 02/10- no thoracentesis performed per IR 10/19 minimal fluid. 02/09- CT angio-no PE, worsening consolidation right upper lobe, stable left lower lobe infiltrate 02/10 chest x-ray-small right apical pneumothorax unchanged Encourage incentive spirometry, aggressive pulmonary toileting 02/12: CT-guided right thoracentesis right pigtail catheter placement Continue IV Zosyn Continue IV fluconazole. Continue supplemental oxygen to keep oxygen saturation more than 92%. We will start the patient on IV Lasix 40 mg IV twice daily 02/17 continue IV Lasix. Will repeat a chest x-ray in a.m. Repeat chest x-ray personally reviewed by me showed mild improved aeration of the right lung compared to the prior study. Appreciate pulmonary recommendations. CT of the chest without contrast as ordered by pulmonology and reviewed by me showed a slight improvement in right pleural effusion. Some loculated air remaining in the right pleural effusion with a small caliber right chest tube present. Some compressive atelectasis and consolidation around the gastric pull-through which is also improved from February 09. No new adenopathy or new left effusion. Follow-up pulmonology recommendations. RESOLVED (4) Hypophosphatemia ICD Code: E83.39 - Other disorders of phosphorus metabolism Status: Resolved Plan: Continue monitor phosphorus levels. Now within normal range. (5) Esophageal anastomotic leak ICD Code: K91.89 - Other postprocedural complications and disorders of digestive system Status: Acute Plan: Management as per general surgery. As stated above the patient is status post EGD with clip/esophageal stent placement. Management as per general surgery. (6) Pleural effusion ICD Code: J90 - Pleural effusion, not elsewhere classified Plan: The patient status post chest tube which was removed on 02/08. Right pleural effusion for which a pigtail catheter was placed. I had consulted but no thoracentesis performed secondary to minimal fluid. Pleural effusion likely secondary to parapneumonic effusion. Continue IV antibiotics. Chest x-ray obtained on 02/10 showed small right apical pneumothorax . Patient underwent CT-guided thoracentesis pigtail catheter placement on 02/12. Repeat chest x-ray on 02/14 does not mention pneumothorax and it shows possible mild improvement in aeration of the right lung. Repeat chest x-ray as above. Follow-up pulmonary recommendations. INCENTIVE SPIROMETRY RIGHT SIDE CT TO BULB SUCTION NOW (7) Pneumothorax ICD Code: J93.9 - Pneumothorax, unspecified Plan: Seems to have resolved. The patient is status post chest tube pigtail catheter insertion. Pulmonology consulted. Continue chest tube. Patient status post chest CT of the chest as described above. Follow pulmonary recommendations. DC TO HOME TODAY Assessment and Plan (1) Adenocarcinoma of esophagus (2) Abdominal pain Switch pain medications around (3) Acute hypoxemic respiratory failure (4) Hypophosphatemia (5) Esophageal anastomotic leak (6) Pleural effusion (7) Pneumothorax Assessment and Plan DVT prophylaxis: Lovenox subcu resumed on 02/14 as per general surgery. Discharge Planning surgical clearance Problem Qualifiers (1) Abdominal pain: Qualified Codes: R10.9 - Unspecified abdominal pain (2) Pneumothorax: Qualified Codes: J95.811 - Postprocedural pneumothorax Tay Bates DO Feb 22, 2018 10:07
[2018-02-22] MEDS ORDERED: NEBULIZER1 MI1 (10:16)
[2018-02-22] MEDS ORDERED: guaiFEN-COD 200-20 MG/10ML LIQ PO (10:16)
[2018-02-22] MEDS ORDERED: ONDA4TAB7 PO (10:16)
[2018-02-22] MEDS ORDERED: GABA800T PO ×2 (10:16)
[2018-02-22] MEDS ORDERED: FURO1TAB60 PO (10:16)
[2018-02-22] MEDS ORDERED: PROT40TA PO (10:16)
[2018-02-22] MEDS ORDERED: AMOXSUS PO (10:16)
[2018-02-22] MEDS ORDERED: CHOL1CAP2 PO (10:16)
[2018-02-22] MEDS ORDERED: FLUC10S PO (10:16)
[2018-02-22] MEDS ORDERED: RANI150T PO (10:16)
[2018-02-22] MEDS ORDERED: Albuterol-Ipratropium Neb NEB (10:16)
[2018-02-22] MEDS ORDERED: LABE100T2 PO (10:16)
[2018-02-22 11:15] LABS: AUTOMATED NEUTROPHIL # 11.6 TH/MM3 (1.8-7.7); BASOPHIL # 0.1 TH/MM3 (0-0.2); BASOPHIL % 0.5 % (0.0-2.0); EOSINOPHIL # 0.2 TH/MM3 (0-0.4); EOSINOPHIL % 1.6 % (0.0-4.0); HEMATOCRIT 36.7 % (39.0-51.0); HEMOGLOBIN 11.9 GM/DL (13.0-17.0); LYMPH % 7.5 % (9.0-44.0); LYMPHOCYTE # 1.1 TH/MM3 (1.0-4.8); MEAN CELL VOLUME 82.3 FL (80.0-100.0); MEAN CORPUSCULAR HEMOGLOBIN 26.7 PG (27.0-34.0); MEAN CORPUSCULAR HGB CONC 32.4 % (32.0-36.0); MEAN PLATELET VOLUME 8.5 FL (7.0-11.0); MONO % 8.6 % (0.0-8.0); MONOCYTE # 1.2 TH/MM3 (0-0.9); NEUT % 81.8 % (16.0-70.0); PLATELET COUNT 498 TH/MM3 (150-450); RED BLOOD COUNT 4.46 MIL/MM3 (4.50-5.90); RED CELL DISTRIBUTION WIDTH 14.3 % (11.6-17.2); WHITE BLOOD COUNT 14.2 TH/MM3 (4.0-11.0)
[2018-02-22 11:35] LABS: BICARBONATE 27.3 MEQ/L (21.0-32.0); CALCIUM 9.4 MG/DL (8.5-10.1); CREATININE 1.05 MG/DL (0.60-1.30)
--- NOTE | 2018-02-22 12:03 | HHI.FF ---
Face to Face Verification Diagnosis: (1) Abdominal pain (2) Adenocarcinoma of esophagus Home Health Nursing Order: Wound care and dressing changes Instructions: BRAVO to RIGHT chest Tube feeding--- Vital 1.5 ---45 cc/hr continuous through J tube I have seen patient Nick Ryan on 02/22/18. My clinical findings support the need for the requested home health care services because: Limited ability to care for self I certify that my clinical findings support that this patient is homebound because: Post-op weakness Kimberly Louis/[employer] TAI Feb 22, 2018 12:03
[2018-02-22] MEDS ORDERED: [UNRECOGNIZED DRUG - CODE] (12:04)
[2018-02-22 12:16] LABS: BANDS 4 % (0-6); LYMPHOCYTES 4 % (9-44); METAMYELOCYTES 1 % (0-1); MONOCYTES 4 % (0-8); NEUTROPHIL # MANUAL DIFF 12.9 TH/MM3 (1.8-7.7); POLYS (SEG NEUTROPHILS) 86 % (16-70)
[2018-02-22] MEDS: ENOXAPARIN SODIUM 40 MG/0.4 ML SYRINGE SQ SCH (15:00)
--- NOTE | 2018-02-22 16:36 | HHI.DS ---
Discharge Summary Admission Date February 01, 2018 at 05:43 Admitting Diagnosis (1) Pleural effusion ICD Codes: J90 - Pleural effusion, not elsewhere classified (2) Adenocarcinoma of esophagus ICD Codes: C15.9 - Malignant neoplasm of esophagus, unspecified (3) Hypophosphatemia ICD Codes: E83.39 - Other disorders of phosphorus metabolism Status: Resolved (4) Esophageal anastomotic leak ICD Codes: K91.89 - Other postprocedural complications and disorders of digestive system Status: Acute (5) Acute hypoxemic respiratory failure ICD Codes: J96.01 - Acute respiratory failure with hypoxia CBC/BMP: 02/22/18 1049 02/22/18 1049 Significant Findings Laboratory Tests Test 02/20/18 13:10 02/21/18 04:00 02/22/18 10:49 White Blood Count 13.0 TH/MM3 (4.0-11.0) 14.2 TH/MM3 (4.0-11.0) Red Blood Count 4.22 MIL/MM3 (4.50-5.90) 4.46 MIL/MM3 (4.50-5.90) Hemoglobin 11.4 GM/DL (13.0-17.0) 11.9 GM/DL (13.0-17.0) Hematocrit 34.8 % (39.0-51.0) 36.7 % (39.0-51.0) Platelet Count 521 TH/MM3 (150-450) 498 TH/MM3 (150-450) Neutrophils (%) (Auto) 80.9 % (16.0-70.0) 81.8 % (16.0-70.0) Monocytes (%) (Auto) 8.3 % (0.0-8.0) 8.6 % (0.0-8.0) Neutrophils # (Auto) 10.5 TH/MM3 (1.8-7.7) 11.6 TH/MM3 (1.8-7.7) Monocytes # (Auto) 1.1 TH/MM3 (0-0.9) 1.2 TH/MM3 (0-0.9) Neutrophils % (Manual) 85 % (16-70) 86 % (16-70) Lymphocytes % 5 % (9-44) 4 % (9-44) Neutrophils # (Manual) 11.8 TH/MM3 (1.8-7.7) 12.9 TH/MM3 (1.8-7.7) Myelocytes 3 % (0-0) Platelet Estimate HIGH (NORMAL) HIGH (NORMAL) Blood Urea Nitrogen 26 MG/DL (7-18) 21 MG/DL (7-18) Albumin 2.5 GM/DL (3.4-5.0) Alkaline Phosphatase 148 U/L (45-117) Potassium Level 3.3 MEQ/L (3.5-5.1) Chloride Level 96 MEQ/L (98-107) 97 MEQ/L (98-107) Thyroid Stimulating Hormone 3rd Gen 4.240 uIU/ML (0.358-3.740) Mean Corpuscular Hemoglobin 26.7 PG (27.0-34.0) Lymphocytes (%) (Auto) 7.5 % (9.0-44.0) Random Glucose 71 MG/DL (74-106) Estimat Glomerular Filtration Rate 75 ML/MIN (>89) PE at Discharge RIGHT chest tube in place to suction Pt Condition on Discharge: Good Discharge Disposition: Disch w/ Home Health Serv Discharge Instructions DIET: Follow Instructions for: On Tube Feeding Additional Diet Instructions: Vital 1.5 ---45 cc/hr -- continous through J tube BRAVO to RIGHT chest Activities you can perform: Regular-No Restrictions Kimberly Louis/[facility] ARNP Feb 22, 2018 16:36
--- NOTE | 2018-02-22 17:54 | HHI.PR ---
Subjective Remarks 47 YOWm with oesophageal ca, pl eff, s/p pig tale pl fluid exudate, culture neg Fluid drainage decreased Weaned to RA Denies sob family at Feels better Chest tube hooked to BRAVO drain by Objective Vital Signs Vital Signs Date Time Temp Pulse Resp B/P (MAP) Pulse Ox O2 Delivery O2 Flow Rate FiO2 02/22/18 08:00 Room Air 02/22/18 07:15 93 02/22/18 06:01 16 02/22/18 06:00 77 02/22/18 04:00 98.3 79 15 133/79 (97) 96 02/22/18 04:00 79 02/22/18 04:00 16 02/22/18 02:00 79 02/22/18 00:00 98.8 80 16 120/80 (93) 97 02/22/18 00:00 80 02/21/18 22:00 85 02/21/18 20:14 96 21 02/21/18 20:00 83 02/21/18 20:00 98.7 83 17 124/87 (99) 96 02/21/18 19:00 96 Room Air 02/21/18 18:00 77 I/O 02/21/18 02/21/18 02/21/18 02/22/18 02/22/18 02/22/18 07:00 15:00 23:00 07:00 15:00 23:00 Intake Total 480 ml 250 ml 1203 ml 1079 ml Output Total 675 ml 0 ml 1200 ml Balance -195 ml 250 ml 1203 ml -121 ml Intake Oral 480 ml 720 ml 240 ml IV Total 250 ml 100 ml 200 ml Tube Feeding 383 ml 439 ml Tube Irrigant 200 ml Output Urine Total 675 ml 1200 ml Chest Tube Drainage Total 0 ml 0 ml 0 ml # Voids 4 # Bowel Movements 0 2 0 Result Diagram: 02/22/18 1049 02/22/18 1049 Objective Remarks GENERAL: MBMNWM,NAD SKIN: Warm and dry. HEAD: Normocephalic. EYES: No scleral icterus. No injection or drainage. NECK: Supple, trachea midline. No JVD or lymphadenopathy. CARDIOVASCULAR: Regular rate and rhythm without murmurs, gallops, or rubs. RESPIRATORY: Breath sounds equal bilaterally. No accessory muscle use. Right chest tube draining GASTROINTESTINAL: Abdomen soft, non-tender, nondistended Abd wound dressed. MUSCULOSKELETAL: No cyanosis, or edema. BACK: Nontender without obvious deformity. No CVA tenderness. A/P Assessment and Plan 1. Right pleural effusion, status post pigtail catheter placement. 2. Esophageal carcinoma, status post gastrectomy, esophagectomy. 3. Hypertension. PLAN: Cont Abx per ID Supplement 02 Chest tube to BRAVO drain Chest tube management per IR Tube feeding Dw Family DC plans for home Mele Weaver MD Feb 22, 2018 17:54
[2018-02-22] MEDS: IRON SUCROSE INJ 100 MG in SODIUM CHLORIDE 0.9% INJ 100 ML IV SCH (18:02)
[2018-02-22] MEDS: FLUCONAZOLE 100 MG PREMIX BAG 50 ML IV SCH (18:03)
== END 2018-02-22 20:40 | disposition home health service (06) | DRG 326 ==
LOC: HSDI 05:43 → N03B 16:49 → N07B 02-08 21:27 → HIMN 02-09 13:05
PROVIDERS: ADMIT Surgery; ATTEND Surgery
PROC: 0DBU0ZZ Excision of Omentum, Open Approach (ICD-10-PCS; 2018-02-01)
PROC: 3E0G3GC Introduction of Other Therapeutic Substance into Upper GI, Percutaneous Approach (ICD-10-PCS; 2018-02-01)
PROC: 8E0W0CZ Robotic Assisted Procedure of Trunk Region, Open Approach (ICD-10-PCS; 2018-02-01)
PROC: 0DHA3UZ Insertion of Feeding Device into Jejunum, Percutaneous Approach (ICD-10-PCS; 2018-02-01)
PROC: 0DB60ZZ Excision of Stomach, Open Approach (ICD-10-PCS; principal; 2018-02-01 07:44)
PROC: 0DB30ZZ Excision of Lower Esophagus, Open Approach (ICD-10-PCS; 2018-02-01 07:44)
PROC: 0W9930Z Drainage of Right Pleural Cavity with Drainage Device, Percutaneous Approach (ICD-10-PCS; 2018-02-09)
PROC: 0W9930Z Drainage of Right Pleural Cavity with Drainage Device, Percutaneous Approach (ICD-10-PCS; 2018-02-12)
PROC: 0D758DZ Dilation of Esophagus with Intraluminal Device, Via Natural or Artificial Opening Endoscopic (ICD-10-PCS; 2018-02-12)
DX: C16.0 Malignant neoplasm of cardia (principal); A41.9 Sepsis, unspecified organism; J96.01 Acute respiratory failure with hypoxia; J69.0 Pneumonitis due to inhalation of food and vomit; J90 Pleural effusion, not elsewhere classified; E46 Unspecified protein-calorie malnutrition; K91.89 Other postprocedural complications and disorders of digestive system; K22.10 Ulcer of esophagus without bleeding; J93.9 Pneumothorax, unspecified; J98.11 Atelectasis; K44.9 Diaphragmatic hernia without obstruction or gangrene; K22.70 Barrett's esophagus without dysplasia; K21.9 Gastro-esophageal reflux disease without esophagitis; E78.1 Pure hyperglyceridemia; I10 Essential (primary) hypertension; Y83.2 Surgical operation with anastomosis, bypass or graft as the cause of abnormal reaction of the patient, or of later complication, without mention of misadventure at the time of the procedure; R00.0 Tachycardia, unspecified; R94.5 Abnormal results of liver function studies; E83.39 Other disorders of phosphorus metabolism; Y95 Nosocomial condition; D64.9 Anemia, unspecified; K29.70 Gastritis, unspecified, without bleeding; K59.00 Constipation, unspecified
CPT/HCPCS: 32551; 32557; 36415; 36600; 71045; 71260; 71275; 74018; 74183; 74240; 74241; 76000; 76937; 80048; 80053; 82105; 82150; 82728; 82805; 82945; 82948; 83036; 83540; 83550; 83735; 84100; 84155; 84157; 84439; 84443; 84484; 85007; 85025; 85027; 85610; 86850; 86900; 86901; 86920; 87015; 87040; 87070; 87102; 87116; 87205; 87206; 87493; 87641; 88305; 88307; 88309; 88331; 89051; 93005; 94150; 94640; 94664; A9579; C1729; C1769; C9290; J0131; J0295; J0330; J0585; J0610; J0690; J1100; J1170; J1200; J1450; J1650; J1756; J1815; J1940; J2020; J2175; J2248; J2250; J2270; J2370; J2405; J2543; J2550; J2997; J3010; J3475; J3480; J7050; J7120; J7613; Q9963; Q9967